=== PATIENT | male | born 1935 | race Caucasian/White ===

== ENCOUNTER 2017-04-21 16:42 | Inpatient (IN) | payer OTHER ==
--- NOTE | 2017-04-21 17:43 | ED Physician Chart ---
ED Chief Complaint/HPI - Patient Information Date Seen:: 04/21/17 Time Seen:: 17:00 Chief Complaint:: elevated white blood cell count History of Present Illness:: Patient sent here for WBC count of 70,000. Allergies:: Allergies Allergy/AdvReac Type Severity Reaction Status Date / Time Penicillins [PCN] AdvReac Verified 04/21/17 17:09 Vitals:: Vital Signs - 8 hr 04/21/17 17:10 Temp 98.4 F HR 70 RR 16 BP 131/71 O2 Sat % 98 Historian:: Patient, EMS Review:: Nurse's Note Reviewed ED Review of Systems - Review of Systems General/Constitutional: No fever Skin: No skin lesions Head: No headache Eyes: No loss of vision ENT: No earache Neck: Swelling Cardio Vascular: No chest pain Pulmonary: No SOB GI: No nausea, No vomiting G/U: No dysuria Musculoskeletal: No bone or joint pain Endocrine: No polyuria Psychiatric: Other (dementia) Hematopoietic: No bruising Allergic/Immuno: No urticaria Neurological: No syncope, No focal symptoms ED Past Medical History - Past Medical History Past Medical History: HTN, Dyslipidemia, Dementia, Other (hyperlipidemia; angina ; cardiac arrhythmia; acute lymphoblastic leukemia; arthritis) Family History: None Social History: Non Smoker, No Alcohol, Care Facility Surgical History: other (hip replacement) Psychiatricy History: Dementia Family Medical History - Family Member Mother Hx Family Cancer: No Hx Family Stroke: No Hx Family Seizures: No Hx Family Dementia: No Hx Family AIDS: No Hx Family COPD: No Hx Family Psychiatric Problems: No ED Physical Exam - Physical Examination General/Constitutional: Alert Other Gen/Cons comments:: States the year is 2017 Head: Atraumatic Eyes: Lids, conjuctiva normal Skin: Nl inspection ENMT: External ears, nose nl Neck: No nuchal rigidity Respiratory: Nl effort/Exclusion, Clear to Auscultation Cardio Vascular: RRR GI: No tenderness/rebounding/guarding, No organomegaly : No CVA tenderness Extremities: No tenderness or effusion, Normal digits & nails Other Extremities comments:: Left pretibial area 2 out of 4 pitting edema, right 3.5/4 Neuro/Psych: No focal deficits Misc: No paraspinal tenderness ED Assessment - Assessment General Assessment: This patient probably has leukemia. I talked to Dr. Walter Peck and patient to be admitted. ED Septic Shock - . Is Septic Shock (SBP<90, OR Lactate>4 mmol\L) present?: No - <6hrs of presentation: Vital Signs: Vital Signs - 8 hr 04/21/17 17:10 Temp 98.4 F HR 70 RR 16 BP 131/71 O2 Sat % 98 ED Discharge Plan - Patient Disposition Admit/Discharge/Transfer: Acute Care w/in this hosp
[2017-04-21 22:13] LABS: URINE MICROSCOPIC INDICATED? YES; URINE SOURCE RANDOM
[2017-04-21 22:20] LABS: URINE BILIRUBIN NEGATIVE (NEGATIVE); URINE BLOOD SMALL (NEGATIVE); URINE GLUCOSE (UA) NEGATIVE (NEGATIVE); URINE KETONE NEGATIVE (NEGATIVE); URINE LEUKOCYTE ESTERASE SMALL (NEGATIVE); URINE NITRATE POSITIVE (NEGATIVE); URINE PROTEIN NEGATIVE (NEGATIVE); URINE UROBILINOGEN 0.2 E.U./dL (0.2 - 1.0)
[2017-04-21 22:24] LABS: HEMATOCRIT 36.1 % (41.0-60); MEAN CELL VOLUME 88.6 fl (80-99); MEAN CORPUSCULAR HEMOGLOBIN 29.4 pg (27.0-31.0); MEAN CORPUSCULAR HGB CONC 33.2 pg (28.0-36.0); MEAN PLATELET VOLUME 9.4 fl; PLATELET COUNT 269 Th/cmm (150-400); RED BLOOD COUNT 4.08 Mil/cmm (3.80-5.80); RED CELL DISTRIBUTION WIDTH 13.5 % (11.5-20.0)
[2017-04-21 22:28] LABS: ALB/GLOB RATIO 0.9 (1.0-1.8); ALBUMIN 2.9 gm/dL (4.2-5.5); ALKALINE PHOSPHATASE 47 U/L (34-104); ANION GAP 8.3 (7.0-16.0); BILIRUBIN,TOTAL 0.4 mg/dL (0.3-1.0); BUN - UREA NITROGEN 16 mg/dL (7-25); CALCIUM SERUM 8.2 mg/dL (8.6-10.3); CARBON DIOXIDE 26.9 mEq/L (21.0-31.0); CHLORIDE 103 mEq/L (98-107); CREATININE - SERUM 0.8 mg/dL (0.7-1.3); GLUCOSE 112 mg/dL (70-105); POTASSIUM SERUM 4.2 mEq/L (3.5-5.1); SGOT 21 U/L (13-39); SGPT/ALT 22 U/L (7-52); SODIUM SERUM 134 mEq/L (136-145); TOTAL PROTEIN,SERUM 6.3 gm/dL (6.0-8.3)
[2017-04-21 22:34] LABS: URINE CLARITY HAZY (CLEAR); URINE COLOR YELLOW
[2017-04-21 22:36] LABS: URINE BACTERIA MODERATE /hpf (NONE SEEN); URINE EPITHELIAL CELLS FEW /lpf (FEW)
[2017-04-21 22:39] LABS: WHITE BLOOD COUNT 75.4 Th/cmm (4.8-10.8)
[2017-04-21] MEDS ORDERED: Ciprofloxacin 400mg Premix PB 400 MG/200 ML BAG IV ONE ×2 (22:48→22:53)
[2017-04-22 00:27] LABS: BAND NEUTROPHILE 1 % (0-10); NEUTROPHILS 17 % (40-80); TOTAL CELLS COUNTED 100
[2017-04-22 00:28] LABS: BASOPHIL 1 % (0-3); EOSINOPHIL 2 % (0-5); MONOCYTE 3 % (2-10); PLATELET ESTIMATE ADEQUATE (NORMAL)
[2017-04-22 00:29] LABS: LYMPHOCYTE 78 % (20-50)
[2017-04-22] MEDS ORDERED: D5-0.9%NS 1,000 ML IV SCH (06:49)
[2017-04-23 10:36] LABS: BASOPHILE ABSOLUTE 0.4 Th/cumm (0-0.2); EOSINOPHILE ABSOLUTE 0.6 Th/cmm (0.1-0.4); HEMOGLOBIN 12.6 gm/dL (12-16); NEUTROPHILE ABSOLUTE 4.6 Th/cmm (1.8-8.0)
[2017-04-23 10:39] LABS: % LYMPHOCYTES 86.3 % (20.0-50.0); % MONOCYTES 5.2 % (2.0-10.0); HEMATOCRIT 39.1 % (41.0-60); LYMPHOCYTE ABSOLUTE 56.7 Th/cmm (1.5-3.0); MEAN CELL VOLUME 88.1 fl (80-99); MEAN CORPUSCULAR HEMOGLOBIN 28.3 pg (27.0-31.0); MEAN CORPUSCULAR HGB CONC 32.2 pg (28.0-36.0); MEAN PLATELET VOLUME 8.4 fl; MONOCYTE ABSOLUTE 3.4 Th/cmm (0.3-1.0); PLATELET COUNT 265 Th/cmm (150-400); RED BLOOD COUNT 4.43 Mil/cmm (3.80-5.80); RED CELL DISTRIBUTION WIDTH 13.8 % (11.5-20.0)
[2017-04-23 10:47] LABS: WHITE BLOOD COUNT 65.7 Th/cmm (4.8-10.8)
--- NOTE | 2017-04-23 10:56 | History and Physical ---
History of Present Illness - HPI Chief Complaint: Elevated WBCs HPI: 82 year old male who was transferred to [facility] for elevated WBC's at the nursing and was brought here for further evaluation and treatment. While in the ER patient, intial labwork revealed Na 134+ K 4.2 Bun/cr 16/0.8 glu 112 WBC's 75.4K H/H 12/36 plat 269K UA + nitraite, small leuko bacteria moderate WBC's 6-10 cells PMH includes UTI, dementia, muscle weakness, neuropathy, OA, hyperlipidemia, h/ o leukemia Vital Signs: Last Vital Signs Temp 97.4 F 04/23/17 05:00 Pulse 68 04/23/17 05:00 Resp 18 04/23/17 05:00 BP 136/64 04/23/17 05:00 Pulse Ox 96 04/23/17 05:00 Past Medical History Cardiovascular: Report: HTN, Hyperlipidemia Pulmonary: Report: No Pertinent Hx [employer]: Report: Dementia GI: Report: No Pertinent Hx Psych: Report: Other (Dementia) Musculoskeletal: Report: Osteoarthritis Rheumatologic: Report: No pertinent Hx Infectious Disease: Report: No Pertinent Hx Renal/: Report: No Pertinent Hx Endocrine: Report: No Pertinent Hx Dermatology: Report: No Pertinent Hx Other History: CLL - Past Surgical History Past Surgical History: No pertinent Hx Family Medical History - Family Member Mother History Unknown: Yes Hx Family Cancer: No Hx Family Stroke: No Hx Family Seizures: No Hx Family Dementia: No Hx Family AIDS: No Hx Family COPD: No Hx Family Psychiatric Problems: No Social History Smoke: No Alcohol: None Drugs: None Lives: Skilled Nursing - Medications Home Medications: Home Medication Medication Instructions Recorded Type Acetaminophen [Tylenol] 650 mg PO Q4HR PRN 04/21/17 History Carvedilol [Coreg] 3.125 mg PO BID 04/21/17 History Gabapentin [Neurontin*] 300 mg PO BID 04/21/17 History Lactulose 30 ml PO DAILY 04/21/17 History - Allergies Allergies/Adverse Reactions: Allergies Allergy/AdvReac Type Severity Reaction Status Date / Time Penicillins [PCN] AdvReac Verified 04/21/17 17:09 Review of Systems - Review of Systems Constitutional: Report: No Significant Eyes: Report: No Significant ENT: Report: No Significant Respiratory: Report: No Significant Cardiovascular: Report: No Significant Gastrointestinal: Report: No Significant Genitourinary: Report: No Significant Musculoskeletal: Report: No Significant Skin: Report: No Significant Neurological: Report: No Significant Physical Exam - Physical Exam HEENT: Report: Ears Nose Throat within normal limits, Pharnyx within normal limits Neck: Report: Within normal limits, Thyromegaly Cardiovascular Systems: Report: +s1/s2 noted, Regular, Rate and Rhythm Respiratory: Report: Breath Sounds are within normal limits Back: Report: Inspection of back is within normal limits. Extremities: Report: Non-tender to palpation. Skin: Report: Color of skin is within normal limits, Warm Neuro/Psych: Report: Mood affect is within normal limits, A+Ox3 - Lab Results All Lab Results last 24 hours: Laboratory Results - last 24 hr 04/21/17 04/23/17 21:38 10:25 WBC 65.7 H* RBC 4.43 Hgb 12.6 Hct 39.1 L MCV 88.1 MCH 28.3 MCHC Differential 32.2 RDW 13.8 Plt Count 265 MPV 8.4 Lymphocytes % 86.3 H Monocytes % 5.2 Smear Path Review YES Microbiology 04/21/17 23:05 - Preliminary Blood NO GROWTH AFTER 24 HOURS - Assessment Assessment: Leukocytosis hypocalcemia UTI HTN dyslipidemia Dementia - Plan Plan: Will order CT chest/abd/pelvis repeat CBC,CMP Consult ID Consult Hem/Onc continue home meds start patient on IV Levofloxacin
[2017-04-23 10:58] LABS: ANION GAP 6.5 (7.0-16.0); BUN - UREA NITROGEN 13 mg/dL (7-25); CALCIUM SERUM 8.3 mg/dL (8.6-10.3); CARBON DIOXIDE 30.4 mEq/L (21.0-31.0); CHLORIDE 103 mEq/L (98-107); GLUCOSE 200 mg/dL (70-105); POTASSIUM SERUM 3.9 mEq/L (3.5-5.1); SODIUM SERUM 136 mEq/L (136-145)
[2017-04-23] MEDS: Levofloxacin 500mg/100mL 500 MG/100 ML BAG IV SCH (12:51)
--- NOTE | 2017-04-23 13:27 | Diagnostic Imaging Report ---
CT Chest without IV contrast HISTORY: Leukemia COMPARISON: CT abdomen and pelvis the same day. Technique: Axial images were obtained from the base of the neck to the upper abdomen without IV contrast. Reconstructions were made. Total DLP 471, CTD I 11 Findings: Evaluation of mediastinum is limited due to lack of IV contrast. Few nonenlarged mediastinal lymph nodes are noted. Mild to moderate atherosclerotic vascular disease is noted. No pericardial effusion. Heart size is normal. Evaluation of pulmonary parenchyma demonstrates patchy infiltrates involving the inferior aspect of the right upper lobe and additional right lower lobe infiltrates. Few left basal infiltrates are also seen with minimal consolidative changes. Advanced degenerative changes of the spine are noted. Borderline prominent bilateral axillary lymph nodes are noted. IMPRESSION: Multifocal right lung infiltrates primarily involving the inferior aspect of the right upper lobe and right additional right lower lobe infiltrates. Additional few left basal infiltrates are also noted. Findings favor infectious process/pneumonia, however, given clinical history follow-up is recommended to ensure resolution and exclude neoplastic process Few nonenlarged mediastinal lymph nodes nonspecific. Borderline prominent bilateral axillary lymph nodes. Mild to moderate atherosclerotic vascular disease.
--- NOTE | 2017-04-23 13:34 | Diagnostic Imaging Report ---
CT abdomen and pelvis without intravenous contrast Indication: Leukemia Comparison: Chest CT performed the same day, Technique: Axial images were obtained from the lung bases to the bilateral proximal femurs without IV contrast. Coronal reconstructions were made. total DLP: 979, CTDI16.1 FINDINGS: Please refer to CT chest performed the same day for further details of the lung bases. There is elevation of the right hemidiaphragm. Evaluation of the solid organs is limited due to lack of IV contrast. Calcifications are seen along the gallbladder wall with gallstones also noted. No evidence of focal splenic lesions. Pancreatic gland atrophy is noted. No focal adrenal lesions. There is a 7 cm right inferior pole renal cyst and a 4 mm right upper pole renal cysts. No hydronephrosis. 3 mm nonobstructive right renal stone is noted. Mild nonspecific bilateral perinephric inflammatory changes are noted. A left hip arthroplasty with streak artifact limiting assessment of the pelvis. Bilateral small fat-containing hernias are noted. Distal fecal impaction is noted. Moderate stool is seen throughout the colon with a. Distended stomach is noted. There is minimal haziness of the mesenteric fat planes. 4 mm calcified right mesenteric lymph node are noted. No evidence of mesenteric lymphadenopathy. Borderline prominent retroperitoneal lymph nodes are noted. An infrarenal IVC filter is noted. Diffuse atherosclerotic vascular disease is noted. No evidence of free abdominal fluid or free abdominal air. There is mild generalized prominence the urinary bladder wall. Advanced degenerative changes of the spine are noted. Degenerative changes right hip joint also noted. IMPRESSION: Limited exam due to lack of IV contrast and streak artifact from patient's left hip arthroplasty. Diverticulosis without evidence of diverticulitis. Distal fecal impaction is also noted. Distended stomach. No evidence of small bowel obstruction. Gallstones and mild calcification of the gallbladder wall. Early porcelain gallbladder formation cannot be completely excluded. Mild nonspecific inflammatory changes of the mesentery. Borderline prominent multiple retroperitoneal lymph nodes are, nonspecific, however, given clinical history follow-up is suggested. 3 mm nonobstructing right renal stone. Right renal cysts. Mild prominence of the urinary bladder wall. Underlying inflammatory process cannot be excluded. Atherosclerotic vascular disease. IVC filter.
--- NOTE | 2017-04-23 15:03 | Consultation ---
Consult Note - Consult Note Service Date: 04/23/17 Referring Physician: Walter Peck Consult Note: PHYSICIAN Consultation Note: Date of Admission: 04/21/17 Purpose of Consultation: Chief Complaint: Patient SINCERE MURO was admitted to location Medical[facility]Surgical Unit I with LEUKOCYTOSIS,URINARY TRACT INFECTION,LEUKEMIA. History of Present Illness: 82 year old malw qith history of CLL, HTN, Dementia, angina brought from nursing facility for WBC count of 70,000. He was found to have UTI and levaquin was started. ID consult was called for increased WBC Count. Past Medical History: HTN, Dyslipidemia, Dementia, hyperlipidemia; angina; cardiac arrhythmia; Chronic lymphoblastic leukemia; arthritis. Allergies Allergy/AdvReac Type Severity Reaction Status Date / Time Penicillins [PCN] AdvReac Verified 04/21/17 17:09 Vital Signs Temp 97.0 F 04/23/17 12:00 Pulse 78 04/23/17 12:51 Resp 20 04/23/17 12:00 BP 129/61 04/23/17 12:51 Pulse Ox 96 04/23/17 12:00 Intake & Output 04/22/17 04/23/17 04/23/17 18:59 06:59 18:59 Weight (lbs) 110.677 kg 106.231 kg Other: # Voids 1 # Bowel Movements 0 Laboratory Results - last 24 hr 04/23/17 04/23/17 10:25 10:25 WBC 65.7 H* RBC 4.43 Hgb 12.6 Hct 39.1 L MCV 88.1 MCH 28.3 MCHC Differential 32.2 RDW 13.8 Plt Count 265 MPV 8.4 Lymphocytes % 86.3 H Monocytes % 5.2 Sodium 136 Potassium 3.9 Chloride 103 Carbon Dioxide 30.4 Anion Gap 6.5 L BUN 13 Creatinine 1.0 Est GFR ( Amer) TNP Est GFR (Non-Af Amer) TNP BUN/Creatinine Ratio 13.0 Glucose 200 H Calcium 8.3 L Home Medication Medication Instructions Recorded Type Acetaminophen [Tylenol] 650 mg PO Q4HR PRN 04/21/17 History Carvedilol [Coreg] 3.125 mg PO BID 04/21/17 History Gabapentin [Neurontin*] 300 mg PO BID 04/21/17 History Lactulose 30 ml PO DAILY 04/21/17 History Current Medications Generic Name Dose Route Start Last Admin Trade Name Freq PRN Reason Stop Dose Admin Acetaminophen 650 mg 04/23/17 10:14 Tylenol PO 06/22/17 10:13 Q4HR PRN Pain (Mild) Carvedilol 3.125 mg 04/23/17 10:45 04/23/17 12:51 Coreg PO 06/22/17 10:44 3.125 mg BID [facility]ERMIT Administration Gabapentin 300 mg 04/23/17 10:45 04/23/17 12:51 Neurontin PO 06/22/17 10:44 300 mg BID [facility]MIT Administration Dextrose/Sodium Chloride 1,000 mls @ 50 mls/hr 04/22/17 06:49 04/22/17 15:49 D5-0.9%Ns IV 06/21/17 06:48 50 mls/hr .Q20H KERMIT Administration Levofloxacin 500 mg in 100 mls @ 100 mls/hr 04/23/17 11:00 04/23/17 12:51 Levaquin Pb IV 06/22/17 10:59 100 mls/hr Q24HR KERMIT Administration Lactulose 20 gm 04/24/17 09:00 Cephulac PO 06/23/17 08:59 DAILY [facility] Lorazepam 1 mg 04/22/17 20:44 04/22/17 22:23 Ativan PO 06/21/17 20:43 1 mg Q6HR PRN Administration agitation and restlessness Protocol Risperidone 0.25 mg 04/23/17 17:00 Risperdal PO 06/22/17 16:59 BID [facility]ERMIT Protocol Review of Systems: A 12 point ROS was reviewed with the pertinent positive and negatives noted in the HPI. Social History Smoking Status Smoker, status unknown Drug Use No Alcohol Use No Family Medical History Family Medical History Start: 04/22/17 13: 54 Freq: ONCE Status: Active Document 04/22/17 14:30 DOROZCO (Rec: 04/22/17 14:30 DOROZCO [id number]) Family Medical History Mother History Unknown Yes Physical Exam: General: WN WD not in any acute distress. HEENT: Head normocephalic atraumatic moist pink tongue. Neck: supple, no JVD. Cardio: S1, S2 regular. Respiratory: vesicular breath sound. Abdominal: Soft NT ND BS present. Genital/Urinary: Extremities: NCCE. Neurological: AAOx3. Assessment: 1. UTI. 2. 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 3. CLL. 4. HTN. 5. Dyslipidemia. 6. Dementia. 7. Hyperlipidemia. 8. Angina. 9. Cardiac arrhythmia. Plan: Continue levaquin. Thank you Dr Peck for involving me in taking care of this patient. Signed, Cas Frias M.D. [id number]
--- NOTE | 2017-04-23 15:49 | Consultation ---
DATE OF CONSULTATION: 04/23/2017 HEMATOLOGY ONCOLOGY CONSULTATION REFERRING PHYSICIAN: Stepan Peck M.D. REASON FOR CONSULTATION: Leukocytosis. HISTORY OF PRESENT ILLNESS: The patient is in an 82-year-old male who was admitted because of markedly elevated white count more than 70,000 and change in mental status. The patient has baseline dementia history. His repeat white count remained elevated with mostly lymphocytes. Therefore, I was asked to evaluate. No reported history of bleeding. PAST MEDICAL HISTORY: Dyslipidemia, coronary artery disease, cardiac arrhythmia, arthritis, hypertension. SOCIAL HISTORY: Nonsmoker and nondrinker. PST SURGICAL HISTORY: Bilateral knee replacement. PHYSICAL EXAMINATION: GENERAL: The patient is awake. VITAL SIGNS: Afebrile, blood pressure 130/70, temp 98.4. NECK: No peripheral lymphadenopathy. CHEST: Clear. ABDOMEN: Soft. No organomegaly. EXTREMITIES: Hyperpigmentation on both ankles. NERVOUS SYSTEM: Moves 4 extremities. No focal deficits. LABORATORY DATA: White count 65.7, lymphocytes 86%, neutrophils 17%, hemoglobin 12.6, platelets 265. Creatinine 1. Liver functions normal. Urinalysis positive nitrite and elevated white count. ASSESSMENT: Leukocytosis with predominant lymphocytosis most likely chronic lymphocytic leukemia. We will obtain flow cytometry and uric acid and LDH. The patient will need FISH panel for CLL prognostic panel and also I need a bone marrow biopsy as an outpatient. His current hemoglobin and platelet count are stable and there is no need for intervention at this time. If the FISH prognostic panel indicates high risk or the CBC becomes unstable, then intervention with treatment will be required. Thank you, Dr. Peck, for the opportunity to participate in the care of this interesting case with you. JOB# [id number]
[2017-04-23 18:02] LABS: URIC ACID 4.9 mg/dL (4.4-7.6)
[2017-04-23] MEDS: Sodium Chloride 0.9% 1,000 ML IV SCH (18:16)
--- NOTE | 2017-04-23 23:06 | Consultation ---
DATE OF CONSULTATION: 04/23/2017 IDENTIFYING INFORMATION: The patient is an 82-year-old male. REASON FOR CONSULTATION: I was asked to see this patient who had been admitted to the services of Dr. Peck; however, he was aggressive, but then he was admitted to the medical floor because of leukocytosis. The patient was a poor historian. He was irritable and paranoid. He was hard to redirect, easily agitated, unable to participate in a meaningful conversation. The patient reported he had many children, but he has not seen them in years. He was rambling, unable to tell me his age, where he is, why he is here, believes he is in a nursing facility. He seems to be demented and confused. PAST PSYCHIATRIC HISTORY: Unable to tell me if he has any prior psychiatric treatment. When I asked about that, he said he knows what the psychiatrists do but would not tell me if he was seen by a psychiatrist. Denies prior suicide attempt; however, he is not a good historian. The patient is on Neurontin 300 mg twice a day and levofloxacin 500 mg once a day. He is on Ativan as needed. FAMILY AND SOCIAL HISTORY: The patient was unable to tell me what he did for living, ____ school affairs and substance abuse, or any family history: He lives in a nursing facility. MENTAL STATUS EXAMINATION: The patient is appropriately dressed, not well groomed. He was irritable, paranoid, uncooperative with formal mental status exam, so I was unable to test his memory, it was obvious he could not tell me his age, where he is, why he is here. His long and short term memory is poor part of it because of his resistance to questioning with his paranoia and psychosis. His insight and judgment is impaired. IMPRESSION: AXIS I: Psychosis, NOS, also rule out delirium secondary to his medical condition. PLAN: I would recommend to add a small dose of Risperdal and the patient may need to go to [facility] when medically cleared and if he starts acting out then he may need 1:1. Thank you very much for allowing me to participate in the care of this most interesting gentleman. JOB# [id number]
[2017-04-24 06:38] LABS: BASOPHILE ABSOLUTE 0.1 Th/cumm (0-0.2); EOSINOPHILE ABSOLUTE 0.8 Th/cmm (0.1-0.4); HEMATOCRIT 36.8 % (41.0-60); LYMPHOCYTE ABSOLUTE 58.2 Th/cmm (1.5-3.0); MEAN CELL VOLUME 87.9 fl (80-99); MEAN CORPUSCULAR HEMOGLOBIN 28.7 pg (27.0-31.0); MEAN CORPUSCULAR HGB CONC 32.6 pg (28.0-36.0); MEAN PLATELET VOLUME 9.3 fl; MONOCYTE ABSOLUTE 3.5 Th/cmm (0.3-1.0); NEUTROPHILE ABSOLUTE 6.3 Th/cmm (1.8-8.0); PLATELET COUNT 255 Th/cmm (150-400); RED BLOOD COUNT 4.19 Mil/cmm (3.80-5.80)
[2017-04-24 07:02] LABS: WHITE BLOOD COUNT 68.9 Th/cmm (4.8-10.8)
[2017-04-24 07:05] LABS: ANION GAP 8.5 (7.0-16.0); BUN - UREA NITROGEN 16 mg/dL (7-25); CALCIUM SERUM 8.3 mg/dL (8.6-10.3); CARBON DIOXIDE 29.8 mEq/L (21.0-31.0); CHLORIDE 105 mEq/L (98-107); POTASSIUM SERUM 4.3 mEq/L (3.5-5.1); SODIUM SERUM 139 mEq/L (136-145)
[2017-04-24 07:10] LABS: GLUCOSE 98 mg/dL (70-105)
--- NOTE | 2017-04-24 07:38 | General Progress Note ---
Subjective - Review of Systems Service Date: 04/24/17 Subjective: Patient was seen and examined. no acute distress. awake, alert, afebrile. Objective - Results Result Diagrams: 04/24/17 05:35 04/24/17 05:35 Recent Labs: Laboratory Last Values WBC 68.9 Th/cmm (4.8-10.8) H* 04/24/17 05:35 RBC 4.19 Mil/cmm (3.80-5.80) 04/24/17 05:35 Hgb 12.0 gm/dL (12-16) 04/24/17 05:35 Hct 36.8 % (41.0-60) L 04/24/17 05:35 MCV 87.9 fl (80-99) 04/24/17 05:35 MCH 28.7 pg (27.0-31.0) 04/24/17 05:35 MCHC Differential 32.6 pg (28.0-36.0) 04/24/17 05:35 RDW 14.0 % (11.5-20.0) 04/24/17 05:35 Plt Count 255 Th/cmm (150-400) 04/24/17 05:35 MPV 9.3 fl 04/24/17 05:35 Band Neutrophils % 1 % (0-10) 04/21/17 21:38 Lymphocytes % 86.3 % (20.0-50.0) H 04/23/17 10:25 Monocytes % 5.2 % (2.0-10.0) 04/23/17 10:25 Neutrophils (Manual) 17 % (40-80) L 04/21/17 21:38 Lymphocytes 78 % (20-50) H 04/21/17 21:38 Monocytes 3 % (2-10) 04/21/17 21:38 Eosinophils 2 % (0-5) 04/21/17 21:38 Basophils 1 % (0-3) 04/21/17 21:38 Platelet Estimate ADEQUATE (NORMAL) 04/21/17 21:38 Smear Path Review YES 04/21/17 21:38 Sodium 139 mEq/L (136-145) 04/24/17 05:35 Potassium 4.3 mEq/L (3.5-5.1) 04/24/17 05:35 Chloride 105 mEq/L (98-107) 04/24/17 05:35 Carbon Dioxide 29.8 mEq/L (21.0-31.0) 04/24/17 05:35 Anion Gap 8.5 (7.0-16.0) 04/24/17 05:35 BUN 16 mg/dL (7-25) 04/24/17 05:35 Creatinine 1.0 mg/dL (0.7-1.3) 04/24/17 05:35 Est GFR ( Amer) TNP 04/24/17 05:35 Est GFR (Non-Af Amer) TNP 04/24/17 05:35 BUN/Creatinine Ratio 16.0 04/24/17 05:35 Glucose 98 mg/dL (70-105) D 04/24/17 05:35 Whole Bld Lactic Acid 0.83 mmol/L (0.60-1.99) 04/21/17 21:38 Uric Acid 4.9 mg/dL (4.4-7.6) 04/23/17 15:06 Calcium 8.3 mg/dL (8.6-10.3) L 04/24/17 05:35 Total Bilirubin 0.4 mg/dL (0.3-1.0) 04/21/17 21:38 AST 21 U/L (13-39) 04/21/17 21:38 ALT 22 U/L (7-52) 04/21/17 21:38 Alkaline Phosphatase 47 U/L (34-104) 04/21/17 21:38 Lactate Dehydrogenase 152 U/L (140-271) 04/23/17 15:06 Total Protein 6.3 gm/dL (6.0-8.3) 04/21/17 21:38 Albumin 2.9 gm/dL (4.2-5.5) L 04/21/17 21:38 Globulin 3.4 gm/dL 04/21/17 21:38 Albumin/Globulin Ratio 0.9 (1.0-1.8) L 04/21/17 21:38 TSH 2.75 uIU/ml (0.34-5.60) 04/21/17 19:00 Urine Source RANDOM 04/21/17 22:07 Urine Color YELLOW 04/21/17 22:07 Urine Clarity HAZY (CLEAR) 04/21/17 22:07 Urine pH 6.0 (4.6 - 8.0) 04/21/17 22:07 Ur Specific Ione 1.015 (1.005-1.030) 04/21/17 22:07 Urine Protein NEGATIVE mg/dL (NEGATIVE) 04/21/17 22:07 Urine Glucose (UA) NEGATIVE mg/dL (NEGATIVE) 04/21/17 22:07 Urine Ketones NEGATIVE mg/dL (NEGATIVE) 04/21/17 22:07 Urine Blood SMALL (NEGATIVE) H 04/21/17 22:07 Urine Nitrate POSITIVE (NEGATIVE) H 04/21/17 22:07 Urine Bilirubin NEGATIVE (NEGATIVE) 04/21/17 22:07 Urine Urobilinogen 0.2 E.U./dL (0.2 - 1.0) 04/21/17 22:07 Ur Leukocyte Esterase SMALL (NEGATIVE) H 04/21/17 22:07 Urine RBC 2-5 /hpf (0-5) H 04/21/17 22:07 Urine WBC 6-10 /hpf (0-5) H 04/21/17 22:07 Ur Epithelial Cells FEW /lpf (FEW) 04/21/17 22:07 Urine Bacteria MODERATE /hpf (NONE SEEN) H 04/21/17 22:07 - Physical Exam Vitals and I&O: Vital Signs Temp 98.0 F 04/24/17 04:00 Pulse 84 04/24/17 04:00 Resp 19 04/24/17 04:00 BP 116/59 04/24/17 04:00 Pulse Ox 94 04/24/17 04:00 Intake & Output 04/23/17 04/24/17 04/24/17 18:59 06:59 18:59 Intake Total 600 1840 Balance 600 1840 Weight (lbs) 106.141 kg 104.326 kg Intake: Intake, IV Amount 1690 D5-0.9%Ns 1,000 ml @ 50 1000 mls/hr IV .Q20H [facility] Rx#: [id number] Levofloxacin 500mg/100mL 100 500 mg In 100 ml @ 100 mls/hr IV Q24HR KERMIT Rx#: [id number] Sodium Chloride 0.9% 1, 590 000 ml @ 50 mls/hr IV . Q20H KERMIT Rx#:[id number] Oral 600 150 Other: # Voids 2 2 # Bowel Movements 1 0 Active Medications: Current Medications Acetaminophen (Tylenol) 650 mg PO Q4HR PRN PRN Reason: Pain (Mild) Stop: 06/22/17 10:13 Carvedilol (Coreg) 3.125 mg PO BID [facility] Stop: 06/22/17 10:44 Last Admin: 04/23/17 18:16 Dose: 3.125 mg Gabapentin (Neurontin) 300 mg PO BID [facility] Stop: 06/22/17 10:44 Last Admin: 04/23/17 18:17 Dose: 300 mg Levofloxacin (Levaquin Pb) 500 mg in 100 mls @ 100 mls/hr IV Q24HR [facility] Stop: 06/22/17 10:59 Last Infusion: 04/23/17 19:41 Dose: Infused Sodium Chloride (Nacl 0.9%) 1,000 mls @ 50 mls/hr IV .Q20H [facility] Stop: 06/22/17 16:44 Last Infusion: 04/24/17 06:04 Dose: 50 mls/hr Lactulose (Cephulac) 20 gm PO DAILY [facility] Stop: 06/23/17 08:59 Lorazepam (Ativan) 1 mg PO Q6HR PRN; Protocol PRN Reason: agitation and restlessness Stop: 06/21/17 20:43 Last Admin: 04/22/17 22:23 Dose: 1 mg Risperidone (Risperdal) 0.25 mg PO BID [facility]ERMIT PRN Reason: Protocol Stop: 06/22/17 16:59 General: Alert HEENT: Atraumatic, PERRLA Neck: Supple Cardiovascular: Regular rate, Normal S1, Normal S2 Lungs: Clear to auscultation Abdomen: Bowel sounds, Soft Extremities: no Clubbing, no Cyanosis, no Edema Assessment/Plan - Assessment Assessment: Leukocytosis h/o CLL hypocalcemia UTI HTN dyslipidemia Dementia - Plan Plan: Will order CT chest/abd/pelvis repeat CBC,CMP Consult ID Consult Hem/Onc continue home meds continue IV Levofloxacin
[2017-04-24 08:41] LABS: EOSINOPHIL 2 % (0-5); LYMPHOCYTE 82 % (20-50); MONOCYTE 1 % (2-10); NEUTROPHILS 15 % (40-80); PLATELET ESTIMATE ADEQUATE (NORMAL); TOTAL CELLS COUNTED 100
[2017-04-24] MEDS: Lactulose 10 Gm/15 mL 30mL UDC PO SCH (10:07)
[2017-04-24] MEDS: Levofloxacin 500mg/100mL 500 MG/100 ML BAG IV SCH (11:26)
--- NOTE | 2017-04-24 13:19 | General Progress Note ---
Subjective - Review of Systems Service Date: 04/24/17 Objective - Results Result Diagrams: 04/24/17 05:35 04/24/17 05:35 Recent Labs: Laboratory Last Values WBC 68.9 Th/cmm (4.8-10.8) H* 04/24/17 05:35 RBC 4.19 Mil/cmm (3.80-5.80) 04/24/17 05:35 Hgb 12.0 gm/dL (12-16) 04/24/17 05:35 Hct 36.8 % (41.0-60) L 04/24/17 05:35 MCV 87.9 fl (80-99) 04/24/17 05:35 MCH 28.7 pg (27.0-31.0) 04/24/17 05:35 MCHC Differential 32.6 pg (28.0-36.0) 04/24/17 05:35 RDW 14.0 % (11.5-20.0) 04/24/17 05:35 Plt Count 255 Th/cmm (150-400) 04/24/17 05:35 MPV 9.3 fl 04/24/17 05:35 Band Neutrophils % 1 % (0-10) 04/21/17 21:38 Lymphocytes % 86.3 % (20.0-50.0) H 04/23/17 10:25 Monocytes % 5.2 % (2.0-10.0) 04/23/17 10:25 Neutrophils (Manual) 15 % (40-80) L 04/24/17 05:35 Lymphocytes 82 % (20-50) H 04/24/17 05:35 Monocytes 1 % (2-10) L 04/24/17 05:35 Eosinophils 2 % (0-5) 04/24/17 05:35 Basophils 1 % (0-3) 04/21/17 21:38 Platelet Estimate ADEQUATE (NORMAL) 04/24/17 05:35 Smear Path Review YES 04/21/17 21:38 Sodium 139 mEq/L (136-145) 04/24/17 05:35 Potassium 4.3 mEq/L (3.5-5.1) 04/24/17 05:35 Chloride 105 mEq/L (98-107) 04/24/17 05:35 Carbon Dioxide 29.8 mEq/L (21.0-31.0) 04/24/17 05:35 Anion Gap 8.5 (7.0-16.0) 04/24/17 05:35 BUN 16 mg/dL (7-25) 04/24/17 05:35 Creatinine 1.0 mg/dL (0.7-1.3) 04/24/17 05:35 Est GFR ( Amer) TNP 04/24/17 05:35 Est GFR (Non-Af Amer) TNP 04/24/17 05:35 BUN/Creatinine Ratio 16.0 04/24/17 05:35 Glucose 98 mg/dL (70-105) D 04/24/17 05:35 Whole Bld Lactic Acid 0.83 mmol/L (0.60-1.99) 04/21/17 21:38 Uric Acid 4.9 mg/dL (4.4-7.6) 04/23/17 15:06 Calcium 8.3 mg/dL (8.6-10.3) L 04/24/17 05:35 Total Bilirubin 0.4 mg/dL (0.3-1.0) 04/21/17 21:38 AST 21 U/L (13-39) 04/21/17 21:38 ALT 22 U/L (7-52) 04/21/17 21:38 Alkaline Phosphatase 47 U/L (34-104) 04/21/17 21:38 Lactate Dehydrogenase 152 U/L (140-271) 04/23/17 15:06 Total Protein 6.3 gm/dL (6.0-8.3) 04/21/17 21:38 Albumin 2.9 gm/dL (4.2-5.5) L 04/21/17 21:38 Globulin 3.4 gm/dL 04/21/17 21:38 Albumin/Globulin Ratio 0.9 (1.0-1.8) L 04/21/17 21:38 TSH 2.75 uIU/ml (0.34-5.60) 04/21/17 19:00 Urine Source RANDOM 04/21/17 22:07 Urine Color YELLOW 04/21/17 22:07 Urine Clarity HAZY (CLEAR) 04/21/17 22:07 Urine pH 6.0 (4.6 - 8.0) 04/21/17 22:07 Ur Specific [place] 1.015 (1.005-1.030) 04/21/17 22:07 Urine Protein NEGATIVE mg/dL (NEGATIVE) 04/21/17 22:07 Urine Glucose (UA) NEGATIVE mg/dL (NEGATIVE) 04/21/17 22:07 Urine Ketones NEGATIVE mg/dL (NEGATIVE) 04/21/17 22:07 Urine Blood SMALL (NEGATIVE) H 04/21/17 22:07 Urine Nitrate POSITIVE (NEGATIVE) H 04/21/17 22:07 Urine Bilirubin NEGATIVE (NEGATIVE) 04/21/17 22:07 Urine Urobilinogen 0.2 E.U./dL (0.2 - 1.0) 04/21/17 22:07 Ur Leukocyte Esterase SMALL (NEGATIVE) H 04/21/17 22:07 Urine RBC 2-5 /hpf (0-5) H 04/21/17 22:07 Urine WBC 6-10 /hpf (0-5) H 04/21/17 22:07 Ur Epithelial Cells FEW /lpf (FEW) 04/21/17 22:07 Urine Bacteria MODERATE /hpf (NONE SEEN) H 04/21/17 22:07 - Physical Exam Vitals and I&O: Vital Signs Temp 98.0 F 04/24/17 04:00 Pulse 71 04/24/17 10:07 Resp 19 04/24/17 04:00 BP 120/64 04/24/17 10:07 Pulse Ox 94 04/24/17 04:00 Intake & Output 04/23/17 04/24/17 04/24/17 18:59 06:59 18:59 Intake Total 600 1840 Balance 600 1840 Weight (lbs) 106.141 kg 104.326 kg Intake: Intake, IV Amount 1690 D5-0.9%Ns 1,000 ml @ 50 1000 mls/hr IV .Q20H [facility] Rx#: [id number] Levofloxacin 500mg/100mL 100 500 mg In 100 ml @ 100 mls/hr IV Q24HR [facility] Rx#: [id number] Sodium Chloride 0.9% 1, 590 000 ml @ 50 mls/hr IV . Q20H [facility] Rx#:[id number] Oral 600 150 Other: # Voids 2 2 # Bowel Movements 1 0 Active Medications: Current Medications Acetaminophen (Tylenol) 650 mg PO Q4HR PRN PRN Reason: Pain (Mild) Stop: 06/22/17 10:13 Carvedilol (Coreg) 3.125 mg PO BID [facility] Stop: 06/22/17 10:44 Last Admin: 04/24/17 10:07 Dose: 3.125 mg Gabapentin (Neurontin) 300 mg PO BID [facility] Stop: 06/22/17 10:44 Last Admin: 04/24/17 10:07 Dose: 300 mg Levofloxacin (Levaquin Pb) 500 mg in 100 mls @ 100 mls/hr IV Q24HR [facility] Stop: 06/22/17 10:59 Last Admin: 04/24/17 11:26 Dose: 100 mls/hr Sodium Chloride (Nacl 0.9%) 1,000 mls @ 50 mls/hr IV .Q20H [facility] Stop: 06/22/17 16:44 Last Infusion: 04/24/17 06:04 Dose: 50 mls/hr Lactulose (Cephulac) 20 gm PO DAILY [facility] Stop: 06/23/17 08:59 Last Admin: 04/24/17 10:07 Dose: 20 gm Lorazepam (Ativan) 1 mg PO Q6HR PRN; Protocol PRN Reason: agitation and restlessness Stop: 06/21/17 20:43 Last Admin: 04/22/17 22:23 Dose: 1 mg Risperidone (Risperdal) 0.25 mg PO BID [facility] PRN Reason: Protocol Stop: 06/22/17 16:59 General: Alert HEENT: Atraumatic, PERRLA Neck: Supple Cardiovascular: Regular rate, Normal S1, Normal S2 Lungs: Clear to auscultation Abdomen: Bowel sounds, Soft Extremities: no Clubbing, no Cyanosis, no Edema Assessment/Plan - Assessment Assessment: * Leukocytosis /Lymphocytosis likely CLL * Dementia Follow result of flowcytometry will need bone marrow biopsy as outpatient for FISH Panel uric acid and LDH are normal
[2017-04-24 14:30] LABS: A1C % 7.1 % (4.0-6.0)
[2017-04-24] MEDS: Sodium Chloride 0.9% 1,000 ML IV SCH ×2 (17:01→21:12)
--- NOTE | 2017-04-24 17:53 | Infectious Disease Prog Note ---
Infectious Disease Subjective - Review of Systems Service Date: 04/24/17 Events since last encounter: There is no new event, no fever. Subjective: Comfortable, no shortness of breath. Infectious Disease Objective - Results Result Diagrams: 04/26/17 05:20 04/26/17 05:20 Recent Labs: Laboratory Last Values WBC 68.9 Th/cmm (4.8-10.8) H* 04/24/17 05:35 RBC 4.19 Mil/cmm (3.80-5.80) 04/24/17 05:35 Hgb 12.0 gm/dL (12-16) 04/24/17 05:35 Hct 36.8 % (41.0-60) L 04/24/17 05:35 MCV 87.9 fl (80-99) 04/24/17 05:35 MCH 28.7 pg (27.0-31.0) 04/24/17 05:35 MCHC Differential 32.6 pg (28.0-36.0) 04/24/17 05:35 RDW 14.0 % (11.5-20.0) 04/24/17 05:35 Plt Count 255 Th/cmm (150-400) 04/24/17 05:35 MPV 9.3 fl 04/24/17 05:35 Band Neutrophils % 1 % (0-10) 04/21/17 21:38 Lymphocytes % 86.3 % (20.0-50.0) H 04/23/17 10:25 Monocytes % 5.2 % (2.0-10.0) 04/23/17 10:25 Neutrophils (Manual) 15 % (40-80) L 04/24/17 05:35 Lymphocytes 82 % (20-50) H 04/24/17 05:35 Monocytes 1 % (2-10) L 04/24/17 05:35 Eosinophils 2 % (0-5) 04/24/17 05:35 Basophils 1 % (0-3) 04/21/17 21:38 Platelet Estimate ADEQUATE (NORMAL) 04/24/17 05:35 Smear Path Review YES 04/21/17 21:38 Sodium 139 mEq/L (136-145) 04/24/17 05:35 Potassium 4.3 mEq/L (3.5-5.1) 04/24/17 05:35 Chloride 105 mEq/L (98-107) 04/24/17 05:35 Carbon Dioxide 29.8 mEq/L (21.0-31.0) 04/24/17 05:35 Anion Gap 8.5 (7.0-16.0) 04/24/17 05:35 BUN 16 mg/dL (7-25) 04/24/17 05:35 Creatinine 1.0 mg/dL (0.7-1.3) 04/24/17 05:35 Est GFR ( Amer) TNP 04/24/17 05:35 Est GFR (Non-Af Amer) TNP 04/24/17 05:35 BUN/Creatinine Ratio 16.0 04/24/17 05:35 Glucose 98 mg/dL (70-105) D 04/24/17 05:35 Hemoglobin A1c % 7.1 % (4.0-6.0) H 04/23/17 10:25 Whole Bld Lactic Acid 0.83 mmol/L (0.60-1.99) 04/21/17 21:38 Uric Acid 4.9 mg/dL (4.4-7.6) 04/23/17 15:06 Calcium 8.3 mg/dL (8.6-10.3) L 04/24/17 05:35 Total Bilirubin 0.4 mg/dL (0.3-1.0) 04/21/17 21:38 AST 21 U/L (13-39) 04/21/17 21:38 ALT 22 U/L (7-52) 04/21/17 21:38 Alkaline Phosphatase 47 U/L (34-104) 04/21/17 21:38 Lactate Dehydrogenase 152 U/L (140-271) 04/23/17 15:06 Total Protein 6.3 gm/dL (6.0-8.3) 04/21/17 21:38 Albumin 2.9 gm/dL (4.2-5.5) L 04/21/17 21:38 Globulin 3.4 gm/dL 04/21/17 21:38 Albumin/Globulin Ratio 0.9 (1.0-1.8) L 04/21/17 21:38 TSH 2.75 uIU/ml (0.34-5.60) 04/21/17 19:00 Urine Source RANDOM 04/21/17 22:07 Urine Color YELLOW 04/21/17 22:07 Urine Clarity HAZY (CLEAR) 04/21/17 22:07 Urine pH 6.0 (4.6 - 8.0) 04/21/17 22:07 Ur Specific [place] 1.015 (1.005-1.030) 04/21/17 22:07 Urine Protein NEGATIVE mg/dL (NEGATIVE) 04/21/17 22:07 Urine Glucose (UA) NEGATIVE mg/dL (NEGATIVE) 04/21/17 22:07 Urine Ketones NEGATIVE mg/dL (NEGATIVE) 04/21/17 22:07 Urine Blood SMALL (NEGATIVE) H 04/21/17 22:07 Urine Nitrate POSITIVE (NEGATIVE) H 04/21/17 22:07 Urine Bilirubin NEGATIVE (NEGATIVE) 04/21/17 22:07 Urine Urobilinogen 0.2 E.U./dL (0.2 - 1.0) 04/21/17 22:07 Ur Leukocyte Esterase SMALL (NEGATIVE) H 04/21/17 22:07 Urine RBC 2-5 /hpf (0-5) H 04/21/17 22:07 Urine WBC 6-10 /hpf (0-5) H 04/21/17 22:07 Ur Epithelial Cells FEW /lpf (FEW) 04/21/17 22:07 Urine Bacteria MODERATE /hpf (NONE SEEN) H 04/21/17 22:07 - Physical Exam Vitals and I&O: Vital Signs Temp 98 F 04/24/17 16:00 Pulse 75 04/24/17 17:00 Resp 18 04/24/17 16:00 BP 105/56 04/24/17 17:00 Pulse Ox 94 04/24/17 16:00 Intake & Output 04/23/17 04/24/17 04/24/17 18:59 06:59 18:59 Intake Total 600 1840 510 Balance 600 1840 510 Weight (lbs) 106.141 kg 104.326 kg Intake: Intake, IV Amount 1690 510 D5-0.9%Ns 1,000 ml @ 50 1000 mls/hr IV .Q20H [facility] Rx#: [id number] Levofloxacin 500mg/100mL 100 100 500 mg In 100 ml @ 100 mls/hr IV Q24HR [facility] Rx#: [id number] Sodium Chloride 0.9% 1, 590 410 000 ml @ 50 mls/hr IV . Q20H [facility] Rx#:[id number] Oral 600 150 Other: # Voids 2 2 # Bowel Movements 1 0 Active Medications: Current Medications Acetaminophen (Tylenol) 650 mg PO Q4HR PRN PRN Reason: Pain (Mild) Stop: 06/22/17 10:13 Carvedilol (Coreg) 3.125 mg PO BID [facility] Stop: 06/22/17 10:44 Last Admin: 04/24/17 17:00 Dose: 3.125 mg Gabapentin (Neurontin) 300 mg PO BID [facility] Stop: 06/22/17 10:44 Last Admin: 04/24/17 17:00 Dose: 300 mg Levofloxacin (Levaquin Pb) 500 mg in 100 mls @ 100 mls/hr IV Q24HR [facility] Stop: 06/22/17 10:59 Last Infusion: 04/24/17 17:25 Dose: Infused Sodium Chloride (Nacl 0.9%) 1,000 mls @ 50 mls/hr IV .Q20H [facility] Stop: 06/22/17 16:44 Last Admin: 04/24/17 17:01 Dose: 50 mls/hr Lactulose (Cephulac) 20 gm PO DAILY [facility] Stop: 06/23/17 08:59 Last Admin: 04/24/17 10:07 Dose: 20 gm Lorazepam (Ativan) 1 mg PO Q6HR PRN; Protocol PRN Reason: agitation and restlessness Stop: 06/21/17 20:43 Last Admin: 04/22/17 22:23 Dose: 1 mg Risperidone (Risperdal) 0.25 mg PO BID [facility] PRN Reason: Protocol Stop: 06/22/17 16:59 General: no acute distress, well developed, well nourished HEENT: atraumatic, normocephalic, PERRLA, EOMI, moist mucous membrane Neck: supple, no thyromegaly Cardiovascular: S1S2, regular Lungs: clear to auscultation bilaterally, clear to percussion Abdomen: soft, no tender, no distended Extremities: no cyanosis, no clubbing, no edema Neurological: awake, alert, oriented Infectious Disease Assmt/Plan - Assessment Assessment: Impression: 1. Leukocytosis, likely 2/2 CLL. 2. UTI. - Plan Plan: Continue the same meds.
[2017-04-24] MEDS: Budesonide 0.5 Mg/2 mL Ud HHN SCH (20:09)
[2017-04-24] MEDS: Albuterol/Ipratropium Neb 3 ML AERS HHN SCH ×2 (20:09→23:23)
[2017-04-25] MEDS: Albuterol/Ipratropium Neb 3 ML AERS HHN SCH ×8 (02:25→23:09)
--- NOTE | 2017-04-25 03:53 | Consultation ---
DATE OF CONSULTATION: 04/24/2017 PULMONARY CONSULTATION REASON FOR CONSULTATION: Shortness of breath, pneumonia, possibly bronchitis. HISTORY OF PRESENT ILLNESS: This is an 82-year-old gentleman, patient of Dr. Peck, lives in a convalescent home. The patient was brought up here because of increasing shortness of breath, etc. The patient basically was found to have fever because of persistent elevated white count associated with shortness of breath. Unfortunately, the patient is a very poor historian and has periods of confabulation. Exact detailed history from the patient is not available at this particular time. PAST MEDICAL HISTORY: He has a history of hypertension, questionable diabetes mellitus, etc. SOCIAL HISTORY: The patient lives in a convalescent home for a long time. Denies of any smoking. Denies of any other related issue except for possibly CLL. PHYSICAL EXAMINATION: GENERAL: This is an elderly looking gentlemen, very pleasant, awake, alert, oriented, not in any acute distress. VITAL SIGNS: The patient's recorded vital signs, temperature is 98, blood pressure 105/56, saturation 94 on 1 liter per minute. NECK: Veins not visualized. CHEST: Chest shows some occasional rhonchi with diminished air entry. HEART: Regular. ABDOMEN: Soft, nontender. EXTREMITIES: Show some chronic changes bilaterally. LABORATORY DATA: The patient's CT of the chest shows multifocal lung infiltrates, primarily involving inferior to the right upper lobe, right lower lobe as well as from the left basal area as well. The patient's other laboratory studies: Electrolytes are okay with BUN of 56, etc. ASSESSMENT: 1. The patient has possibly pneumonia, question aspiration. 2. 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 3. Suspect obstructive sleep apnea syndrome. PLANS AND SUGGESTIONS: We will give current antibiotic per ID, aggressive inhalation treatment. We will repeat and follow up chest x-ray, blood gases, etc. and go from there. JOB# [id number]
--- NOTE | 2017-04-25 06:26 | General Progress Note ---
Subjective - Review of Systems Service Date: 04/25/17 Subjective: Patient was seen and examined. no acute distress. awake, alert, afebrile but confused Objective - Results Result Diagrams: 04/24/17 05:35 04/24/17 05:35 Recent Labs: Laboratory Last Values WBC 68.9 Th/cmm (4.8-10.8) H* 04/24/17 05:35 RBC 4.19 Mil/cmm (3.80-5.80) 04/24/17 05:35 Hgb 12.0 gm/dL (12-16) 04/24/17 05:35 Hct 36.8 % (41.0-60) L 04/24/17 05:35 MCV 87.9 fl (80-99) 04/24/17 05:35 MCH 28.7 pg (27.0-31.0) 04/24/17 05:35 MCHC Differential 32.6 pg (28.0-36.0) 04/24/17 05:35 RDW 14.0 % (11.5-20.0) 04/24/17 05:35 Plt Count 255 Th/cmm (150-400) 04/24/17 05:35 MPV 9.3 fl 04/24/17 05:35 Band Neutrophils % 1 % (0-10) 04/21/17 21:38 Lymphocytes % 86.3 % (20.0-50.0) H 04/23/17 10:25 Monocytes % 5.2 % (2.0-10.0) 04/23/17 10:25 Neutrophils (Manual) 15 % (40-80) L 04/24/17 05:35 Lymphocytes 82 % (20-50) H 04/24/17 05:35 Monocytes 1 % (2-10) L 04/24/17 05:35 Eosinophils 2 % (0-5) 04/24/17 05:35 Basophils 1 % (0-3) 04/21/17 21:38 Platelet Estimate ADEQUATE (NORMAL) 04/24/17 05:35 Smear Path Review YES 04/21/17 21:38 Sodium 139 mEq/L (136-145) 04/24/17 05:35 Potassium 4.3 mEq/L (3.5-5.1) 04/24/17 05:35 Chloride 105 mEq/L (98-107) 04/24/17 05:35 Carbon Dioxide 29.8 mEq/L (21.0-31.0) 04/24/17 05:35 Anion Gap 8.5 (7.0-16.0) 04/24/17 05:35 BUN 16 mg/dL (7-25) 04/24/17 05:35 Creatinine 1.0 mg/dL (0.7-1.3) 04/24/17 05:35 Est GFR ( Amer) TNP 04/24/17 05:35 Est GFR (Non-Af Amer) TNP 04/24/17 05:35 BUN/Creatinine Ratio 16.0 04/24/17 05:35 Glucose 98 mg/dL (70-105) D 04/24/17 05:35 Hemoglobin A1c % 7.1 % (4.0-6.0) H 04/23/17 10:25 Whole Bld Lactic Acid 0.83 mmol/L (0.60-1.99) 04/21/17 21:38 Uric Acid 4.9 mg/dL (4.4-7.6) 04/23/17 15:06 Calcium 8.3 mg/dL (8.6-10.3) L 04/24/17 05:35 Total Bilirubin 0.4 mg/dL (0.3-1.0) 04/21/17 21:38 AST 21 U/L (13-39) 04/21/17 21:38 ALT 22 U/L (7-52) 04/21/17 21:38 Alkaline Phosphatase 47 U/L (34-104) 04/21/17 21:38 Lactate Dehydrogenase 152 U/L (140-271) 04/23/17 15:06 Total Protein 6.3 gm/dL (6.0-8.3) 04/21/17 21:38 Albumin 2.9 gm/dL (4.2-5.5) L 04/21/17 21:38 Globulin 3.4 gm/dL 04/21/17 21:38 Albumin/Globulin Ratio 0.9 (1.0-1.8) L 04/21/17 21:38 TSH 2.75 uIU/ml (0.34-5.60) 04/21/17 19:00 Urine Source RANDOM 04/21/17 22:07 Urine Color YELLOW 04/21/17 22:07 Urine Clarity HAZY (CLEAR) 04/21/17 22:07 Urine pH 6.0 (4.6 - 8.0) 04/21/17 22:07 Ur Specific [place] 1.015 (1.005-1.030) 04/21/17 22:07 Urine Protein NEGATIVE mg/dL (NEGATIVE) 04/21/17 22:07 Urine Glucose (UA) NEGATIVE mg/dL (NEGATIVE) 04/21/17 22:07 Urine Ketones NEGATIVE mg/dL (NEGATIVE) 04/21/17 22:07 Urine Blood SMALL (NEGATIVE) H 04/21/17 22:07 Urine Nitrate POSITIVE (NEGATIVE) H 04/21/17 22:07 Urine Bilirubin NEGATIVE (NEGATIVE) 04/21/17 22:07 Urine Urobilinogen 0.2 E.U./dL (0.2 - 1.0) 04/21/17 22:07 Ur Leukocyte Esterase SMALL (NEGATIVE) H 04/21/17 22:07 Urine RBC 2-5 /hpf (0-5) H 04/21/17 22:07 Urine WBC 6-10 /hpf (0-5) H 04/21/17 22:07 Ur Epithelial Cells FEW /lpf (FEW) 04/21/17 22:07 Urine Bacteria MODERATE /hpf (NONE SEEN) H 04/21/17 22:07 - Physical Exam Vitals and I&O: Vital Signs Temp 97.5 F 04/25/17 00:00 Pulse 85 04/25/17 02:28 Resp 18 04/25/17 02:28 BP 134/85 04/25/17 00:00 Pulse Ox 94 04/25/17 02:28 Intake & Output 04/24/17 04/24/17 04/25/17 06:59 18:59 06:59 Intake Total 1840 510 809.167 Balance 1840 510 809.167 Weight (lbs) 104.326 kg 104.326 kg Intake: Intake, IV Amount 1690 510 209.167 D5-0.9%Ns 1,000 ml @ 50 1000 mls/hr IV .Q20H [facility] Rx#: [id number] Levofloxacin 500mg/100mL 100 100 500 mg In 100 ml @ 100 mls/hr IV Q24HR [facility] Rx#: [id number] Sodium Chloride 0.9% 1, 590 410 209.167 000 ml @ 50 mls/hr IV . Q20H [facility] Rx#:[id number] Oral 150 600 Other: # Voids 2 3 # Bowel Movements 0 Active Medications: Current Medications Acetaminophen (Tylenol) 650 mg PO Q4HR PRN PRN Reason: Pain (Mild) Stop: 06/22/17 10:13 Albuterol/Ipratropium (Duoneb Neb) 3 ml HHN Q4HRT [facility] Stop: 06/23/17 18:59 Last Admin: 04/24/17 23:23 Dose: 3 ml Budesonide (Pulmicort) 0.5 mg HHN BIDRT [facility] Stop: 06/23/17 18:59 Last Admin: 04/24/17 20:09 Dose: 0.5 mg Carvedilol (Coreg) 3.125 mg PO BID [facility] Stop: 06/22/17 10:44 Last Admin: 04/24/17 17:00 Dose: 3.125 mg Gabapentin (Neurontin) 300 mg PO BID [facility] Stop: 06/22/17 10:44 Last Admin: 04/24/17 17:00 Dose: 300 mg Levofloxacin (Levaquin Pb) 500 mg in 100 mls @ 100 mls/hr IV Q24HR [facility] Stop: 06/22/17 10:59 Last Infusion: 04/24/17 17:25 Dose: Infused Sodium Chloride (Nacl 0.9%) 1,000 mls @ 50 mls/hr IV .Q20H [facility] Stop: 06/22/17 16:44 Last Admin: 04/24/17 21:12 Dose: 50 mls/hr Lactulose (Cephulac) 20 gm PO DAILY [facility] Stop: 06/23/17 08:59 Last Admin: 04/24/17 10:07 Dose: 20 gm Lorazepam (Ativan) 1 mg PO Q6HR PRN; Protocol PRN Reason: agitation and restlessness Stop: 06/21/17 20:43 Last Admin: 04/22/17 22:23 Dose: 1 mg Risperidone (Risperdal) 0.25 mg PO BID [facility] PRN Reason: Protocol Stop: 06/22/17 16:59 General: Alert HEENT: Atraumatic, PERRLA Neck: Supple Cardiovascular: Regular rate, Normal S1, Normal S2 Lungs: Clear to auscultation Abdomen: Bowel sounds, Soft Extremities: no Clubbing, no Cyanosis, no Edema Assessment/Plan - Assessment Assessment: Leukocytosis most likely d/t Chronic Lymphocytic Leukemia hypocalcemia 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
[2017-04-25 06:59] LABS: BASOPHILE ABSOLUTE 0.1 Th/cumm (0-0.2); EOSINOPHILE ABSOLUTE 0.7 Th/cmm (0.1-0.4); HEMATOCRIT 38.3 % (41.0-60); HEMOGLOBIN 12.4 gm/dL (12-16); LYMPHOCYTE ABSOLUTE 58.3 Th/cmm (1.5-3.0); MEAN CELL VOLUME 87.9 fl (80-99); MEAN CORPUSCULAR HEMOGLOBIN 28.4 pg (27.0-31.0); MEAN CORPUSCULAR HGB CONC 32.3 pg (28.0-36.0); MEAN PLATELET VOLUME 8.6 fl; MONOCYTE ABSOLUTE 4.9 Th/cmm (0.3-1.0); NEUTROPHILE ABSOLUTE 6.2 Th/cmm (1.8-8.0); PLATELET COUNT 260 Th/cmm (150-400); RED BLOOD COUNT 4.36 Mil/cmm (3.80-5.80); RED CELL DISTRIBUTION WIDTH 14.2 % (11.5-20.0)
[2017-04-25 07:17] LABS: WHITE BLOOD COUNT 70.2 Th/cmm (4.8-10.8)
[2017-04-25 07:20] LABS: ALB/GLOB RATIO 0.9 (1.0-1.8); ALBUMIN 2.9 gm/dL (4.2-5.5); ALKALINE PHOSPHATASE 55 U/L (34-104); ANION GAP 8.4 (7.0-16.0); BILIRUBIN,DIRECT 0.11 mg/dL (0.0-0.2); BILIRUBIN,TOTAL 0.4 mg/dL (0.3-1.0); BUN - UREA NITROGEN 16 mg/dL (7-25); CALCIUM SERUM 8.4 mg/dL (8.6-10.3); CARBON DIOXIDE 29.7 mEq/L (21.0-31.0); CHLORIDE 104 mEq/L (98-107); GLUCOSE 100 mg/dL (70-105); POTASSIUM SERUM 4.1 mEq/L (3.5-5.1); SGOT 20 U/L (13-39); SGPT/ALT 20 U/L (7-52); SODIUM SERUM 138 mEq/L (136-145); TOTAL PROTEIN,SERUM 6.1 gm/dL (6.0-8.3)
[2017-04-25 07:22] LABS: ALLEN TEST PASS; pH 7.44 (7.35-7.45)
[2017-04-25] MEDS: Budesonide 0.5 Mg/2 mL Ud HHN SCH ×3 (07:52→19:01)
[2017-04-25 08:20] LABS: EOSINOPHIL 2 % (0-5); LYMPHOCYTE 84 % (20-50); MONOCYTE 3 % (2-10); NEUTROPHILS 11 % (40-80); TOTAL CELLS COUNTED 100
[2017-04-25 08:21] LABS: ATYPICAL LYMPH 3 %; PLATELET ESTIMATE ADEQUATE (NORMAL)
--- NOTE | 2017-04-25 09:50 | Diagnostic Imaging Report ---
CHEST X-RAY: AP view INDICATION: Pneumonia COMPARISON: None FINDINGS: Chronic lung changes are seen with slight increased right midlung interstitial lung markings. No focal consolidation or effusions. Heart size is normal. Degenerative changes of the spine and shoulders are noted. IMPRESSION: Chronic lung changes with slight increased right midlung interstitial lung markings, likely also chronic. No focal consolidations identified.
[2017-04-25] MEDS: Lactulose 10 Gm/15 mL 30mL UDC PO SCH (10:30)
[2017-04-25] MEDS: Levofloxacin 500mg/100mL 500 MG/100 ML BAG IV SCH (11:11)
[2017-04-25] MEDS: Sodium Chloride 0.9% 1,000 ML IV SCH (17:14)
--- NOTE | 2017-04-25 23:53 | Progress Notes ---
DATE: 04/25/2017 PULMONARY PROGRESS NOTE PROBLEM LIST: 1. Abnormal chest x-ray and CAT scan. 2. Chronic lymphocytic leukemia. 3. Possibly psychological issues, etc. SYMPTOMS: Nil. The patient is still be getting forgetful, disoriented, not in acute distress, etc. PHYSICAL EXAMINATION: VITAL SIGNS: T-max 97.9 and blood pressure 103/63. NECK: Veins not visualized. CHEST: Shows diminished air entry with occasional rhonchi. HEART: Regular. ABDOMEN: Soft, nontender. LABORATORY DATA: The patient's white count is ____, not too much significant change in the trend, lymphocytes 84%. ABG shows pO2 of 68. Electrolytes are okay. The patient's chest x-ray done this morning shows chronic lung changes, right lung interstitial markings, but otherwise unremarkable. ASSESSMENT: The patient is clinically stable, a lot of problems ____ probably is chronic. The patient is relatively asymptomatic. Elevated white count, probably secondary to chronic lymphocytic leukemia. PLANS AND SUGGESTIONS: We will go ahead and continue current supportive care, empiric antibiotic, and watch for a few days and go from there. JOB# [id number]
[2017-04-26] MEDS ORDERED: Albuterol/Ipratropium Neb 3 ML AERS HHN ONE ×2 (02:44→07:04)
[2017-04-26 06:20] LABS: EOSINOPHILE ABSOLUTE 0.7 Th/cmm (0.1-0.4); HEMATOCRIT 36.1 % (41.0-60); HEMOGLOBIN 11.8 gm/dL (12-16); LYMPHOCYTE ABSOLUTE 56.7 Th/cmm (1.5-3.0); MEAN CELL VOLUME 88.5 fl (80-99); MEAN CORPUSCULAR HEMOGLOBIN 28.8 pg (27.0-31.0); MEAN CORPUSCULAR HGB CONC 32.6 pg (28.0-36.0); MEAN PLATELET VOLUME 9.3 fl; MONOCYTE ABSOLUTE 2.5 Th/cmm (0.3-1.0); NEUTROPHILE ABSOLUTE 6.9 Th/cmm (1.8-8.0); PLATELET COUNT 246 Th/cmm (150-400); RED BLOOD COUNT 4.08 Mil/cmm (3.80-5.80); RED CELL DISTRIBUTION WIDTH 13.8 % (11.5-20.0)
[2017-04-26 06:32] LABS: WHITE BLOOD COUNT 66.8 Th/cmm (4.8-10.8)
[2017-04-26 06:37] LABS: ALB/GLOB RATIO 0.8 (1.0-1.8); ALBUMIN 2.8 gm/dL (4.2-5.5); ALKALINE PHOSPHATASE 52 U/L (34-104); ANION GAP 7.2 (7.0-16.0); BILIRUBIN,TOTAL 0.3 mg/dL (0.3-1.0); BUN - UREA NITROGEN 15 mg/dL (7-25); CALCIUM SERUM 8.2 mg/dL (8.6-10.3); CARBON DIOXIDE 28.8 mEq/L (21.0-31.0); CHLORIDE 106 mEq/L (98-107); CREATININE - SERUM 0.9 mg/dL (0.7-1.3); GLUCOSE 107 mg/dL (70-105); SGOT 18 U/L (13-39); SGPT/ALT 19 U/L (7-52); SODIUM SERUM 138 mEq/L (136-145); TOTAL PROTEIN,SERUM 6.2 gm/dL (6.0-8.3)
[2017-04-26] MEDS ORDERED: Budesonide 0.5 Mg/2 mL Ud HHN ONE (07:04)
[2017-04-26] MEDS: Budesonide 0.5 Mg/2 mL Ud HHN SCH ×2 (07:49→20:36)
[2017-04-26] MEDS: Albuterol/Ipratropium Neb 3 ML AERS HHN SCH ×4 (07:50→20:36)
--- NOTE | 2017-04-26 08:07 | General Progress Note ---
Subjective - Review of Systems Service Date: 04/26/17 Subjective: Patient was seen and examined. no acute distress. awake, alert, afebrile but confused. Objective - Results Result Diagrams: 04/26/17 05:20 04/26/17 05:20 Recent Labs: Laboratory Last Values WBC 66.8 Th/cmm (4.8-10.8) H* 04/26/17 05:20 RBC 4.08 Mil/cmm (3.80-5.80) 04/26/17 05:20 Hgb 11.8 gm/dL (12-16) L 04/26/17 05:20 Hct 36.1 % (41.0-60) L 04/26/17 05:20 MCV 88.5 fl (80-99) 04/26/17 05:20 MCH 28.8 pg (27.0-31.0) 04/26/17 05:20 MCHC Differential 32.6 pg (28.0-36.0) 04/26/17 05:20 RDW 13.8 % (11.5-20.0) 04/26/17 05:20 Plt Count 246 Th/cmm (150-400) 04/26/17 05:20 MPV 9.3 fl 04/26/17 05:20 Band Neutrophils % 1 % (0-10) 04/21/17 21:38 Lymphocytes % 86.3 % (20.0-50.0) H 04/23/17 10:25 Monocytes % 5.2 % (2.0-10.0) 04/23/17 10:25 Neutrophils (Manual) 11 % (40-80) L 04/25/17 06:15 Lymphocytes 84 % (20-50) H 04/25/17 06:15 Monocytes 3 % (2-10) 04/25/17 06:15 Eosinophils 2 % (0-5) 04/25/17 06:15 Basophils 1 % (0-3) 04/21/17 21:38 Atypical Lymphocytes 3 % 04/25/17 06:15 Platelet Estimate ADEQUATE (NORMAL) 04/25/17 06:15 Smear Path Review YES 04/21/17 21:38 Specimen Source Arterial 04/25/17 07:15 Sample Site Right Radial 04/25/17 07:15 pH 7.44 (7.35-7.45) 04/25/17 07:15 pCO2 43.0 mmHg (35.0-45.0) 04/25/17 07:15 pO2 68.0 mmHg (80.0-100.0) L 04/25/17 07:15 HCO3 28.4 mEq/L (20.0-26.0) H 04/25/17 07:15 Base Excess 4.5 mEq/L (-3.0-3.0) H 04/25/17 07:15 O2 Saturation 94.0 % (92.0-100.0) 04/25/17 07:15 Juma Test PASS 04/25/17 07:15 Inspired O2 21 04/25/17 07:15 Critical Value PW 04/25/17 07:15 Sodium 138 mEq/L (136-145) 04/26/17 05:20 Potassium 4.0 mEq/L (3.5-5.1) 04/26/17 05:20 Chloride 106 mEq/L (98-107) 04/26/17 05:20 Carbon Dioxide 28.8 mEq/L (21.0-31.0) 04/26/17 05:20 Anion Gap 7.2 (7.0-16.0) 04/26/17 05:20 BUN 15 mg/dL (7-25) 04/26/17 05:20 Creatinine 0.9 mg/dL (0.7-1.3) 04/26/17 05:20 Est GFR ( Amer) TNP 04/26/17 05:20 Est GFR (Non-Af Amer) TNP 04/26/17 05:20 BUN/Creatinine Ratio 16.7 04/26/17 05:20 Glucose 107 mg/dL (70-105) H 04/26/17 05:20 Hemoglobin A1c % 7.1 % (4.0-6.0) H 04/23/17 10:25 Whole Bld Lactic Acid 0.83 mmol/L (0.60-1.99) 04/21/17 21:38 Uric Acid 4.9 mg/dL (4.4-7.6) 04/23/17 15:06 Calcium 8.2 mg/dL (8.6-10.3) L 04/26/17 05:20 Total Bilirubin 0.3 mg/dL (0.3-1.0) 04/26/17 05:20 Direct Bilirubin 0.11 mg/dL (0.0-0.2) 04/25/17 06:15 AST 18 U/L (13-39) 04/26/17 05:20 ALT 19 U/L (7-52) 04/26/17 05:20 Alkaline Phosphatase 52 U/L (34-104) 04/26/17 05:20 Lactate Dehydrogenase 152 U/L (140-271) 04/23/17 15:06 Total Protein 6.2 gm/dL (6.0-8.3) 04/26/17 05:20 Albumin 2.8 gm/dL (4.2-5.5) L 04/26/17 05:20 Globulin 3.4 gm/dL 04/26/17 05:20 Albumin/Globulin Ratio 0.8 (1.0-1.8) L 04/26/17 05:20 TSH 3.06 uIU/ml (0.34-5.60) 04/25/17 06:15 Urine Source RANDOM 04/21/17 22:07 Urine Color YELLOW 04/21/17 22:07 Urine Clarity HAZY (CLEAR) 04/21/17 22:07 Urine pH 6.0 (4.6 - 8.0) 04/21/17 22:07 Ur Specific [place] 1.015 (1.005-1.030) 04/21/17 22:07 Urine Protein NEGATIVE mg/dL (NEGATIVE) 04/21/17 22:07 Urine Glucose (UA) NEGATIVE mg/dL (NEGATIVE) 04/21/17 22:07 Urine Ketones NEGATIVE mg/dL (NEGATIVE) 04/21/17 22:07 Urine Blood SMALL (NEGATIVE) H 04/21/17 22:07 Urine Nitrate POSITIVE (NEGATIVE) H 04/21/17 22:07 Urine Bilirubin NEGATIVE (NEGATIVE) 04/21/17 22:07 Urine Urobilinogen 0.2 E.U./dL (0.2 - 1.0) 04/21/17 22:07 Ur Leukocyte Esterase SMALL (NEGATIVE) H 04/21/17 22:07 Urine RBC 2-5 /hpf (0-5) H 04/21/17 22:07 Urine WBC 6-10 /hpf (0-5) H 04/21/17 22:07 Ur Epithelial Cells FEW /lpf (FEW) 04/21/17 22:07 Urine Bacteria MODERATE /hpf (NONE SEEN) H 04/21/17 22:07 - Physical Exam Vitals and I&O: Vital Signs Temp 98.2 F 04/25/17 20:00 Pulse 95 04/26/17 03:24 Resp 20 04/26/17 03:24 BP 109/67 04/25/17 20:00 Pulse Ox 96 04/26/17 03:24 Intake & Output 04/25/17 04/26/17 04/26/17 18:59 06:59 18:59 Intake Total 1000 Balance 1000 Intake: Intake, IV Amount 1000 Sodium Chloride 0.9% 1, 1000 000 ml @ 50 mls/hr IV . Q20H [facility] Rx#:[id number] Active Medications: Current Medications Acetaminophen (Tylenol) 650 mg PO Q4HR PRN PRN Reason: Pain (Mild) Stop: 06/22/17 10:13 Albuterol/Ipratropium (Duoneb Neb) 3 ml HHN Q4HRT [facility] Stop: 06/23/17 18:59 Last Admin: 04/26/17 07:50 Dose: 3 ml Budesonide (Pulmicort) 0.5 mg HHN BIDRT [facility] Stop: 06/23/17 18:59 Last Admin: 04/26/17 07:49 Dose: 0.5 mg Carvedilol (Coreg) 3.125 mg PO BID [facility] Stop: 06/22/17 10:44 Last Admin: 04/25/17 17:09 Dose: Not Given Gabapentin (Neurontin) 300 mg PO BID [facility] Stop: 06/22/17 10:44 Last Admin: 04/25/17 17:28 Dose: 300 mg Levofloxacin (Levaquin Pb) 500 mg in 100 mls @ 100 mls/hr IV Q24HR [facility] Stop: 06/22/17 10:59 Last Admin: 04/25/17 11:11 Dose: 100 mls/hr Sodium Chloride (Nacl 0.9%) 1,000 mls @ 50 mls/hr IV .Q20H [facility] Stop: 06/22/17 16:44 Last Admin: 04/25/17 17:14 Dose: 50 mls/hr Lactulose (Cephulac) 20 gm PO DAILY [facility] Stop: 06/23/17 08:59 Last Admin: 04/25/17 10:30 Dose: 20 gm Lorazepam (Ativan) 1 mg PO Q6HR PRN; Protocol PRN Reason: agitation and restlessness Stop: 06/21/17 20:43 Last Admin: 04/25/17 17:48 Dose: 1 mg Risperidone (Risperdal) 0.25 mg PO BID [facility] PRN Reason: Protocol Stop: 06/22/17 16:59 General: Alert HEENT: Atraumatic, PERRLA Neck: Supple Cardiovascular: Regular rate, Normal S1, Normal S2 Lungs: Clear to auscultation Abdomen: Bowel sounds, Soft Extremities: no Clubbing, no Cyanosis, no Edema Assessment/Plan - Assessment Assessment: Leukocytosis most likely d/t Chronic Lymphocytic Leukemia hypocalcemia UTI +Morganella organism on Levofloxacin IV HTN stable dyslipidemia stable Dementia right middle interstitial infiltrate. --- on levofloxacin IV, breathing treatments consider discharge back to SNF. - Plan Plan: continue current treatment.
[2017-04-26] MEDS: Lactulose 10 Gm/15 mL 30mL UDC PO SCH (08:43)
--- NOTE | 2017-04-26 10:02 | General Progress Note ---
Subjective - Review of Systems Service Date: 04/26/17 Objective - Results Result Diagrams: 04/26/17 05:20 04/26/17 05:20 Recent Labs: Laboratory Last Values WBC 66.8 Th/cmm (4.8-10.8) H* 04/26/17 05:20 RBC 4.08 Mil/cmm (3.80-5.80) 04/26/17 05:20 Hgb 11.8 gm/dL (12-16) L 04/26/17 05:20 Hct 36.1 % (41.0-60) L 04/26/17 05:20 MCV 88.5 fl (80-99) 04/26/17 05:20 MCH 28.8 pg (27.0-31.0) 04/26/17 05:20 MCHC Differential 32.6 pg (28.0-36.0) 04/26/17 05:20 RDW 13.8 % (11.5-20.0) 04/26/17 05:20 Plt Count 246 Th/cmm (150-400) 04/26/17 05:20 MPV 9.3 fl 04/26/17 05:20 Band Neutrophils % 1 % (0-10) 04/21/17 21:38 Lymphocytes % 86.3 % (20.0-50.0) H 04/23/17 10:25 Monocytes % 5.2 % (2.0-10.0) 04/23/17 10:25 Neutrophils (Manual) 11 % (40-80) L 04/25/17 06:15 Lymphocytes 84 % (20-50) H 04/25/17 06:15 Monocytes 3 % (2-10) 04/25/17 06:15 Eosinophils 2 % (0-5) 04/25/17 06:15 Basophils 1 % (0-3) 04/21/17 21:38 Atypical Lymphocytes 3 % 04/25/17 06:15 Platelet Estimate ADEQUATE (NORMAL) 04/25/17 06:15 Smear Path Review YES 04/21/17 21:38 Specimen Source Arterial 04/25/17 07:15 Sample Site Right Radial 04/25/17 07:15 pH 7.44 (7.35-7.45) 04/25/17 07:15 pCO2 43.0 mmHg (35.0-45.0) 04/25/17 07:15 pO2 68.0 mmHg (80.0-100.0) L 04/25/17 07:15 HCO3 28.4 mEq/L (20.0-26.0) H 04/25/17 07:15 Base Excess 4.5 mEq/L (-3.0-3.0) H 04/25/17 07:15 O2 Saturation 94.0 % (92.0-100.0) 04/25/17 07:15 Juma Test PASS 04/25/17 07:15 Inspired O2 21 04/25/17 07:15 Critical Value PW 04/25/17 07:15 Sodium 138 mEq/L (136-145) 04/26/17 05:20 Potassium 4.0 mEq/L (3.5-5.1) 04/26/17 05:20 Chloride 106 mEq/L (98-107) 04/26/17 05:20 Carbon Dioxide 28.8 mEq/L (21.0-31.0) 04/26/17 05:20 Anion Gap 7.2 (7.0-16.0) 04/26/17 05:20 BUN 15 mg/dL (7-25) 04/26/17 05:20 Creatinine 0.9 mg/dL (0.7-1.3) 04/26/17 05:20 Est GFR ( Amer) TNP 04/26/17 05:20 Est GFR (Non-Af Amer) TNP 04/26/17 05:20 BUN/Creatinine Ratio 16.7 04/26/17 05:20 Glucose 107 mg/dL (70-105) H 04/26/17 05:20 Hemoglobin A1c % 7.1 % (4.0-6.0) H 04/23/17 10:25 Whole Bld Lactic Acid 0.83 mmol/L (0.60-1.99) 04/21/17 21:38 Uric Acid 4.9 mg/dL (4.4-7.6) 04/23/17 15:06 Calcium 8.2 mg/dL (8.6-10.3) L 04/26/17 05:20 Total Bilirubin 0.3 mg/dL (0.3-1.0) 04/26/17 05:20 Direct Bilirubin 0.11 mg/dL (0.0-0.2) 04/25/17 06:15 AST 18 U/L (13-39) 04/26/17 05:20 ALT 19 U/L (7-52) 04/26/17 05:20 Alkaline Phosphatase 52 U/L (34-104) 04/26/17 05:20 Lactate Dehydrogenase 152 U/L (140-271) 04/23/17 15:06 Total Protein 6.2 gm/dL (6.0-8.3) 04/26/17 05:20 Albumin 2.8 gm/dL (4.2-5.5) L 04/26/17 05:20 Globulin 3.4 gm/dL 04/26/17 05:20 Albumin/Globulin Ratio 0.8 (1.0-1.8) L 04/26/17 05:20 TSH 3.06 uIU/ml (0.34-5.60) 04/25/17 06:15 Urine Source RANDOM 04/21/17 22:07 Urine Color YELLOW 04/21/17 22:07 Urine Clarity HAZY (CLEAR) 04/21/17 22:07 Urine pH 6.0 (4.6 - 8.0) 04/21/17 22:07 Ur Specific [place] 1.015 (1.005-1.030) 04/21/17 22:07 Urine Protein NEGATIVE mg/dL (NEGATIVE) 04/21/17 22:07 Urine Glucose (UA) NEGATIVE mg/dL (NEGATIVE) 04/21/17 22:07 Urine Ketones NEGATIVE mg/dL (NEGATIVE) 04/21/17 22:07 Urine Blood SMALL (NEGATIVE) H 04/21/17 22:07 Urine Nitrate POSITIVE (NEGATIVE) H 04/21/17 22:07 Urine Bilirubin NEGATIVE (NEGATIVE) 04/21/17 22:07 Urine Urobilinogen 0.2 E.U./dL (0.2 - 1.0) 04/21/17 22:07 Ur Leukocyte Esterase SMALL (NEGATIVE) H 04/21/17 22:07 Urine RBC 2-5 /hpf (0-5) H 04/21/17 22:07 Urine WBC 6-10 /hpf (0-5) H 04/21/17 22:07 Ur Epithelial Cells FEW /lpf (FEW) 04/21/17 22:07 Urine Bacteria MODERATE /hpf (NONE SEEN) H 04/21/17 22:07 - Physical Exam Vitals and I&O: Vital Signs Temp 98.4 F 04/26/17 04:00 Pulse 70 04/26/17 08:43 Resp 19 04/26/17 04:00 BP 124/69 04/26/17 08:43 Pulse Ox 96 04/26/17 03:24 Intake & Output 04/25/17 04/26/17 04/26/17 18:59 06:59 18:59 Intake Total 1000 100 Balance 1000 100 Weight (lbs) 105.687 kg Intake: Intake, IV Amount 1000 Sodium Chloride 0.9% 1, 1000 000 ml @ 50 mls/hr IV . Q20H [facility] Rx#:[id number] Oral 100 Other: # Voids 3 Active Medications: Current Medications Acetaminophen (Tylenol) 650 mg PO Q4HR PRN PRN Reason: Pain (Mild) Stop: 06/22/17 10:13 Albuterol/Ipratropium (Duoneb Neb) 3 ml HHN Q4HRT [facility] Stop: 06/23/17 18:59 Last Admin: 04/26/17 07:50 Dose: 3 ml Budesonide (Pulmicort) 0.5 mg HHN BIDRT [facility] Stop: 06/23/17 18:59 Last Admin: 04/26/17 07:49 Dose: 0.5 mg Carvedilol (Coreg) 3.125 mg PO BID [facility] Stop: 06/22/17 10:44 Last Admin: 04/26/17 08:43 Dose: 3.125 mg Gabapentin (Neurontin) 300 mg PO BID [facility] Stop: 06/22/17 10:44 Last Admin: 04/26/17 08:43 Dose: 300 mg Levofloxacin (Levaquin Pb) 500 mg in 100 mls @ 100 mls/hr IV Q24HR [facility] Stop: 06/22/17 10:59 Last Admin: 04/25/17 11:11 Dose: 100 mls/hr Sodium Chloride (Nacl 0.9%) 1,000 mls @ 50 mls/hr IV .Q20H [facility] Stop: 06/22/17 16:44 Last Admin: 04/25/17 17:14 Dose: 50 mls/hr Lactulose (Cephulac) 20 gm PO DAILY [facility] Stop: 06/23/17 08:59 Last Admin: 04/26/17 08:43 Dose: 20 gm Lorazepam (Ativan) 1 mg PO Q6HR PRN; Protocol PRN Reason: agitation and restlessness Stop: 06/21/17 20:43 Last Admin: 04/25/17 17:48 Dose: 1 mg Risperidone (Risperdal) 0.25 mg PO BID [facility] PRN Reason: Protocol Stop: 06/22/17 16:59 General: Alert HEENT: Atraumatic, PERRLA Neck: Supple Cardiovascular: Regular rate, Normal S1, Normal S2 Lungs: Clear to auscultation Abdomen: Bowel sounds, Soft Extremities: no Clubbing, no Cyanosis, no Edema Assessment/Plan - Assessment Assessment: * Leukocytosis /Lymphocytosis likely CLL * Dementia Follow result of flowcytometry will need bone marrow biopsy as outpatient for FISH Panel uric acid and LDH are normal
[2017-04-26] MEDS: Levofloxacin 500mg/100mL 500 MG/100 ML BAG IV SCH (11:30)
--- NOTE | 2017-04-26 11:38 | Infectious Disease Prog Note ---
Infectious Disease Subjective - Review of Systems Service Date: 04/26/17 Subjective: Comfortable, no shortness of breath. Infectious Disease Objective - Results Result Diagrams: 04/26/17 05:20 04/26/17 05:20 Recent Labs: Laboratory Last Values WBC 66.8 Th/cmm (4.8-10.8) H* 04/26/17 05:20 RBC 4.08 Mil/cmm (3.80-5.80) 04/26/17 05:20 Hgb 11.8 gm/dL (12-16) L 04/26/17 05:20 Hct 36.1 % (41.0-60) L 04/26/17 05:20 MCV 88.5 fl (80-99) 04/26/17 05:20 MCH 28.8 pg (27.0-31.0) 04/26/17 05:20 MCHC Differential 32.6 pg (28.0-36.0) 04/26/17 05:20 RDW 13.8 % (11.5-20.0) 04/26/17 05:20 Plt Count 246 Th/cmm (150-400) 04/26/17 05:20 MPV 9.3 fl 04/26/17 05:20 Band Neutrophils % 1 % (0-10) 04/21/17 21:38 Lymphocytes % 86.3 % (20.0-50.0) H 04/23/17 10:25 Monocytes % 5.2 % (2.0-10.0) 04/23/17 10:25 Neutrophils (Manual) 11 % (40-80) L 04/25/17 06:15 Lymphocytes 84 % (20-50) H 04/25/17 06:15 Monocytes 3 % (2-10) 04/25/17 06:15 Eosinophils 2 % (0-5) 04/25/17 06:15 Basophils 1 % (0-3) 04/21/17 21:38 Atypical Lymphocytes 3 % 04/25/17 06:15 Platelet Estimate ADEQUATE (NORMAL) 04/25/17 06:15 Smear Path Review YES 04/21/17 21:38 Specimen Source Arterial 04/25/17 07:15 Sample Site Right Radial 04/25/17 07:15 pH 7.44 (7.35-7.45) 04/25/17 07:15 pCO2 43.0 mmHg (35.0-45.0) 04/25/17 07:15 pO2 68.0 mmHg (80.0-100.0) L 04/25/17 07:15 HCO3 28.4 mEq/L (20.0-26.0) H 04/25/17 07:15 Base Excess 4.5 mEq/L (-3.0-3.0) H 04/25/17 07:15 O2 Saturation 94.0 % (92.0-100.0) 04/25/17 07:15 Juma Test PASS 04/25/17 07:15 Inspired O2 21 04/25/17 07:15 Critical Value PW 04/25/17 07:15 Sodium 138 mEq/L (136-145) 04/26/17 05:20 Potassium 4.0 mEq/L (3.5-5.1) 04/26/17 05:20 Chloride 106 mEq/L (98-107) 04/26/17 05:20 Carbon Dioxide 28.8 mEq/L (21.0-31.0) 04/26/17 05:20 Anion Gap 7.2 (7.0-16.0) 04/26/17 05:20 BUN 15 mg/dL (7-25) 04/26/17 05:20 Creatinine 0.9 mg/dL (0.7-1.3) 04/26/17 05:20 Est GFR ( Amer) [place] 04/26/17 05:20 Est GFR (Non-Af Amer) [facility] 04/26/17 05:20 BUN/Creatinine Ratio 16.7 04/26/17 05:20 Glucose 107 mg/dL (70-105) H 04/26/17 05:20 Hemoglobin A1c % 7.1 % (4.0-6.0) H 04/23/17 10:25 Whole Bld Lactic Acid 0.83 mmol/L (0.60-1.99) 04/21/17 21:38 Uric Acid 4.9 mg/dL (4.4-7.6) 04/23/17 15:06 Calcium 8.2 mg/dL (8.6-10.3) L 04/26/17 05:20 Total Bilirubin 0.3 mg/dL (0.3-1.0) 04/26/17 05:20 Direct Bilirubin 0.11 mg/dL (0.0-0.2) 04/25/17 06:15 AST 18 U/L (13-39) 04/26/17 05:20 ALT 19 U/L (7-52) 04/26/17 05:20 Alkaline Phosphatase 52 U/L (34-104) 04/26/17 05:20 Lactate Dehydrogenase 152 U/L (140-271) 04/23/17 15:06 Total Protein 6.2 gm/dL (6.0-8.3) 04/26/17 05:20 Albumin 2.8 gm/dL (4.2-5.5) L 04/26/17 05:20 Globulin 3.4 gm/dL 04/26/17 05:20 Albumin/Globulin Ratio 0.8 (1.0-1.8) L 04/26/17 05:20 TSH 3.06 uIU/ml (0.34-5.60) 04/25/17 06:15 Urine Source RANDOM 04/21/17 22:07 Urine Color YELLOW 04/21/17 22:07 Urine Clarity HAZY (CLEAR) 04/21/17 22:07 Urine pH 6.0 (4.6 - 8.0) 04/21/17 22:07 Ur Specific [place] 1.015 (1.005-1.030) 04/21/17 22:07 Urine Protein NEGATIVE mg/dL (NEGATIVE) 04/21/17 22:07 Urine Glucose (UA) NEGATIVE mg/dL (NEGATIVE) 04/21/17 22:07 Urine Ketones NEGATIVE mg/dL (NEGATIVE) 04/21/17 22:07 Urine Blood SMALL (NEGATIVE) H 04/21/17 22:07 Urine Nitrate POSITIVE (NEGATIVE) H 04/21/17 22:07 Urine Bilirubin NEGATIVE (NEGATIVE) 04/21/17 22:07 Urine Urobilinogen 0.2 E.U./dL (0.2 - 1.0) 04/21/17 22:07 Ur Leukocyte Esterase SMALL (NEGATIVE) H 04/21/17 22:07 Urine RBC 2-5 /hpf (0-5) H 04/21/17 22:07 Urine WBC 6-10 /hpf (0-5) H 04/21/17 22:07 Ur Epithelial Cells FEW /lpf (FEW) 04/21/17 22:07 Urine Bacteria MODERATE /hpf (NONE SEEN) H 04/21/17 22:07 - Physical Exam Vitals and I&O: Vital Signs Temp 98.4 F 04/26/17 04:00 Pulse 70 04/26/17 08:43 Resp 19 04/26/17 04:00 BP 124/69 04/26/17 08:43 Pulse Ox 96 04/26/17 03:24 Intake & Output 04/25/17 04/26/17 04/26/17 18:59 06:59 18:59 Intake Total 1100 100 Balance 1100 100 Weight (lbs) 105.687 kg Intake: Intake, IV Amount 1100 Levofloxacin 500mg/100mL 100 500 mg In 100 ml @ 100 mls/hr IV Q24HR [facility] Rx#: [id number] Sodium Chloride 0.9% 1, 1000 000 ml @ 50 mls/hr IV . Q20H [facility] Rx#:[id number] Oral 100 Other: # Voids 3 Active Medications: Current Medications Acetaminophen (Tylenol) 650 mg PO Q4HR PRN PRN Reason: Pain (Mild) Stop: 06/22/17 10:13 Albuterol/Ipratropium (Duoneb Neb) 3 ml HHN Q4HRT [facility] Stop: 06/23/17 18:59 Last Admin: 04/26/17 07:50 Dose: 3 ml Budesonide (Pulmicort) 0.5 mg HHN BIDRT [facility] Stop: 06/23/17 18:59 Last Admin: 04/26/17 07:49 Dose: 0.5 mg Carvedilol (Coreg) 3.125 mg PO BID [facility] Stop: 06/22/17 10:44 Last Admin: 04/26/17 08:43 Dose: 3.125 mg Gabapentin (Neurontin) 300 mg PO BID [facility] Stop: 06/22/17 10:44 Last Admin: 04/26/17 08:43 Dose: 300 mg Levofloxacin (Levaquin Pb) 500 mg in 100 mls @ 100 mls/hr IV Q24HR [facility] Stop: 06/22/17 10:59 Last Admin: 04/26/17 11:30 Dose: 100 mls/hr Sodium Chloride (Nacl 0.9%) 1,000 mls @ 50 mls/hr IV .Q20H [facility] Stop: 06/22/17 16:44 Last Admin: 04/25/17 17:14 Dose: 50 mls/hr Lactulose (Cephulac) 20 gm PO DAILY [facility] Stop: 06/23/17 08:59 Last Admin: 04/26/17 08:43 Dose: 20 gm Lorazepam (Ativan) 1 mg PO Q6HR PRN; Protocol PRN Reason: agitation and restlessness Stop: 06/21/17 20:43 Last Admin: 04/25/17 17:48 Dose: 1 mg Risperidone (Risperdal) 0.25 mg PO BID [facility] PRN Reason: Protocol Stop: 06/22/17 16:59 General: no acute distress, well developed, well nourished HEENT: atraumatic, normocephalic, PERRLA, EOMI, moist mucous membrane Neck: supple, no thyromegaly, no lymphadenopathy, no rigid, no lines Cardiovascular: S1S2, regular Lungs: clear to auscultation bilaterally, clear to percussion Abdomen: soft, no tender, no distended Extremities: no cyanosis, no clubbing, no edema Neurological: awake, alert, oriented Skin: intact, rash, subcutaneous nodules Infectious Disease Assmt/Plan - Assessment Assessment: Impression: 1. Leukocytosis, likely 2/2 CLL. 2. UTI. 3. Morganella marganii infection. - Plan Plan: Continue the same meds. May change levaquin to po for total 7 days of therapy.
--- NOTE | 2017-04-26 19:40 | Progress Notes ---
DATE: 04/26/2017 Case was discussed with staff of the patient, reviewed treatment plans and goals. The patient continues to be demented, confused, continues to be unable to make safe plan for self-care, unable to recognize me. Continues to have episodes of agitation and irritability. He so far continues to be not medically cleared, while has episodes of agitation and disability. I am unable to give much information. I did initiate him on Risperdal 0.25 mg twice a day with no side effects and I would recommend if the patient continues to be agitated to be transferred to [facility]. Thank you very much for allowing me to participate in the care of this most interesting gentleman. JOB# [id number]
--- NOTE | 2017-04-26 22:06 | Progress Notes ---
DATE: 04/26/2017 PROBLEM LIST: 1. Suspect bilateral pneumonia versus pulmonary scarring. 2. Chronic lymphocytic leukemia. 3. Altered state of significant intellectual disability. SYMPTOMS: Nil, feeling okay. No specific new symptoms. PHYSICAL EXAMINATION: VITAL SIGNS: Temperature is 98.6, blood pressure 128/80, saturation 94%. NECK: Veins not visualized. CHEST: Shows diminished air entry. No other adventitious breath sound. HEART: Regular. EXTREMITIES: Shows no peripheral edema. ASSESSMENT: The patient is clinically stable, improving. PLANS AND SUGGESTIONS: We will continue current treatment. Repeat chest x-ray tomorrow and follow up another CBC, etc., tomorrow and go from there. JOB# [id number]
[2017-04-26] MEDS: Sodium Chloride 0.9% 1,000 ML IV SCH (22:31)
[2017-04-27] MEDS: Albuterol/Ipratropium Neb 3 ML AERS HHN SCH ×4 (00:07→11:16)
[2017-04-27] MEDS: Budesonide 0.5 Mg/2 mL Ud HHN SCH (07:31)
--- NOTE | 2017-04-27 08:09 | General Progress Note ---
Subjective - Review of Systems Service Date: 04/27/17 Subjective: Patient was seen and examined. no acute distress. awake, alert, afebrile but confused. no new changes. medically stable. can go to [facility] if okay with consultants. Objective - Results Result Diagrams: 04/26/17 05:20 04/26/17 05:20 Recent Labs: Laboratory Last Values WBC 66.8 Th/cmm (4.8-10.8) H* 04/26/17 05:20 RBC 4.08 Mil/cmm (3.80-5.80) 04/26/17 05:20 Hgb 11.8 gm/dL (12-16) L 04/26/17 05:20 Hct 36.1 % (41.0-60) L 04/26/17 05:20 MCV 88.5 fl (80-99) 04/26/17 05:20 MCH 28.8 pg (27.0-31.0) 04/26/17 05:20 MCHC Differential 32.6 pg (28.0-36.0) 04/26/17 05:20 RDW 13.8 % (11.5-20.0) 04/26/17 05:20 Plt Count 246 Th/cmm (150-400) 04/26/17 05:20 MPV 9.3 fl 04/26/17 05:20 Band Neutrophils % 1 % (0-10) 04/21/17 21:38 Lymphocytes % 86.3 % (20.0-50.0) H 04/23/17 10:25 Monocytes % 5.2 % (2.0-10.0) 04/23/17 10:25 Neutrophils (Manual) 11 % (40-80) L 04/25/17 06:15 Lymphocytes 84 % (20-50) H 04/25/17 06:15 Monocytes 3 % (2-10) 04/25/17 06:15 Eosinophils 2 % (0-5) 04/25/17 06:15 Basophils 1 % (0-3) 04/21/17 21:38 Atypical Lymphocytes 3 % 04/25/17 06:15 Platelet Estimate ADEQUATE (NORMAL) 04/25/17 06:15 Smear Path Review YES 04/21/17 21:38 Specimen Source Arterial 04/25/17 07:15 Sample Site Right Radial 04/25/17 07:15 pH 7.44 (7.35-7.45) 04/25/17 07:15 pCO2 43.0 mmHg (35.0-45.0) 04/25/17 07:15 pO2 68.0 mmHg (80.0-100.0) L 04/25/17 07:15 HCO3 28.4 mEq/L (20.0-26.0) H 04/25/17 07:15 Base Excess 4.5 mEq/L (-3.0-3.0) H 04/25/17 07:15 O2 Saturation 94.0 % (92.0-100.0) 04/25/17 07:15 Juma Test PASS 04/25/17 07:15 Inspired O2 21 04/25/17 07:15 Critical Value PW 04/25/17 07:15 Sodium 138 mEq/L (136-145) 04/26/17 05:20 Potassium 4.0 mEq/L (3.5-5.1) 04/26/17 05:20 Chloride 106 mEq/L (98-107) 04/26/17 05:20 Carbon Dioxide 28.8 mEq/L (21.0-31.0) 04/26/17 05:20 Anion Gap 7.2 (7.0-16.0) 04/26/17 05:20 BUN 15 mg/dL (7-25) 04/26/17 05:20 Creatinine 0.9 mg/dL (0.7-1.3) 04/26/17 05:20 Est GFR ( Amer) TNP 04/26/17 05:20 Est GFR (Non-Af Amer) TNP 04/26/17 05:20 BUN/Creatinine Ratio 16.7 04/26/17 05:20 Glucose 107 mg/dL (70-105) H 04/26/17 05:20 Hemoglobin A1c % 7.1 % (4.0-6.0) H 04/23/17 10:25 Whole Bld Lactic Acid 0.83 mmol/L (0.60-1.99) 04/21/17 21:38 Uric Acid 4.9 mg/dL (4.4-7.6) 04/23/17 15:06 Calcium 8.2 mg/dL (8.6-10.3) L 04/26/17 05:20 Total Bilirubin 0.3 mg/dL (0.3-1.0) 04/26/17 05:20 Direct Bilirubin 0.11 mg/dL (0.0-0.2) 04/25/17 06:15 AST 18 U/L (13-39) 04/26/17 05:20 ALT 19 U/L (7-52) 04/26/17 05:20 Alkaline Phosphatase 52 U/L (34-104) 04/26/17 05:20 Lactate Dehydrogenase 152 U/L (140-271) 04/23/17 15:06 Total Protein 6.2 gm/dL (6.0-8.3) 04/26/17 05:20 Albumin 2.8 gm/dL (4.2-5.5) L 04/26/17 05:20 Globulin 3.4 gm/dL 04/26/17 05:20 Albumin/Globulin Ratio 0.8 (1.0-1.8) L 04/26/17 05:20 TSH 3.06 uIU/ml (0.34-5.60) 04/25/17 06:15 Urine Source RANDOM 04/21/17 22:07 Urine Color YELLOW 04/21/17 22:07 Urine Clarity HAZY (CLEAR) 04/21/17 22:07 Urine pH 6.0 (4.6 - 8.0) 04/21/17 22:07 Ur Specific [place] 1.015 (1.005-1.030) 04/21/17 22:07 Urine Protein NEGATIVE mg/dL (NEGATIVE) 04/21/17 22:07 Urine Glucose (UA) NEGATIVE mg/dL (NEGATIVE) 04/21/17 22:07 Urine Ketones NEGATIVE mg/dL (NEGATIVE) 04/21/17 22:07 Urine Blood SMALL (NEGATIVE) H 04/21/17 22:07 Urine Nitrate POSITIVE (NEGATIVE) H 04/21/17 22:07 Urine Bilirubin NEGATIVE (NEGATIVE) 04/21/17 22:07 Urine Urobilinogen 0.2 E.U./dL (0.2 - 1.0) 04/21/17 22:07 Ur Leukocyte Esterase SMALL (NEGATIVE) H 04/21/17 22:07 Urine RBC 2-5 /hpf (0-5) H 04/21/17 22:07 Urine WBC 6-10 /hpf (0-5) H 04/21/17 22:07 Ur Epithelial Cells FEW /lpf (FEW) 04/21/17 22:07 Urine Bacteria MODERATE /hpf (NONE SEEN) H 04/21/17 22:07 - Physical Exam Vitals and I&O: Vital Signs Temp 98.7 F 04/27/17 06:00 Pulse 83 04/27/17 07:31 Resp 18 04/27/17 07:31 BP 110/70 04/27/17 06:00 Pulse Ox 94 04/27/17 07:31 Intake & Output 04/26/17 04/27/17 04/27/17 18:59 06:59 18:59 Intake Total 1200 100 Balance 1200 100 Weight (lbs) 105.687 kg 105.687 kg Intake: Intake, IV Amount 1100 Levofloxacin 500mg/100mL 100 500 mg In 100 ml @ 100 mls/hr IV Q24HR [facility] Rx#: [id number] Sodium Chloride 0.9% 1, 1000 000 ml @ 50 mls/hr IV . Q20H [facility] Rx#:[id number] Oral 100 100 Other: # Voids 3 3 # Bowel Movements 0 Active Medications: Current Medications Acetaminophen (Tylenol) 650 mg PO Q4HR PRN PRN Reason: Pain (Mild) Stop: 06/22/17 10:13 Albuterol/Ipratropium (Duoneb Neb) 3 ml HHN Q4HRT [facility] Stop: 06/23/17 18:59 Last Admin: 04/27/17 07:22 Dose: 3 ml Budesonide (Pulmicort) 0.5 mg HHN BIDRT [facility] Stop: 06/23/17 18:59 Last Admin: 04/27/17 07:31 Dose: 0.5 mg Carvedilol (Coreg) 3.125 mg PO BID [facility] Stop: 06/22/17 10:44 Last Admin: 04/26/17 16:19 Dose: 3.125 mg Gabapentin (Neurontin) 300 mg PO BID [facility] Stop: 06/22/17 10:44 Last Admin: 04/26/17 16:19 Dose: 300 mg Levofloxacin (Levaquin Pb) 500 mg in 100 mls @ 100 mls/hr IV Q24HR [facility] Stop: 06/22/17 10:59 Last Infusion: 04/26/17 18:36 Dose: Infused Sodium Chloride (Nacl 0.9%) 1,000 mls @ 50 mls/hr IV .Q20H [facility] Stop: 06/22/17 16:44 Last Admin: 04/26/17 22:31 Dose: 50 mls/hr Lactulose (Cephulac) 20 gm PO DAILY [facility] Stop: 06/23/17 08:59 Last Admin: 04/26/17 08:43 Dose: 20 gm Lorazepam (Ativan) 1 mg PO Q6HR PRN; Protocol PRN Reason: agitation and restlessness Stop: 06/21/17 20:43 Last Admin: 04/27/17 01:13 Dose: 1 mg Risperidone (Risperdal) 0.25 mg PO BID [facility] PRN Reason: Protocol Stop: 06/22/17 16:59 General: Alert HEENT: Atraumatic, PERRLA Neck: Supple Cardiovascular: Regular rate, Normal S1, Normal S2 Lungs: Clear to auscultation Abdomen: Bowel sounds, Soft Extremities: no Clubbing, no Cyanosis, no Edema Assessment/Plan - Assessment Assessment: Leukocytosis most likely d/t Chronic Lymphocytic Leukemia hypocalcemia UTI +Morganella organism on Levofloxacin IV HTN stable dyslipidemia stable Dementia PNA. --- on levofloxacin IV, breathing treatments medically stable. consider transfer to [facility] if okay with consultants. - Plan Plan: continue current treatment.
[2017-04-27] MEDS: Lactulose 10 Gm/15 mL 30mL UDC PO SCH (08:40)
[2017-04-27 10:24] LABS: HEMATOCRIT 38.8 % (41.0-60)
[2017-04-27 10:34] LABS: % EOSINOPHILS 0.7 % (0.0-5.0); % LYMPHOCYTES 84.4 % (20.0-50.0); % MONOCYTES 5.5 % (2.0-10.0); % NEUTROPHILS 9.4 % (40.0-80.0); EOSINOPHILE ABSOLUTE 0.4 Th/cmm (0.1-0.4); HEMOGLOBIN 12.4 gm/dL (12-16); LYMPHOCYTE ABSOLUTE 53.6 Th/cmm (1.5-3.0); MEAN CELL VOLUME 88.5 fl (80-99); MEAN CORPUSCULAR HEMOGLOBIN 28.3 pg (27.0-31.0); MEAN PLATELET VOLUME 8.6 fl; MONOCYTE ABSOLUTE 3.5 Th/cmm (0.3-1.0); PLATELET COUNT 252 Th/cmm (150-400); RED BLOOD COUNT 4.39 Mil/cmm (3.80-5.80); RED CELL DISTRIBUTION WIDTH 14.1 % (11.5-20.0)
[2017-04-27 10:37] LABS: WHITE BLOOD COUNT 63.5 Th/cmm (4.8-10.8)
--- NOTE | 2017-04-29 17:06 | Discharge Summary ---
DATE OF DISCHARGE: 04/27/2017 ATTENDING PHYSICIAN: Walter Peck DO PRELIMINARY DIAGNOSES: 1. Leukocytosis. 2. History of chronic lymphocytic leukemia. 3. Hypocalcemia. 4. Urinary tract infection. 5. Hypertension. 6. Dyslipidemia. 7. Dementia. DISCHARGE DIAGNOSES: 1. Leukocytosis, most likely due to chronic lymphocytic leukemia. 2. Hypocalcemia, now resolved. 3. Urinary tract infection, positive for morganella organism. 4. Hypertension. 5. Dyslipidemia. 6. Dementia. BRIEF HISTORY OF PRESENT ILLNESS: This is an 82-year-old male who was transferred to [facility] ER for elevated white count noted at the skilled nursing, who was brought here for further evaluation and treatment. While in the ER, the patient's initial lab work revealed sodium of 134, potassium 4.2, BUN of 16, creatinine 0.8, glucose 112. White count was noted at 75,000, hemoglobin 12, hematocrit 36, platelets 269. UA was positive for nitrites, small leukocyte esterase, bacteria was moderate, WBC 6-10 per cells. PAST MEDICAL HISTORY: Includes history of chronic lymphocytic leukemia, hyperlipidemia, osteoarthritis, UTI, dementia, muscle weakness and neuropathy. The patient was subsequently admitted for further evaluation and treatment. HOSPITAL COURSE: The patient improved during his hospital stay, underwent CT of the chest, abdomen and pelvis, see dictated report. The patient was also seen by religious educator by Dr. Lacy. Please see dictated report as well as ID, Dr. Cas Frias. Please see dictated report and Psychiatry, see dictated report. The patient also was seen by Pulmonary due to the multi focal right lung infiltrate noted on the CT. Please see dictated report by Dr. Gab Frias. The patient was subsequently discharged in stable condition, was [facility]. JOB# [id number]
[2017-04-29] MEDS ORDERED: Albuterol/Ipratropium Neb 3 ML AERS HHN ONE ×2 (18:39→22:56)
[2017-04-29] MEDS ORDERED: Budesonide 0.5 Mg/2 mL Ud HHN ONE (18:40)
[2017-04-30] MEDS ORDERED: Albuterol/Ipratropium Neb 3 ML AERS HHN ONE (02:39)
[2017-05-02] MEDS ORDERED: Albuterol/Ipratropium Neb 3 ML AERS HHN ONE ×2 (10:47→14:12)
[2017-05-03] MEDS ORDERED: Albuterol/Ipratropium Neb 3 ML AERS HHN ONE (10:40)
== END 2017-04-27 14:36 | DRG 840 ==
LOC: ER 16:42 → MSI 19:00
PROVIDERS: ADMIT Family Medicine; ATTEND Family Medicine
DX: C91.10 Chronic lymphocytic leukemia of B-cell type not having achieved remission (principal); J18.9 Pneumonia, unspecified organism; G62.9 Polyneuropathy, unspecified; E83.51 Hypocalcemia; F03.90 Unspecified dementia, unspecified severity, without behavioral disturbance, psychotic disturbance, mood disturbance, and anxiety; N39.0 Urinary tract infection, site not specified; B96.89 Other specified bacterial agents as the cause of diseases classified elsewhere; I10 Essential (primary) hypertension; E78.5 Hyperlipidemia, unspecified; I25.119 Atherosclerotic heart disease of native coronary artery with unspecified angina pectoris; F29 Unspecified psychosis not due to a substance or known physiological condition; I49.9 Cardiac arrhythmia, unspecified; M19.90 Unspecified osteoarthritis, unspecified site; Z79.899 Other long term (current) drug therapy; Z88.0 Allergy status to penicillin
CPT/HCPCS: 36415-UA; 36600-90; 71045-TC; 71250-TC; 80048-TC; 80053-TC; 81001-TC; 82248-TC; 82803-TC; 83036-90; 83605; 83615-TC; 84443-TC; 84550-TC; 85007-TC; 85025-TC; 85027-TC; 87086-90; 88189-90; 93005; 94760; J0744; J1956; J7030; J7042; Z7610

== ENCOUNTER 2017-04-27 14:41 | Inpatient (IN) | payer OTHER, MEDICAID ==
[2017-04-27 18:39] VITALS: BP 126/62
[2017-04-27] MEDS ORDERED: Maalox 30 mL Cup PO PRN (18:41)
[2017-04-27] MEDS ORDERED: Magnesium Hydroxide (MOM) 30 mL UDC PO PRN (18:41)
[2017-04-27] MEDS: Albuterol/Ipratropium Neb 3 ML AERS HHN SCH ×2 (20:57→23:36)
[2017-04-27] MEDS: Budesonide 0.5 Mg/2 mL Ud HHN SCH (20:57)
--- NOTE | 2017-04-27 21:08 | Progress Notes ---
DATE: Case was discussed with staff of the patient, reviewed records. The patient continues to be confused, demented, unable to participate in a meaningful conversation or make safe plan for self-care. Continues to be unpredictable, impulsive, needing redirection. He has ups and downs, according to the staff, he tolerated the Risperdal with no side effects, no sedation or nausea. No extrapyramidal symptoms. This patient can go to [facility] if medically cleared. Thank you very much for allowing me to participate in the care of this most interesting patient. JOB# [id number]
[2017-04-28] MEDS: Albuterol/Ipratropium Neb 3 ML AERS HHN SCH ×7 (03:28→23:48)
--- NOTE | 2017-04-28 08:48 | History and Physical ---
History of Present Illness - HPI Chief Complaint: Psychosis HPI: 82 year old male who was transferred to [facility] for further evaluation and treatment. Patient was noted at the SNF to have a increased confusion and change in his behavior. Patient has a previous history of dementia, Chronic Lymphocytic leukemia. HTN, Hyperlipidemia, Osteoarthritis. 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: Dementia GI: Report: No Pertinent Hx Psych: Report: Psychosis Musculoskeletal: Report: No Pertinent Hx Rheumatologic: Report: No pertinent Hx Infectious Disease: Report: Other (UTI + morganella organism) Renal/: Report: No Pertinent Hx Endocrine: Report: Diabetes - Past Surgical History Past Surgical History: No pertinent Hx Family Medical History - Family Member Mother History Unknown: Yes Hx Family Cancer: No Hx Family Stroke: No Hx Family Seizures: No Hx Family Dementia: No Hx Family AIDS: No Hx Family COPD: No Hx Family Psychiatric Problems: No Social History Smoke: No Alcohol: None Drugs: None Lives: Jail - Medications Home Medications: Home Medication Medication Instructions Recorded Type Acetaminophen [Tylenol] 650 mg PO Q4HR PRN 04/21/17 History Carvedilol [Coreg] 3.125 mg PO BID 04/21/17 History Gabapentin [Neurontin*] 300 mg PO BID 04/21/17 History Lactulose 30 ml PO DAILY 04/21/17 History Albuterol/Ipratropium Neb [Duoneb 3 ml HHN Q4HRT [facility] 04/27/17 Rx Neb] Budesonide [Pulmicort] 0.5 mg HHN BIDRT [facility] 04/27/17 Rx Levofloxacin [Levaquin] 500 mg PO DAILY tab 04/27/17 Rx Lorazepam [Ativan] 1 mg PO Q6HR PRN tab 04/27/17 Rx risperiDONE [RisperDAL] 0.25 mg PO BID tab 04/27/17 Rx - Allergies Allergies/Adverse Reactions: Allergies Allergy/AdvReac Type Severity Reaction Status Date / Time Penicillins [PCN] AdvReac Verified 04/21/17 17:09 Review of Systems - Review of Systems Constitutional: Report: No Significant Eyes: Report: No Significant ENT: Report: No Significant Respiratory: Report: No Significant Cardiovascular: Report: No Significant Gastrointestinal: Report: No Significant Genitourinary: Report: No Significant Musculoskeletal: Report: No Significant Skin: Report: No Significant Neurological: Report: No Significant Physical Exam - Physical Exam HEENT: Report: Ears Nose Throat within normal limits, Pharnyx within normal limits Neck: Report: Within normal limits Cardiovascular Systems: Report: +s1/s2 noted, Regular, Rate and Rhythm Respiratory: Report: Breath Sounds are within normal limits, Clear to Auscultation of lung mckeon Back: Report: Inspection of back is within normal limits. Extremities: Report: Non-tender to palpation. Skin: Report: Color of skin is within normal limits Neuro/Psych: Report: Other (Awake,alert but confused) - Assessment Assessment: Psychosis UTI +morganella HTN DM Hyperlipidemia Dementia OA - Plan Plan: see orders
[2017-04-28] MEDS: Lactulose 10 Gm/15 mL 30mL UDC PO SCH (09:10)
[2017-04-28] MEDS: Multivitamin Tab PO SCH (09:10)
--- NOTE | 2017-04-28 09:55 | Psychosocial Evaluation ---
DATE OF SERVICE: 04/28/2017 IDENTIFYING INFORMATION: The patient is an 82-year-old male. CHIEF COMPLAINT: No particular answer. HISTORY OF PRESENT ILLNESS: The patient was transferred from the medical floor. I was asked to assist because of acting out behavior, unpredictable, impulsive, labile, unable to participate in a meaningful conversation, or make safe plan for self-care, though he knows he has children, unable to tell me how many he has or how old they are. He is able to tell me he is 82 years of age and he is able to tell me his date of , but he is unable to tell me the date, labile. He was unable to answer questions regarding who is the President. He is demented, confused. I did initiate him on Risperdal a few days ago when he was on the medical floor; however, he is still labile, so had to be transferred here. PAST PSYCHIATRIC HISTORY: No information. The patient is a poor historian. Unable to tell me if he was using alcohol or drugs. ALLERGIES: THE PATIENT IS ALLERGIC TO PENICILLIN. MEDICATIONS: The patient had asthma and he is on Pulmicort 0.5 mg twice a day. He is having hypertension, he is on Coreg 3.125 mg twice a day and lactulose 30 mg daily. He is on Levaquin 500 mg daily for UTI infection. He is on Ativan 0.5 mg every 4 hours as needed and multivitamin 1 tablet daily and Ambien 5 mg at bedtime. FAMILY AND SOCIAL HISTORY: The patient is unable to give me much reasonable information. Unable to tell me how many children ____ so he started naming them, but he was unable to come up with a date. He was today unable to tell me what he did for living. Otherwise, refer to my previous evaluation of the patient. MENTAL STATUS EXAMINATION: The patient is appropriately dressed. He was dressed in hospital gowns. He looked somewhat disheveled. He was unable to tell me the date. He is not sure of the President of [facility]. He has been labile, irritable, acting aggressive at times, unpredictable, impulsive. His long-term memory is good for his age, date of . Recent memory is poor, not sure why he is here and where he is. When asked about suicide, homicide, he was unable to answer that question. His insight and judgment is impaired. IMPRESSION: AXIS I: Psychosis, not otherwise specified. MEDICAL DIAGNOSES: Hypertension, asthma, and urinary tract infection. ASSETS: He is accepting treatment. Negative poor coping skills. INITIAL TREATMENT PLAN: The patient will be put on Risperdal, adjust medication as needed. We will do group therapy, milieu therapy, individual therapy. ESTIMATED LENGTH OF STAY: Five to seven days. DISCHARGE CRITERIA: Decreased agitation, no longer aggressive. After discharge, outpatient treatment. I would like to add, the patient is unable to answer questions regarding who is his conservator if any or tell me he is not smoker while he is here. ____ he smokes or not. He is over 82 and he is not conserved, but he was unable to tell me if he has assigned anyone to take care of his medical issues and finance. JOB# [id number]
[2017-04-28] MEDS: Budesonide 0.5 Mg/2 mL Ud HHN SCH (20:32)
[2017-04-29] MEDS: Albuterol/Ipratropium Neb 3 ML AERS HHN SCH ×6 (04:06→23:50)
[2017-04-29] MEDS: Budesonide 0.5 Mg/2 mL Ud HHN SCH ×2 (07:24→19:11)
[2017-04-29] MEDS: Lactulose 10 Gm/15 mL 30mL UDC PO SCH (08:25)
[2017-04-29] MEDS: Multivitamin Tab PO SCH (08:25)
--- NOTE | 2017-04-29 08:28 | General Progress Note ---
Subjective - Review of Systems Service Date: 04/29/17 Subjective: Awake,Alert,but confused Objective - Physical Exam Vitals and I&O: Vital Signs Temp 98.6 F 04/28/17 07:00 Pulse 81 04/29/17 07:41 Resp 18 04/29/17 07:41 BP 118/72 04/28/17 16:48 Pulse Ox 97 04/29/17 07:41 Intake & Output 04/28/17 04/29/17 04/29/17 18:59 06:59 18:59 Intake Total 120 Balance 120 Intake: Oral 120 Other: # Voids 3 Active Medications: Current Medications Acetaminophen (Tylenol) 650 mg PO Q4HR PRN PRN Reason: Mild Pain / Temp above 100 Stop: 06/26/17 18:40 Al Hydrox/Mg Hydrox/Simethicone (Maalox) 30 ml PO Q4HR PRN PRN Reason: GI DISTRESS Stop: 06/26/17 18:40 Albuterol/Ipratropium (Duoneb Neb) 3 ml HHN Q4HRT [facility] Stop: 06/26/17 18:59 Last Admin: 04/29/17 07:24 Dose: 3 ml Budesonide (Pulmicort) 0.5 mg HHN BIDRT [facility] Stop: 06/26/17 18:59 Last Admin: 04/29/17 07:24 Dose: 0.5 mg Carvedilol (Coreg) 3.125 mg PO BID [facility] Stop: 06/27/17 08:59 Last Admin: 04/28/17 16:48 Dose: 3.125 mg Lactulose (Cephulac) 30 gm PO DAILY [facility] Stop: 06/27/17 08:59 Last Admin: 04/28/17 09:10 Dose: 30 gm Levofloxacin (Levaquin) 500 mg PO DAILY [facility] Stop: 06/27/17 08:59 Last Admin: 04/28/17 09:08 Dose: 500 mg Lorazepam (Ativan) 0.5 mg PO Q4HR PRN; Protocol PRN Reason: Agitation Stop: 05/27/17 18:40 Magnesium Hydroxide (Milk Of Magnesia) 30 ml PO HS PRN PRN Reason: Constipation Multivitamins/Vitamin C (Theragran) 1 tab PO DAILY [facility] Stop: 06/27/17 08:59 Last Admin: 04/28/17 09:10 Dose: 1 tab Risperidone (Risperdal) 0.25 mg PO BID [facility] PRN Reason: Protocol Stop: 06/27/17 08:59 Last Admin: 04/28/17 16:48 Dose: 0.25 mg Zolpidem Tartrate (Ambien) 5 mg PO HS PRN PRN Reason: Insomnia Stop: 06/26/17 18:40 Last Admin: 04/27/17 20:28 Dose: 5 mg General: Alert, No acute distress, Other (afebrile) HEENT: Atraumatic, PERRLA Neck: Supple, no JVD, no Thyromegaly Cardiovascular: Regular rate, Normal S1, Normal S2 Lungs: Clear to auscultation Abdomen: Bowel sounds, Soft Extremities: no Clubbing, no Cyanosis, no Edema Neurological: Normal gait, Normal speech Assessment/Plan - Assessment Assessment: Psychosis UTI +morganella HTN DM Hyperlipidemia Dementia OA - Plan Plan: continue current treatment.
--- NOTE | 2017-04-29 14:03 | Progress Notes ---
DATE: 04/29/2017 Case was discussed with staff of the patient, reviewed records. The patient continues to be unpredictable and impulsive, continues to be labile, continues to have poor insight. Unable to make safe plan for self-care. He is compliant with medication with no side effects. I will be increasing Risperdal dose to 0.5 mg twice a day and so far no side effects, no sedation, no nausea, no extrapyramidal symptoms. We will continue the patient in group therapy and milieu therapy, adjust medication as needed. JOB# [id number]
[2017-04-30] MEDS: Albuterol/Ipratropium Neb 3 ML AERS HHN SCH ×4 (02:59→16:13)
--- NOTE | 2017-04-30 08:24 | General Progress Note ---
Subjective - Review of Systems Service Date: 04/30/17 Subjective: Awake,Alert,but confused VS T 98.1 P83 BP 117/69 R20 Objective - Physical Exam Vitals and I&O: Vital Signs Temp 98.1 F 04/30/17 06:50 Pulse 83 04/30/17 06:50 Resp 20 04/30/17 06:50 BP 117/69 04/30/17 06:50 Pulse Ox 97 04/30/17 06:50 Intake & Output 04/29/17 04/30/17 04/30/17 18:59 06:59 18:59 Intake Total 900 Balance 900 Intake: Oral 900 Other: # Voids 2 Active Medications: Current Medications Acetaminophen (Tylenol) 650 mg PO Q4HR PRN PRN Reason: Mild Pain / Temp above 100 Stop: 06/26/17 18:40 Al Hydrox/Mg Hydrox/Simethicone (Maalox) 30 ml PO Q4HR PRN PRN Reason: GI DISTRESS Stop: 06/26/17 18:40 Albuterol/Ipratropium (Duoneb Neb) 3 ml HHN Q4HRT [facility] Stop: 06/26/17 18:59 Last Admin: 04/30/17 02:59 Dose: 3 ml Budesonide (Pulmicort) 0.5 mg HHN BIDRT [facility] Stop: 06/26/17 18:59 Last Admin: 04/29/17 19:11 Dose: 0.5 mg Carvedilol (Coreg) 3.125 mg PO BID [facility] Stop: 06/27/17 08:59 Last Admin: 04/29/17 16:17 Dose: 3.125 mg Lactulose (Cephulac) 30 gm PO DAILY [facility] Stop: 06/27/17 08:59 Last Admin: 04/29/17 08:25 Dose: 30 gm Levofloxacin (Levaquin) 500 mg PO DAILY [facility] Stop: 06/27/17 08:59 Last Admin: 04/29/17 08:25 Dose: 500 mg Lorazepam (Ativan) 0.5 mg PO Q4HR PRN; Protocol PRN Reason: Agitation Stop: 05/27/17 18:40 Magnesium Hydroxide (Milk Of Magnesia) 30 ml PO HS PRN PRN Reason: Constipation Multivitamins/Vitamin C (Theragran) 1 tab PO DAILY [facility] Stop: 06/27/17 08:59 Last Admin: 04/29/17 08:25 Dose: 1 tab Risperidone (Risperdal) 0.5 mg PO BID [facility] PRN Reason: Protocol Stop: 06/28/17 12:17 Last Admin: 04/29/17 16:17 Dose: Not Given Zolpidem Tartrate (Ambien) 5 mg PO HS PRN PRN Reason: Insomnia Stop: 06/26/17 18:40 Last Admin: 04/29/17 21:11 Dose: 5 mg General: Alert, No acute distress, Other (afebrile) HEENT: Atraumatic, PERRLA Neck: Supple, no JVD, no Thyromegaly Cardiovascular: Regular rate, Normal S1, Normal S2 Lungs: Clear to auscultation Abdomen: Bowel sounds, Soft Extremities: no Clubbing, no Cyanosis, no Edema Neurological: Normal gait, Normal speech Assessment/Plan - Assessment Assessment: Psychosis UTI +morganella HTN DM Hyperlipidemia Dementia OA - Plan Plan: continue current treatment.
[2017-04-30] MEDS: Budesonide 0.5 Mg/2 mL Ud HHN SCH (08:30)
[2017-04-30] MEDS: Lactulose 10 Gm/15 mL 30mL UDC PO SCH (09:13)
[2017-04-30] MEDS: Multivitamin Tab PO SCH (09:14)
--- NOTE | 2017-04-30 20:08 | Progress Notes ---
DATE: 04/30/2017 SUBJECTIVE: Case was discussed with staff of the patient, reviewed records. The patient continues to be unpredictable, impulsive, and labile. Continues to have poor insight and seems to be unable to make safe plan for self-care. I did increase his Risperdal dose yesterday. No side effects, no sedation, no nausea, no extrapyramidal symptoms. PLAN OF CARE: We will continue to work with the patient in group therapy, milieu therapy, and adjust medications as needed. JOB# [id number]
[2017-05-01] MEDS: Multivitamin Tab PO SCH (08:58)
[2017-05-01] MEDS: Lactulose 10 Gm/15 mL 30mL UDC PO SCH (08:59)
--- NOTE | 2017-05-01 19:28 | General Progress Note ---
Subjective - Review of Systems Service Date: 05/01/17 Subjective: Awake,Alert,but confused VS T 97.6 P87 BP 123/62 R19 Objective - Physical Exam Vitals and I&O: Vital Signs Temp 97.6 F 05/01/17 14:54 Pulse 87 05/01/17 14:54 Resp 19 05/01/17 14:54 BP 123/62 05/01/17 14:54 Pulse Ox 96 05/01/17 14:54 Intake & Output 05/01/17 05/01/17 05/02/17 06:59 18:59 06:59 Intake Total 600 Balance 600 Intake: Oral 600 Other: # Voids 2 Active Medications: Current Medications Acetaminophen (Tylenol) 650 mg PO Q4HR PRN PRN Reason: Mild Pain / Temp above 100 Stop: 06/26/17 18:40 Al Hydrox/Mg Hydrox/Simethicone (Maalox) 30 ml PO Q4HR PRN PRN Reason: GI DISTRESS Stop: 06/26/17 18:40 Albuterol/Ipratropium (Duoneb Neb) 3 ml HHN Q4HRT [facility] Stop: 06/26/17 18:59 Last Admin: 04/30/17 16:13 Dose: 3 ml Budesonide (Pulmicort) 0.5 mg HHN BIDRT [facility] Stop: 06/26/17 18:59 Last Admin: 04/30/17 08:30 Dose: 0.5 mg Carvedilol (Coreg) 3.125 mg PO BID [facility] Stop: 06/27/17 08:59 Last Admin: 05/01/17 08:58 Dose: 3.125 mg Lactulose (Cephulac) 30 gm PO DAILY [facility] Stop: 06/27/17 08:59 Last Admin: 05/01/17 08:59 Dose: 30 gm Levofloxacin (Levaquin) 500 mg PO DAILY [facility] Stop: 06/27/17 08:59 Last Admin: 05/01/17 08:58 Dose: 500 mg Lorazepam (Ativan) 0.5 mg PO Q4HR PRN; Protocol PRN Reason: Agitation Stop: 05/27/17 18:40 Magnesium Hydroxide (Milk Of Magnesia) 30 ml PO HS PRN PRN Reason: Constipation Multivitamins/Vitamin C (Theragran) 1 tab PO DAILY [facility] Stop: 06/27/17 08:59 Last Admin: 05/01/17 08:58 Dose: 1 tab Risperidone (Risperdal) 0.5 mg PO BID [facility] PRN Reason: Protocol Stop: 06/28/17 12:17 Last Admin: 05/01/17 18:11 Dose: 0.5 mg Zolpidem Tartrate (Ambien) 5 mg PO HS PRN PRN Reason: Insomnia Stop: 06/26/17 18:40 Last Admin: 04/29/17 21:11 Dose: 5 mg General: Alert, No acute distress, Other (afebrile) HEENT: Atraumatic, PERRLA Neck: Supple, no JVD, no Thyromegaly Cardiovascular: Regular rate, Normal S1, Normal S2 Lungs: Clear to auscultation Abdomen: Bowel sounds, Soft Extremities: no Clubbing, no Cyanosis, no Edema Neurological: Normal gait, Normal speech Assessment/Plan - Assessment Assessment: Psychosis UTI +morganella HTN DM Hyperlipidemia Dementia OA - Plan Plan: continue current treatment. Nutritional Asmnt/Malnutr-PDOC - Dietary Evaluation Malnutrition Findings (Please click <Entered> for more info): Nutritional Asmnt/Malnutrition Start: 05/01/17 11: 13 Text: Status: Complete Freq: Document 05/01/17 11:37 MMULN (Rec: 05/01/17 11:46 MMULHERN FLAKO FN) Nutritional Asmnt/Malnutrition Patient General Information Nutritional Screening Moderate Risk Diagnosis Psychosis Pertinent Medical Hx/Surgical Hx Dementia, chronic lymphocytic leukemic, HTN, hyperlipidemia, osteoarthritis. Subjective Information Patient was admitted to [facility] from Med surg unit due to 5150 . Current Diet Order/ Nutrition Support Regular Patient / S.O Can Pertinent Medications maalox, lactulose, MOM, Theragran Pertinent Labs Labs from med surg unit 04/26/17 . Albumin 2.8, HGA1C 7.1, Calcium 8.2 Nutritional Hx/Data Height 1.88 m Height (Calculated Centimeters) 188.0 Current Weight (lbs) 105.687 kg Weight (Calculated Kilograms) 105.7 Weight (Calculated Grams) 357613.0 [place] Body Weight 190 % [place] Body Weight 122 Body Mass Index (BMI) 29.9 Recent Weight Change No Weight Status Overweight GI Symptoms GI Symptoms None Last BM None noted since admission to [facility] Difficult in: None Food Allergies No Cultural/Ethnic/Latter Day Belief None indicated Usual diet at home Regular Skin Integrity/Comment: John 15, "area of concern". Per wound care notes, full thickness skin tear on right lateral forearm. Current %PO Good (75-100%) Estimated Nutritional Goals BEE in Kcals: Adj wt of IBW Calories/Kcals/Kg 25-30 kcal/kg (86.3kg IBW) Kcals Calculated ~4503-0544 kcal/day Protein: Adj wt of IBW Protein g/k gm/kg Protein Calculated ~85 gm/day Fluid: ml ~3804-3198 ml/day (1 ml/kcal) Nutritional Problem 1. Problem Problem Altered nutrition related lab values related to Etiology hx of diabetes as evidenced by Signs/Symptoms: HGA1C 7.1 (04/23/17). Intervention/Recommendation Comments Continue regular diet at this time. Monitor blood glucose levels due to HGA1C 7.1 on 04/23. If having hyperglycemia, modify to 75 gm CCHO diet. Expected Outcomes/Goals Expected Outcomes/Goals Oral intake to meet >75% of nutrient needs, weight stable or trends toward ideal body weight, nutrition related labs normalize.
[2017-05-02] MEDS: Albuterol/Ipratropium Neb 3 ML AERS HHN SCH ×4 (02:26→22:47)
[2017-05-02] MEDS: Lactulose 10 Gm/15 mL 30mL UDC PO SCH (08:53)
[2017-05-02] MEDS: Multivitamin Tab PO SCH (08:53)
[2017-05-02] MEDS ORDERED: Probiotic Screen MC PRN (12:45)
--- NOTE | 2017-05-02 19:06 | Progress Notes ---
DATE: 05/01/2017 SUBJECTIVE: The patient was seen, chart reviewed, and discussed with staff. The patient continues to be very unpredictable, impulsive, labile. He had been compliant with his medications, denying any undue side effects despite recent increase. PLAN: The patient continues to be very unpredictable, so that he will require inpatient care center treatment. We will monitor the patient on a daily basis for his response and titrate medications as needed. [facility]# [id number]
[2017-05-02] MEDS: Budesonide 0.5 Mg/2 mL Ud HHN SCH (20:04)
--- NOTE | 2017-05-02 22:45 | General Progress Note ---
Subjective - Review of Systems Service Date: 05/02/17 Subjective: Awake,Alert,but confused VS T 98.6 P86 BP 102/69 R18 Objective - Physical Exam Vitals and I&O: Vital Signs Temp 98.6 F 05/02/17 20:22 Pulse 86 05/02/17 20:22 Resp 18 05/02/17 20:22 BP 102/69 05/02/17 20:22 Pulse Ox 100 05/02/17 20:22 Intake & Output 05/02/17 05/02/17 05/03/17 06:59 18:59 06:59 Intake Total 1000 120 Balance 1000 120 Intake: Oral 1000 120 Other: # Voids 2 # Bowel Movements 0 Active Medications: Current Medications Acetaminophen (Tylenol) 650 mg PO Q4HR PRN PRN Reason: Mild Pain / Temp above 100 Stop: 06/26/17 18:40 Al Hydrox/Mg Hydrox/Simethicone (Maalox) 30 ml PO Q4HR PRN PRN Reason: GI DISTRESS Stop: 06/26/17 18:40 Albuterol/Ipratropium (Duoneb Neb) 3 ml HHN Q4HRT [facility] Stop: 07/01/17 10:59 Last Admin: 05/02/17 20:04 Dose: 3 ml Budesonide (Pulmicort) 0.5 mg HHN BIDRT [facility] Stop: 07/01/17 18:59 Last Admin: 05/02/17 20:04 Dose: 0.5 mg Carvedilol (Coreg) 3.125 mg PO BID [facility] Stop: 06/27/17 08:59 Last Admin: 05/02/17 16:25 Dose: 3.125 mg Lactobacillus Rhamnosus (Culturelle 15b) 1 each PO DAILY [facility] Stop: 07/02/17 08:59 Lactulose (Cephulac) 30 gm PO DAILY [facility] Stop: 06/27/17 08:59 Last Admin: 05/02/17 08:53 Dose: 30 gm Levofloxacin (Levaquin) 500 mg PO DAILY [facility] Stop: 06/27/17 08:59 Last Admin: 05/02/17 08:53 Dose: 500 mg Lorazepam (Ativan) 0.5 mg PO Q4HR PRN; Protocol PRN Reason: Agitation Stop: 05/27/17 18:40 Magnesium Hydroxide (Milk Of Magnesia) 30 ml PO HS PRN PRN Reason: Constipation Miscellaneous (Probiotic Screen) 1 ea [facility] PRN PRN PRN Reason: PROTOCOL Stop: 07/01/17 12:44 Multivitamins/Vitamin C (Theragran) 1 tab PO DAILY [facility] Stop: 06/27/17 08:59 Last Admin: 05/02/17 08:53 Dose: 1 tab Risperidone (Risperdal) 0.5 mg PO BID [facility] PRN Reason: Protocol Stop: 06/28/17 12:17 Last Admin: 05/02/17 16:25 Dose: 0.5 mg Zolpidem Tartrate (Ambien) 5 mg PO HS PRN PRN Reason: Insomnia Stop: 06/26/17 18:40 Last Admin: 05/02/17 20:40 Dose: 5 mg General: Alert, No acute distress, Other (afebrile) HEENT: Atraumatic, PERRLA Neck: Supple, no JVD, no Thyromegaly Cardiovascular: Regular rate, Normal S1, Normal S2 Lungs: Clear to auscultation Abdomen: Bowel sounds, Soft Extremities: no Clubbing, no Cyanosis, no Edema Neurological: Normal gait, Normal speech Assessment/Plan - Assessment Assessment: Psychosis UTI +morganella HTN DM Hyperlipidemia Dementia OA - Plan Plan: continue current treatment. Nutritional Asmnt/Malnutr-PDOC - Dietary Evaluation Malnutrition Findings (Please click <Entered> for more info): Nutritional Asmnt/Malnutrition Start: 05/01/17 11: 13 Text: Status: Complete Freq: Document 05/01/17 11:37 MMULHERN (Rec: 05/01/17 11:46 [facility] Nutritional Asmnt/Malnutrition Patient General Information Nutritional Screening Moderate Risk Diagnosis Psychosis Pertinent Medical Hx/Surgical Hx Dementia, chronic lymphocytic leukemic, HTN, hyperlipidemia, osteoarthritis. Subjective Information Patient was admitted to [facility] from Med surg unit due to 5150 . Current Diet Order/ Nutrition Support Regular Patient / S.O Can Pertinent Medications maalox, lactulose, MOM, Theragran Pertinent Labs Labs from med surg unit 04/26/17 . Albumin 2.8, HGA1C 7.1, Calcium 8.2 Nutritional Hx/Data Height 1.88 m Height (Calculated Centimeters) 188.0 Current Weight (lbs) 105.687 kg Weight (Calculated Kilograms) 105.7 Weight (Calculated Grams) 573926.0 [place] Body Weight 190 % [place] Body Weight 122 Body Mass Index (BMI) 29.9 Recent Weight Change No Weight Status Overweight GI Symptoms GI Symptoms None Last BM None noted since admission to [facility] Difficult in: None Food Allergies No Cultural/Ethnic/Yazdanism Belief None indicated Usual diet at home Regular Skin Integrity/Comment: John 15, "area of concern". Per wound care notes, full thickness skin tear on right lateral forearm. Current %PO Good (75-100%) Estimated Nutritional Goals BEE in Kcals: Adj wt of IBW Calories/Kcals/Kg 25-30 kcal/kg (86.3kg IBW) Kcals Calculated ~3039-7985 kcal/day Protein: Adj wt of IBW Protein g/k gm/kg Protein Calculated ~85 gm/day Fluid: ml ~0377-7024 ml/day (1 ml/kcal) Nutritional Problem 1. Problem Problem Altered nutrition related lab values related to Etiology hx of diabetes as evidenced by Signs/Symptoms: HGA1C 7.1 (04/23/17). Intervention/Recommendation Comments Continue regular diet at this time. Monitor blood glucose levels due to HGA1C 7.1 on 04/23. If having hyperglycemia, modify to 75 gm CCHO diet. Expected Outcomes/Goals Expected Outcomes/Goals Oral intake to meet >75% of nutrient needs, weight stable or trends toward ideal body weight, nutrition related labs normalize.
--- NOTE | 2017-05-03 01:29 | Progress Notes ---
DATE: 05/02/2017 SUBJECTIVE: The patient was seen, chart reviewed, and discussed with staff. The patient continues to be extremely impulsive, unpredictable, labile. Continues to have a very poor insight regarding discharge and treatment. He has been compliant with his medications, denying any side effects. PLAN: The patient continues to be unpredictable, impulsive, so that he will require inpatient care center treatment. We will monitor patient on a daily basis for his response to treatment and titrate meds as needed. [facility]# [id number]
[2017-05-03] MEDS: Albuterol/Ipratropium Neb 3 ML AERS HHN SCH ×5 (03:50→20:27)
[2017-05-03] MEDS: Budesonide 0.5 Mg/2 mL Ud HHN SCH ×2 (06:31→20:27)
--- NOTE | 2017-05-03 09:06 | General Progress Note ---
Subjective - Review of Systems Service Date: 05/03/17 Subjective: Awake,Alert,but confused VS T 98.1 P78 BP 122/67 R12 Objective - Physical Exam Vitals and I&O: Vital Signs Temp 98.1 F 05/03/17 05:36 Pulse 78 05/03/17 06:34 Resp 12 05/03/17 06:34 BP 122/67 05/03/17 05:36 Pulse Ox 96 05/03/17 06:34 Intake & Output 05/02/17 05/03/17 05/03/17 18:59 06:59 18:59 Intake Total 1000 180 Balance 1000 180 Intake: Oral 1000 180 Other: # Voids 1 # Bowel Movements 1 Active Medications: Current Medications Acetaminophen (Tylenol) 650 mg PO Q4HR PRN PRN Reason: Mild Pain / Temp above 100 Stop: 06/26/17 18:40 Al Hydrox/Mg Hydrox/Simethicone (Maalox) 30 ml PO Q4HR PRN PRN Reason: GI DISTRESS Stop: 06/26/17 18:40 Albuterol/Ipratropium (Duoneb Neb) 3 ml HHN Q4HRT [facility] Stop: 07/01/17 10:59 Last Admin: 05/03/17 06:31 Dose: 3 ml Budesonide (Pulmicort) 0.5 mg HHN BIDRT [facility] Stop: 07/01/17 18:59 Last Admin: 05/03/17 06:31 Dose: 0.5 mg Carvedilol (Coreg) 3.125 mg PO BID [facility] Stop: 06/27/17 08:59 Last Admin: 05/02/17 16:25 Dose: 3.125 mg Lactobacillus Rhamnosus (Culturelle 15b) 1 each PO DAILY [facility] Stop: 07/02/17 08:59 Lactulose (Cephulac) 30 gm PO DAILY [facility] Stop: 06/27/17 08:59 Last Admin: 05/02/17 08:53 Dose: 30 gm Levofloxacin (Levaquin) 500 mg PO DAILY [facility] Stop: 06/27/17 08:59 Last Admin: 05/02/17 08:53 Dose: 500 mg Lorazepam (Ativan) 0.5 mg PO Q4HR PRN; Protocol PRN Reason: Agitation Stop: 05/27/17 18:40 Magnesium Hydroxide (Milk Of Magnesia) 30 ml PO HS PRN PRN Reason: Constipation Miscellaneous (Probiotic Screen) 1 ea [facility] PRN PRN PRN Reason: PROTOCOL Stop: 07/01/17 12:44 Multivitamins/Vitamin C (Theragran) 1 tab PO DAILY [facility] Stop: 06/27/17 08:59 Last Admin: 05/02/17 08:53 Dose: 1 tab Risperidone (Risperdal) 0.5 mg PO BID [facility] PRN Reason: Protocol Stop: 06/28/17 12:17 Last Admin: 05/02/17 16:25 Dose: 0.5 mg Zolpidem Tartrate (Ambien) 5 mg PO HS PRN PRN Reason: Insomnia Stop: 06/26/17 18:40 Last Admin: 05/02/17 20:40 Dose: 5 mg General: Alert, No acute distress, Other (afebrile) HEENT: Atraumatic, PERRLA Neck: Supple, no JVD, no Thyromegaly Cardiovascular: Regular rate, Normal S1, Normal S2 Lungs: Clear to auscultation Abdomen: Bowel sounds, Soft Extremities: no Clubbing, no Cyanosis, no Edema Neurological: Normal gait, Normal speech Assessment/Plan - Assessment Assessment: Psychosis UTI +morganella HTN DM Hyperlipidemia Dementia OA - Plan Plan: continue current treatment. Nutritional Asmnt/Malnutr-PDOC - Dietary Evaluation Malnutrition Findings (Please click <Entered> for more info): Nutritional Asmnt/Malnutrition Start: 05/01/17 11: 13 Text: Status: Complete Freq: Document 05/01/17 11:37 MMULHERN (Rec: 05/01/17 11:46 [facility] Nutritional Asmnt/Malnutrition Patient General Information Nutritional Screening Moderate Risk Diagnosis Psychosis Pertinent Medical Hx/Surgical Hx Dementia, chronic lymphocytic leukemic, HTN, hyperlipidemia, osteoarthritis. Subjective Information Patient was admitted to [facility] from Med surg unit due to 5150 . Current Diet Order/ Nutrition Support Regular Patient / S.O Can Pertinent Medications maalox, lactulose, MOM, Theragran Pertinent Labs Labs from med surg unit 04/26/17 . Albumin 2.8, HGA1C 7.1, Calcium 8.2 Nutritional Hx/Data Height 1.88 m Height (Calculated Centimeters) 188.0 Current Weight (lbs) 105.687 kg Weight (Calculated Kilograms) 105.7 Weight (Calculated Grams) 043982.0 [place] Body Weight 190 % [place] Body Weight 122 Body Mass Index (BMI) 29.9 Recent Weight Change No Weight Status Overweight GI Symptoms GI Symptoms None Last BM None noted since admission to [facility] Difficult in: None Food Allergies No Cultural/Ethnic/Moravian Belief None indicated Usual diet at home Regular Skin Integrity/Comment: John 15, "area of concern". Per wound care notes, full thickness skin tear on right lateral forearm. Current %PO Good (75-100%) Estimated Nutritional Goals BEE in Kcals: Adj wt of IBW Calories/Kcals/Kg 25-30 kcal/kg (86.3kg IBW) Kcals Calculated ~3789-0448 kcal/day Protein: Adj wt of IBW Protein g/k gm/kg Protein Calculated ~85 gm/day Fluid: ml ~9304-1341 ml/day (1 ml/kcal) Nutritional Problem 1. Problem Problem Altered nutrition related lab values related to Etiology hx of diabetes as evidenced by Signs/Symptoms: HGA1C 7.1 (04/23/17). Intervention/Recommendation Comments Continue regular diet at this time. Monitor blood glucose levels due to HGA1C 7.1 on 04/23. If having hyperglycemia, modify to 75 gm CCHO diet. Expected Outcomes/Goals Expected Outcomes/Goals Oral intake to meet >75% of nutrient needs, weight stable or trends toward ideal body weight, nutrition related labs normalize.
[2017-05-03] MEDS: Lactulose 10 Gm/15 mL 30mL UDC PO SCH (09:24)
[2017-05-03] MEDS: Multivitamin Tab PO SCH (09:25)
[2017-05-03] MEDS: Lactobacillus Rhamnosus GG 15 Billion CFU CAP.SPRINK PO SCH (09:25)
--- NOTE | 2017-05-03 20:07 | Progress Notes ---
DATE: 05/03/2017 Case was discussed with staff of the patient, reviewed records. The patient has been throwing things at people. He continues to need redirection. He continues to have poor insight. He continues to be unpredictable and impulsive. No side effects to the medication, no sedation, no nausea, no extrapyramidal symptoms. I will be increasing his Zyprexa to 0.5 mg 3 times a day and so far no side effects, no sedation, no nausea, no extrapyramidal symptoms. We will continue to work with the patient in group therapy, milieu therapy, adjust the medication as needed. JOB# [id number]
--- NOTE | 2017-05-04 06:16 | General Progress Note ---
Subjective - Review of Systems Service Date: 05/04/17 Subjective: Awake,Alert,but confused VS T 98.9 P90 BP 121/72 R16 Objective - Physical Exam Vitals and I&O: Vital Signs Temp 98.9 F 05/04/17 05:24 Pulse 90 05/04/17 05:24 Resp 18 05/04/17 05:24 BP 121/72 05/04/17 05:24 Pulse Ox 97 05/04/17 05:24 Intake & Output 05/03/17 05/03/17 05/04/17 06:59 18:59 06:59 Intake Total 180 900 120 Balance 180 900 120 Intake: Oral 180 900 120 Other: # Voids 1 2 3 # Bowel Movements 1 0 Active Medications: Current Medications Acetaminophen (Tylenol) 650 mg PO Q4HR PRN PRN Reason: Mild Pain / Temp above 100 Stop: 06/26/17 18:40 Al Hydrox/Mg Hydrox/Simethicone (Maalox) 30 ml PO Q4HR PRN PRN Reason: GI DISTRESS Stop: 06/26/17 18:40 Albuterol/Ipratropium (Duoneb Neb) 3 ml [id number] Stop: 07/02/17 10:59 Last Admin: 05/03/17 20:27 Dose: 3 ml Budesonide (Pulmicort) 0.5 mg HHN BIDRT [facility] Stop: 07/01/17 18:59 Last Admin: 05/03/17 20:27 Dose: 0.5 mg Carvedilol (Coreg) 3.125 mg PO BID [facility] Stop: 06/27/17 08:59 Last Admin: 05/03/17 16:25 Dose: 3.125 mg Lactobacillus Rhamnosus (Culturelle 15b) 1 each PO DAILY [facility] Stop: 07/02/17 08:59 Last Admin: 05/03/17 09:25 Dose: 1 each Lactulose (Cephulac) 30 gm PO DAILY [facility] Stop: 06/27/17 08:59 Last Admin: 05/03/17 09:24 Dose: 30 gm Levofloxacin (Levaquin) 500 mg PO DAILY [facility] Stop: 06/27/17 08:59 Last Admin: 05/03/17 09:30 Dose: 500 mg Lorazepam (Ativan) 0.5 mg PO Q4HR PRN; Protocol PRN Reason: Agitation Stop: 05/27/17 18:40 Magnesium Hydroxide (Milk Of Magnesia) 30 ml PO HS PRN PRN Reason: Constipation Miscellaneous (Probiotic Screen) 1 ea [facility] PRN PRN PRN Reason: PROTOCOL Stop: 07/01/17 12:44 Multivitamins/Vitamin C (Theragran) 1 tab PO DAILY [facility] Stop: 06/27/17 08:59 Last Admin: 05/03/17 09:25 Dose: 1 tab Risperidone (Risperdal) 0.5 mg PO TID [facility] PRN Reason: Protocol Stop: 07/02/17 13:59 Last Admin: 05/03/17 20:37 Dose: 0.5 mg Zolpidem Tartrate (Ambien) 5 mg PO HS PRN PRN Reason: Insomnia Stop: 06/26/17 18:40 Last Admin: 05/03/17 20:37 Dose: 5 mg General: Alert, No acute distress, Other (afebrile) HEENT: Atraumatic, PERRLA Neck: Supple, no JVD, no Thyromegaly Cardiovascular: Regular rate, Normal S1, Normal S2 Lungs: Clear to auscultation Abdomen: Bowel sounds, Soft Extremities: no Clubbing, no Cyanosis, no Edema Neurological: Normal gait, Normal speech Assessment/Plan - Assessment Assessment: Psychosis UTI +morganella HTN DM Hyperlipidemia Dementia OA - Plan Plan: continue current treatment. Nutritional Asmnt/Malnutr-PDOC - Dietary Evaluation Malnutrition Findings (Please click <Entered> for more info): Nutritional Asmnt/Malnutrition Start: 05/01/17 11: 13 Text: Status: Complete Freq: Document 05/01/17 11:37 MMULHERN (Rec: 05/01/17 11:46 [facility] Nutritional Asmnt/Malnutrition Patient General Information Nutritional Screening Moderate Risk Diagnosis Psychosis Pertinent Medical Hx/Surgical Hx Dementia, chronic lymphocytic leukemic, HTN, hyperlipidemia, osteoarthritis. Subjective Information Patient was admitted to [facility] from Med surg unit due to 5150 . Current Diet Order/ Nutrition Support Regular Patient / S.O Can Pertinent Medications maalox, lactulose, MOM, Theragran Pertinent Labs Labs from med surg unit 04/26/17 . Albumin 2.8, HGA1C 7.1, Calcium 8.2 Nutritional Hx/Data Height 1.88 m Height (Calculated Centimeters) 188.0 Current Weight (lbs) 105.687 kg Weight (Calculated Kilograms) 105.7 Weight (Calculated Grams) 605805.0 [place] Body Weight 190 % [place] Body Weight 122 Body Mass Index (BMI) 29.9 Recent Weight Change No Weight Status Overweight GI Symptoms GI Symptoms None Last BM None noted since admission to [facility] Difficult in: None Food Allergies No Cultural/Ethnic/Orthodoxy Belief None indicated Usual diet at home Regular Skin Integrity/Comment: John Alvarado, "area of concern". Per wound care notes, full thickness skin tear on right lateral forearm. Current %PO Good (75-100%) Estimated Nutritional Goals BEE in Kcals: Adj wt of IBW Calories/Kcals/Kg 25-30 kcal/kg (86.3kg IBW) Kcals Calculated ~6313-4139 kcal/day Protein: Adj wt of IBW Protein g/k gm/kg Protein Calculated ~85 gm/day Fluid: ml ~2708-8219 ml/day (1 ml/kcal) Nutritional Problem 1. Problem Problem Altered nutrition related lab values related to Etiology hx of diabetes as evidenced by Signs/Symptoms: HGA1C 7.1 (04/23/17). Intervention/Recommendation Comments Continue regular diet at this time. Monitor blood glucose levels due to HGA1C 7.1 on 04/23. If having hyperglycemia, modify to 75 gm CCHO diet. Expected Outcomes/Goals Expected Outcomes/Goals Oral intake to meet >75% of nutrient needs, weight stable or trends toward ideal body weight, nutrition related labs normalize.
[2017-05-04] MEDS: Budesonide 0.5 Mg/2 mL Ud HHN SCH ×2 (08:15→20:37)
[2017-05-04] MEDS: Albuterol/Ipratropium Neb 3 ML AERS HHN SCH ×4 (08:15→19:35)
[2017-05-04] MEDS: Lactulose 10 Gm/15 mL 30mL UDC PO SCH (10:00)
[2017-05-04] MEDS: Lactobacillus Rhamnosus GG 15 Billion CFU CAP.SPRINK PO SCH (10:00)
[2017-05-04] MEDS: Multivitamin Tab PO SCH (10:00)
--- NOTE | 2017-05-04 22:31 | Progress Notes ---
DATE: 05/04/2017 SUBJECTIVE: Case was discussed with staff of the patient, reviewed records. The patient continues to be confused, unpredictable, impulsive, needing redirection. He was unable to recognize me today. He continues to be unable to make safe plan for self-care. I did increase his Risperdal dose yesterday and also I will be adding Aricept to his medication because of his forgetfulness, dementing process, discussed side effects. PLAN: We will continue to work with the patient in group therapy, milieu therapy, and adjust medication as needed. JOB# [id number]
[2017-05-05] MEDS: Albuterol/Ipratropium Neb 3 ML AERS HHN SCH ×4 (07:28→20:14)
[2017-05-05] MEDS: Budesonide 0.5 Mg/2 mL Ud HHN SCH ×2 (07:28→20:24)
--- NOTE | 2017-05-05 08:46 | General Progress Note ---
Subjective - Review of Systems Service Date: 05/05/17 Subjective: Awake,Alert,but confused VS T 98.4 P77 BP 114/67 R18 Objective - Physical Exam Vitals and I&O: Vital Signs Temp 98.4 F 05/05/17 06:58 Pulse 77 05/05/17 07:31 Resp 18 05/05/17 07:31 BP 114/67 05/05/17 06:58 Pulse Ox 95 05/05/17 07:31 Intake & Output 05/04/17 05/05/17 05/05/17 18:59 06:59 18:59 Intake Total 410 Balance 410 Intake: Oral 410 Other: # Voids 2 # Bowel Movements 0 Active Medications: Current Medications Acetaminophen (Tylenol) 650 mg PO Q4HR PRN PRN Reason: Mild Pain / Temp above 100 Stop: 06/26/17 18:40 Al Hydrox/Mg Hydrox/Simethicone (Maalox) 30 ml PO Q4HR PRN PRN Reason: GI DISTRESS Stop: 06/26/17 18:40 Albuterol/Ipratropium (Duoneb Neb) 3 ml HHN [id number] [facility] Stop: 07/02/17 10:59 Last Admin: 05/05/17 07:28 Dose: 3 ml Budesonide (Pulmicort) 0.5 mg HHN BIDRT [facility] Stop: 07/01/17 18:59 Last Admin: 05/05/17 07:28 Dose: 0.5 mg Carvedilol (Coreg) 3.125 mg PO BID [facility] Stop: 06/27/17 08:59 Last Admin: 05/04/17 17:03 Dose: Not Given Donepezil HCl (Aricept) 5 mg PO HS [facility] Stop: 07/03/17 20:59 Last Admin: 05/04/17 20:42 Dose: 5 mg Lactobacillus Rhamnosus (Culturelle 15b) 1 each PO DAILY [facility] Stop: 07/02/17 08:59 Last Admin: 05/04/17 10:00 Dose: 1 each Lactulose (Cephulac) 30 gm PO DAILY [facility] Stop: 06/27/17 08:59 Last Admin: 05/04/17 10:00 Dose: 30 gm Magnesium Hydroxide (Milk Of Magnesia) 30 ml PO HS PRN PRN Reason: Constipation Miscellaneous (Probiotic Screen) 1 ea [facility] PRN PRN PRN Reason: PROTOCOL Stop: 07/01/17 12:44 Multivitamins/Vitamin C (Theragran) 1 tab PO DAILY [facility] Stop: 06/27/17 08:59 Last Admin: 05/04/17 10:00 Dose: 1 tab Risperidone (Risperdal) 0.5 mg PO TID [facility] PRN Reason: Protocol Stop: 07/02/17 13:59 Last Admin: 05/04/17 20:42 Dose: 0.5 mg General: Alert, No acute distress, Other (afebrile) HEENT: Atraumatic, PERRLA Neck: Supple, no JVD, no Thyromegaly Cardiovascular: Regular rate, Normal S1, Normal S2 Lungs: Clear to auscultation Abdomen: Bowel sounds, Soft Extremities: no Clubbing, no Cyanosis, no Edema Neurological: Normal gait, Normal speech Assessment/Plan - Assessment Assessment: Psychosis UTI +morganella HTN DM Hyperlipidemia Dementia OA - Plan Plan: continue current treatment. Nutritional Asmnt/Malnutr-PDOC - Dietary Evaluation Malnutrition Findings (Please click <Entered> for more info): Nutritional Asmnt/Malnutrition Start: 05/01/17 11: 13 Text: Status: Complete Freq: Document 05/01/17 11:37 MMULN (Rec: 05/01/17 11:46 MMULHERN FLAKO FN) Nutritional Asmnt/Malnutrition Patient General Information Nutritional Screening Moderate Risk Diagnosis Psychosis Pertinent Medical Hx/Surgical Hx Dementia, chronic lymphocytic leukemic, HTN, hyperlipidemia, osteoarthritis. Subjective Information Patient was admitted to [facility] from Med surg unit due to 5150 . Current Diet Order/ Nutrition Support Regular Patient / S.O Can Pertinent Medications maalox, lactulose, MOM, Theragran Pertinent Labs Labs from med surg unit 04/26/17 . Albumin 2.8, HGA1C 7.1, Calcium 8.2 Nutritional Hx/Data Height 1.88 m Height (Calculated Centimeters) 188.0 Current Weight (lbs) 105.687 kg Weight (Calculated Kilograms) 105.7 Weight (Calculated Grams) 522383.0 [place] Body Weight 190 % [place] Body Weight 122 Body Mass Index (BMI) 29.9 Recent Weight Change No Weight Status Overweight GI Symptoms GI Symptoms None Last BM None noted since admission to [facility] Difficult in: None Food Allergies No Cultural/Ethnic/Worship Belief None indicated Usual diet at home Regular Skin Integrity/Comment: John 15, "area of concern". Per wound care notes, full thickness skin tear on right lateral forearm. Current %PO Good (75-100%) Estimated Nutritional Goals BEE in Kcals: Adj wt of IBW Calories/Kcals/Kg 25-30 kcal/kg (86.3kg IBW) Kcals Calculated ~7479-2091 kcal/day Protein: Adj wt of IBW Protein g/k gm/kg Protein Calculated ~85 gm/day Fluid: ml ~5483-7896 ml/day (1 ml/kcal) Nutritional Problem 1. Problem Problem Altered nutrition related lab values related to Etiology hx of diabetes as evidenced by Signs/Symptoms: HGA1C 7.1 (04/23/17). Intervention/Recommendation Comments Continue regular diet at this time. Monitor blood glucose levels due to HGA1C 7.1 on 04/23. If having hyperglycemia, modify to 75 gm CCHO diet. Expected Outcomes/Goals Expected Outcomes/Goals Oral intake to meet >75% of nutrient needs, weight stable or trends toward ideal body weight, nutrition related labs normalize.
[2017-05-05] MEDS: Lactulose 10 Gm/15 mL 30mL UDC PO SCH (10:04)
[2017-05-05] MEDS: Lactobacillus Rhamnosus GG 15 Billion CFU CAP.SPRINK PO SCH (10:05)
[2017-05-05] MEDS: Multivitamin Tab PO SCH (10:05)
--- NOTE | 2017-05-05 11:37 | Progress Notes ---
DATE: 05/05/2017 SUBJECTIVE: Case was discussed with staff of the patient. The patient continues to be confused. He is demented, unable to make safe plan for self-care, continues to have poor insight. Continues to be easily agitated. I did increase Risperdal 0.5 mg 3 times a day and so far no side effects, no sedation, no nausea, no extrapyramidal symptoms. I also initiated Aricept on the patient 5 mg at bedtime to help with dementing process. PLAN: I will continue to work with patient in group therapy, milieu therapy, and adjust medications as needed. JOB# [id number]
[2017-05-06] MEDS: Albuterol/Ipratropium Neb 3 ML AERS HHN SCH ×4 (07:14→19:27)
[2017-05-06] MEDS: Budesonide 0.5 Mg/2 mL Ud HHN SCH ×2 (07:14→19:27)
--- NOTE | 2017-05-06 08:17 | General Progress Note ---
Subjective - Review of Systems Service Date: 05/06/17 Subjective: Awake,Alert,but confused VS P86 R18 Objective - Physical Exam Vitals and I&O: Vital Signs Temp 98.7 F 05/05/17 20:00 Pulse 86 05/06/17 07:17 Resp 18 18 07:17 BP 102/69 05/05/17 20:00 Pulse Ox 97 05/06/17 07:17 Intake & Output 05/05/17 05/06/17 05/06/17 18:59 06:59 18:59 Intake Total 250 Balance 250 Intake: Oral 250 Other: # Voids 2 # Bowel Movements 0 Active Medications: Current Medications Acetaminophen (Tylenol) 650 mg PO Q4HR PRN PRN Reason: Mild Pain / Temp above 100 Stop: 06/26/17 18:40 Al Hydrox/Mg Hydrox/Simethicone (Maalox) 30 ml PO Q4HR PRN PRN Reason: GI DISTRESS Stop: 06/26/17 18:40 Albuterol/Ipratropium (Duoneb Neb) 3 ml HHN [id number] [facility] Stop: 07/02/17 10:59 Last Admin: 05/06/17 07:14 Dose: 3 ml Budesonide (Pulmicort) 0.5 mg HHN BIDRT [facility] Stop: 07/01/17 18:59 Last Admin: 05/06/17 07:14 Dose: 0.5 mg Carvedilol (Coreg) 3.125 mg PO BID [facility] Stop: 06/27/17 08:59 Last Admin: 05/05/17 17:01 Dose: 3.125 mg Donepezil HCl (Aricept) 5 mg PO HS [facility] Stop: 07/03/17 20:59 Last Admin: 05/05/17 20:42 Dose: 5 mg Lactobacillus Rhamnosus (Culturelle 15b) 1 each PO DAILY [facility] Stop: 07/02/17 08:59 Last Admin: 05/05/17 10:05 Dose: 1 each Lactulose (Cephulac) 30 gm PO DAILY [facility] Stop: 06/27/17 08:59 Last Admin: 05/05/17 10:04 Dose: 30 gm Lorazepam (Ativan) 0.5 mg PO Q6HR PRN; Protocol PRN Reason: Agitation Stop: 03/18/18 16:05 Magnesium Hydroxide (Milk Of Magnesia) 30 ml PO HS PRN PRN Reason: Constipation Miscellaneous (Probiotic Screen) 1 ea [facility] PRN PRN PRN Reason: PROTOCOL Stop: 07/01/17 12:44 Multivitamins/Vitamin C (Theragran) 1 tab PO DAILY [facility] Stop: 06/27/17 08:59 Last Admin: 05/05/17 10:05 Dose: 1 tab Risperidone (Risperdal) 0.5 mg PO TID [facility] PRN Reason: Protocol Stop: 07/02/17 13:59 Last Admin: 05/05/17 20:42 Dose: 0.5 mg Zolpidem Tartrate (Ambien) 5 mg PO HS PRN PRN Reason: Insomnia Stop: 07/04/17 16:07 General: Alert, No acute distress, Other (afebrile) HEENT: Atraumatic, PERRLA Neck: Supple, no JVD, no Thyromegaly Cardiovascular: Regular rate, Normal S1, Normal S2 Lungs: Clear to auscultation Abdomen: Bowel sounds, Soft Extremities: no Clubbing, no Cyanosis, no Edema Neurological: Normal gait, Normal speech Assessment/Plan - Assessment Assessment: Psychosis UTI +morganella HTN DM Hyperlipidemia Dementia OA - Plan Plan: continue current treatment. Nutritional Asmnt/Malnutr-PDOC - Dietary Evaluation Malnutrition Findings (Please click <Entered> for more info): Nutritional Asmnt/Malnutrition Start: 05/01/17 11: 13 Text: Status: Complete Freq: Document 05/01/17 11:37 MMULHERN (Rec: 05/01/17 11:46 MMULHERN FLAKO FN) Nutritional Asmnt/Malnutrition Patient General Information Nutritional Screening Moderate Risk Diagnosis Psychosis Pertinent Medical Hx/Surgical Hx Dementia, chronic lymphocytic leukemic, HTN, hyperlipidemia, osteoarthritis. Subjective Information Patient was admitted to [facility] from Med surg unit due to 5150 . Current Diet Order/ Nutrition Support Regular Patient / S.O Can Pertinent Medications maalox, lactulose, MOM, Theragran Pertinent Labs Labs from med surg unit 04/26/17 . Albumin 2.8, HGA1C 7.1, Calcium 8.2 Nutritional Hx/Data Height 1.88 m Height (Calculated Centimeters) 188.0 Current Weight (lbs) 105.687 kg Weight (Calculated Kilograms) 105.7 Weight (Calculated Grams) 726764.0 [place] Body Weight 190 % [place] Body Weight 122 Body Mass Index (BMI) 29.9 Recent Weight Change No Weight Status Overweight GI Symptoms GI Symptoms None Last BM None noted since admission to [facility] Difficult in: None Food Allergies No Cultural/Ethnic/Scientology Belief None indicated Usual diet at home Regular Skin Integrity/Comment: John 15, "area of concern". Per wound care notes, full thickness skin tear on right lateral forearm. Current %PO Good (75-100%) Estimated Nutritional Goals BEE in Kcals: Adj wt of IBW Calories/Kcals/Kg 25-30 kcal/kg (86.3kg IBW) Kcals Calculated ~8902-8771 kcal/day Protein: Adj wt of IBW Protein g/k gm/kg Protein Calculated ~85 gm/day Fluid: ml ~8509-8647 ml/day (1 ml/kcal) Nutritional Problem 1. Problem Problem Altered nutrition related lab values related to Etiology hx of diabetes as evidenced by Signs/Symptoms: HGA1C 7.1 (04/23/17). Intervention/Recommendation Comments Continue regular diet at this time. Monitor blood glucose levels due to HGA1C 7.1 on 04/23. If having hyperglycemia, modify to 75 gm CCHO diet. Expected Outcomes/Goals Expected Outcomes/Goals Oral intake to meet >75% of nutrient needs, weight stable or trends toward ideal body weight, nutrition related labs normalize.
[2017-05-06] MEDS: Lactulose 10 Gm/15 mL 30mL UDC PO SCH (09:26)
[2017-05-06] MEDS: Lactobacillus Rhamnosus GG 15 Billion CFU CAP.SPRINK PO SCH (09:26)
[2017-05-06] MEDS: Multivitamin Tab PO SCH (09:26)
--- NOTE | 2017-05-06 21:33 | Progress Notes ---
DATE: 05/06/2017 Case is discussed with staff of the patient, reviewed records. The patient continues to be confused, continues to not make sense. I asked if he has any family here and he said he has a daughter who lives in [place] and has not seen her in years. Continues to be unable to make safe plan for self-care. Continues to have poor insight. Continues to have further irritability, agitation. His Seroquel dose was increased to 300 mg with no side effects, no sedation, no nausea, no extrapyramidal symptoms. He is on ____, that I have increased 2 days ago 2.5 mg 3 times a day. We will continue to work with the patient in group therapy, milieu therapy, adjust medication as needed. JOB# [id number]
[2017-05-07] MEDS: Albuterol/Ipratropium Neb 3 ML AERS HHN SCH ×5 (07:39→19:33)
[2017-05-07] MEDS: Multivitamin Tab PO SCH (09:45)
[2017-05-07] MEDS: Lactulose 10 Gm/15 mL 30mL UDC PO SCH (10:03)
[2017-05-07] MEDS: Lactobacillus Rhamnosus GG 15 Billion CFU CAP.SPRINK PO SCH (10:04)
--- NOTE | 2017-05-07 12:28 | General Progress Note ---
Subjective - Review of Systems Service Date: 05/07/17 Subjective: Awake,Alert,but confused VS T98.2 P78 R18 BP 137/91 Objective - Results Recent Labs: Laboratory Last Values POC Glucose 173 MG/DL (70 - 105) H 05/07/17 11:31 - Physical Exam Vitals and I&O: Vital Signs Temp 98.2 F 05/06/17 20:00 Pulse 78 05/07/17 09:45 Resp 18 05/07/17 07:39 BP 137/91 05/07/17 09:45 Pulse Ox 94 05/07/17 07:39 Intake & Output 05/06/17 05/07/17 05/07/17 18:59 06:59 18:59 Intake Total 240 Balance 240 Intake: Oral 240 Other: # Voids 2 Active Medications: Current Medications Acetaminophen (Tylenol) 650 mg PO Q4HR PRN PRN Reason: Mild Pain / Temp above 100 Stop: 06/26/17 18:40 Al Hydrox/Mg Hydrox/Simethicone (Maalox) 30 ml PO Q4HR PRN PRN Reason: GI DISTRESS Stop: 06/26/17 18:40 Albuterol/Ipratropium (Duoneb Neb) 3 ml HHN [id number] [facility] Stop: 07/02/17 10:59 Last Admin: 05/07/17 11:24 Dose: Not Given Budesonide (Pulmicort) 0.5 mg HHN BIDRT [facility] Stop: 07/01/17 18:59 Last Admin: 05/06/17 19:27 Dose: 0.5 mg Carvedilol (Coreg) 3.125 mg PO BID [facility] Stop: 06/27/17 08:59 Last Admin: 05/07/17 09:45 Dose: 3.125 mg Donepezil HCl (Aricept) 5 mg PO HS [facility] Stop: 07/03/17 20:59 Last Admin: 05/06/17 20:47 Dose: 5 mg Donepezil HCl (Aricept) 5 mg PO HS [facility] Stop: 07/05/17 20:59 Last Admin: 05/06/17 20:48 Dose: Not Given Lactobacillus Rhamnosus (Culturelle 15b) 1 each PO DAILY [facility] Stop: 07/02/17 08:59 Last Admin: 05/07/17 10:04 Dose: 1 each Lactulose (Cephulac) 30 gm PO DAILY [facility] Stop: 06/27/17 08:59 Last Admin: 05/07/17 10:03 Dose: 30 gm Lorazepam (Ativan) 0.5 mg PO Q6HR PRN; Protocol PRN Reason: Agitation Stop: 07/04/17 16:05 Magnesium Hydroxide (Milk Of Magnesia) 30 ml PO HS PRN PRN Reason: Constipation Miscellaneous (Probiotic Screen) 1 ea [facility] PRN PRN PRN Reason: PROTOCOL Stop: 07/01/17 12:44 Multivitamins/Vitamin C (Theragran) 1 tab PO DAILY [facility] Stop: 06/27/17 08:59 Last Admin: 05/07/17 09:45 Dose: 1 tab Risperidone (Risperdal) 0.5 mg PO TID [facility] PRN Reason: Protocol Stop: 07/02/17 13:59 Last Admin: 05/07/17 09:45 Dose: 0.5 mg Zolpidem Tartrate (Ambien) 5 mg PO HS PRN PRN Reason: Insomnia Stop: 07/04/17 16:07 General: Alert, No acute distress, Other (afebrile) HEENT: Atraumatic, PERRLA Neck: Supple, no JVD, no Thyromegaly Cardiovascular: Regular rate, Normal S1, Normal S2 Lungs: Clear to auscultation Abdomen: Bowel sounds, Soft Extremities: no Clubbing, no Cyanosis, no Edema Neurological: Normal gait, Normal speech Assessment/Plan - Assessment Assessment: Psychosis UTI +morganella HTN DM Hyperlipidemia Dementia OA - Plan Plan: continue current treatment. Nutritional Asmnt/Malnutr-PDOC - Dietary Evaluation Malnutrition Findings (Please click <Entered> for more info): Nutritional Asmnt/Malnutrition Start: 05/01/17 11: 13 Text: Status: Complete Freq: Document 05/01/17 11:37 MMULBRENDA (Rec: 05/01/17 11:46 MMULBRENDA [facility]) Nutritional Asmnt/Malnutrition Patient General Information Nutritional Screening Moderate Risk Diagnosis Psychosis Pertinent Medical Hx/Surgical Hx Dementia, chronic lymphocytic leukemic, HTN, hyperlipidemia, osteoarthritis. Subjective Information Patient was admitted to [facility] from Med surg unit due to 5150 . Current Diet Order/ Nutrition Support Regular Patient / S.O Can Pertinent Medications maalox, lactulose, MOM, Theragran Pertinent Labs Labs from med surg unit 04/26/17 . Albumin 2.8, HGA1C 7.1, Calcium 8.2 Nutritional Hx/Data Height 1.88 m Height (Calculated Centimeters) 188.0 Current Weight (lbs) 105.687 kg Weight (Calculated Kilograms) 105.7 Weight (Calculated Grams) 570961.0 [place] Body Weight 190 % [place] Body Weight 122 Body Mass Index (BMI) 29.9 Recent Weight Change No Weight Status Overweight GI Symptoms GI Symptoms None Last BM None noted since admission to [facility] Difficult in: None Food Allergies No Cultural/Ethnic/[employer] Belief None indicated Usual diet at home Regular Skin Integrity/Comment: John 15, "area of concern". Per wound care notes, full thickness skin tear on right lateral forearm. Current %PO Good (75-100%) Estimated Nutritional Goals BEE in Kcals: Adj wt of IBW Calories/Kcals/Kg 25-30 kcal/kg (86.3kg IBW) Kcals Calculated ~2911-5071 kcal/day Protein: Adj wt of IBW Protein g/k gm/kg Protein Calculated ~85 gm/day Fluid: ml ~7852-2412 ml/day (1 ml/kcal) Nutritional Problem 1. Problem Problem Altered nutrition related lab values related to Etiology hx of diabetes as evidenced by Signs/Symptoms: HGA1C 7.1 (04/23/17). Intervention/Recommendation Comments Continue regular diet at this time. Monitor blood glucose levels due to HGA1C 7.1 on 04/23. If having hyperglycemia, modify to 75 gm CCHO diet. Expected Outcomes/Goals Expected Outcomes/Goals Oral intake to meet >75% of nutrient needs, weight stable or trends toward ideal body weight, nutrition related labs normalize.
[2017-05-07 13:21] LABS: ANION GAP 6.8 (7.0-16.0); BUN - UREA NITROGEN 18 mg/dL (7-25); CALCIUM SERUM 8.5 mg/dL (8.6-10.3); CARBON DIOXIDE 28.1 mEq/L (21.0-31.0); CHLORIDE 102 mEq/L (98-107); GLUCOSE 114 mg/dL (70-105); POTASSIUM SERUM 3.9 mEq/L (3.5-5.1); SODIUM SERUM 133 mEq/L (136-145)
[2017-05-07] MEDS: Budesonide 0.5 Mg/2 mL Ud HHN SCH (19:36)
--- NOTE | 2017-05-08 00:02 | Progress Notes ---
DATE: 05/07/2017 Case was discussed with staff of the patient, reviewed records. The patient tolerated the Aricept I have started him on. The patient continues to be delusional, confused, unable to make safe plan for self-care or participate in a meaningful conversation. So far, he can tell he has no family involved, though he did tell me that he has a daughter that lives in [place]. He is compliant with the medication, no side effects, no sedation, no nausea, no extrapyramidal symptoms. I will be adding Namenda to his medication and discussed side effects and we will continue to work with the patient in group therapy, milieu therapy, and adjust medications as needed. [facility]# [id number]
--- NOTE | 2017-05-08 06:07 | General Progress Note ---
Subjective - Review of Systems Service Date: 05/08/17 Subjective: Awake,Alert,but confused VS R20 BP 117/75 Objective - Results Result Diagrams: 05/07/17 12:40 Recent Labs: Laboratory Last Values Sodium 133 mEq/L (136-145) L 05/07/17 12:40 Potassium 3.9 mEq/L (3.5-5.1) 05/07/17 12:40 Chloride 102 mEq/L (98-107) 05/07/17 12:40 Carbon Dioxide 28.1 mEq/L (21.0-31.0) 05/07/17 12:40 Anion Gap 6.8 (7.0-16.0) L 05/07/17 12:40 BUN 18 mg/dL (7-25) 05/07/17 12:40 Creatinine 1.0 mg/dL (0.7-1.3) 05/07/17 12:40 Est GFR ( Amer) TNP 05/07/17 12:40 Est GFR (Non-Af Amer) TNP 05/07/17 12:40 BUN/Creatinine Ratio 18.0 05/07/17 12:40 Glucose 114 mg/dL (70-105) H 05/07/17 12:40 POC Glucose 173 MG/DL (70 - 105) H 05/07/17 11:31 Calcium 8.5 mg/dL (8.6-10.3) L 05/07/17 12:40 - Physical Exam Vitals and I&O: Vital Signs Temp 98.2 F 05/06/17 20:00 Pulse 90 05/07/17 19:50 Resp 20 05/07/17 19:50 BP 117/75 05/07/17 17:55 Pulse Ox 95 05/07/17 19:50 Intake & Output 05/07/17 05/07/17 05/08/17 06:59 18:59 06:59 Intake Total 240 Balance 240 Intake: Oral 240 Other: # Voids 2 Stool Characteristics Soft Active Medications: Current Medications Acetaminophen (Tylenol) 650 mg PO Q4HR PRN PRN Reason: Mild Pain / Temp above 100 Stop: 06/26/17 18:40 Al Hydrox/Mg Hydrox/Simethicone (Maalox) 30 ml PO Q4HR PRN PRN Reason: GI DISTRESS Stop: 06/26/17 18:40 Albuterol/Ipratropium (Duoneb Neb) 3 ml HHN [id number] [facility] Stop: 07/06/17 16:29 Last Admin: 05/07/17 19:33 Dose: 3 ml Budesonide (Pulmicort) 0.5 mg HHN BIDRT [facility] Stop: 07/06/17 16:29 Last Admin: 05/07/17 19:36 Dose: 0.5 mg Carvedilol (Coreg) 3.125 mg PO BID [facility] Stop: 06/27/17 08:59 Last Admin: 05/07/17 17:55 Dose: 3.125 mg Donepezil HCl (Aricept) 5 mg PO HS [facility] Stop: 07/03/17 20:59 Last Admin: 05/07/17 20:52 Dose: 5 mg Lactobacillus Rhamnosus (Culturelle 15b) 1 each PO DAILY [facility] Stop: 07/02/17 08:59 Last Admin: 05/07/17 10:04 Dose: 1 each Lactulose (Cephulac) 30 gm PO DAILY [facility] Stop: 06/27/17 08:59 Last Admin: 05/07/17 10:03 Dose: 30 gm Lorazepam (Ativan) 0.5 mg PO Q6HR PRN; Protocol PRN Reason: Agitation Stop: 07/04/17 16:05 Magnesium Hydroxide (Milk Of Magnesia) 30 ml PO HS PRN PRN Reason: Constipation Memantine (Namenda) 5 mg PO DAILY [facility] Stop: 07/07/17 08:59 Miscellaneous (Probiotic Screen) 1 ea PRN PRN PRN Reason: PROTOCOL Stop: 07/01/17 12:44 Multivitamins/Vitamin C (Theragran) 1 tab PO DAILY [facility] Stop: 06/27/17 08:59 Last Admin: 05/07/17 09:45 Dose: 1 tab Risperidone (Risperdal) 0.5 mg PO TID [facility] PRN Reason: Protocol Stop: 07/02/17 13:59 Last Admin: 05/07/17 20:52 Dose: 0.5 mg Zolpidem Tartrate (Ambien) 5 mg PO HS PRN PRN Reason: Insomnia Stop: 07/04/17 16:07 General: Alert, No acute distress, Other (afebrile) HEENT: Atraumatic, PERRLA Neck: Supple, no JVD, no Thyromegaly Cardiovascular: Regular rate, Normal S1, Normal S2 Lungs: Clear to auscultation Abdomen: Bowel sounds, Soft Extremities: no Clubbing, no Cyanosis, no Edema Neurological: Normal gait, Normal speech Assessment/Plan - Assessment Assessment: Psychosis UTI +morganella HTN DM Hyperlipidemia Dementia OA - Plan Plan: continue current treatment. Nutritional Asmnt/Malnutr-PDOC - Dietary Evaluation Malnutrition Findings (Please click <Entered> for more info): Nutritional Asmnt/Malnutrition Start: 05/01/17 11: 13 Text: Status: Complete Freq: Document 05/01/17 11:37 MMULHERN (Rec: 05/01/17 11:46 MMULHERN FLAKO- FN) Nutritional Asmnt/Malnutrition Patient General Information Nutritional Screening Moderate Risk Diagnosis Psychosis Pertinent Medical Hx/Surgical Hx Dementia, chronic lymphocytic leukemic, HTN, hyperlipidemia, osteoarthritis. Subjective Information Patient was admitted to [facility] from Med surg unit due to 5150 . Current Diet Order/ Nutrition Support Regular Patient / S.O Can Pertinent Medications maalox, lactulose, MOM, Theragran Pertinent Labs Labs from med surg unit 04/26/17 . Albumin 2.8, HGA1C 7.1, Calcium 8.2 Nutritional Hx/Data Height 1.88 m Height (Calculated Centimeters) 188.0 Current Weight (lbs) 105.687 kg Weight (Calculated Kilograms) 105.7 Weight (Calculated Grams) 734142.0 [place] Body Weight 190 % [place] Body Weight 122 Body Mass Index (BMI) 29.9 Recent Weight Change No Weight Status Overweight GI Symptoms GI Symptoms None Last BM None noted since admission to [facility] Difficult in: None Food Allergies No Cultural/Ethnic/Church Belief None indicated Usual diet at home Regular Skin Integrity/Comment: John [place]var[place], "area of concern". Per wound care notes, full thickness skin tear on right lateral forearm. Current %PO Good (75-100%) Estimated Nutritional Goals BEE in Kcals: Adj wt of IBW Calories/Kcals/Kg 25-30 kcal/kg (86.3kg IBW) Kcals Calculated ~1252-6184 kcal/day Protein: Adj wt of IBW Protein g/k gm/kg Protein Calculated ~85 gm/day Fluid: ml ~8742-0815 ml/day (1 ml/kcal) Nutritional Problem 1. Problem Problem Altered nutrition related lab values related to Etiology hx of diabetes as evidenced by Signs/Symptoms: HGA1C 7.1 (04/23/17). Intervention/Recommendation Comments Continue regular diet at this time. Monitor blood glucose levels due to HGA1C 7.1 on 04/23. If having hyperglycemia, modify to 75 gm CCHO diet. Expected Outcomes/Goals Expected Outcomes/Goals Oral intake to meet >75% of nutrient needs, weight stable or trends toward ideal body weight, nutrition related labs normalize.
[2017-05-08] MEDS ORDERED: Budesonide 0.5 Mg/2 mL Ud HHN ONE (07:12)
[2017-05-08] MEDS ORDERED: Albuterol/Ipratropium Neb 3 ML AERS HHN ONE ×2 (07:12→10:35)
[2017-05-08] MEDS: Albuterol/Ipratropium Neb 3 ML AERS HHN SCH ×4 (07:47→19:26)
[2017-05-08] MEDS: Budesonide 0.5 Mg/2 mL Ud HHN SCH ×2 (07:49→19:26)
[2017-05-08] MEDS: Lactulose 10 Gm/15 mL 30mL UDC PO SCH (09:01)
[2017-05-08] MEDS: Lactobacillus Rhamnosus GG 15 Billion CFU CAP.SPRINK PO SCH (09:03)
[2017-05-08] MEDS: Multivitamin Tab PO SCH (09:03)
--- NOTE | 2017-05-08 20:07 | Progress Notes ---
DATE: 05/08/2017 Case was discussed with staff of the patient, reviewed records. The patient continues to be confused, unpredictable, impulsive, needing redirection. Continues to have poor insight, labile, continues to have episodes agitation and irritability. I initiated Namenda on him yesterday with no side effects and he is on Risperdal 0.25 mg twice a day and no sedation, no nausea, no extrapyramidal symptoms. He is sleeping better, eating better and his lab work showed high white cell count and low hematocrit, high neutrophils for which I will be consulting with the medical doctor about that it is too high, I will talk to Dr. Peck. His chemistry panel shows high blood sugar, low sodium, low albumin. He has a previous white cell count on 04/21/2017, that was 75.4 [address] was signed by Dr[address] Peck. I have asked the staff; however, to call and make sure he is aware of this and dealing with it and we will continue to work with the patient in group therapy, milieu therapy, and adjust medication as needed. JOB# [id number]
--- NOTE | 2017-05-09 05:55 | General Progress Note ---
Subjective - Review of Systems Service Date: 05/09/17 Subjective: Awake,Alert,but confused VS T99.3 P92 R20 BP 94/69 PHM -- Chronic Lymphocytic Leukemia .... was seen and evaluated by Dr. Lacy ( Hem/Onc) who recommends outpatient bone marrow biopsy. Patient was also seen by Dr. Romina Frias (ID). Blood cultures x 2 were negative and elevated WBC was attributed to CLL. Please see dictated reports for above consults prior to transfer to [facility]. Objective - Results Result Diagrams: 05/07/17 12:40 Recent Labs: Laboratory Last Values Sodium 133 mEq/L (136-145) L 05/07/17 12:40 Potassium 3.9 mEq/L (3.5-5.1) 05/07/17 12:40 Chloride 102 mEq/L (98-107) 05/07/17 12:40 Carbon Dioxide 28.1 mEq/L (21.0-31.0) 05/07/17 12:40 Anion Gap 6.8 (7.0-16.0) L 05/07/17 12:40 BUN 18 mg/dL (7-25) 05/07/17 12:40 Creatinine 1.0 mg/dL (0.7-1.3) 05/07/17 12:40 Est GFR ( Amer) TNP 05/07/17 12:40 Est GFR (Non-Af Amer) [place] 05/07/17 12:40 BUN/Creatinine Ratio 18.0 05/07/17 12:40 Glucose 114 mg/dL (70-105) H 05/07/17 12:40 POC Glucose 123 MG/DL (70 - 105) H 05/08/17 11:38 Calcium 8.5 mg/dL (8.6-10.3) L 05/07/17 12:40 - Physical Exam Vitals and I&O: Vital Signs Temp 99.3 F 05/08/17 15:56 Pulse 92 05/08/17 19:37 Resp 16 05/08/17 19:37 BP 135/76 05/08/17 17:12 Pulse Ox 100 05/08/17 19:37 Intake & Output 05/08/17 05/08/17 05/09/17 06:59 18:59 06:59 Intake Total 1200 Balance 1200 Intake: Oral 1200 Other: # Voids 3 # Bowel Movements 2 Stool Characteristics Soft Active Medications: Current Medications Acetaminophen (Tylenol) 650 mg PO Q4HR PRN PRN Reason: Mild Pain / Temp above 100 Stop: 06/26/17 18:40 Al Hydrox/Mg Hydrox/Simethicone (Maalox) 30 ml PO Q4HR PRN PRN Reason: GI DISTRESS Stop: 06/26/17 18:40 Albuterol/Ipratropium (Duoneb Neb) 3 ml HHN [id number] [facility] Stop: 07/07/17 10:59 Last Admin: 05/08/17 19:26 Dose: 3 ml Budesonide (Pulmicort) 0.5 mg HHN BIDRT [facility] Stop: 07/07/17 18:59 Last Admin: 05/08/17 19:26 Dose: 0.5 mg Carvedilol (Coreg) 3.125 mg PO BID [facility] Stop: 06/27/17 08:59 Last Admin: 05/08/17 17:12 Dose: 3.125 mg Donepezil HCl (Aricept) 5 mg PO HS [facility] Stop: 07/03/17 20:59 Last Admin: 05/08/17 21:28 Dose: 5 mg Lactobacillus Rhamnosus (Culturelle 15b) 1 each PO DAILY [facility] Stop: 07/02/17 08:59 Last Admin: 05/08/17 09:03 Dose: 1 each Lactulose (Cephulac) 30 gm PO DAILY [facility] Stop: 06/27/17 08:59 Last Admin: 05/08/17 09:01 Dose: 30 gm Lorazepam (Ativan) 0.5 mg PO Q6HR PRN; Protocol PRN Reason: Agitation Stop: 07/04/17 16:05 Magnesium Hydroxide (Milk Of Magnesia) 30 ml PO HS PRN PRN Reason: Constipation Memantine (Namenda) 5 mg PO DAILY [facility] Stop: 07/07/17 08:59 Last Admin: 05/08/17 09:03 Dose: 5 mg Miscellaneous (Probiotic Screen) 1 ea MC PRN PRN PRN Reason: PROTOCOL Stop: 07/01/17 12:44 Multivitamins/Vitamin C (Theragran) 1 tab PO DAILY [facility] Stop: 06/27/17 08:59 Last Admin: 05/08/17 09:03 Dose: 1 tab Risperidone (Risperdal) 0.5 mg PO TID [facility] PRN Reason: Protocol Stop: 07/02/17 13:59 Last Admin: 05/08/17 21:28 Dose: 0.5 mg Zolpidem Tartrate (Ambien) 5 mg PO HS PRN PRN Reason: Insomnia Stop: 07/04/17 16:07 General: Alert, No acute distress, Other (afebrile) HEENT: Atraumatic, PERRLA Neck: Supple, no JVD, no Thyromegaly Cardiovascular: Regular rate, Normal S1, Normal S2 Lungs: Clear to auscultation Abdomen: Bowel sounds, Soft Extremities: no Clubbing, no Cyanosis, no Edema Neurological: Normal gait, Normal speech Assessment/Plan - Assessment Assessment: Psychosis UTI +morganella HTN DM Hyperlipidemia Dementia OA Chronic Lymphocytic Leukemia - Plan Plan: continue current treatment per psychiatry CLL ... for outpatient bone marrow biopsy. Nutritional Asmnt/Malnutr-PDOC - Dietary Evaluation Malnutrition Findings (Please click <Entered> for more info): Nutritional Asmnt/Malnutrition Start: 05/01/17 11: 13 Text: Status: Complete Freq: Document 05/01/17 11:37 MMULHERN (Rec: 05/01/17 11:46 MMULHERN FLAKO FNS1) Nutritional Asmnt/Malnutrition Patient General Information Nutritional Screening Moderate Risk Diagnosis Psychosis Pertinent Medical Hx/Surgical Hx Dementia, chronic lymphocytic leukemic, HTN, hyperlipidemia, osteoarthritis. Subjective Information Patient was admitted to [facility] from Med surg unit due to 5150 . Current Diet Order/ Nutrition Support Regular Patient / S.O Can Pertinent Medications maalox, lactulose, MOM, Theragran Pertinent Labs Labs from med surg unit 04/26/17 . Albumin 2.8, HGA1C 7.1, Calcium 8.2 Nutritional Hx/Data Height 1.88 m Height (Calculated Centimeters) 188.0 Current Weight (lbs) 105.687 kg Weight (Calculated Kilograms) 105.7 Weight (Calculated Grams) 940048.0 [place] Body Weight 190 % [place] Body Weight 122 Body Mass Index (BMI) 29.9 Recent Weight Change No Weight Status Overweight GI Symptoms GI Symptoms None Last BM None noted since admission to [facility] Difficult in: None Food Allergies No Cultural/Ethnic/Alevism Belief None indicated Usual diet at home Regular Skin Integrity/Comment: John 15, "area of concern". Per wound care notes, full thickness skin tear on right lateral forearm. Current %PO Good (75-100%) Estimated Nutritional Goals BEE in Kcals: Adj wt of IBW Calories/Kcals/Kg 25-30 kcal/kg (86.3kg IBW) Kcals Calculated ~7273-8720 kcal/day Protein: Adj wt of IBW Protein g/k gm/kg Protein Calculated ~85 gm/day Fluid: ml ~5826-9323 ml/day (1 ml/kcal) Nutritional Problem 1. Problem Problem Altered nutrition related lab values related to Etiology hx of diabetes as evidenced by Signs/Symptoms: HGA1C 7.1 (04/23/17). Intervention/Recommendation Comments Continue regular diet at this time. Monitor blood glucose levels due to HGA1C 7.1 on 04/23. If having hyperglycemia, modify to 75 gm CCHO diet. Expected Outcomes/Goals Expected Outcomes/Goals Oral intake to meet >75% of nutrient needs, weight stable or trends toward ideal body weight, nutrition related labs normalize.
[2017-05-09] MEDS: Budesonide 0.5 Mg/2 mL Ud HHN SCH ×2 (06:35→18:52)
[2017-05-09] MEDS: Albuterol/Ipratropium Neb 3 ML AERS HHN SCH ×4 (06:35→18:52)
[2017-05-09] MEDS: Multivitamin Tab PO SCH (09:00)
[2017-05-09] MEDS: Lactobacillus Rhamnosus GG 15 Billion CFU CAP.SPRINK PO SCH (09:00)
[2017-05-09] MEDS: Lactulose 10 Gm/15 mL 30mL UDC PO SCH (09:01)
--- NOTE | 2017-05-09 18:27 | Progress Notes ---
DATE: 05/09/2017 Case was discussed with staff of the patient, reviewed records. The patient continues to be confused, continues to have poor insight. Continues to need redirection. He is sleeping better, eating better. He has congestion in both of his legs and it is discolored and the medical doctor is taking care of it. He is ALLERGIC TO PENICILLIN. No side effects with the medication, no sedation, no nausea, no extrapyramidal symptoms, and I did initiate Namenda on him yesterday and we will continue to work with the patient in group therapy, milieu therapy, and adjust the medications as needed. JOB# [id number]
[2017-05-10] MEDS: Albuterol/Ipratropium Neb 3 ML AERS HHN SCH ×4 (06:27→19:34)
[2017-05-10] MEDS: Budesonide 0.5 Mg/2 mL Ud HHN SCH ×2 (06:27→19:44)
--- NOTE | 2017-05-10 08:12 | General Progress Note ---
Subjective - Review of Systems Service Date: 05/10/17 Subjective: Awake,Alert,but confused VS P87 R20 BP 119/69 PHM -- Chronic Lymphocytic Leukemia .... was seen and evaluated by Dr. Lacy ( Hem/Onc) who recommends outpatient bone marrow biopsy. Patient was also seen by Dr. Romina Frias (ID). Blood cultures x 2 were negative and elevated WBC was attributed to CLL. Please see dictated reports for above consults prior to transfer to [facility]. Objective - Results Result Diagrams: 05/07/17 12:40 Recent Labs: Laboratory Last Values Sodium 133 mEq/L (136-145) L 05/07/17 12:40 Potassium 3.9 mEq/L (3.5-5.1) 05/07/17 12:40 Chloride 102 mEq/L (98-107) 05/07/17 12:40 Carbon Dioxide 28.1 mEq/L (21.0-31.0) 05/07/17 12:40 Anion Gap 6.8 (7.0-16.0) L 05/07/17 12:40 BUN 18 mg/dL (7-25) 05/07/17 12:40 Creatinine 1.0 mg/dL (0.7-1.3) 05/07/17 12:40 Est GFR ( Amer) TNP 05/07/17 12:40 Est GFR (Non-Af Amer) [facility] 05/07/17 12:40 BUN/Creatinine Ratio 18.0 05/07/17 12:40 Glucose 114 mg/dL (70-105) H 05/07/17 12:40 POC Glucose 123 MG/DL (70 - 105) H 05/08/17 11:38 Calcium 8.5 mg/dL (8.6-10.3) L 05/07/17 12:40 - Physical Exam Vitals and I&O: Vital Signs Temp 98.2 F 05/09/17 14:01 Pulse 86 05/09/17 20:48 Resp 20 05/09/17 20:48 BP 119/69 05/09/17 17:23 Pulse Ox 92 05/09/17 20:48 Intake & Output 05/09/17 05/10/17 05/10/17 18:59 06:59 18:59 Intake Total 1200 Balance 1200 Intake: Oral 1200 Other: # Voids 3 # Bowel Movements 1 Stool Characteristics Soft Active Medications: Current Medications Acetaminophen (Tylenol) 650 mg PO Q4HR PRN PRN Reason: Mild Pain / Temp above 100 Stop: 06/26/17 18:40 Al Hydrox/Mg Hydrox/Simethicone (Maalox) 30 ml PO Q4HR PRN PRN Reason: GI DISTRESS Stop: 06/26/17 18:40 Albuterol/Ipratropium (Duoneb Neb) 3 ml HHN [id number] [facility] Stop: 07/07/17 10:59 Last Admin: 05/10/17 06:27 Dose: 3 ml Budesonide (Pulmicort) 0.5 mg HHN BIDRT [facility] Stop: 07/07/17 18:59 Last Admin: 05/10/17 06:27 Dose: 0.5 mg Carvedilol (Coreg) 3.125 mg PO BID [facility] Stop: 06/27/17 08:59 Last Admin: 05/09/17 17:23 Dose: 3.125 mg Donepezil HCl (Aricept) 5 mg PO HS [facility] Stop: 07/03/17 20:59 Last Admin: 05/09/17 21:15 Dose: 5 mg Lactobacillus Rhamnosus (Culturelle 15b) 1 each PO DAILY [facility] Stop: 07/02/17 08:59 Last Admin: 05/09/17 09:00 Dose: 1 each Lactulose (Cephulac) 30 gm PO DAILY [facility] Stop: 06/27/17 08:59 Last Admin: 05/09/17 09:01 Dose: 30 gm Lorazepam (Ativan) 0.5 mg PO Q6HR PRN; Protocol PRN Reason: Agitation Stop: 07/04/17 16:05 Magnesium Hydroxide (Milk Of Magnesia) 30 ml PO HS PRN PRN Reason: Constipation Memantine (Namenda) 5 mg PO DAILY [facility] Stop: 07/07/17 08:59 Last Admin: 05/09/17 09:00 Dose: 5 mg Miscellaneous (Probiotic Screen) 1 ea MC PRN PRN PRN Reason: PROTOCOL Stop: 07/01/17 12:44 Multivitamins/Vitamin C (Theragran) 1 tab PO DAILY [facility] Stop: 06/27/17 08:59 Last Admin: 05/09/17 09:00 Dose: 1 tab Risperidone (Risperdal) 0.5 mg PO TID [facility] PRN Reason: Protocol Stop: 07/02/17 13:59 Last Admin: 05/09/17 21:15 Dose: 0.5 mg Zolpidem Tartrate (Ambien) 5 mg PO HS PRN PRN Reason: Insomnia Stop: 07/04/17 16:07 General: Alert, No acute distress, Other (afebrile) HEENT: Atraumatic, PERRLA Neck: Supple, no JVD, no Thyromegaly Cardiovascular: Regular rate, Normal S1, Normal S2 Lungs: Clear to auscultation Abdomen: Bowel sounds, Soft Extremities: no Clubbing, no Cyanosis, no Edema Neurological: Normal gait, Normal speech Assessment/Plan - Assessment Assessment: Psychosis UTI +morganella HTN DM Hyperlipidemia Dementia OA Chronic Lymphocytic Leukemia - Plan Plan: continue current treatment per psychiatry CLL ... for outpatient bone marrow biopsy. Nutritional Asmnt/Malnutr-PDOC - Dietary Evaluation Malnutrition Findings (Please click <Entered> for more info): Nutritional Asmnt/Malnutrition Start: 05/01/17 11: 13 Text: Status: Complete Freq: Document 05/01/17 11:37 MMULHERN (Rec: 05/01/17 11:46 [facility] Nutritional Asmnt/Malnutrition Patient General Information Nutritional Screening Moderate Risk Diagnosis Psychosis Pertinent Medical Hx/Surgical Hx Dementia, chronic lymphocytic leukemic, HTN, hyperlipidemia, osteoarthritis. Subjective Information Patient was admitted to [facility] from Med surg unit due to 5150 . Current Diet Order/ Nutrition Support Regular Patient / S.O Can Pertinent Medications maalox, lactulose, MOM, Theragran Pertinent Labs Labs from med surg unit 04/26/17 . Albumin 2.8, HGA1C 7.1, Calcium 8.2 Nutritional Hx/Data Height 1.88 m Height (Calculated Centimeters) 188.0 Current Weight (lbs) 105.687 kg Weight (Calculated Kilograms) 105.7 Weight (Calculated Grams) 274632.0 [place] Body Weight 190 % [place] Body Weight 122 Body Mass Index (BMI) 29.9 Recent Weight Change No Weight Status Overweight GI Symptoms GI Symptoms None Last BM None noted since admission to [facility] Difficult in: None Food Allergies No Cultural/Ethnic/Zoroastrianism Belief None indicated Usual diet at home Regular Skin Integrity/Comment: John Alvarado, "area of concern". Per wound care notes, full thickness skin tear on right lateral forearm. Current %PO Good (75-100%) Estimated Nutritional Goals BEE in Kcals: Adj wt of IBW Calories/Kcals/Kg 25-30 kcal/kg (86.3kg IBW) Kcals Calculated ~9966-0079 kcal/day Protein: Adj wt of IBW Protein g/k gm/kg Protein Calculated ~85 gm/day Fluid: ml ~6162-8530 ml/day (1 ml/kcal) Nutritional Problem 1. Problem Problem Altered nutrition related lab values related to Etiology hx of diabetes as evidenced by Signs/Symptoms: HGA1C 7.1 (04/23/17). Intervention/Recommendation Comments Continue regular diet at this time. Monitor blood glucose levels due to HGA1C 7.1 on 04/23. If having hyperglycemia, modify to 75 gm CCHO diet. Expected Outcomes/Goals Expected Outcomes/Goals Oral intake to meet >75% of nutrient needs, weight stable or trends toward ideal body weight, nutrition related labs normalize.
[2017-05-10] MEDS: Lactobacillus Rhamnosus GG 15 Billion CFU CAP.SPRINK PO SCH (10:14)
[2017-05-10] MEDS: Lactulose 10 Gm/15 mL 30mL UDC PO SCH (10:15)
[2017-05-10] MEDS: Multivitamin Tab PO SCH (10:15)
--- NOTE | 2017-05-10 12:44 | Discharge Summary ---
DATE OF DISCHARGE: 05/10/2017 IDENTIFYING INFORMATION: The patient is an 82-year-old male. CHIEF COMPLAINT: No answer. HISTORY OF PRESENT ILLNESS: The patient was transferred from medical floor. The patient was acting out unpredictable, impulsive, labile and unable to participate in meaningful conversation or make safe plan for self-care. He knows he has children, but unable to tell me how many he has and how they are. He was 82 years of age and he is able to tell me his date of , but unable to tell me the date, labile, unable to answer questions regarding who the president, was demented, confused, was initiated on Risperdal. He is a poor historian, unable to tell us about prior history. COURSE IN THE HOSPITAL: The patient was continued with the Risperdal and the dose was increased over the course of his stay to 0.5 mg 3 times a day. He was continued with I initiated Namenda on him 5 mg daily as well as Aricept 5 mg at bedtime. He was continued on multivitamins. He was also on Ambien as needed. He needed wound care. He was on Coreg, Pulmicort, lactulose and Ativan as needed. Dr. Peck was taking care of his wounds and his medical condition. The patient progressively got better, so as he improved, he was sleeping well, eating well. We felt patient could be discharged to a lesser level of care. The patient will be going to a nursing facility, so they can continue his care for his medical condition. FINAL DIAGNOSIS: AXIS I: Psychosis, not otherwise specified. MEDICAL DIAGNOSES: 1. Hypertension. 2. Asthma. The patient will follow up with the psychiatrist and primary care physician. He will be going to SNF facility. EXPECTED OUTCOME: Stable if the patient complies with the above. Apparently, the patient was not discharged because of placement issues. Today, he continues to be confused and demented, but no acting out behavior. No suicidal ideation, no homicidal ideation, no paranoia, and no side effects. Working on discharge plan. He is leaving today to [facility] care. No side effects from the medications, no sedation, no nausea, and no extrapyramidal symptoms. The patient will be discharged. Discharge diagnoses and plan as before. JOB# [id number]
[2017-05-11] MEDS: Budesonide 0.5 Mg/2 mL Ud HHN SCH (07:11)
[2017-05-11] MEDS: Albuterol/Ipratropium Neb 3 ML AERS HHN SCH ×3 (07:11→15:32)
[2017-05-11] MEDS: Lactobacillus Rhamnosus GG 15 Billion CFU CAP.SPRINK PO SCH (08:37)
[2017-05-11] MEDS: Lactulose 10 Gm/15 mL 30mL UDC PO SCH (08:37)
[2017-05-11] MEDS: Multivitamin Tab PO SCH (08:38)
--- NOTE | 2017-05-11 13:38 | Discharge Summary ---
DATE OF DISCHARGE: 05/11/2017 ADDENDUM Discharge addendum to the discharge summary done yesterday. Apparently, the patient was not discharged because of placement issues. Today, he continues to be confused and demented, but no acting out behavior. No suicidal ideation, no homicidal ideation, no paranoia, and no side effects. Working on discharge plan. He is leaving today to [facility]. No side effects from the medications, no sedation, no nausea, and no extrapyramidal symptoms. The patient will be discharged. Discharge diagnoses and plan as before. JOB# [id number]
== END 2017-05-11 17:00 | DRG 885 ==
LOC: GERO 14:41 → UNDOADMIN 14:41 → UNDODISIN 05-11 17:00
PROVIDERS: ADMIT Psychiatry & Neurology Psychiatry; ATTEND Psychiatry & Neurology Psychiatry
DX: F29 Unspecified psychosis not due to a substance or known physiological condition (principal); C91.10 Chronic lymphocytic leukemia of B-cell type not having achieved remission; F03.91 Unspecified dementia, unspecified severity, with behavioral disturbance; N39.0 Urinary tract infection, site not specified; E11.9 Type 2 diabetes mellitus without complications; B96.89 Other specified bacterial agents as the cause of diseases classified elsewhere; I10 Essential (primary) hypertension; J45.909 Unspecified asthma, uncomplicated; E78.5 Hyperlipidemia, unspecified; M19.90 Unspecified osteoarthritis, unspecified site; Z79.899 Other long term (current) drug therapy; Z88.0 Allergy status to penicillin
CPT/HCPCS: 36415-UA; 80048-TC; 82948-90; 94640; 94664; 94760; J7030; Z7610

== ENCOUNTER 2017-06-08 18:00 | Inpatient (IN) | payer OTHER, MEDICAID, MEDICARE ==
--- NOTE | 2017-06-08 18:17 | ED Physician Chart ---
ED Chief Complaint/HPI - Patient Information Date Seen:: 06/08/17 Time Seen:: 18:00 Chief Complaint:: Agitation History of Present Illness:: onset x 2 dayd of agitation and aggressive behavior; no report of SIs, trauma, H /As, neck pain, C/P, SOB, Abd; pain, A/N/V/D/C, fever, chills, or urinary s/s Allergies:: Allergies Allergy/AdvReac Type Severity Reaction Status Date / Time Penicillins [PCN] AdvReac Verified 04/21/17 17:09 Historian:: Patient, EMS Review:: Nurse's Note Reviewed, EMS run form Reviewed ED Review of Systems - Review of Systems General/Constitutional: No fever, No chills, No weight loss, No weakness, No diaphoresis, No edema, No loss of appetite Skin: No skin lesions, No rash, No bruising Head: No headache, No light-headedness Eyes: No loss of vision, No pain, No diplopia ENT: No earache, No nasal drainage, No sore throat, No tinnitus Neck: No neck pain, No swelling, No thyromegaly, No stiffness, No mass noted Cardio Vascular: No chest pain, No palpitations, No PND, No orthopnea, No edema Pulmonary: No SOB, No cough, No sputum, No wheezing GI: No nausea, No vomiting, No diarrhea, No pain, No melena, No hematochezia, No constipation, No hematemesis G/U: No dysuria, No frequency, No hematuria, No nacturia Musculoskeletal: No bone or joint pain, No back pain, No muscle pain Endocrine: No polyuria, No polydipsia Psychiatric: Prior psych history, Depression, Anxiety, No suicidal ideation, No homicidal ideation, No auditory hallucination, No visual hallucination Hematopoietic: No bruising, No lymphadenopathy Allergic/Immuno: No urticaria, No angioedema Neurological: No syncope, No focal symptoms, No weakness, No paresthesia, No headache, No seizure, No dizziness, No confusion, No vertigo ED Past Medical History - Past Medical History Obtainable: Yes Past Medical History: HTN Family History: HTN Social History: Non Smoker, No Alcohol, No Drug Use, Single, Care Facility Surgical History: None Psychiatricy History: Depression, Bipolar Medication: Reviewed Family Medical History - Family Member Mother History Unknown: Yes Hx Family Cancer: No Hx Family Stroke: No Hx Family Seizures: No Hx Family Dementia: No Hx Family AIDS: No Hx Family COPD: No Hx Family Psychiatric Problems: No ED Physical Exam - Physical Examination General/Constitutional: Awake, Well-developed, well-nourished, Alert, No distress, GCS 15, Non-toxic appearing, Ambulatory Head: Atraumatic Eyes: Lids, conjuctiva normal, PERRL, EOMI Skin: Nl inspection, No rash, No skin lesions, No ecchymosis, Well hydrated, No lymphadenopathy ENMT: External ears, nose nl, TM canals nl, Nasal exam nl, Lips, teeth, gums nl , Oropharynx nl, Tonsils nl Neck: Nontender, Full ROM w/o pain, No JVD, No nuchal rigidity, No bruit, No mass, No stridor Respiratory: Nl effort/Exclusion, Clear to Auscultation, No Wheeze/Rhonchi/Rales Cardio Vascular: RRR, No murmur, gallop, rubs, NL S1 S2, Carotid/Femoral/Distal pulses equal bilaterally GI: No tenderness/rebounding/guarding, No organomegaly, No hernia, Normal BS's, Nondistended, No mass/bruits, No McBurney tenderness : No CVA tenderness Extremities: No tenderness or effusion, Full ROM, normal strength in all extremities, No edema, Normal digits & nails Neuro/Psych: Alert/oriented, DTR's symmetric, Normal sensory exam, Normal motor strength, Judgement/insight normal, Mood normal, Normal gait, No focal deficits Misc: Normal back, No paraspinal tenderness ED Septic Shock - . Is Septic Shock (SBP<90, OR Lactate>4 mmol\L) present?: No
[2017-06-08 18:40] LABS: HEMOGLOBIN 13.5 gm/dL (12-16); MEAN CELL VOLUME 89.6 fl (80-99); MEAN CORPUSCULAR HEMOGLOBIN 28.7 pg (27.0-31.0); MEAN PLATELET VOLUME 8.6 fl; PLATELET COUNT 278 Th/cmm (150-400); RED BLOOD COUNT 4.69 Mil/cmm (3.80-5.80); RED CELL DISTRIBUTION WIDTH 15.3 % (11.5-20.0)
[2017-06-08 18:56] LABS: ACETAMINOPHEN < 10.0 ug/mL (10.0-30.0); ALB/GLOB RATIO 0.9 (1.0-1.8); ALBUMIN 3.2 gm/dL (4.2-5.5); ALKALINE PHOSPHATASE 78 U/L (34-104); ANION GAP 11.3 (7.0-16.0); BILIRUBIN,TOTAL 0.4 mg/dL (0.3-1.0); BUN - UREA NITROGEN 13 mg/dL (7-25); CALCIUM SERUM 9.1 mg/dL (8.6-10.3); CARBON DIOXIDE 29.1 mEq/L (21.0-31.0); CHLORIDE 101 mEq/L (98-107); CHOLESTEROL 155 mg/dL (<200); CREATININE - SERUM 0.9 mg/dL (0.7-1.3); GLUCOSE 100 mg/dL (70-105); HDL -HIGH DENSITY LIPOPROTEIN 34 mg/dL (23-92); POTASSIUM SERUM 4.4 mEq/L (3.5-5.1); SGOT 17 U/L (13-39); SGPT/ALT 16 U/L (7-52); SODIUM SERUM 137 mEq/L (136-145); TOTAL PROTEIN,SERUM 6.8 gm/dL (6.0-8.3); TRIGLYCERIDES 57 mg/dL (<150)
[2017-06-08 19:01] LABS: SALICYLATES (ASPIRIN) < 25.0 mg/L (30.0-100.0)
[2017-06-08 19:11] LABS: TOTAL CELLS COUNTED 100
[2017-06-08 19:12] LABS: BAND NEUTROPHILE 0 % (0-10); BASOPHIL 0 % (0-3); EOSINOPHIL 3 % (0-5); LYMPHOCYTE 84 % (20-50); MONOCYTE 3 % (2-10); NEUTROPHILS 10 % (40-80); PLATELET ESTIMATE ADEQUATE (NORMAL); PLATELET MORPHOLOGY NORMAL (NORMAL); SMUDGE CELLS 3+
[2017-06-08] MEDS ORDERED: Haloperidol Lactate 5 mg/mL 1mL Vial IM PRN (21:13)
[2017-06-08] MEDS ORDERED: Haloperidol Lactate 5 mg/mL 1mL Vial ONE (21:14)
[2017-06-08] MEDS ORDERED: Haloperidol Lactate 5 mg/mL 1mL Vial IM ONE (21:30)
[2017-06-08 21:36] LABS: URINE MICROSCOPIC INDICATED? YES; URINE SOURCE CLEAN C
[2017-06-08 21:38] LABS: URINE BILIRUBIN NEGATIVE (NEGATIVE); URINE BLOOD NEGATIVE (NEGATIVE); URINE GLUCOSE (UA) NEGATIVE (NEGATIVE); URINE KETONE NEGATIVE (NEGATIVE); URINE LEUKOCYTE ESTERASE NEGATIVE (NEGATIVE); URINE NITRATE NEGATIVE (NEGATIVE); URINE PH 5.5 (4.6 - 8.0); URINE PROTEIN NEGATIVE (NEGATIVE); URINE UROBILINOGEN 0.2 E.U./dL (0.2 - 1.0)
[2017-06-08 21:40] LABS: URINE BACTERIA NONE SEEN /hpf (NONE SEEN); URINE CLARITY CLEAR (CLEAR); URINE COLOR YELLOW; URINE EPITHELIAL CELLS NONE SEEN /lpf (FEW); URINE RBC NONE SEEN /hpf (0-5); URINE WBC NONE SEEN /hpf (0-5)
[2017-06-08 21:51] LABS: AMPHETAMINE URINE NEGATIVE (NEGATIVE); BARBITURATES URINE NEGATIVE (NEGATIVE); BENZODIAZEPINES QUAL URINE NEGATIVE (NEGATIVE); CANNABINOID THC NEGATIVE (NEGATIVE); COCAINE METABOLITE QUAL URINE NEGATIVE (NEGATIVE); METHADONE URINE NEGATIVE (NEGATIVE); METHAMPHETAMINES QUAL URINE NEGATIVE (NEGATIVE); OPIATES (MORPHINE) QUAL. URINE NEGATIVE (NEGATIVE); PHENCYCLIDINE (PCP) URINE NEGATIVE (NEGATIVE); TRICYCLICS (TCA) QUAL. URINE NEGATIVE (NEGATIVE)
[2017-06-08] MEDS ORDERED: Levofloxacin 500mg/100mL 500 MG/100 ML BAG IV ONE (23:05)
[2017-06-09 00:11] VITALS: BP 116/73
[2017-06-09 05:55] LABS: ALB/GLOB RATIO 0.9 (1.0-1.8); ALBUMIN 2.9 gm/dL (4.2-5.5); ALKALINE PHOSPHATASE 69 U/L (34-104); BILIRUBIN,TOTAL 0.5 mg/dL (0.3-1.0); BUN - UREA NITROGEN 13 mg/dL (7-25); CALCIUM SERUM 8.8 mg/dL (8.6-10.3); CARBON DIOXIDE 28.8 mEq/L (21.0-31.0); CREATININE - SERUM 0.8 mg/dL (0.7-1.3); GLUCOSE 102 mg/dL (70-105); POTASSIUM SERUM 3.8 mEq/L (3.5-5.1); SGOT 16 U/L (13-39); SGPT/ALT 14 U/L (7-52); SODIUM SERUM 138 mEq/L (136-145)
[2017-06-09 06:03] LABS: EOSINOPHILE ABSOLUTE 0.6 Th/cmm (0.1-0.4); HEMATOCRIT 38.5 % (41.0-60); HEMOGLOBIN 12.6 gm/dL (12-16); LYMPHOCYTE ABSOLUTE 60.1 Th/cmm (1.5-3.0); MEAN CORPUSCULAR HEMOGLOBIN 29.2 pg (27.0-31.0); MEAN CORPUSCULAR HGB CONC 32.8 pg (28.0-36.0); MEAN PLATELET VOLUME 9.7 fl; NEUTROPHILE ABSOLUTE 6.5 Th/cmm (1.8-8.0); PLATELET COUNT 239 Th/cmm (150-400); RED BLOOD COUNT 4.32 Mil/cmm (3.80-5.80); RED CELL DISTRIBUTION WIDTH 15.3 % (11.5-20.0)
[2017-06-09 06:08] LABS: WHITE BLOOD COUNT 70.2 Th/cmm (4.8-10.8)
[2017-06-09] MEDS ORDERED: Albuterol/Ipratropium Neb 3 ML AERS HHN PRN (06:46)
[2017-06-09] MEDS ORDERED: Magnesium Hydroxide (MOM) 30 mL UDC PO PRN (06:46)
[2017-06-09 06:54] LABS: EOSINOPHIL 1 % (0-5); LYMPHOCYTE 87 % (20-50); MONOCYTE 3 % (2-10); NEUTROPHILS 9 % (40-80); TOTAL CELLS COUNTED 100
[2017-06-09] MEDS: Budesonide 0.5 Mg/2 mL Ud HHN SCH ×2 (07:28→19:31)
--- NOTE | 2017-06-09 08:20 | History and Physical ---
History of Present Illness - HPI Chief Complaint: agitation HPI: 82 y/o male who presents to [facility] with increased agitation and aggressive behavior noted at the SNF. Patient reports no trauma, FRY's, neck pain, chest pain, SOB, Abd pain, A/N/V/D/C, fever, chills or urinary symptoms. Patient was noted to have increased swelling and edema to the lower extremities. Patient was subsequently admitted for cellulitis to the lower extremities. PMH includes HTN Vital Signs: Last Vital Signs Temp 97.8 F 06/09/17 04:00 Pulse 71 06/09/17 07:28 Resp 18 06/09/17 07:28 BP 109/70 06/09/17 04:00 Pulse Ox 97 06/09/17 07:28 Past Medical History Cardiovascular: Report: HTN, Hyperlipidemia Pulmonary: Report: No Pertinent Hx [employer]: Report: Dementia GI: Report: No Pertinent Hx Psych: Report: Other (dementia) Musculoskeletal: Report: Other (osteoarthritis) Rheumatologic: Report: No pertinent Hx Infectious Disease: Report: No Pertinent Hx Renal/: Report: No Pertinent Hx Endocrine: Report: No Pertinent Hx Dermatology: Report: No Pertinent Hx Other History: CLL - Past Surgical History Past Surgical History: No pertinent Hx Family Medical History - Family Member Mother History Unknown: Yes Hx Family Cancer: No Hx Family Stroke: No Hx Family Seizures: No Hx Family Dementia: No Hx Family AIDS: No Hx Family COPD: No Hx Family Psychiatric Problems: No Social History Smoke: No Alcohol: None Drugs: None Lives: Alone - Medications Home Medications: Home Medication Medication Instructions Recorded Type Budesonide [Pulmicort] 0.5 mg HHN BIDRT ud 05/10/17 Rx Carvedilol [Coreg] 3.125 mg PO BID tab 05/10/17 Rx Donepezil Hcl [Aricept] 5 mg PO HS tab 05/10/17 Rx Memantine [Namenda] 5 mg PO DAILY tab 05/10/17 Rx Multivitamin [Theragran] 1 tab PO DAILY tab 05/10/17 Rx Acetaminophen [Tylenol] 650 mg PO Q4HR PRN 06/08/17 History Albuterol/Ipratropium Neb [Duoneb 3 ml HHN Q2H PRN 06/08/17 History Neb] Bisacodyl [Dulcolax 10 Mg Supp] 10 mg RC DAILY PRN 06/08/17 History Dextran 70/Hypromellose 1 each OP DAILY 06/08/17 History [Artificial Tears] Gabapentin 300 mg PO BID 06/08/17 History Lactulose [Cephulac] 30 ml PO DAILY 06/08/17 History Magnesium Hydroxide [Milk of 30 ml PO HS PRN 06/08/17 History Magnesia] Melatonin 5 mg PO QPM 06/08/17 History - Allergies Allergies/Adverse Reactions: Allergies Allergy/AdvReac Type Severity Reaction Status Date / Time Penicillins [PCN] AdvReac Verified 04/21/17 17:09 Review of Systems - Review of Systems Constitutional: Report: No Significant Eyes: Report: No Significant ENT: Report: No Significant Respiratory: Report: No Significant Cardiovascular: Report: No Significant Gastrointestinal: Report: No Significant Genitourinary: Report: No Significant Musculoskeletal: Report: No Significant Skin: Report: Other (cellulitis) Neurological: Report: No Significant Physical Exam - Physical Exam HEENT: Report: Ears Nose Throat within normal limits, Pharnyx within normal limits Neck: Report: Within normal limits. Denies: Thyromegaly Cardiovascular Systems: Report: +s1/s2 noted, Regular, Rate and Rhythm Respiratory: Report: Breath Sounds are within normal limits, Clear to Auscultation of lung mckeon Abdomen: Report: Non-tender to palpation Back: Report: Inspection of back is within normal limits. Extremities: Report: Non-tender to palpation. Skin: Report: Color of skin is within normal limits Neuro/Psych: Report: Mood affect is within normal limits, A+Ox3 - Lab Results All Lab Results last 24 hours: Laboratory Results - last 24 hr 06/08/17 06/08/17 06/08/17 20:10 20:10 23:47 WBC RBC Hgb Hct MCV MCH MCHC Differential RDW Plt Count MPV Neutrophils (Manual) Lymphocytes Monocytes Eosinophils Sodium Potassium Carbon Dioxide Anion Gap BUN Creatinine Est GFR ( Amer) Est GFR (Non-Af Amer) BUN/Creatinine Ratio Glucose POC Glucose 100 Calcium Total Bilirubin AST ALT Alkaline Phosphatase Total Protein Albumin Globulin Albumin/Globulin Ratio Urine Source CLEAN C Urine Color YELLOW Urine Clarity CLEAR Urine pH 5.5 Ur Specific [place] >= 1.030 Urine Protein NEGATIVE Urine Glucose (UA) NEGATIVE Urine Ketones NEGATIVE Urine Blood NEGATIVE Urine Nitrate NEGATIVE Urine Bilirubin NEGATIVE Urine Urobilinogen 0.2 Ur Leukocyte Esterase NEGATIVE Urine RBC NONE SEEN Urine WBC NONE SEEN Ur Epithelial Cells NONE SEEN Urine Bacteria NONE SEEN Urine Opiates Screen NEGATIVE Urine Methadone Screen NEGATIVE Ur Barbiturates Screen NEGATIVE Ur Tricyclics Screen NEGATIVE Ur Phencyclidine Scrn NEGATIVE Amphetamines Screen NEGATIVE U Methamphetamines Scrn NEGATIVE U Benzodiazepines Scrn NEGATIVE U Cocaine Metab Screen NEGATIVE U Cannabinoids Screen NEGATIVE 06/09/17 06/09/17 04:40 04:40 WBC 70.2 H* RBC 4.32 Hgb 12.6 Hct 38.5 L MCV 89.0 MCH 29.2 MCHC Differential 32.8 RDW 15.3 Plt Count 239 MPV 9.7 Neutrophils (Manual) 9 L Lymphocytes 87 H Monocytes 3 Eosinophils 1 Sodium 138 Potassium 3.8 Carbon Dioxide 28.8 Anion Gap 0.0 L BUN 13 Creatinine 0.8 Est GFR ( Amer) TNP Est GFR (Non-Af Amer) TNP BUN/Creatinine Ratio 16.3 Glucose 102 POC Glucose Calcium 8.8 Total Bilirubin 0.5 AST 16 ALT 14 Alkaline Phosphatase 69 Total Protein 6.0 Albumin 2.9 L Globulin 3.1 Albumin/Globulin Ratio 0.9 L Urine Source Urine Color Urine Clarity Urine pH Ur Specific [place] Urine Protein Urine Glucose (UA) Urine Ketones Urine Blood Urine Nitrate Urine Bilirubin Urine Urobilinogen Ur Leukocyte Esterase Urine RBC Urine WBC Ur Epithelial Cells Urine Bacteria Urine Opiates Screen Urine Methadone Screen Ur Barbiturates Screen Ur Tricyclics Screen Ur Phencyclidine Scrn Amphetamines Screen U Methamphetamines Scrn U Benzodiazepines Scrn U Cocaine Metab Screen U Cannabinoids Screen - Assessment Assessment: Current Active Problems Problem Status Onset INCREASED AGITATION AND AGGRESSION Acute cellulitis leukocytosis h/o CLL HTN Dyslipidemia Dementia - Plan Plan: will order doppler US to Lower extremities repeat CBC,CMP Will continue Levofloxacin 500mg IV daily ID consult Hem/onc consult psyche consult continue home meds
[2017-06-09] MEDS: Polyvinyl Alcohol Ophth Soln 15 mL Bottle EACH EYE SCH (08:50)
[2017-06-09 08:52] LABS: CHLORIDE 103 mEq/L (98-107)
[2017-06-09] MEDS: Lactulose 10 Gm/15 mL 30mL UDC PO SCH (08:52)
[2017-06-09] MEDS: Multivitamin Tab PO SCH (08:52)
[2017-06-09] MEDS ORDERED: Enoxaparin 40 mg/0.4 mL 0.4mL Syr SUBQ SCH (09:45)
--- NOTE | 2017-06-09 10:15 | Consultation ---
DATE OF CONSULTATION: 06/08/2017 HEMATOLOGY/ONCOLOGY CONSULTATION REFERRING PHYSICIAN: Walter Peck D.O. REASON FOR CONSULTATION: High WBC. HISTORY OF PRESENT ILLNESS: The patient is an 82-year-old male admitted because of swelling and redness of both lower extremities, started on IV antibiotics for cellulitis. He was also having agitation and aggressive behavior being seen by the psychiatrist. He was found to have persistent elevation of the WBC count with predominance of lymphocytes. Therefore, I was asked to evaluate. PAST MEDICAL HISTORY: Dyslipidemia, hypertension, dementia, osteoarthritis. PAST SURGICAL HISTORY: Bilateral knee surgery and hip replacement surgery. MEDICATIONS: Reviewed. Namenda, Aricept, Coreg, Tylenol, Dulcolax. PHYSICAL EXAMINATION: GENERAL: The patient is awake, not in distress. VITAL SIGNS: Stable. HEENT: Atraumatic. No peripheral lymphadenopathy. CHEST: Clear. ABDOMEN: Soft. No organomegaly. EXTREMITIES: Edema of both lower extremities, more on the right than left with erythema and hyperpigmentation below the bilateral knee scars from previous surgery. LABORATORY DATA: White count 70.2, lymphocytes 87%. White count 12.6, platelets 239. Liver functions normal. Renal function normal. ASSESSMENT: 1. 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 I will obtain flow cytometry and immunoglobulin levels. 2. Leg cellulitis and edema. Venous duplex was ordered and currently on IV antibiotics. I will start Lovenox prophylactic dose. No intervention is required for this high white count until definitive diagnosis is confirmed. Thank you, Dr. Peck for the opportunity to participate in the care of this interesting case for you. JOB# [id number]
--- NOTE | 2017-06-09 10:48 | ER Physician Documentation ---
DATE OF SERVICE: HISTORY OF PRESENT ILLNESS: Admitting the patient that was left over by Dr. Barfield. I spoke to Dr. Peck and advised that the patient to be admitted. The patient was given 600 mg p.o., clindamycin. In the past, the patient was diagnosed to have chronic lymphocytic leukemia. The patient's white count was 82,000, now also. The patient's diagnosis that he carries with him includes that the patient has hypertension. The patient has maybe inferior wall ID or it is a nondiagnostic inferior wall Q-waves, diagnosis of peripheral vascular disease, and cellulitis in both lower extremities, right more than the left. He has psychosis. He has a previous history of UTI with Morganella infection, perhaps a urine examination was sent and will see the results. Anyway, the patient has hypertension, so 2 gram sodium, low cholesterol, low saturated fat. Diabetes mellitus, A1c level will be ordered; hyperlipidemia; dementia; and osteoarthritis. The patient is feeling cold. I did speak to Dr. Peck and the lab workup showed the lactic acid is 0.54. No evidence of any sepsis seen. TSH is 4.34. Salicylate level, Tylenol level, all within normal limits. The patient's electrolytes showed sodium 137, potassium 4.4, chloride 101, CO2 29.1, glucose of 100, BUN 13, creatinine of 0.9, calcium is 9.1, total protein 6.8, and albumin is 3.2. He has mild hypoproteinemia. He might need a slightly higher protein level in the body by giving 60-80 grams of protein a day that would help him out. Albumin globulin ratio 0.9. LFTs found to be within normal limits. Total cholesterol is 155, triglycerides 57, HDL is 34, and LDL is 122. I believe the patient might be better off getting some statin, but we will leave it all for Dr. Peck to decide and I believe you might be knowing him more than me. His white count is 82,000 done today with 10% neutrophils, and 84% lymphocytes consistent with [id number] lymphocytic leukemia. 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 Generalized low voltage in the EKG seen and the patient's lab workup etc. are all within normal limits. The patient had a left hip replacement done in the past. The patient has osteoarthritis. He is feeling cold and Dr. Peck has already ordered Levaquin for him and any other thing that is needed will be ordered by him. JOB# [id number]
--- NOTE | 2017-06-09 13:11 | Diagnostic Imaging Report ---
Bilateral lower extremity DVT study HISTORY: Pain COMPARISON: None Technique: Longitudinal and transverse sonographic images of the bilateral lower extremity veins were obtained with doppler analysis. FINDINGS: Exam of the right side demonstrates diffuse thrombus formation extending from the right common femoral to the right popliteal vein. Exam of the left side demonstrates thrombus within a left common femoral and left proximal superficial femoral vein. Bilateral extremity subcutaneous edema is noted. IMPRESSION: Bilateral lower extremity deep venous thrombosis. On the right, DVT is seen extending from the right common femoral to the right popliteal vein. On the left, DVT seen in the left common femoral and left proximal superficial femoral vein. Note that the DVTs throughout the bilateral lower extremities are probably partial DVTs. Results relayed to the referring team following the exam.
[2017-06-09 14:56] LABS: INR 1.12 (0.5-1.4); PROTHROMBIN TIME (TEST) 11.7 SECONDS (9.5-11.5)
[2017-06-09] MEDS: Heparin 25,000 Units In D5W 25,000 UNITS/250 ML BAG IV PRN (16:04)
[2017-06-09] MEDS ORDERED: Non-Formulary Item 1 EA (Melatonin [Melatonin] 5 MG) PO SCH (17:00)
[2017-06-09 17:06] LABS: A1C % 6.1 % (4.0-6.0)
[2017-06-09] MEDS: Levofloxacin 500mg/100mL Premix Bag IV SCH (21:12)
[2017-06-10] MEDS: Heparin 25,000 Units In D5W 25,000 UNITS/250 ML BAG IV PRN (00:20)
--- NOTE | 2017-06-10 06:35 | History & Physical ---
ADMIT DATE: 06/10/2017 AGE: 82. SEX: Male. PHYSICIAN: Dr. Peck. HEALTHCARE PROF: Dr. Gonzalez. TYPE OF THE REPORT: Psychiatric consult. REASON FOR THE CONSULT: Depression and evaluating memory. HISTORY OF PRESENT ILLNESS: The patient is an 82-year-old male who was transferred from a nursing facility because of increased agitation. The patient has been anxious and is aggressive lately in the shelter. Also, has been unable to follow directions. The patient also was admitted because of cellulitis to the lower extremities. PAST PSYCHIATRIC HISTORY: The patient has a history of agitation. Otherwise, no major psychiatric problems except mild dementia. The patient was on Aricept 5 mg everyday. PAST MEDICAL HISTORY: The patient is admitted because of cellulitis. SOCIAL HISTORY: The patient said that he is a and his passed. He has 2 daughters. He currently lives in a nursing facility. Denies alcohol or street drug use. ALLERGIES: No known allergies. MENTAL STATUS EXAM: The patient appears his stated age. Anxious. Cooperative. Currently, not as agitated. The patient denies any auditory or visual hallucinations or delusions. The patient denies any thoughts of suicide or homicide. The patient is alert and oriented to time, place, person, and situation. Intact recent and remote memories, but impaired immediate memory. Fair insight, but poor judgment. ASSESSMENT: PRIMARY DIAGNOSIS: Depressive mood disorder, with psychotic features. TREATMENT PLAN: We will continue monitoring his condition and his behavior closely. Also, we will start the patient on Lexapro and we will monitor the dose. Also, we will consider the use of antipsychotic medications. Thanks to Dr. Peck and will follow up with you. [facility]# [id number]
[2017-06-10] MEDS: Budesonide 0.5 Mg/2 mL Ud HHN SCH ×2 (06:53→19:01)
--- NOTE | 2017-06-10 08:20 | General Progress Note ---
Subjective - Review of Systems Service Date: 06/10/17 Subjective: Patient was seen and examined this AM. Awake, Alert, but confused. No acute distress. Patient has some swelling to the lower extremities. Venous Doppler US shows bilateral DVTs. Patient to be started on Xarelto 10mg once daily. Objective - Results Result Diagrams: 06/09/17 04:40 06/09/17 04:40 Recent Labs: Laboratory Last Values WBC 70.2 Th/cmm (4.8-10.8) H* 06/09/17 04:40 RBC 4.32 Mil/cmm (3.80-5.80) 06/09/17 04:40 Hgb 12.6 gm/dL (12-16) 06/09/17 04:40 Hct 38.5 % (41.0-60) L 06/09/17 04:40 MCV 89.0 fl (80-99) 06/09/17 04:40 MCH 29.2 pg (27.0-31.0) 06/09/17 04:40 MCHC Differential 32.8 pg (28.0-36.0) 06/09/17 04:40 RDW 15.3 % (11.5-20.0) 06/09/17 04:40 Plt Count 239 Th/cmm (150-400) 06/09/17 04:40 MPV 9.7 fl 06/09/17 04:40 Band Neutrophils % 0 % (0-10) 06/08/17 18:33 Neutrophils (Manual) 9 % (40-80) L 06/09/17 04:40 Lymphocytes 87 % (20-50) H 06/09/17 04:40 Monocytes 3 % (2-10) 06/09/17 04:40 Eosinophils 1 % (0-5) 06/09/17 04:40 Basophils 0 % (0-3) 06/08/17 18:33 Smudge Cells 3+ 06/08/17 18:33 Platelet Estimate ADEQUATE (NORMAL) 06/08/17 18:33 Platelet Morphology NORMAL (NORMAL) 06/08/17 18:33 RBC Morph Micro Appear NORMAL (NORMAL) 06/08/17 18:33 PT 11.7 SECONDS (9.5-11.5) H 06/09/17 14:34 INR 1.12 (0.5-1.4) 06/09/17 14:34 PTT (Actin FS) 92.2 SECONDS (26.0-38.0) H* 06/10/17 06:20 Sodium 138 mEq/L (136-145) 06/09/17 04:40 Potassium 3.8 mEq/L (3.5-5.1) 06/09/17 04:40 Chloride 103 mEq/L (98-107) 06/09/17 04:40 Carbon Dioxide 28.8 mEq/L (21.0-31.0) 06/09/17 04:40 Anion Gap 10.0 (7.0-16.0) 06/09/17 04:40 BUN 13 mg/dL (7-25) 06/09/17 04:40 Creatinine 0.8 mg/dL (0.7-1.3) 06/09/17 04:40 Est GFR ( Amer) TNP 06/09/17 04:40 Est GFR (Non-Af Amer) TNP 06/09/17 04:40 BUN/Creatinine Ratio 16.3 06/09/17 04:40 Glucose 102 mg/dL (70-105) 06/09/17 04:40 POC Glucose 100 MG/DL (70 - 105) 06/08/17 23:47 Hemoglobin A1c % 6.1 % (4.0-6.0) H 06/08/17 18:33 Whole Bld Lactic Acid 0.54 mmol/L (0.60-1.99) L 06/08/17 18:33 Calcium 8.8 mg/dL (8.6-10.3) 06/09/17 04:40 Total Bilirubin 0.5 mg/dL (0.3-1.0) 06/09/17 04:40 AST 16 U/L (13-39) 06/09/17 04:40 ALT 14 U/L (7-52) 06/09/17 04:40 Alkaline Phosphatase 69 U/L (34-104) 06/09/17 04:40 Total Protein 6.0 gm/dL (6.0-8.3) 06/09/17 04:40 Albumin 2.9 gm/dL (4.2-5.5) L 06/09/17 04:40 Globulin 3.1 gm/dL 06/09/17 04:40 Albumin/Globulin Ratio 0.9 (1.0-1.8) L 06/09/17 04:40 Triglycerides 57 mg/dL (<150) 06/08/17 18:33 Cholesterol 155 mg/dL (<200) 06/08/17 18:33 LDL Cholesterol Direct 122 mg/dL (75-193) 06/08/17 18:33 HDL Cholesterol 34 mg/dL (23-92) 06/08/17 18: TSH 4.34 uIU/ml (0.34-5.60) 06/08/17 18:33 Urine Source CLEAN C 06/08/17 20:10 Urine Color YELLOW 06/08/17 20:10 Urine Clarity CLEAR (CLEAR) 06/08/17 20:10 Urine pH 5.5 (4.6 - 8.0) 06/08/17 20:10 Ur Specific [place] >= 1.030 (1.005-1.030) 06/08/17 20:10 Urine Protein NEGATIVE mg/dL (NEGATIVE) 06/08/17 20:10 Urine Glucose (UA) NEGATIVE mg/dL (NEGATIVE) 06/08/17 20:10 Urine Ketones NEGATIVE mg/dL (NEGATIVE) 06/08/17 20:10 Urine Blood NEGATIVE (NEGATIVE) 06/08/17 20:10 Urine Nitrate NEGATIVE (NEGATIVE) 06/08/17 20:10 Urine Bilirubin NEGATIVE (NEGATIVE) 06/08/17 20:10 Urine Urobilinogen 0.2 E.U./dL (0.2 - 1.0) 06/08/17 20:10 Ur Leukocyte Esterase NEGATIVE (NEGATIVE) 06/08/17 20:10 Urine RBC NONE SEEN /hpf (0-5) 06/08/17 20:10 Urine WBC NONE SEEN /hpf (0-5) 06/08/17 20:10 Ur Epithelial Cells NONE SEEN /lpf (FEW) 06/08/17 20:10 Urine Bacteria NONE SEEN /hpf (NONE SEEN) 06/08/17 20:10 Salicylates < 25.0 mg/L (30.0-100.0) L 06/08/17 18:33 Urine Opiates Screen NEGATIVE (NEGATIVE) 06/08/17 20:10 Urine Methadone Screen NEGATIVE (NEGATIVE) 06/08/17 20: Acetaminophen < 10.0 ug/mL (10.0-30.0) L 06/08/17 18:33 Ur Barbiturates Screen NEGATIVE (NEGATIVE) 06/08/17 20:10 Ur Tricyclics Screen NEGATIVE (NEGATIVE) 06/08/17 20:10 Ur Phencyclidine Scrn NEGATIVE (NEGATIVE) 06/08/17 20:10 Amphetamines Screen NEGATIVE (NEGATIVE) 06/08/17 20:10 U Methamphetamines Scrn NEGATIVE (NEGATIVE) 06/08/17 20:10 U Benzodiazepines Scrn NEGATIVE (NEGATIVE) 06/08/17 20:10 U Cocaine Metab Screen NEGATIVE (NEGATIVE) 06/08/17 20:10 U Cannabinoids Screen NEGATIVE (NEGATIVE) 06/08/17 20:10 Ethyl Alcohol < 10 mg/dL (0-10) 06/08/17 18:33 Serum Immunofixation 1095 mg/dL (700-1600) 06/09/17 10:02 RPR NONREACTIVE (NONREACTIVE) 06/08/17 18:33 - Physical Exam Vitals and I&O: Vital Signs Temp 96.1 F 06/10/17 06:24 Pulse 74 06/10/17 06:53 Resp 20 06/10/17 06:53 BP 109/58 06/10/17 06:24 Pulse Ox 95 06/10/17 06:53 Intake & Output 06/09/17 06/10/17 06/10/17 18:59 06:59 18:59 Intake Total 500 201.733 93 Balance 500 201.733 93 Weight (lbs) 103.238 kg Intake: Intake, IV Amount 201.733 93 Heparin 25,000 Units In 101.733 93 D5W 25,000 units In 250 ml @ 1,400 UNITS/HR 14 mls/hr IV TITR PRN Rx#: [id number] Levofloxacin 500mg/100mL 100 500 mg In 100 ml @ 100 mls/hr IV Q24HR [place] Rx#: [id number] Oral 500 Other: # Voids 3 # Bowel Movements 1 Stool Characteristics Soft Formed Active Medications: Current Medications Acetaminophen (Tylenol) 650 mg PO Q4HR PRN PRN Reason: MILD PAIN Stop: 08/08/17 06:45 Albuterol/Ipratropium (Duoneb Neb) 3 ml HHN Q2HRT PRN PRN Reason: SOB/WHEEZING Stop: 08/08/17 06:45 Artificial Tears (Artificial Tears Ophth Soln) 1 drop EACH EYE DAILY [place] Stop: 08/08/17 08:59 Last Admin: 06/09/17 08:50 Dose: 1 drop Bisacodyl (Dulcolax 10 Mg Supp) 10 mg RC DAILY PRN PRN Reason: IF MOM INEFFECTIVE Stop: 08/08/17 06:45 Budesonide (Pulmicort) 0.5 mg HHN BIDRT [place] Stop: 08/08/17 06:59 Last Admin: 06/10/17 06:53 Dose: Not Given Carvedilol (Coreg) 3.125 mg PO BID [facility] Stop: 08/08/17 08:59 Last Admin: 06/09/17 17:04 Dose: 3.125 mg Donepezil HCl (Aricept) 5 mg PO HS [facility] Stop: 08/08/17 20:59 Last Admin: 06/09/17 20:41 Dose: 5 mg Escitalopram Oxalate (Lexapro) 5 mg PO DAILY [place] PRN Reason: Protocol Stop: 08/09/17 08:59 Gabapentin (Neurontin) 300 mg PO BID [facility] Stop: 08/08/17 08:59 Last Admin: 06/09/17 17:04 Dose: 300 mg Levofloxacin (Levaquin Pb) 500 mg in 100 mls @ 100 mls/hr IV Q24HR [place] Stop: 08/08/17 20:59 Last Infusion: 06/09/17 22:12 Dose: Infused Lactulose (Cephulac) 20 gm PO DAILY [place] Stop: 08/08/17 08:59 Last Admin: 06/09/17 08:52 Dose: 20 gm Magnesium Hydroxide (Milk Of Magnesia) 30 ml PO HS PRN PRN Reason: IF NO BM IN 3 DAYS Stop: 08/08/17 06:45 Memantine (Namenda) 5 mg PO DAILY [place] Stop: 08/08/17 08:59 Last Admin: 06/09/17 08:52 Dose: 5 mg Multivitamins/Vitamin C (Theragran) 1 tab PO DAILY [facility] Stop: 08/08/17 08:59 Last Admin: 06/09/17 08:52 Dose: 1 tab General: Alert, No acute distress, Other (confused) HEENT: Atraumatic Neck: Supple, JVD Cardiovascular: Regular rate, Normal S1, Normal S2 Lungs: Clear to auscultation Abdomen: Bowel sounds, Soft, no Distended Extremities: no Clubbing, no Cyanosis, no Edema Neurological: Normal gait, Normal speech Skin: Other (presence of cellulitis to the lower extremities. ) Assessment/Plan - Problem List Patient Problems: All Active Problems INCREASED AGITATION AND AGGRESSION (Acute) - Assessment Assessment: Current Active Problems Problem Status Onset INCREASED AGITATION AND AGGRESSION Acute cellulitis leukocytosis h/o CLL HTN Dyslipidemia Dementia bilateral DVTs - Plan Plan: will order doppler US to Lower extremities repeat CBC,CMP Will continue Levofloxacin 500mg IV daily ID consult Hem/onc consult psyche consult continue home meds patient started on Xarelto DC Heparin drip per pharmacy. Nutritional Asmnt/Malnutr-PDOC - Dietary Evaluation Malnutrition Findings (Please click <Entered> for more info): Nutritional Asmnt/Malnutrition Start: 06/09/17 09: 39 Text: Status: Complete Freq: Document 06/09/17 09:39 [email or web address] (Rec: 06/09/17 09:57 [email or web address] [id number]) Nutritional Asmnt/Malnutrition Patient General Information Nutritional Screening Consult Diagnosis bilateral lower leg cellulitis Pertinent Medical Hx/Surgical Hx HTN, HLD, dementia Subjective Information Consult for wound and DM. Patient has no hx of DM and blood sugars are WNL. Pt is somewhat forgetful and keeps repeating the same things, but able to get some history. Pt states he ate about 75% of his breakfast. From nursing facility where his appetite changes based on what food is served. Is worried about drinking too much water and having to urinate too much. Is very fixated on right lower leg swelling. Current Diet Order/ Nutrition Support 2 gm na Patient / S.O Not Indicated Pertinent Medications dulcolax, lactulose, MOM, MVI Pertinent Labs (06/09) WNL Nutritional Hx/Data Height 1.88 m Height (Calculated Centimeters) 188.0 Current Weight (lbs) 106.594 kg Weight (Calculated Kilograms) 106.6 Weight (Calculated Grams) 097273.2 Herrick Body Weight 190 lbs % Herrick Body Weight 124 Body Mass Index (BMI) 30.2 Weight Status Obese GI Symptoms GI Symptoms None Last BM 06/08 Difficult in: None Usual diet at home pt can't recall Skin Integrity/Comment: no edema noted, cellulitis to bilateral legs, excoriation to right buttocks Current %PO Good (75-100%) Estimated Nutritional Goals BEE in Kcals: Adj wt of IBW Calories/Kcals/Kg 25-30 Kcals Calculated [id number] kcals Protein: Adj wt of IBW Protein g/k-1.2 Protein Calculated 91-109 g Fluid: ml 9746-1713 mL (1 mL/kcal) Nutritional Problem 1. Problem Problem obesity Etiology lifestyle Signs/Symptoms: BMI: 30.2 Malnutrition Alert Is there a minimum of two criteria No selected? Query Text:Check all the applicable criteria. A minimum of two criteria are recommended for diagnosis of either severe or non-severe malnutrition. Malnutrition Related to Morbid Obesity Malnutrition related to morbid obesity No Intervention/Recommendation Comments 1. Continue 2 gm Na diet. If PO intake <50%, recommend add supplement Expected Outcomes/Goals Expected Outcomes/Goals PO intake >50%, no wt gain monitor wt, labs, skin, PO intake
[2017-06-10] MEDS: Polyvinyl Alcohol Ophth Soln 15 mL Bottle EACH EYE SCH (09:04)
[2017-06-10] MEDS: Lactulose 10 Gm/15 mL 30mL UDC PO SCH (09:05)
[2017-06-10] MEDS: Multivitamin Tab PO SCH (09:06)
[2017-06-10] MEDS: Escitalopram Oxalate 5 mg Tab PO SCH (09:06)
--- NOTE | 2017-06-10 10:37 | General Progress Note ---
Subjective - Review of Systems Service Date: 06/10/17 Objective - Results Result Diagrams: 06/09/17 04:40 06/09/17 04:40 Recent Labs: Laboratory Last Values WBC 70.2 Th/cmm (4.8-10.8) H* 06/09/17 04:40 RBC 4.32 Mil/cmm (3.80-5.80) 06/09/17 04:40 Hgb 12.6 gm/dL (12-16) 06/09/17 04:40 Hct 38.5 % (41.0-60) L 06/09/17 04:40 MCV 89.0 fl (80-99) 06/09/17 04:40 MCH 29.2 pg (27.0-31.0) 06/09/17 04:40 MCHC Differential 32.8 pg (28.0-36.0) 06/09/17 04:40 RDW 15.3 % (11.5-20.0) 06/09/17 04:40 Plt Count 239 Th/cmm (150-400) 06/09/17 04:40 MPV 9.7 fl 06/09/17 04:40 Band Neutrophils % 0 % (0-10) 06/08/17 18:33 Neutrophils (Manual) 9 % (40-80) L 06/09/17 04:40 Lymphocytes 87 % (20-50) H 06/09/17 04:40 Monocytes 3 % (2-10) 06/09/17 04:40 Eosinophils 1 % (0-5) 06/09/17 04:40 Basophils 0 % (0-3) 06/08/17 18:33 Smudge Cells 3+ 06/08/17 18:33 Platelet Estimate ADEQUATE (NORMAL) 06/08/17 18:33 Platelet Morphology NORMAL (NORMAL) 06/08/17 18:33 RBC Morph Micro Appear NORMAL (NORMAL) 06/08/17 18:33 PT 11.7 SECONDS (9.5-11.5) H 06/09/17 14:34 INR 1.12 (0.5-1.4) 06/09/17 14:34 PTT (Actin FS) 92.2 SECONDS (26.0-38.0) H* 06/10/17 06:20 Sodium 138 mEq/L (136-145) 06/09/17 04:40 Potassium 3.8 mEq/L (3.5-5.1) 06/09/17 04:40 Chloride 103 mEq/L (98-107) 06/09/17 04:40 Carbon Dioxide 28.8 mEq/L (21.0-31.0) 06/09/17 04:40 Anion Gap 10.0 (7.0-16.0) 06/09/17 04:40 BUN 13 mg/dL (7-25) 06/09/17 04:40 Creatinine 0.8 mg/dL (0.7-1.3) 06/09/17 04:40 Est GFR ( Amer) TNP 06/09/17 04:40 Est GFR (Non-Af Amer) TNP 06/09/17 04:40 BUN/Creatinine Ratio 16.3 06/09/17 04:40 Glucose 102 mg/dL (70-105) 06/09/17 04:40 POC Glucose 100 MG/DL (70 - 105) 06/08/17 23:47 Hemoglobin A1c % 6.1 % (4.0-6.0) H 06/08/17 18:33 Whole Bld Lactic Acid 0.54 mmol/L (0.60-1.99) L 06/08/17 18:33 Calcium 8.8 mg/dL (8.6-10.3) 06/09/17 04:40 Total Bilirubin 0.5 mg/dL (0.3-1.0) 06/09/17 04:40 AST 16 U/L (13-39) 06/09/17 04:40 ALT 14 U/L (7-52) 06/09/17 04:40 Alkaline Phosphatase 69 U/L (34-104) 06/09/17 04:40 Total Protein 6.0 gm/dL (6.0-8.3) 06/09/17 04:40 Albumin 2.9 gm/dL (4.2-5.5) L 06/09/17 04:40 Globulin 3.1 gm/dL 06/09/17 04:40 Albumin/Globulin Ratio 0.9 (1.0-1.8) L 06/09/17 04:40 Triglycerides 57 mg/dL (<150) 06/08/17 18:33 Cholesterol 155 mg/dL (<200) 06/08/17 18:33 LDL Cholesterol Direct 122 mg/dL (75-193) 06/08/17 18:33 HDL Cholesterol 34 mg/dL (23-92) 06/08/17 18:33 TSH 4.34 uIU/ml (0.34-5.60) 06/08/17 18:33 Urine Source CLEAN C 06/08/17 20:10 Urine Color YELLOW 06/08/17 20:10 Urine Clarity CLEAR (CLEAR) 06/08/17 20: Urine pH 5.5 (4.6 - 8.0) 06/08/17 20:10 Ur Specific [place] >= 1.030 (1.005-1.030) 06/08/17 20:10 Urine Protein NEGATIVE mg/dL (NEGATIVE) 06/08/17 20:10 Urine Glucose (UA) NEGATIVE mg/dL (NEGATIVE) 06/08/17 20: Urine Ketones NEGATIVE mg/dL (NEGATIVE) 06/08/17 20:10 Urine Blood NEGATIVE (NEGATIVE) 06/08/17 20:10 Urine Nitrate NEGATIVE (NEGATIVE) 06/08/17 20:10 Urine Bilirubin NEGATIVE (NEGATIVE) 06/08/17 20:10 Urine Urobilinogen 0.2 E.U./dL (0.2 - 1.0) 06/08/17 20:10 Ur Leukocyte Esterase NEGATIVE (NEGATIVE) 06/08/17 20:10 Urine RBC NONE SEEN /hpf (0-5) 06/08/17 20:10 Urine WBC NONE SEEN /hpf (0-5) 06/08/17 20:10 Ur Epithelial Cells NONE SEEN /lpf (FEW) 06/08/17 20:10 Urine Bacteria NONE SEEN /hpf (NONE SEEN) 06/08/17 20:10 Salicylates < 25.0 mg/L (30.0-100.0) L 06/08/17 18:33 Urine Opiates Screen NEGATIVE (NEGATIVE) 06/08/17 20:10 Urine Methadone Screen NEGATIVE (NEGATIVE) 06/08/17: Acetaminophen < 10.0 ug/mL (10.0-30.0) L 06/08/17 18:33 Ur Barbiturates Screen NEGATIVE (NEGATIVE) 06/08/17 20:10 Ur Tricyclics Screen NEGATIVE (NEGATIVE) 06/08/17 20: Ur Phencyclidine Scrn NEGATIVE (NEGATIVE) 06/08/17 20:10 Amphetamines Screen NEGATIVE (NEGATIVE) 06/08/17 20:10 U Methamphetamines Scrn NEGATIVE (NEGATIVE) 06/08/17 20:10 U Benzodiazepines Scrn NEGATIVE (NEGATIVE) 06/08/17 20:10 U Cocaine Metab Screen NEGATIVE (NEGATIVE) 06/08/17 20:10 U Cannabinoids Screen NEGATIVE (NEGATIVE) 06/08/17 20:10 Ethyl Alcohol < 10 mg/dL (0-10) 06/08/17 18:33 Serum Immunofixation 1095 mg/dL (700-1600) 06/09/17 10:02 RPR NONREACTIVE (NONREACTIVE) 06/08/17 18:33 - Physical Exam Vitals and I&O: Vital Signs Temp 96.1 F 06/10/17 06:24 Pulse 60 06/10/17 09:06 Resp 18 06/10/17 08:00 BP 112/72 06/10/17 09:06 Pulse Ox 95 06/10/17 06:53 Intake & Output 06/09/17 06/10/17 06/10/17 18:59 06:59 18:59 Intake Total 500 201.733 93 Balance 500 201.733 93 Weight (lbs) 103.238 kg Intake: Intake, IV Amount 201.733 93 Heparin 25,000 Units In 101.733 93 D5W 25,000 units In 250 ml @ 1,400 UNITS/HR 14 mls/hr IV TITR PRN Rx#: [id number] Levofloxacin 500mg/100mL 100 500 mg In 100 ml @ 100 mls/hr IV Q24HR [facility] Rx#: [id number] Oral 500 Other: # Voids 3 # Bowel Movements 1 Stool Characteristics Soft Formed Active Medications: Current Medications Acetaminophen (Tylenol) 650 mg PO Q4HR PRN PRN Reason: MILD PAIN Stop: 08/08/17 06:45 Albuterol/Ipratropium (Duoneb Neb) 3 ml HHN Q2HRT PRN PRN Reason: SOB/WHEEZING Stop: 08/08/17 06:45 Artificial Tears (Artificial Tears Ophth Soln) 1 drop EACH EYE DAILY [facility] Stop: 08/08/17 08:59 Last Admin: 06/10/17 09:04 Dose: 1 drop Bisacodyl (Dulcolax 10 Mg Supp) 10 mg RC DAILY PRN PRN Reason: IF MOM INEFFECTIVE Stop: 08/08/17 06:45 Budesonide (Pulmicort) 0.5 mg HHN BIDRT [facility] Stop: 08/08/17 06:59 Last Admin: 06/10/17 06:53 Dose: Not Given Carvedilol (Coreg) 3.125 mg PO BID [facility] Stop: 08/08/17 08:59 Last Admin: 06/10/17 09:06 Dose: 3.125 mg Donepezil HCl (Aricept) 5 mg PO HS [facility] Stop: 08/08/17 20:59 Last Admin: 06/09/17 20:41 Dose: 5 mg Escitalopram Oxalate (Lexapro) 5 mg PO DAILY [facility] PRN Reason: Protocol Stop: 08/09/17 08:59 Last Admin: 06/10/17 09:06 Dose: 5 mg Gabapentin (Neurontin) 300 mg PO BID [facility] Stop: 08/08/17 08:59 Last Admin: 06/10/17 09:06 Dose: 300 mg Levofloxacin (Levaquin Pb) 500 mg in 100 mls @ 100 mls/hr IV Q24HR [facility] Stop: 08/08/17 20:59 Last Infusion: 06/09/17 22:12 Dose: Infused Lactulose (Cephulac) 20 gm PO DAILY [facility] Stop: 08/08/17 08:59 Last Admin: 06/10/17 09:05 Dose: 20 gm Magnesium Hydroxide (Milk Of Magnesia) 30 ml PO HS PRN PRN Reason: IF NO BM IN 3 DAYS Stop: 08/08/17 06:45 Memantine (Namenda) 5 mg PO DAILY [facility] Stop: 08/08/17 08:59 Last Admin: 06/10/17 09:06 Dose: 5 mg Multivitamins/Vitamin C (Theragran) 1 tab PO DAILY [facility] Stop: 08/08/17 08:59 Last Admin: 06/10/17 09:06 Dose: 1 tab Rivaroxaban (Xarelto) 10 mg PO DAILY [facility] Stop: 08/09/17 08:59 Last Admin: 06/10/17 09:06 Dose: 10 mg General: Alert, No acute distress, Other (confused) HEENT: Atraumatic Neck: Supple, JVD Cardiovascular: Regular rate, Normal S1, Normal S2 Lungs: Clear to auscultation Abdomen: Bowel sounds, Soft, no Distended Extremities: no Clubbing, no Cyanosis, no Edema Neurological: Normal gait, Normal speech Skin: Other (presence of cellulitis to the lower extremities. ) Assessment/Plan - Problem List Patient Problems: All Active Problems INCREASED AGITATION AND AGGRESSION (Acute) - Assessment Assessment: * Leukocytosis likely CLL; awaiting the flowcytometry report * Bilateral lower extremities DVT * leg cellulitis Change Rivaroxaban to 15 mg bid x 21 days Nutritional Asmnt/Malnutr-PDOC - Dietary Evaluation Malnutrition Findings (Please click <Entered> for more info): Nutritional Asmnt/Malnutrition Start: 06/09/17 09: 39 Text: Status: Complete Freq: Document 06/09/17 09:39 [email or web address] (Rec: 06/09/17 09:57 [email or web address]) Nutritional Asmnt/Malnutrition Patient General Information Nutritional Screening Consult Diagnosis bilateral lower leg cellulitis Pertinent Medical Hx/Surgical Hx HTN, HLD, dementia Subjective Information Consult for wound and DM. Patient has no hx of DM and blood sugars are WNL. Pt is somewhat forgetful and keeps repeating the same things, but able to get some history. Pt states he ate about 75% of his breakfast. From nursing facility where his appetite changes based on what food is served. Is worried about drinking too much water and having to urinate too much. Is very fixated on right lower leg swelling. Current Diet Order/ Nutrition Support 2 gm na Patient / S.O Not Indicated Pertinent Medications dulcolax, lactulose, MOM, MVI Pertinent Labs (06/09) WNL Nutritional Hx/Data Height 1.88 m Height (Calculated Centimeters) 188.0 Current Weight (lbs) 106.594 kg Weight (Calculated Kilograms) 106.6 Weight (Calculated Grams) 920079.2 [place] Body Weight 190 lbs % [place] Body Weight 124 Body Mass Index (BMI) 30.2 Weight Status Obese GI Symptoms GI Symptoms None Last BM 06/08 Difficult in: None Usual diet at home pt can't recall Skin Integrity/Comment: no edema noted, cellulitis to bilateral legs, excoriation to right buttocks Current %PO Good (75-100%) Estimated Nutritional Goals BEE in Kcals: Adj wt of IBW Calories/Kcals/Kg 25-30 Kcals Calculated 6186-9397 kcals Protein: Adj wt of IBW Protein g/k-1.2 Protein Calculated 91-109 g Fluid: ml 9032-0676 mL (1 mL/kcal) Nutritional Problem 1. Problem Problem obesity Etiology lifestyle Signs/Symptoms: BMI: 30.2 Malnutrition Alert Is there a minimum of two criteria No selected? Query Text:Check all the applicable criteria. A minimum of two criteria are recommended for diagnosis of either severe or non-severe malnutrition. Malnutrition Related to Morbid Obesity Malnutrition related to morbid obesity No Intervention/Recommendation Comments 1. Continue 2 gm Na diet. If PO intake <50%, recommend add supplement Expected Outcomes/Goals Expected Outcomes/Goals PO intake >50%, no wt gain monitor wt, labs, skin, PO intake
--- NOTE | 2017-06-10 18:57 | Consultation ---
DATE OF CONSULTATION: 06/09/2017 REFERRING PHYSICIAN: Dr. Peck. REASON FOR CONSULTATION: Cellulitis on both legs. HISTORY OF PRESENT ILLNESS: The patient is an 82-year-old male with the past medical history of dementia, CLL, hypertension, brought in from nursing facility for agitation and aggressive behavior. On initial evaluation, the patient was afebrile and WBC count was 80,000. The patient was also found to have swelling on both lower extremities with redness of left lower extremity. Ultrasound of both lower extremities performed and it showed DVT. Antibiotic chambers, the patient was started on Levaquin and ID consult was called for further antibiotic management. PAST MEDICAL HISTORY: CLL, hypertension, dementia, hyperlipidemia. PAST SURGICAL HISTORY: None. ALLERGIES: PENICILLIN. MEDICATIONS: As per medication reconciliation sheet. Antibiotic chambers, the patient is receiving Levaquin. PAST MEDICAL HISTORY: Includes hypertension, dyslipidemia, dementia, CLL, hyperlipidemia, angina, cardiac arrhythmias and arthritis. ALLERGIES: ALLERGIC TO PENICILLIN. MEDICATIONS: As per medication reconciliation sheet. Antibiotic chambers, the patient is receiving Levaquin. REVIEW OF SYSTEMS: GENERAL: The patient has no fever, no chills. HEENT: No diplopia, no photophobia. No sore throat. RESPIRATORY: No cough, no short of breath. CARDIOVASCULAR: No chest pain or palpitation. GASTROINTESTINAL: No nausea, no vomiting, no diarrhea, no constipation. GENITOURINARY: No dysuria. NEUROLOGIC: No headache, no dizziness, no focal weakness. SKIN: The patient has redness of the left lower extremity as well as discoloration of the left lower extremity. CENTRAL NERVOUS SYSTEM: No headache, no dizziness, no focal weakness. SOCIAL HISTORY: The patient lives at a nursing facility. History of smoking. No history of alcohol or drug use. FAMILY HISTORY: Noncontributory. PHYSICAL EXAMINATION: VITAL SIGNS: Current vital signs shows temperature is 97.6, pulse 52, respiration is 18, blood pressure 105/63. GENERAL: Comfortable, well-nourished, well-developed, not in acute distress. HEENT: Head is normocephalic, atraumatic. Oral cavity moist, pink tongue. Eyes: No pallor, no icterus. PERRLA, EOMI. NECK: Supple. No JVD, no carotid bruit. Trachea in midline. CHEST: Bilateral breath sounds. No crackles or wheezing. HEART: S1, S2 within normal limits. Regular rhythm. No murmur, no gallop. ABDOMEN: Soft, nontender, nondistended. Bowel sounds present. EXTREMITIES: No cyanosis, no clubbing, no edema. The patient has discoloration and redness of the right lower extremity and left lower extremity. NEUROLOGIC: Alert, awake and oriented x 3. LABORATORY DATA: Current lab shows WBC count is 70,200, hemoglobin 12.6, hematocrit 38.5, platelets are 239,000, neutrophils 9%, lymphocyte 87%. Sodium 138, potassium 3.8, chloride 103, bicarbonate is 28.8, BUN is 13, creatinine 0.8, glucose is 102. Urinalysis shows negative nitrite and negative leukoesterase. Urine for drug screen is negative. RPR nonreactive. Ultrasound of both lower extremities showed DVT. IMPRESSION: 1. Cellulitis of both lower extremities. 2. Deep venous thrombosis of both lower extremities. 3. Chronic lymphocytic leukemia. 4. Hypertension. 5. Hyperlipidemia. 6. Coronary artery disease. 7. Cardiac arrhythmia. 8. Leukocytosis with lymphocyte predominant CLL. RECOMMENDATIONS AND PLAN: Continue Levaquin at this time and anticoagulation is started already. Thank you, Dr. Peck, for involving me in taking care of this patient. JOB# [id number]
[2017-06-10] MEDS: Levofloxacin 500mg/100mL Premix Bag IV SCH (20:31)
[2017-06-11 07:01] LABS: BASOPHILE ABSOLUTE 0.3 Th/cumm (0-0.2); EOSINOPHILE ABSOLUTE 0.8 Th/cmm (0.1-0.4); HEMATOCRIT 41.1 % (41.0-60); HEMOGLOBIN 13.2 gm/dL (12-16); LYMPHOCYTE ABSOLUTE 61.2 Th/cmm (1.5-3.0); MEAN CELL VOLUME 89.2 fl (80-99); MEAN CORPUSCULAR HEMOGLOBIN 28.7 pg (27.0-31.0); MEAN CORPUSCULAR HGB CONC 32.2 pg (28.0-36.0); MONOCYTE ABSOLUTE 5.4 Th/cmm (0.3-1.0); NEUTROPHILE ABSOLUTE 5.3 Th/cmm (1.8-8.0); PLATELET COUNT 262 Th/cmm (150-400); RED BLOOD COUNT 4.61 Mil/cmm (3.80-5.80); RED CELL DISTRIBUTION WIDTH 14.8 % (11.5-20.0)
[2017-06-11 07:16] LABS: ALB/GLOB RATIO 1.1 (1.0-1.8); ALBUMIN 3.4 gm/dL (4.2-5.5); ALKALINE PHOSPHATASE 70 U/L (34-104); ANION GAP 6.1 (7.0-16.0); BILIRUBIN,TOTAL 0.4 mg/dL (0.3-1.0); BUN - UREA NITROGEN 13 mg/dL (7-25); CALCIUM SERUM 8.9 mg/dL (8.6-10.3); CARBON DIOXIDE 27.9 mEq/L (21.0-31.0); CHLORIDE 106 mEq/L (98-107); CREATININE - SERUM 0.9 mg/dL (0.7-1.3); GLUCOSE 101 mg/dL (70-105); SGOT 14 U/L (13-39); SGPT/ALT 13 U/L (7-52); SODIUM SERUM 136 mEq/L (136-145); TOTAL PROTEIN,SERUM 6.4 gm/dL (6.0-8.3)
[2017-06-11] MEDS: Budesonide 0.5 Mg/2 mL Ud HHN SCH ×2 (07:23→18:59)
[2017-06-11 07:40] LABS: LYMPHOCYTE 85 % (20-50); NEUTROPHILS 11 % (40-80); TOTAL CELLS COUNTED 100
[2017-06-11 07:41] LABS: EOSINOPHIL 1 % (0-5); MONOCYTE 3 % (2-10)
--- NOTE | 2017-06-11 08:27 | General Progress Note ---
Subjective - Review of Systems Service Date: 06/11/17 Subjective: Patient was seen and examined this AM. Awake, Alert, but confused. No acute distress. Patient has some swelling to the lower extremities. Venous Doppler US shows bilateral DVTs. Patient to be started on Xarelto 15mg twice daily x 21 days, then 20mg once daily. Objective - Results Result Diagrams: 06/11/17 06:13 06/11/17 06:13 Recent Labs: Laboratory Last Values WBC 73.0 Th/cmm (4.8-10.8) H* 06/11/17 06:13 RBC 4.61 Mil/cmm (3.80-5.80) 06/11/17 06:13 Hgb 13.2 gm/dL (12-16) 06/11/17 06:13 Hct 41.1 % (41.0-60) 06/11/17 06:13 MCV 89.2 fl (80-99) 06/11/17 06:13 MCH 28.7 pg (27.0-31.0) 06/11/17 06:13 MCHC Differential 32.2 pg (28.0-36.0) 06/11/17 06:13 RDW 14.8 % (11.5-20.0) 06/11/17 06:13 Plt Count 262 Th/cmm (150-400) 06/11/17 06:13 MPV 9.0 fl 06/11/17 06:13 Band Neutrophils % 0 % (0-10) 06/08/17 18:33 Neutrophils (Manual) 11 % (40-80) L 06/11/17 06:13 Lymphocytes 85 % (20-50) H 06/11/17 06:13 Monocytes 3 % (2-10) 06/11/17 06:13 Eosinophils 1 % (0-5) 06/11/17 06:13 Basophils 0 % (0-3) 06/08/17 18:33 Smudge Cells 3+ 06/08/17 18:33 Platelet Estimate ADEQUATE (NORMAL) 06/08/17 18:33 Platelet Morphology NORMAL (NORMAL) 06/08/17 18:33 RBC Morph Micro Appear NORMAL (NORMAL) 06/08/17 18:33 PT 11.7 SECONDS (9.5-11.5) H 06/09/17 14:34 INR 1.12 (0.5-1.4) 06/09/17 14:34 PTT (Actin FS) 92.2 SECONDS (26.0-38.0) H* 06/10/17 06:20 Sodium 136 mEq/L (136-145) 06/11/17 06:13 Potassium 4.0 mEq/L (3.5-5.1) 06/11/17 06:13 Chloride 106 mEq/L (98-107) 06/11/17 06:13 Carbon Dioxide 27.9 mEq/L (21.0-31.0) 06/11/17 06:13 Anion Gap 6.1 (7.0-16.0) L 06/11/17 06:13 BUN 13 mg/dL (7-25) 06/11/17 06:13 Creatinine 0.9 mg/dL (0.7-1.3) 06/11/17 06:13 Est GFR ( Amer) TNP 06/11/17 06:13 Est GFR (Non-Af Amer) TNP 06/11/17 06:13 BUN/Creatinine Ratio 14.4 06/11/17 06:13 Glucose 101 mg/dL (70-105) 06/11/17 06:13 POC Glucose 100 MG/DL (70 - 105) 06/08/17 23:47 Hemoglobin A1c % 6.1 % (4.0-6.0) H 06/08/17 18:33 Whole Bld Lactic Acid 0.54 mmol/L (0.60-1.99) L 06/08/17 18:33 Calcium 8.9 mg/dL (8.6-10.3) 06/11/17 06:13 Total Bilirubin 0.4 mg/dL (0.3-1.0) 06/11/17 06:13 AST 14 U/L (13-39) 06/11/17 06:13 ALT 13 U/L (7-52) 06/11/17 06:13 Alkaline Phosphatase 70 U/L (34-104) 06/11/17 06:13 Total Protein 6.4 gm/dL (6.0-8.3) 06/11/17 06:13 Albumin 3.4 gm/dL (4.2-5.5) L 06/11/17 06:13 Globulin 3.0 gm/dL 06/11/17 06:13 Albumin/Globulin Ratio 1.1 (1.0-1.8) 06/11/17 06:13 Triglycerides 57 mg/dL (<150) 06/08/17 18: Cholesterol 155 mg/dL (<200) 06/08/17 18:33 LDL Cholesterol Direct 122 mg/dL (75-193) 06/08/17 18:33 HDL Cholesterol 34 mg/dL (23-92) 06/08/17 18: TSH 4.34 uIU/ml (0.34-5.60) 06/08/17 18:33 Urine Source CLEAN C 06/08/17 20:10 Urine Color YELLOW 06/08/17 20: Urine Clarity CLEAR (CLEAR) 06/08/17 20: Urine pH 5.5 (4.6 - 8.0) 06/08/17 20:10 Ur Specific [place] >= 1.030 (1.005-1.030) 06/08/17 20:10 Urine Protein NEGATIVE mg/dL (NEGATIVE) 06/08/17 20:10 Urine Glucose (UA) NEGATIVE mg/dL (NEGATIVE) 06/08/17 20:10 Urine Ketones NEGATIVE mg/dL (NEGATIVE) 06/08/17 20:10 Urine Blood NEGATIVE (NEGATIVE) 06/08/17 20:10 Urine Nitrate NEGATIVE (NEGATIVE) 06/08/17 20:10 Urine Bilirubin NEGATIVE (NEGATIVE) 06/08/17 20:10 Urine Urobilinogen 0.2 E.U./dL (0.2 - 1.0) 06/08/17 20:10 Ur Leukocyte Esterase NEGATIVE (NEGATIVE) 06/08/17 20:10 Urine RBC NONE SEEN /hpf (0-5) 06/08/17 20:10 Urine WBC NONE SEEN /hpf (0-5) 06/08/17 20:10 Ur Epithelial Cells NONE SEEN /lpf (FEW) 06/08/17 20:10 Urine Bacteria NONE SEEN /hpf (NONE SEEN) 06/08/17 20:10 Salicylates < 25.0 mg/L (30.0-100.0) L 06/08/17 18:33 Urine Opiates Screen NEGATIVE (NEGATIVE) 06/08/17 20:10 Urine Methadone Screen NEGATIVE (NEGATIVE) 06/08/17 20:10 Acetaminophen < 10.0 ug/mL (10.0-30.0) L 06/08/17 18:33 Ur Barbiturates Screen NEGATIVE (NEGATIVE) 06/08/17 20:10 Ur Tricyclics Screen NEGATIVE (NEGATIVE) 06/08/17 20:10 Ur Phencyclidine Scrn NEGATIVE (NEGATIVE) 06/08/17 20:10 Amphetamines Screen NEGATIVE (NEGATIVE) 06/08/17 20:10 U Methamphetamines Scrn NEGATIVE (NEGATIVE) 06/08/17 20:10 U Benzodiazepines Scrn NEGATIVE (NEGATIVE) 06/08/17 20:10 U Cocaine Metab Screen NEGATIVE (NEGATIVE) 06/08/17 20:10 U Cannabinoids Screen NEGATIVE (NEGATIVE) 06/08/17 20:10 Ethyl Alcohol < 10 mg/dL (0-10) 06/08/17 18:33 Serum Immunofixation 1095 mg/dL (700-1600) 06/09/17 10:02 RPR NONREACTIVE (NONREACTIVE) 06/08/17 18:33 - Physical Exam Vitals and I&O: Vital Signs Temp 97 F 06/11/17 06:46 Pulse 56 06/11/17 07:23 Resp 18 06/11/17 07:23 BP 125/59 06/11/17 06:46 Pulse Ox 95 06/11/17 07:23 Intake & Output 06/10/17 06/11/17 06/11/17 18:59 06:59 18:59 Intake Total 93 150 Balance 93 150 Weight (lbs) 102.965 kg Intake: Intake, IV Amount 93 100 Heparin 25,000 Units In 93 D5W 25,000 units In 250 ml @ 1,400 UNITS/HR 14 mls/hr IV TITR PRN Rx#: [id number] Levofloxacin 500mg/100mL 100 500 mg In 100 ml @ 100 mls/hr IV Q24HR [facility] Rx#: [id number] Oral 50 Other: # Voids 1 # Bowel Movements 0 Active Medications: Current Medications Acetaminophen (Tylenol) 650 mg PO Q4HR PRN PRN Reason: MILD PAIN Stop: 08/08/17 06:45 Albuterol/Ipratropium (Duoneb Neb) 3 ml HHN Q2HRT PRN PRN Reason: SOB/WHEEZING Stop: 08/08/17 06:45 Artificial Tears (Artificial Tears Ophth Soln) 1 drop EACH EYE DAILY [facility] Stop: 08/08/17 08:59 Last Admin: 06/10/17 09:04 Dose: 1 drop Bisacodyl (Dulcolax 10 Mg Supp) 10 mg RC DAILY PRN PRN Reason: IF MOM INEFFECTIVE Stop: 08/08/17 06:45 Budesonide (Pulmicort) 0.5 mg HHN BIDRT [facility] Stop: 08/08/17 06:59 Last Admin: 06/11/17 07:23 Dose: 0.5 mg Carvedilol (Coreg) 3.125 mg PO BID [facility] Stop: 08/08/17 08:59 Last Admin: 06/10/17 17:29 Dose: 3.125 mg Donepezil HCl (Aricept) 5 mg PO HS [facility] Stop: 08/08/17 20:59 Last Admin: 06/10/17 20:32 Dose: 5 mg Escitalopram Oxalate (Lexapro) 5 mg PO DAILY [facility] PRN Reason: Protocol Stop: 08/09/17 08:59 Last Admin: 06/10/17 09:06 Dose: 5 mg Gabapentin (Neurontin) 300 mg PO BID [facility] Stop: 08/08/17 08:59 Last Admin: 06/10/17 17:29 Dose: 300 mg Levofloxacin (Levaquin Pb) 500 mg in 100 mls @ 100 mls/hr IV Q24HR [facility] Stop: 08/08/17 20:59 Last Infusion: 06/10/17 21:31 Dose: Infused Lactulose (Cephulac) 20 gm PO DAILY [facility] Stop: 08/08/17 08:59 Last Admin: 06/10/17 09:05 Dose: 20 gm Magnesium Hydroxide (Milk Of Magnesia) 30 ml PO HS PRN PRN Reason: IF NO BM IN 3 DAYS Stop: 08/08/17 06:45 Memantine (Namenda) 5 mg PO DAILY [facility] Stop: 08/08/17 08:59 Last Admin: 06/10/17 09:06 Dose: 5 mg Multivitamins/Vitamin C (Theragran) 1 tab PO DAILY [facility] Stop: 08/08/17 08:59 Last Admin: 06/10/17 09:06 Dose: 1 tab Rivaroxaban (Xarelto) 15 mg PO BID [facility] Stop: 08/09/17 16:59 Last Admin: 06/10/17 17:29 Dose: 15 mg General: Alert, No acute distress, Other (confused) HEENT: Atraumatic Neck: Supple, JVD Cardiovascular: Regular rate, Normal S1, Normal S2 Lungs: Clear to auscultation Abdomen: Bowel sounds, Soft, no Distended Extremities: no Clubbing, no Cyanosis, no Edema Neurological: Normal gait, Normal speech Skin: Other (presence of cellulitis to the lower extremities. ) Assessment/Plan - Problem List Patient Problems: All Active Problems INCREASED AGITATION AND AGGRESSION (Acute) - Assessment Assessment: Current Active Problems Problem Status Onset INCREASED AGITATION AND AGGRESSION Acute cellulitis leukocytosis h/o CLL HTN Dyslipidemia Dementia bilateral DVTs - Plan Plan: will order doppler US to Lower extremities repeat CBC,CMP Will continue Levofloxacin 500mg IV daily ID consult Hem/onc consult psyche consult continue home meds patient started on Xarelto DC Heparin drip per pharmacy. Nutritional Asmnt/Malnutr-PDOC - Dietary Evaluation Malnutrition Findings (Please click <Entered> for more info): Nutritional Asmnt/Malnutrition Start: 06/09/17 09: 39 Text: Status: Complete Freq: Document 06/09/17 09:39 [email or web address] (Rec: 06/09/17 09:57 [email or web address]) Nutritional Asmnt/Malnutrition Patient General Information Nutritional Screening Consult Diagnosis bilateral lower leg cellulitis Pertinent Medical Hx/Surgical Hx HTN, HLD, dementia Subjective Information Consult for wound and DM. Patient has no hx of DM and blood sugars are WNL. Pt is somewhat forgetful and keeps repeating the same things, but able to get some history. Pt states he ate about 75% of his breakfast. From nursing facility where his appetite changes based on what food is served. Is worried about drinking too much water and having to urinate too much. Is very fixated on right lower leg swelling. Current Diet Order/ Nutrition Support 2 gm na Patient / S.O Not Indicated Pertinent Medications dulcolax, lactulose, MOM, MVI Pertinent Labs (06/09) WNL Nutritional Hx/Data Height 1.88 m Height (Calculated Centimeters) 188.0 Current Weight (lbs) 106.594 kg Weight (Calculated Kilograms) 106.6 Weight (Calculated Grams) 465072.2 [place] Body Weight 190 lbs % [place] Body Weight 124 Body Mass Index (BMI) 30.2 Weight Status Obese GI Symptoms GI Symptoms None Last BM 06/08 Difficult in: None Usual diet at home pt can't recall Skin Integrity/Comment: no edema noted, cellulitis to bilateral legs, excoriation to right buttocks Current %PO Good (75-100%) Estimated Nutritional Goals BEE in Kcals: Adj wt of IBW Calories/Kcals/Kg 25-30 Kcals Calculated 0610-7468 kcals Protein: Adj wt of IBW Protein g/k-1.2 Protein Calculated 91-109 g Fluid: ml 7204-7730 mL (1 mL/kcal) Nutritional Problem 1. Problem Problem obesity Etiology lifestyle Signs/Symptoms: BMI: 30.2 Malnutrition Alert Is there a minimum of two criteria No selected? Query Text:Check all the applicable criteria. A minimum of two criteria are recommended for diagnosis of either severe or non-severe malnutrition. Malnutrition Related to Morbid Obesity Malnutrition related to morbid obesity No Intervention/Recommendation Comments 1. Continue 2 gm Na diet. If PO intake <50%, recommend add supplement Expected Outcomes/Goals Expected Outcomes/Goals PO intake >50%, no wt gain monitor wt, labs, skin, PO intake
--- NOTE | 2017-06-11 09:09 | Infectious Disease Prog Note ---
Infectious Disease Subjective - Review of Systems Service Date: 06/11/17 Subjective: There is no new change, no fever. Infectious Disease Objective - Results Result Diagrams: 06/11/17 06:13 06/11/17 06:13 Recent Labs: Laboratory Last Values WBC 73.0 Th/cmm (4.8-10.8) H* 06/11/17 06:13 RBC 4.61 Mil/cmm (3.80-5.80) 06/11/17 06:13 Hgb 13.2 gm/dL (12-16) 06/11/17 06:13 Hct 41.1 % (41.0-60) 06/11/17 06:13 MCV 89.2 fl (80-99) 06/11/17 06:13 MCH 28.7 pg (27.0-31.0) 06/11/17 06:13 MCHC Differential 32.2 pg (28.0-36.0) 06/11/17 06:13 RDW 14.8 % (11.5-20.0) 06/11/17 06:13 Plt Count 262 Th/cmm (150-400) 06/11/17 06:13 MPV 9.0 fl 06/11/17 06:13 Band Neutrophils % 0 % (0-10) 06/08/17 18:33 Neutrophils (Manual) 11 % (40-80) L 06/11/17 06:13 Lymphocytes 85 % (20-50) H 06/11/17 06:13 Monocytes 3 % (2-10) 06/11/17 06:13 Eosinophils 1 % (0-5) 06/11/17 06:13 Basophils 0 % (0-3) 06/08/17 18:33 Smudge Cells 3+ 06/08/17 18:33 Platelet Estimate ADEQUATE (NORMAL) 06/08/17 18:33 Platelet Morphology NORMAL (NORMAL) 06/08/17 18:33 RBC Morph Micro Appear NORMAL (NORMAL) 06/08/17 18:33 PT 11.7 SECONDS (9.5-11.5) H 06/09/17 14:34 INR 1.12 (0.5-1.4) 06/09/17 14:34 PTT (Actin FS) 92.2 SECONDS (26.0-38.0) H* 06/10/17 06:20 Sodium 136 mEq/L (136-145) 06/11/17 06:13 Potassium 4.0 mEq/L (3.5-5.1) 06/11/17 06:13 Chloride 106 mEq/L (98-107) 06/11/17 06:13 Carbon Dioxide 27.9 mEq/L (21.0-31.0) 06/11/17 06:13 Anion Gap 6.1 (7.0-16.0) L 06/11/17 06:13 BUN 13 mg/dL (7-25) 06/11/17 06:13 Creatinine 0.9 mg/dL (0.7-1.3) 06/11/17 06:13 Est GFR ( Amer) TNP 06/11/17 06:13 Est GFR (Non-Af Amer) TNP 06/11/17 06:13 BUN/Creatinine Ratio 14.4 06/11/17 06:13 Glucose 101 mg/dL (70-105) 06/11/17 06:13 POC Glucose 100 MG/DL (70 - 105) 06/08/17 23:47 Hemoglobin A1c % 6.1 % (4.0-6.0) H 06/08/17 18:33 Whole Bld Lactic Acid 0.54 mmol/L (0.60-1.99) L 06/08/17 18:33 Calcium 8.9 mg/dL (8.6-10.3) 06/11/17 06:13 Total Bilirubin 0.4 mg/dL (0.3-1.0) 06/11/17 06:13 AST 14 U/L (13-39) 06/11/17 06:13 ALT 13 U/L (7-52) 06/11/17 06:13 Alkaline Phosphatase 70 U/L (34-104) 06/11/17 06:13 Total Protein 6.4 gm/dL (6.0-8.3) 06/11/17 06:13 Albumin 3.4 gm/dL (4.2-5.5) L 06/11/17 06:13 Globulin 3.0 gm/dL 06/11/17 06:13 Albumin/Globulin Ratio 1.1 (1.0-1.8) 06/11/17 06:13 Triglycerides 57 mg/dL (<150) 06/08/17 18:33 Cholesterol 155 mg/dL (<200) 06/08/17 18:33 LDL Cholesterol Direct 122 mg/dL (75-193) 06/08/17 18:33 HDL Cholesterol 34 mg/dL (23-92) 06/08/17 18:33 TSH 4.34 uIU/ml (0.34-5.60) 06/08/17 18:33 Urine Source CLEAN C 06/08/17 20:10 Urine Color YELLOW 06/08/17 20:10 Urine Clarity CLEAR (CLEAR) 06/08/17 20:10 Urine pH 5.5 (4.6 - 8.0) 06/08/17 20:10 Ur Specific [place] >= 1.030 (1.005-1.030) 06/08/17 20:10 Urine Protein NEGATIVE mg/dL (NEGATIVE) 06/08/17 20:10 Urine Glucose (UA) NEGATIVE mg/dL (NEGATIVE) 06/08/17 20:10 Urine Ketones NEGATIVE mg/dL (NEGATIVE) 06/08/17 20:10 Urine Blood NEGATIVE (NEGATIVE) 06/08/17 20:10 Urine Nitrate NEGATIVE (NEGATIVE) 06/08/17 20:10 Urine Bilirubin NEGATIVE (NEGATIVE) 06/08/17 20:10 Urine Urobilinogen 0.2 E.U./dL (0.2 - 1.0) 06/08/17 20:10 Ur Leukocyte Esterase NEGATIVE (NEGATIVE) 06/08/17 20:10 Urine RBC NONE SEEN /hpf (0-5) 06/08/17 20:10 Urine WBC NONE SEEN /hpf (0-5) 06/08/17 20:10 Ur Epithelial Cells NONE SEEN /lpf (FEW) 06/08/17 20:10 Urine Bacteria NONE SEEN /hpf (NONE SEEN) 06/08/17 20:10 Salicylates < 25.0 mg/L (30.0-100.0) L 06/08/17 18:33 Urine Opiates Screen NEGATIVE (NEGATIVE) 06/08/17 20:10 Urine Methadone Screen NEGATIVE (NEGATIVE) 06/08/17 20:10 Acetaminophen < 10.0 ug/mL (10.0-30.0) L 06/08/17 18:33 Ur Barbiturates Screen NEGATIVE (NEGATIVE) 06/08/17 20:10 Ur Tricyclics Screen NEGATIVE (NEGATIVE) 06/08/17 20:10 Ur Phencyclidine Scrn NEGATIVE (NEGATIVE) 06/08/17 20:10 Amphetamines Screen NEGATIVE (NEGATIVE) 06/08/17 20:10 U Methamphetamines Scrn NEGATIVE (NEGATIVE) 06/08/17 20:10 U Benzodiazepines Scrn NEGATIVE (NEGATIVE) 06/08/17 20:10 U Cocaine Metab Screen NEGATIVE (NEGATIVE) 06/08/17 20:10 U Cannabinoids Screen NEGATIVE (NEGATIVE) 06/08/17 20:10 Ethyl Alcohol < 10 mg/dL (0-10) 06/08/17 18:33 Serum Immunofixation 1095 mg/dL (700-1600) 06/09/17 10:02 RPR NONREACTIVE (NONREACTIVE) 06/08/17 18:33 - Physical Exam Vitals and I&O: Vital Signs Temp 97 F 06/11/17 06:46 Pulse 56 06/11/17 07:23 Resp 18 06/11/17 07:23 BP 125/59 06/11/17 06:46 Pulse Ox 95 06/11/17 07:23 Intake & Output 06/10/17 06/11/17 06/11/17 18:59 06:59 18:59 Intake Total 93 150 Balance 93 150 Weight (lbs) 102.965 kg Intake: Intake, IV Amount 93 100 Heparin 25,000 Units In 93 D5W 25,000 units In 250 ml @ 1,400 UNITS/HR 14 mls/hr IV TITR PRN Rx#: [id number] Levofloxacin 500mg/100mL 100 500 mg In 100 ml @ 100 mls/hr IV Q24HR [facility] Rx#: [id number] Oral 50 Other: # Voids 1 # Bowel Movements 0 Active Medications: Current Medications Acetaminophen (Tylenol) 650 mg PO Q4HR PRN PRN Reason: MILD PAIN Stop: 08/08/17 06:45 Albuterol/Ipratropium (Duoneb Neb) 3 ml HHN Q2HRT PRN PRN Reason: SOB/WHEEZING Stop: 08/08/17 06:45 Artificial Tears (Artificial Tears Ophth Soln) 1 drop EACH EYE DAILY [facility] Stop: 08/08/17 08:59 Last Admin: 06/10/17 09:04 Dose: 1 drop Bisacodyl (Dulcolax 10 Mg Supp) 10 mg RC DAILY PRN PRN Reason: IF MOM INEFFECTIVE Stop: 08/08/17 06:45 Budesonide (Pulmicort) 0.5 mg HHN BIDRT [facility] Stop: 08/08/17 06:59 Last Admin: 06/11/17 07:23 Dose: 0.5 mg Carvedilol (Coreg) 3.125 mg PO BID [facility] Stop: 08/08/17 08:59 Last Admin: 06/10/17 17:29 Dose: 3.125 mg Donepezil HCl (Aricept) 5 mg PO HS [facility] Stop: 08/08/17 20:59 Last Admin: 06/10/17 20:32 Dose: 5 mg Escitalopram Oxalate (Lexapro) 5 mg PO DAILY [facility] PRN Reason: Protocol Stop: 08/09/17 08:59 Last Admin: 06/10/17 09:06 Dose: 5 mg Gabapentin (Neurontin) 300 mg PO BID [facility] Stop: 08/08/17 08:59 Last Admin: 06/10/17 17:29 Dose: 300 mg Levofloxacin (Levaquin Pb) 500 mg in 100 mls @ 100 mls/hr IV Q24HR [facility] Stop: 08/08/17 20:59 Last Infusion: 06/10/17 21:31 Dose: Infused Lactulose (Cephulac) 20 gm PO DAILY [facility] Stop: 08/08/17 08:59 Last Admin: 06/10/17 09:05 Dose: 20 gm Magnesium Hydroxide (Milk Of Magnesia) 30 ml PO HS PRN PRN Reason: IF NO BM IN 3 DAYS Stop: 08/08/17 06:45 Memantine (Namenda) 5 mg PO DAILY [facility] Stop: 08/08/17 08:59 Last Admin: 06/10/17 09:06 Dose: 5 mg Multivitamins/Vitamin C (Theragran) 1 tab PO DAILY [facility] Stop: 08/08/17 08:59 Last Admin: 06/10/17 09:06 Dose: 1 tab Rivaroxaban (Xarelto) 15 mg PO BID [facility] Stop: 08/09/17 16:59 Last Admin: 06/10/17 17:29 Dose: 15 mg General: no acute distress, well developed, well nourished HEENT: atraumatic, normocephalic, PERRLA Neck: supple, no thyromegaly, no lymphadenopathy Cardiovascular: S1S2, regular Lungs: clear to auscultation bilaterally, clear to percussion Abdomen: soft, no tender, no distended, no mass Extremities: other (rednessand swelling.), no cyanosis, no clubbing Infectious Disease Assmt/Plan - Problem List Patient Problems: All Active Problems INCREASED AGITATION AND AGGRESSION (Acute) - Assessment Assessment: Impressions: 1. bilateral leg cellulitis. 2. 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 3. CLL. - Plan Plan: Continue levaquin. Nutritional Asmnt/Malnutr-PDOC - Dietary Evaluation Malnutrition Findings (Please click <Entered> for more info): Nutritional Asmnt/Malnutrition Start: 06/09/17 09: 39 Text: Status: Complete Freq: Document 06/09/17 09:39 [email or web address] (Rec: 06/09/17 09:57 [email or web address]) Nutritional Asmnt/Malnutrition Patient General Information Nutritional Screening Consult Diagnosis bilateral lower leg cellulitis Pertinent Medical Hx/Surgical Hx HTN, HLD, dementia Subjective Information Consult for wound and DM. Patient has no hx of DM and blood sugars are WNL. Pt is somewhat forgetful and keeps repeating the same things, but able to get some history. Pt states he ate about 75% of his breakfast. From nursing facility where his appetite changes based on what food is served. Is worried about drinking too much water and having to urinate too much. Is very fixated on right lower leg swelling. Current Diet Order/ Nutrition Support 2 gm na Patient / S.O Not Indicated Pertinent Medications dulcolax, lactulose, MOM, MVI Pertinent Labs (06/09) WNL Nutritional Hx/Data Height 1.88 m Height (Calculated Centimeters) 188.0 Current Weight (lbs) 106.594 kg Weight (Calculated Kilograms) 106.6 Weight (Calculated Grams) 004548.2 [place] Body Weight 190 lbs % [place] Body Weight 124 Body Mass Index (BMI) 30.2 Weight Status Obese GI Symptoms GI Symptoms None Last BM 06/08 Difficult in: None Usual diet at home pt can't recall Skin Integrity/Comment: no edema noted, cellulitis to bilateral legs, excoriation to right buttocks Current %PO Good (75-100%) Estimated Nutritional Goals BEE in Kcals: Adj wt of IBW Calories/Kcals/Kg 25-30 Kcals Calculated 0010-5790 kcals Protein: Adj wt of IBW Protein g/k-1.2 Protein Calculated 91-109 g Fluid: ml 2295-7856 mL (1 mL/kcal) Nutritional Problem 1. Problem Problem obesity Etiology lifestyle Signs/Symptoms: BMI: 30.2 Malnutrition Alert Is there a minimum of two criteria No selected? Query Text:Check all the applicable criteria. A minimum of two criteria are recommended for diagnosis of either severe or non-severe malnutrition. Malnutrition Related to Morbid Obesity Malnutrition related to morbid obesity No Intervention/Recommendation Comments 1. Continue 2 gm Na diet. If PO intake <50%, recommend add supplement Expected Outcomes/Goals Expected Outcomes/Goals PO intake >50%, no wt gain monitor wt, labs, skin, PO intake
[2017-06-11] MEDS: Escitalopram Oxalate 5 mg Tab PO SCH (09:34)
[2017-06-11] MEDS: Multivitamin Tab PO SCH (09:36)
[2017-06-11] MEDS: Lactulose 10 Gm/15 mL 30mL UDC PO SCH (09:36)
[2017-06-11] MEDS: Polyvinyl Alcohol Ophth Soln 15 mL Bottle EACH EYE SCH (09:36)
--- NOTE | 2017-06-11 15:59 | General Progress Note ---
Subjective - Review of Systems Service Date: 06/11/17 Objective - Results Result Diagrams: 06/11/17 06:13 06/11/17 06:13 Recent Labs: Laboratory Last Values WBC 73.0 Th/cmm (4.8-10.8) H* 06/11/17 06:13 RBC 4.61 Mil/cmm (3.80-5.80) 06/11/17 06:13 Hgb 13.2 gm/dL (12-16) 06/11/17 06:13 Hct 41.1 % (41.0-60) 06/11/17 06:13 MCV 89.2 fl (80-99) 06/11/17 06:13 MCH 28.7 pg (27.0-31.0) 06/11/17 06:13 MCHC Differential 32.2 pg (28.0-36.0) 06/11/17 06:13 RDW 14.8 % (11.5-20.0) 06/11/17 06:13 Plt Count 262 Th/cmm (150-400) 06/11/17 06:13 MPV 9.0 fl 06/11/17 06:13 Band Neutrophils % 0 % (0-10) 06/08/17 18:33 Neutrophils (Manual) 11 % (40-80) L 06/11/17 06:13 Lymphocytes 85 % (20-50) H 06/11/17 06:13 Monocytes 3 % (2-10) 06/11/17 06:13 Eosinophils 1 % (0-5) 06/11/17 06:13 Basophils 0 % (0-3) 06/08/17 18:33 Smudge Cells 3+ 06/08/17 18:33 Platelet Estimate ADEQUATE (NORMAL) 06/08/17 18:33 Platelet Morphology NORMAL (NORMAL) 06/08/17 18:33 RBC Morph Micro Appear NORMAL (NORMAL) 06/08/17 18:33 PT 11.7 SECONDS (9.5-11.5) H 06/09/17 14:34 INR 1.12 (0.5-1.4) 06/09/17 14:34 PTT (Actin FS) 92.2 SECONDS (26.0-38.0) H* 06/10/17 06:20 Sodium 136 mEq/L (136-145) 06/11/17 06:13 Potassium 4.0 mEq/L (3.5-5.1) 06/11/17 06:13 Chloride 106 mEq/L (98-107) 06/11/17 06:13 Carbon Dioxide 27.9 mEq/L (21.0-31.0) 06/11/17 06:13 Anion Gap 6.1 (7.0-16.0) L 06/11/17 06:13 BUN 13 mg/dL (7-25) 06/11/17 06:13 Creatinine 0.9 mg/dL (0.7-1.3) 06/11/17 06:13 Est GFR ( Amer) TNP 06/11/17 06:13 Est GFR (Non-Af Amer) TNP 06/11/17 06:13 BUN/Creatinine Ratio 14.4 06/11/17 06:13 Glucose 101 mg/dL (70-105) 06/11/17 06:13 POC Glucose 100 MG/DL (70 - 105) 06/08/17 23:47 Hemoglobin A1c % 6.1 % (4.0-6.0) H 06/08/17 18:33 Whole Bld Lactic Acid 0.54 mmol/L (0.60-1.99) L 06/08/17 18:33 Calcium 8.9 mg/dL (8.6-10.3) 06/11/17 06:13 Total Bilirubin 0.4 mg/dL (0.3-1.0) 06/11/17 06:13 AST 14 U/L (13-39) 06/11/17 06:13 ALT 13 U/L (7-52) 06/11/17 06:13 Alkaline Phosphatase 70 U/L (34-104) 06/11/17 06:13 Total Protein 6.4 gm/dL (6.0-8.3) 06/11/17 06:13 Albumin 3.4 gm/dL (4.2-5.5) L 06/11/17 06:13 Globulin 3.0 gm/dL 06/11/17 06:13 Albumin/Globulin Ratio 1.1 (1.0-1.8) 06/11/17 06:13 Triglycerides 57 mg/dL (<150) 06/08/17 18:33 Cholesterol 155 mg/dL (<200) 06/08/17 18:33 LDL Cholesterol Direct 122 mg/dL (75-193) 06/08/17 18:33 HDL Cholesterol 34 mg/dL (23-92) 06/08/17 18:33 TSH 4.34 uIU/ml (0.34-5.60) 06/08/17 18:33 Urine Source CLEAN C 06/08/17 20:10 Urine Color YELLOW 06/08/17 20:10 Urine Clarity CLEAR (CLEAR) 06/08/17: Urine pH 5.5 (4.6 - 8.0) 06/08/17 20:10 Ur Specific [place] >= 1.030 (1.005-1.030) 06/08/17 20:10 Urine Protein NEGATIVE mg/dL (NEGATIVE) 06/08/17 20:10 Urine Glucose (UA) NEGATIVE mg/dL (NEGATIVE) 06/08/17 20: Urine Ketones NEGATIVE mg/dL (NEGATIVE) 06/08/17 20:10 Urine Blood NEGATIVE (NEGATIVE) 06/08/17 20:10 Urine Nitrate NEGATIVE (NEGATIVE) 06/08/17:10 Urine Bilirubin NEGATIVE (NEGATIVE) 06/08/17 20: Urine Urobilinogen 0.2 E.U./dL (0.2 - 1.0) 06/08/17 20:10 Ur Leukocyte Esterase NEGATIVE (NEGATIVE) 06/08/17 20:10 Urine RBC NONE SEEN /hpf (0-5) 06/08/17 20:10 Urine WBC NONE SEEN /hpf (0-5) 06/08/17 20:10 Ur Epithelial Cells NONE SEEN /lpf (FEW) 06/08/17 20:10 Urine Bacteria NONE SEEN /hpf (NONE SEEN) 06/08/17 20:10 Salicylates < 25.0 mg/L (30.0-100.0) L 06/08/17 18:33 Urine Opiates Screen NEGATIVE (NEGATIVE) 06/08/17 20:10 Urine Methadone Screen NEGATIVE (NEGATIVE) 06/08/17: Acetaminophen < 10.0 ug/mL (10.0-30.0) L 06/08/17 18:33 Ur Barbiturates Screen NEGATIVE (NEGATIVE) 06/08/17 20:10 Ur Tricyclics Screen NEGATIVE (NEGATIVE) 06/08/17: Ur Phencyclidine Scrn NEGATIVE (NEGATIVE) 06/08/17 20:10 Amphetamines Screen NEGATIVE (NEGATIVE) 06/08/17 20:10 U Methamphetamines Scrn NEGATIVE (NEGATIVE) 06/08/17 20:10 U Benzodiazepines Scrn NEGATIVE (NEGATIVE) 06/08/17 20:10 U Cocaine Metab Screen NEGATIVE (NEGATIVE) 06/08/17 20:10 U Cannabinoids Screen NEGATIVE (NEGATIVE) 06/08/17 20:10 Ethyl Alcohol < 10 mg/dL (0-10) 06/08/17 18:33 Serum Immunofixation 1095 mg/dL (700-1600) 06/09/17 10:02 RPR NONREACTIVE (NONREACTIVE) 06/08/17 18:33 - Physical Exam Vitals and I&O: Vital Signs Temp 97.3 F 06/11/17 15:26 Pulse 59 06/11/17 15:26 Resp 18 06/11/17 15:26 BP 115/66 06/11/17 15:26 Pulse Ox 96 06/11/17 15:26 Intake & Output 06/10/17 06/11/17 06/11/17 18:59 06:59 18:59 Intake Total 93 150 Balance 93 150 Weight (lbs) 102.965 kg Intake: Intake, IV Amount 93 100 Heparin 25,000 Units In 93 D5W 25,000 units In 250 ml @ 1,400 UNITS/HR 14 mls/hr IV TITR PRN Rx#: [id number] Levofloxacin 500mg/100mL 100 500 mg In 100 ml @ 100 mls/hr IV Q24HR [facility] Rx#: [id number] Oral 50 Other: # Voids 1 # Bowel Movements 0 Stool Characteristics Soft Brown Active Medications: Current Medications Acetaminophen (Tylenol) 650 mg PO Q4HR PRN PRN Reason: MILD PAIN Stop: 08/08/17 06:45 Albuterol/Ipratropium (Duoneb Neb) 3 ml HHN Q2HRT PRN PRN Reason: SOB/WHEEZING Stop: 08/08/17 06:45 Artificial Tears (Artificial Tears Ophth Soln) 1 drop EACH EYE DAILY [facility] Stop: 08/08/17 08:59 Last Admin: 06/11/17 09:36 Dose: 1 drop Bisacodyl (Dulcolax 10 Mg Supp) 10 mg RC DAILY PRN PRN Reason: IF MOM INEFFECTIVE Stop: 08/08/17 06:45 Budesonide (Pulmicort) 0.5 mg HHN BIDRT [facility] Stop: 08/08/17 06:59 Last Admin: 06/11/17 07:23 Dose: 0.5 mg Carvedilol (Coreg) 3.125 mg PO BID [facility] Stop: 08/08/17 08:59 Last Admin: 06/11/17 09:46 Dose: 3.125 mg Donepezil HCl (Aricept) 5 mg PO HS [facility] Stop: 08/08/17 20:59 Last Admin: 06/10/17 20:32 Dose: 5 mg Escitalopram Oxalate (Lexapro) 5 mg PO DAILY [facility] PRN Reason: Protocol Stop: 08/09/17 08:59 Last Admin: 06/11/17 09:34 Dose: 5 mg Gabapentin (Neurontin) 300 mg PO BID [facility] Stop: 08/08/17 08:59 Last Admin: 06/11/17 09:34 Dose: 300 mg Levofloxacin (Levaquin Pb) 500 mg in 100 mls @ 100 mls/hr IV Q24HR [facility] Stop: 08/08/17 20:59 Last Infusion: 06/10/17 21:31 Dose: Infused Lactulose (Cephulac) 20 gm PO DAILY [facility] Stop: 08/08/17 08:59 Last Admin: 06/11/17 09:36 Dose: 20 gm Magnesium Hydroxide (Milk Of Magnesia) 30 ml PO HS PRN PRN Reason: IF NO BM IN 3 DAYS Stop: 08/08/17 06:45 Memantine (Namenda) 5 mg PO DAILY [facility] Stop: 08/08/17 08:59 Last Admin: 06/11/17 09:36 Dose: 5 mg Multivitamins/Vitamin C (Theragran) 1 tab PO DAILY [facility] Stop: 08/08/17 08:59 Last Admin: 06/11/17 09:36 Dose: 1 tab Rivaroxaban (Xarelto) 15 mg PO BID [facility] Stop: 08/09/17 16:59 Last Admin: 06/11/17 09:37 Dose: 15 mg General: Alert, No acute distress, Other (confused) HEENT: Atraumatic Neck: Supple, JVD Cardiovascular: Regular rate, Normal S1, Normal S2 Lungs: Clear to auscultation Abdomen: Bowel sounds, Soft, no Distended Extremities: no Clubbing, no Cyanosis, no Edema Neurological: Normal gait, Normal speech Skin: Other (presence of cellulitis to the lower extremities. ) Assessment/Plan - Problem List Patient Problems: All Active Problems INCREASED AGITATION AND AGGRESSION (Acute) - Assessment Assessment: * Leukocytosis likely CLL; awaiting the flowcytometry report * Bilateral lower extremities DVT * leg cellulitis Change Rivaroxaban to 15 mg bid x 21 days Continue current treatment Nutritional Asmnt/Malnutr-PDOC - Dietary Evaluation Malnutrition Findings (Please click <Entered> for more info): Nutritional Asmnt/Malnutrition Start: 06/09/17 09: 39 Text: Status: Complete Freq: Document 06/09/17 09:39 [email or web address] (Rec: 06/09/17 09:57 [email or web address]) Nutritional Asmnt/Malnutrition Patient General Information Nutritional Screening Consult Diagnosis bilateral lower leg cellulitis Pertinent Medical Hx/Surgical Hx HTN, HLD, dementia Subjective Information Consult for wound and DM. Patient has no hx of DM and blood sugars are WNL. Pt is somewhat forgetful and keeps repeating the same things, but able to get some history. Pt states he ate about 75% of his breakfast. From nursing facility where his appetite changes based on what food is served. Is worried about drinking too much water and having to urinate too much. Is very fixated on right lower leg swelling. Current Diet Order/ Nutrition Support 2 gm na Patient / S.O Not Indicated Pertinent Medications dulcolax, lactulose, MOM, MVI Pertinent Labs (06/09) WNL Nutritional Hx/Data Height 1.88 m Height (Calculated Centimeters) 188.0 Current Weight (lbs) 106.594 kg Weight (Calculated Kilograms) 106.6 Weight (Calculated Grams) 686125.2 [place] Body Weight 190 lbs % [place] Body Weight 124 Body Mass Index (BMI) 30.2 Weight Status Obese GI Symptoms GI Symptoms None Last BM 06/08 Difficult in: None Usual diet at home pt can't recall Skin Integrity/Comment: no edema noted, cellulitis to bilateral legs, excoriation to right buttocks Current %PO Good (75-100%) Estimated Nutritional Goals BEE in Kcals: Adj wt of IBW Calories/Kcals/Kg 25-30 Kcals Calculated 0551-2661 kcals Protein: Adj wt of IBW Protein g/k-1.2 Protein Calculated 91-109 g Fluid: ml 9429-9902 mL (1 mL/kcal) Nutritional Problem 1. Problem Problem obesity Etiology lifestyle Signs/Symptoms: BMI: 30.2 Malnutrition Alert Is there a minimum of two criteria No selected? Query Text:Check all the applicable criteria. A minimum of two criteria are recommended for diagnosis of either severe or non-severe malnutrition. Malnutrition Related to Morbid Obesity Malnutrition related to morbid obesity No Intervention/Recommendation Comments 1. Continue 2 gm Na diet. If PO intake <50%, recommend add supplement Expected Outcomes/Goals Expected Outcomes/Goals PO intake >50%, no wt gain monitor wt, labs, skin, PO intake
--- NOTE | 2017-06-12 10:23 | Discharge Summary ---
DATE OF DISCHARGE: 06/11/2017 PRELIMINARY DIAGNOSES: 1. Cellulitis to the lower extremities. 2. Leukocytosis. 3. History of chronic lymphocytic leukemia. 4. Hypertension. 5. Dyslipidemia. 6. Dementia. DISCHARGE DIAGNOSES: 1. Bilateral lower extremity cellulitis. 2. Bilateral deep vein thrombosis. 3. History of chronic lymphocytic leukemia. 4. Leukocytosis secondary to #3. 5. Hypertension. 6. Dyslipidemia. 7. Dementia. BRIEF HISTORY OF PRESENT ILLNESS: This is an 82-year-old male who presents [facility] ER with increased agitation and an aggressive behavior noted at the correction facility. The patient was found to have swelling to his lower legs, increased redness and erythema, was subsequently seen in the ER and found to have cellulitis, was started on IV antibiotics and subsequently transferred to med/surg for further evaluation and treatment. HOSPITAL COURSE: The patient underwent a bilateral lower extremity Doppler ultrasound, which confirmed the presence of deep vein thrombosis to both legs. The patient was then started on Xarelto 15 mg twice daily to be continued for the next 3 weeks and then transition to 20 mg once daily indefinitely until clot is confirmed to have gone away. The patient was to have an ultrasound of the lower extremity in 3-6 months to follow up on the clot formation. The patient was initially started on Levaquin IV 500 mg daily, which was then switched to p.o. 500 mg Levaquin. The patient was subsequently discharged in stable condition and to have continued care at the correction facility. [facility]# [id number]
== END 2017-06-11 20:05 | disposition home or self-care (01) | DRG 300 ==
LOC: ER 18:00 → MSI 20:08
PROVIDERS: ADMIT Family Medicine; ATTEND Family Medicine
DX: I82.413 Acute embolism and thrombosis of femoral vein, bilateral (principal); C91.10 Chronic lymphocytic leukemia of B-cell type not having achieved remission; I82.431 Acute embolism and thrombosis of right popliteal vein; L03.115 Cellulitis of right lower limb; E77.8 Other disorders of glycoprotein metabolism; F03.91 Unspecified dementia, unspecified severity, with behavioral disturbance; L03.116 Cellulitis of left lower limb; F31.5 Bipolar disorder, current episode depressed, severe, with psychotic features; E78.5 Hyperlipidemia, unspecified; I10 Essential (primary) hypertension; M19.90 Unspecified osteoarthritis, unspecified site; I73.9 Peripheral vascular disease, unspecified; F29 Unspecified psychosis not due to a substance or known physiological condition; Z88.0 Allergy status to penicillin; Z82.49 Family history of ischemic heart disease and other diseases of the circulatory system
CPT/HCPCS: 36415-UA; 80053-TC; 80061-TC; 80307; 80320-TC; 80329-TC; 81001-TC; 82784-90; 82948-90; 83036-90; 83605; 84443-TC; 85007-TC; 85025-TC; 85027-TC; 85610-TC; 85730-TC; 86592-TC; 88189-90; 93005; 93970-TC-50; 94640; 94760; J1630; J1644; J1650; J1956; Z7610

== ENCOUNTER 2017-07-05 12:23 | Inpatient (IN) | payer OTHER, MEDICAID ==
--- NOTE | 2017-07-05 13:45 | ED Physician Chart ---
ED Chief Complaint/HPI - Patient Information Date Seen:: 07/05/17 Time Seen:: 13:43 Chief Complaint:: AGITATION and LT SHOULDER AND BACK PAIN History of Present Illness:: THIS 82-YEAR-OLD MALE WAS REFERRED TO THE EMERGENCY DEPARTMENT FOR EVALUATION OF AGITATION. Allergies:: Allergies Allergy/AdvReac Type Severity Reaction Status Date / Time Penicillins [PCN] AdvReac Verified 04/21/17 17:09 ON/ Historian:: Patient Family MD/PCP:: Unable to locate any medical records from the nursing facility. LMP:: Unable to locate EMS paperwork, or paperwork from the nursing facility. ED Review of Systems - Review of Systems General/Constitutional: No fever, Weakness, No diaphoresis, Other (PT WITH DEMENTIA AND UNRELIABLE INFORMATION FROM PATIENT.) Skin: Skin lesions, No skin lesions, No rash, Other (hyperpigmentation in both lower extremities below the knees consistent with stasis dermatitis. Mild stiffness of the neck with AP ON F FLEXOR FLEXATION) Head: No headache, No light-headedness Eyes: No loss of vision, No diplopia ENT: No earache, No sore throat Neck: No neck pain, No swelling, Stiffness Cardio Vascular: No chest pain, No palpitations, edema Pulmonary: No SOB, No cough, No sputum, No wheezing GI: No nausea, No vomiting, No diarrhea, Constipation G/U: No dysuria, No hematuria (PAIN IN THE LEFT SCAPULAR REGION OF THE BACK.) Musculoskeletal: No bone or joint pain (PAIN IN THE LEFT SHOULDER REGION WITH RANGE OF MOTION. CURRENTLY PAIN FREE.) Family Medical History - Family Member Mother History Unknown: Yes Hx Family Cancer: No Hx Family Stroke: No Hx Family Seizures: No Hx Family Dementia: No Hx Family AIDS: No Hx Family COPD: No Hx Family Psychiatric Problems: No ED Physical Exam - Physical Examination General/Constitutional: Awake, Well-developed, well-nourished, Non-toxic appearing Other Gen/Cons comments:: PATIENT WITH MODERATE TO SEVERE DISCOMFORT UPON ARRIVAL WITH PAIN IN THE LEFT SHOULDER REGION. AT THE TIME OF MY EXAMINATION THE PATIENT HAD RECEIVED ATIVAN 0.1 MG AND HAD NO CHEST PAIN OR DIFFICULTY BREATHING. HE WAS COMPLAINING OF RESIDUAL PAIN IN THE LEFT SHOULDER REGION. Head: Atraumatic Eyes: Lids, conjuctiva normal, PERRL, EOMI Skin: Nl inspection, No rash, No skin lesions, No ecchymosis, No lymphadenopathy Other Skin comments:: THE ORAL MUCOSA APPEARED TO BE VERY DRY WITH A SHRUNKEN TUNNING. THE PATIENT HAS HYPERPIGMENTATION AND MILD EDEMA IN THE PRETIBIAL REGION OF BOTH LOWER EXTREMITIES. CAPILLARY REFILL APPEARED NORMAL. PULSES WERE WEAK. ENMT: External ears, nose nl, Tonsils nl Other ENMT comments:: ORAL MUCOSA APPEARS TO BE VERY DRY. Neck: Nontender, Full ROM w/o pain, No JVD, No bruit, No mass, No stridor Respiratory: Nl effort/Exclusion, No Wheeze/Rhonchi/Rales GI: No tenderness/rebounding/guarding, No organomegaly, No hernia, Normal BS's : No CVA tenderness Other Extremities comments:: PATIENT HAS MOVEMENT IN ALL 4 EXTREMITIES BUT HIS STRENGTH IS NOT WHAT ONE WOULD EXPECT FOR HIS AGE AND BUILD. ED Labs/Radiology/EKG Results - Lab Results Results: NORMAL SINUS RHYTHM AT A RATE OF 77 WITH NO ECTOPY. AXIS IS NORMAL. OK INTERVAL WAS 71 AND SHORTENED. THE QRS DURATION IS 137 WITH NONSPECIFIC CONDUCTION DELAY. SHORT OK INTERVAL. NO ST SEGMENT ELEVATION OR DEPRESSION. IMPRESSION ABNORMAL EKG WITHOUT SIGNS OF CARDIAC ISCHEMIA. SINGLE VIEW CHEST X -RAY: BORDERLINE CARDIOMEGALY. TORTUOUS AORTA WITH CALCIFICATIONS IN THE ARCH. NO AREAS OF PULMONARY CONSOLIDATION OR INFILTRATE. NO PNEUMOTHORAX. NO PLEURAL EFFUSIONS. IMPRESSION: NO ACUTE CARDIOPULMONARY FINDINGS. Laboratory Results - last 24 hr 07/05/17 07/05/17 07/05/17 12:40 12:40 12:40 WBC 66.3 H* RBC 4.43 Hgb 12.7 Hct 39.5 L MCV 89.2 MCH 28.7 MCHC Differential 32.2 RDW 15.2 Plt Count 255 MPV 9.2 Neutrophils % THREAD REELER Band Neutrophils % 0 Lymphocytes % THREAD REELER Monocytes % THREAD REELER Eosinophils % THREAD REELER Neutrophils (Manual) 8 L Lymphocytes 88 H Monocytes 3 Eosinophils 1 Basophils 0 Sodium 136 Potassium 3.9 Chloride 102 Carbon Dioxide 31.7 H Anion Gap 6.2 L BUN 21 Creatinine 0.8 Est GFR ( Amer) TNP Est GFR (Non-Af Amer) TNP BUN/Creatinine Ratio 26.3 Glucose 93 Whole Bld Lactic Acid Calcium 9.0 Total Bilirubin 0.3 AST 24 ALT 27 Alkaline Phosphatase 74 B-Natriuretic Peptide 72.4 Total Protein 6.6 Albumin 3.3 L Globulin 3.3 Albumin/Globulin Ratio 1.0 Urine Source Urine Color Urine Clarity Urine pH Ur Specific [place] Urine Protein Urine Glucose (UA) Urine Ketones Urine Blood Urine Nitrate Urine Bilirubin Urine Urobilinogen Ur Leukocyte Esterase Urine RBC Urine WBC Ur Epithelial Cells Urine Bacteria 07/05/17 07/05/17 12:40 14:45 WBC RBC Hgb Hct MCV MCH MCHC Differential RDW Plt Count MPV Neutrophils % Band Neutrophils % Lymphocytes % Monocytes % Eosinophils % Neutrophils (Manual) Lymphocytes Monocytes Eosinophils Basophils Sodium Potassium Chloride Carbon Dioxide Anion Gap BUN Creatinine Est GFR ( Amer) Est GFR (Non-Af Amer) BUN/Creatinine Ratio Glucose Whole Bld Lactic Acid 0.74 Calcium Total Bilirubin AST ALT Alkaline Phosphatase B-Natriuretic Peptide Total Protein Albumin Globulin Albumin/Globulin Ratio Urine Source CATH Urine Color YELLOW Urine Clarity CLEAR Urine pH 6.0 Ur Specific [place] 1.025 Urine Protein NEGATIVE Urine Glucose (UA) NEGATIVE Urine Ketones NEGATIVE Urine Blood NEGATIVE Urine Nitrate NEGATIVE Urine Bilirubin NEGATIVE Urine Urobilinogen 0.2 Ur Leukocyte Esterase NEGATIVE Urine RBC 2-5 H Urine WBC 0-2 Ur Epithelial Cells RARE Urine Bacteria NONE SEEN LABORATORY STUDIES: URINALYSIS IS NEGATIVE FOR ANY EVIDENCE OF UTI WITH NO BACTERIA SEEN AND ONLY 0-2 WHITE CELLS. ANABOLIC STUDIES NORMAL SODIUM AND POTASSIUM. THE REMAINING ELECTROLYTES ARE ALL WITHIN NORMAL PARAMETERS EXCEPT FOR THE BICARBONATE RENAL FUNCTION STUDIES SHOWED A NORMAL BUN AND CREATININE. THE NATRURETIC PEPTIDE PENDING AT THIS POINT IN TIME. ED Discharge Plan - Patient Disposition Instructions: Psychosis
[2017-07-05 14:10] LABS: MANUAL DIFF REQUIRED? YES; RED CELL DISTRIBUTION WIDTH 15.2 % (11.5-20.0)
[2017-07-05 14:18] LABS: EOSINOPHILE ABSOLUTE 0.8 Th/cmm (0.1-0.4); HEMATOCRIT 39.5 % (41.0-60); HEMOGLOBIN 12.7 gm/dL (12-16); LYMPHOCYTE ABSOLUTE 55.9 Th/cmm (1.5-3.0); MEAN CELL VOLUME 89.2 fl (80-99); MEAN CORPUSCULAR HEMOGLOBIN 28.7 pg (27.0-31.0); MEAN CORPUSCULAR HGB CONC 32.2 pg (28.0-36.0); MEAN PLATELET VOLUME 9.2 fl; MONOCYTE ABSOLUTE 3.8 Th/cmm (0.3-1.0); NEUTROPHILE ABSOLUTE 5.8 Th/cmm (1.8-8.0); PLATELET COUNT 255 Th/cmm (150-400); RED BLOOD COUNT 4.43 Mil/cmm (3.80-5.80)
[2017-07-05 14:24] LABS: ALBUMIN 3.3 gm/dL (4.2-5.5); ALKALINE PHOSPHATASE 74 U/L (34-104); ANION GAP 6.2 (7.0-16.0); BILIRUBIN,TOTAL 0.3 mg/dL (0.3-1.0); BUN - UREA NITROGEN 21 mg/dL (7-25); CARBON DIOXIDE 31.7 mEq/L (21.0-31.0); CHLORIDE 102 mEq/L (98-107); CREATININE - SERUM 0.8 mg/dL (0.7-1.3); GLUCOSE 93 mg/dL (70-105); POTASSIUM SERUM 3.9 mEq/L (3.5-5.1); SGOT 24 U/L (13-39); SGPT/ALT 27 U/L (7-52); SODIUM SERUM 136 mEq/L (136-145); TOTAL PROTEIN,SERUM 6.6 gm/dL (6.0-8.3)
[2017-07-05 14:28] LABS: WHITE BLOOD COUNT 66.3 Th/cmm (4.8-10.8)
[2017-07-05] MEDS ORDERED: Levofloxacin 750mg/150mL 750 MG/150 ML BAG IV ONE ×2 (14:39→14:50)
[2017-07-05] MEDS ORDERED: Azithromycin 250 MG in Sodium Chloride 0.9% 250 ML IV ONE (14:41)
--- NOTE | 2017-07-05 15:04 | Diagnostic Imaging Report ---
Portable chest x-ray HISTORY: Shortness of breath The heart size is difficult to assess with portable technique and a poor inspiration. Atherosclerotic calcination seen in the aortic arch. No focal prominent processes. No hilar or mediastinal abnormalities. IMPRESSION: 1. No acute abnormalities
[2017-07-05 15:07] LABS: BAND NEUTROPHILE 0 % (0-10); BASOPHIL 0 % (0-3); EOSINOPHIL 1 % (0-5); LYMPHOCYTE 88 % (20-50); MONOCYTE 3 % (2-10); NEUTROPHILS 8 % (40-80); TOTAL CELLS COUNTED 100
[2017-07-05 15:11] LABS: URINE MICROSCOPIC INDICATED? YES; URINE SOURCE CATH
[2017-07-05 15:12] LABS: URINE BILIRUBIN NEGATIVE (NEGATIVE); URINE BLOOD NEGATIVE (NEGATIVE); URINE GLUCOSE (UA) NEGATIVE (NEGATIVE); URINE KETONE NEGATIVE (NEGATIVE); URINE LEUKOCYTE ESTERASE NEGATIVE (NEGATIVE); URINE NITRATE NEGATIVE (NEGATIVE); URINE PROTEIN NEGATIVE (NEGATIVE); URINE UROBILINOGEN 0.2 E.U./dL (0.2 - 1.0)
[2017-07-05 15:29] LABS: URINE CLARITY CLEAR (CLEAR); URINE COLOR YELLOW
[2017-07-05 15:30] LABS: URINE BACTERIA NONE SEEN /hpf (NONE SEEN); URINE EPITHELIAL CELLS RARE /lpf (FEW); URINE WBC 0-2 /hpf (0-5)
[2017-07-05] MEDS: D5-0.9%NS 1,000 ML IV SCH (18:35)
[2017-07-05 21:55] VITALS: BP 108/65
[2017-07-05] MEDS ORDERED: Pneumococcal Vaccine 0.5 mL Vial IM ONE (22:54)
[2017-07-05] MEDS ORDERED: Polyvinyl Alcohol Ophth Soln 15 mL Bottle EACH EYE PRN (23:04)
[2017-07-05] MEDS ORDERED: Magnesium Hydroxide (MOM) 30 mL UDC PO PRN (23:04)
[2017-07-05] MEDS ORDERED: Albuterol/Ipratropium Neb 3 ML AERS HHN PRN (23:04)
--- NOTE | 2017-07-06 05:51 | History and Physical ---
History of Present Illness - HPI Chief Complaint: Agitation and left shoulder pain and back pain HPI: 82 year old male who presents to [facility] ER for evaluation for increased agitation noted at the nursing facility. While in the ER patient was noted to have moderate to severe discomfort to the left shoulder. He was given Ativan to help with agitation. He denies chest pain or SOB. He was complaining of left shoulder pain. 12 lead EKG was done in the ER and noted to be Sinus Rhythm @ 77 Initial Labwork WBC 66.3 H/h 12.7/39.5 platelet 255K Bands 0 N8 L88 Na 136 K 3.9 Bun 21 Cr 0.8 glu 93 UA neg PMH includes Bilateral lower ext cellulitis, Bilateral DVTs, History of Chronic lymphocytic leukemia, Leukocytosis, HTN, dyslipidemia, Dementia CXR done in the ER was neg. Patient was subsequently admitted for further evaluation and treatment. Vital Signs: Last Vital Signs Temp 96.6 F 07/06/17 04:00 Pulse 16 07/06/17 04:00 Resp 16 07/06/17 04:00 BP 137/72 07/06/17 04:00 Pulse Ox 96 07/06/17 04:00 Past Medical History Cardiovascular: Report: HTN Pulmonary: Report: No Pertinent Hx SALES PERSON: Report: Peripheral neuropathy, Other (Dementia) GI: Report: No Pertinent Hx Psych: Report: Depression Musculoskeletal: Report: Other (left shoulder pain and back pain, Bilateral Lower Ext DVT's) Rheumatologic: Report: No pertinent Hx Infectious Disease: Report: No Pertinent Hx Renal/: Report: No Pertinent Hx Endocrine: Report: No Pertinent Hx Dermatology: Report: No Pertinent Hx Other History: history of chronic lymphocytic leukemia - Past Surgical History Past Surgical History: No pertinent Hx Family Medical History - Family Member Mother History Unknown: Yes Hx Family Cancer: No Hx Family Stroke: No Hx Family Seizures: No Hx Family Dementia: No Hx Family AIDS: No Hx Family COPD: No Hx Family Psychiatric Problems: No Social History Smoke: No Alcohol: None Drugs: None Lives: Shelter - Medications Home Medications: Home Medication Medication Instructions Recorded Type Donepezil Hcl [Aricept] 5 mg PO HS tab 05/10/17 Rx Memantine [Namenda] 5 mg PO DAILY tab 05/10/17 Rx Acetaminophen [Tylenol] 650 mg PO Q6H PRN 06/08/17 History Albuterol/Ipratropium Neb [Duoneb 3 ml HHN Q4H PRN 06/08/17 History Neb] Bisacodyl [Dulcolax 10 Mg Supp] 10 mg RC DAILY PRN 06/08/17 History Gabapentin 300 mg PO Q12H 06/08/17 History Lactulose [Cephulac] 30 ml PO DAILY 06/08/17 History Magnesium Hydroxide [Milk of 30 ml PO HS PRN 06/08/17 History Magnesia] Melatonin 5 mg PO QPM 06/08/17 History Escitalopram Oxalate [Lexapro] 5 mg PO DAILY tab 06/11/17 Rx Ascorbic Acid 500 mg PO DAILY 07/05/17 History Budesonide [Pulmicort] 0.5 mg HHN Q12H 07/05/17 History Carvedilol [Coreg] 3.125 mg PO Q12H 07/05/17 History Dextran 70/Hypromellose 1 each OP BID PRN 07/05/17 History [Artificial Tears] Multivitamin w/ Minerals 1 tab PO DAILY 07/05/17 History [Theragran M] Rivaroxaban [Xarelto] 20 mg PO DAILY 07/05/17 History - Allergies Allergies/Adverse Reactions: Allergies Allergy/AdvReac Type Severity Reaction Status Date / Time Penicillins [PCN] AdvReac Verified 04/21/17 17:09 Review of Systems - Review of Systems Constitutional: Report: No Significant Eyes: Report: No Significant ENT: Report: No Significant Respiratory: Report: No Significant Cardiovascular: Report: No Significant Gastrointestinal: Report: No Significant Genitourinary: Report: No Significant Musculoskeletal: Report: Shoulder Pain Skin: Report: No Significant Neurological: Report: No Significant Physical Exam - Physical Exam HEENT: Report: Ears Nose Throat within normal limits, Pharnyx within normal limits Neck: Report: Within normal limits. Denies: Thyromegaly Cardiovascular Systems: Report: +s1/s2 noted, Regular, Rate and Rhythm, no murmurs noted Respiratory: Report: Breath Sounds are within normal limits, Clear to Auscultation of lung mckeon Abdomen: Report: Non-tender to palpation. Denies: Guarding - Lab Results All Lab Results last 24 hours: Laboratory Results - last 24 hr 07/05/17 19:44 POC Glucose 145 H - Assessment Assessment: leukocytosis dementia h/o CLL B/L LE DVT HTN Dyslipidemia Depression Neuropathy L shoulder pain - Plan Plan: ID consult Hem/Onc consult repeat CBC,CMP this AM continue home meds
[2017-07-06 06:37] LABS: BASOPHILE ABSOLUTE 0.1 Th/cumm (0-0.2); EOSINOPHILE ABSOLUTE 0.8 Th/cmm (0.1-0.4); HEMATOCRIT 38.1 % (41.0-60); HEMOGLOBIN 12.6 gm/dL (12-16); LYMPHOCYTE ABSOLUTE 52.8 Th/cmm (1.5-3.0); MEAN CORPUSCULAR HGB CONC 32.9 pg (28.0-36.0); MONOCYTE ABSOLUTE 3.6 Th/cmm (0.3-1.0); PLATELET COUNT 234 Th/cmm (150-400); RED BLOOD COUNT 4.33 Mil/cmm (3.80-5.80)
[2017-07-06 06:46] LABS: % LYMPHOCYTES 80.9 % (20.0-50.0); % MONOCYTES 5.5 % (2.0-10.0); % NEUTROPHILS 12.2 % (40.0-80.0); WHITE BLOOD COUNT 65.3 Th/cmm (4.8-10.8)
[2017-07-06 06:47] LABS: % BASOPHILS 0.1 % (0.0-2.0); % EOSINOPHILS 1.3 % (0.0-5.0)
[2017-07-06 06:56] LABS: ALBUMIN 3.1 gm/dL (4.2-5.5); ALKALINE PHOSPHATASE 66 U/L (34-104); ANION GAP 7.1 (7.0-16.0); BILIRUBIN,TOTAL 0.4 mg/dL (0.3-1.0); BUN - UREA NITROGEN 18 mg/dL (7-25); CALCIUM SERUM 8.8 mg/dL (8.6-10.3); CHLORIDE 101 mEq/L (98-107); CREATININE - SERUM 0.9 mg/dL (0.7-1.3); GLUCOSE 97 mg/dL (70-105); POTASSIUM SERUM 4.1 mEq/L (3.5-5.1); SGOT 17 U/L (13-39); SGPT/ALT 20 U/L (7-52); SODIUM SERUM 132 mEq/L (136-145); TOTAL PROTEIN,SERUM 6.1 gm/dL (6.0-8.3)
[2017-07-06] MEDS: Budesonide 0.5 Mg/2 mL Ud HHN SCH ×2 (07:21→19:32)
[2017-07-06] MEDS: Lactulose 10 Gm/15 mL 30mL UDC PO SCH (08:45)
[2017-07-06] MEDS: Multivitamin w/ Minerals Tab PO SCH (08:46)
[2017-07-06] MEDS: D5-0.9%NS 1,000 ML IV SCH (14:16)
[2017-07-06] MEDS ORDERED: Non-Formulary Item 1 EA (Melatonin [Melatonin] 5 MG) PO SCH (17:00)
--- NOTE | 2017-07-06 17:51 | History & Physical ---
ADMIT DATE: 07/06/2017 HEMATOLOGY ONCOLOGY CONSULTATION REFERRING PHYSICIAN: Dr. Peck. REASON FOR CONSULTATION: Lymphocytosis and a high white count. HISTORY OF PRESENT ILLNESS: The patient is an 82-year-old male who is known to me from previous evaluation about a month and half ago. He presented this time to the hospital with severe shoulder pain and agitation requiring sedation. He was found to have a white count of 66,000; therefore, I was asked to evaluate. The patient is known to me from previous evaluation on 06/11/2017 when he was evaluated for deep vein thrombosis of the both lower extremities and started at that time on Xarelto. His white count was elevated at the time to 70,000 and flow cytometry was ordered. The results are not available. PAST MEDICAL HISTORY: Dyslipidemia, hypertension, dementia and osteoarthritis. PAST SURGICAL HISTORY: Bilateral knee surgery and hip replacement surgery. MEDICATIONS: Reviewed. Now, he is on Xarelto 20 mg once a day. PHYSICAL EXAMINATION: GENERAL: He is awake, not in distress. VITAL SIGNS: Afebrile. Blood pressure is stable. CHEST: Clear. ABDOMEN: Soft and obese. EXTREMITIES: Edema both lower extremities, more on the right, erythema subsided from before. LABORATORY DATA: White count 65,000, hemoglobin 12.6 and platelets 234. The lymphocytes are 88%. No blasts were reported on peripheral smear. Chemistry panel: Potassium 4.1 and creatinine 0.9. Liver functions normal. DIAGNOSTIC DATA: Review of the imaging studies on the computer showed CT scan of the abdomen from 04/23/2017 showing a minimal lymphadenopathy, but no splenomegaly. ASSESSMENT: 1. 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 We will follow with the lab on the previous flow cytometry that was ordered during the previous admission. 2. Venous thrombosis of lower extremities, reported from previous admission in both lower extremities. On the right, it is extending from the right common femoral to the right popliteal and on the left, extending from the left common femoral to left proximal superficial femoral. The patient will be continued on Xarelto extended duration because of his poor mobility. Thank you for the opportunity to participate in the care of this interesting case with you. JOB# [id number]
--- NOTE | 2017-07-06 22:24 | Consultation ---
DATE OF CONSULTATION: 07/06/2017 IDENTIFYING INFORMATION: The patient is an 82-year-old male. REASON FOR CONSULTATION: I was asked to see this patient who has a history of dementia and psychosis, who is a well-known case to me as he was at this facility a few weeks ago. HISTORY OF PRESENT ILLNESS: The patient was admitted because of his shoulder pain and back pain. He has severe to moderate discomfort in the left shoulder. He denies chest pain. The patient was a poor historian. When I tried to talk to him, asked how he is feeling, he said "I feel with my hand." He was not sure where he was. He does know the date. He could not tell me his age though I remember in the past when I saw him a few weeks ago, he was able to do so and I am not sure because he is in pain or if he is on any medication that made him confused associated with his age. He is, however, on Aricept 5 mg at bedtime, Lexapro 5 mg daily and Namenda 5 mg daily. PAST PSYCHIATRIC HISTORY: Agitation, psychosis, depression. MEDICAL HISTORY: Deferred to Dr. Peck. ALLERGIES: THE PATIENT IS ALLERGIC TO PENICILLIN. FAMILY AND SOCIAL HISTORY: The patient, per report, has children. He said he has a daughter in [place] and that is from previous encounter with him. Unable to give me more information today. MENTAL STATUS EXAMINATION: The patient is appropriately dressed, not very groomed. He was alert. He did not know where he was. When asked how he felt, he said with his hand. Unable to answer questions about suicide, homicide, hallucinations, paranoia, sleep or appetite. Poor historian and seems to be unable to participate in a meaningful conversation. He is demented, confused. His insight and judgment is impaired. His long or short-term memory is poor. IMPRESSION: AXIS I: Dementia with delirium secondary to medical condition, psychosis, not otherwise specified. MEDICAL DIAGNOSES: Deferred to the medical doctor. PLAN: I will recommend continue medications. If he gets agitated, may need to go to [facility]; however, he can stay here if he is calm. Thank you very much for allowing me to participate in the care of this most interesting gentleman. JOB# [id number]
--- NOTE | 2017-07-06 22:27 | Consultation ---
Consult Note - Consult Note Service Date: 07/06/17 Referring Physician: Walter Peck Consult Note: PHYSICIAN Consultation Note: Date of Admission: 07/05/17 Purpose of Consultation: Leukocytosis, Chief Complaint: Patient SINCERE MURO was admitted to location Medical/Surgical Unit I with LEUKOCYTOSIS. History of Present Illness: Patient is 82 year old male with history of CLL, Hyperlipidemia, Dementia, essential hypertension,h/o DVT, depression, brought infor increased WBC count, On initial evaluation, his temperature was 98.7 degree F and WBC 66,300. ID consultation, , called for further evaluation. Patient is confused and unable to provide any history. Diagnoses CHRONIC LYMPHOCYTIC LEUKEMIA OF B-CELL TYPE IN REMISSION (07/05/17) ELEVATED WHITE BLOOD CELL COUNT, UNSPECIFIED (07/05/17) HYPERLIPIDEMIA, UNSPECIFIED (07/05/17) UNSPECIFIED DEMENTIA WITHOUT BEHAVIORAL DISTURBANCE (07/05/17) MAJOR DEPRESSIVE DISORDER, RECURRENT, UNSPECIFIED (07/05/17) POLYNEUROPATHY, UNSPECIFIED (07/05/17) ESSENTIAL (PRIMARY) HYPERTENSION (07/05/17) PERSONAL HISTORY OF OTHER VENOUS THROMBOSIS AND EMBOLISM (07/05/17) Allergies Allergy/AdvReac Type Severity Reaction Status Date / Time Penicillins [PCN] AdvReac Verified 04/21/17 17:09 Vital Signs Temp 98.4 F 07/06/17 20:00 Pulse 92 07/06/17 20:22 Resp 19 07/06/17 20:00 BP 94/62 07/06/17 20:22 Pulse Ox 94 07/06/17 20:00 Intake & Output 07/06/17 07/06/17 07/07/17 06:59 18:59 06:59 Intake Total 150 984.167 Balance 150 984.167 Intake: Intake, IV Amount 150 984.167 D5-0.9%Ns 1,000 ml @ 50 984.167 mls/hr IV .Q20H [facility] Rx#: [id number] Laboratory Results - last 24 hr 07/06/17 07/06/17 05:56 05:56 WBC 65.3 H* RBC 4.33 Hgb 12.6 Hct 38.1 L MCV 88.0 MCH 29.0 MCHC Differential 32.9 RDW 15.0 Plt Count 234 MPV 9.0 Neutrophils % 12.2 L Lymphocytes % 80.9 H Monocytes % 5.5 Eosinophils % 1.3 Basophils % 0.1 Sodium 132 L Potassium 4.1 Chloride 101 Carbon Dioxide 28.0 Anion Gap 7.1 BUN 18 Creatinine 0.9 Est GFR ( Amer) TNP Est GFR (Non-Af Amer) TNP BUN/Creatinine Ratio 20.0 Glucose 97 Calcium 8.8 Total Bilirubin 0.4 AST 17 ALT 20 Alkaline Phosphatase 66 Total Protein 6.1 Albumin 3.1 L Globulin 3.0 Albumin/Globulin Ratio 1.0 Home Medication Medication Instructions Recorded Type Donepezil Hcl [Aricept] 5 mg PO HS tab 05/10/17 Rx Memantine [Namenda] 5 mg PO DAILY tab 05/10/17 Rx Acetaminophen [Tylenol] 650 mg PO Q6H PRN 06/08/17 History Albuterol/Ipratropium Neb [Duoneb 3 ml HHN Q4H PRN 06/08/17 History Neb] Bisacodyl [Dulcolax 10 Mg Supp] 10 mg RC DAILY PRN 06/08/17 History Gabapentin 300 mg PO Q12H 06/08/17 History Lactulose [Cephulac] 30 ml PO DAILY 06/08/17 History Magnesium Hydroxide [Milk of 30 ml PO HS PRN 06/08/17 History Magnesia] Melatonin 5 mg PO QPM 06/08/17 History Escitalopram Oxalate [Lexapro] 5 mg PO DAILY tab 06/11/17 Rx Ascorbic Acid 500 mg PO DAILY 07/05/17 History Budesonide [Pulmicort] 0.5 mg HHN Q12H 07/05/17 History Carvedilol [Coreg] 3.125 mg PO Q12H 07/05/17 History Dextran 70/Hypromellose 1 each OP BID PRN 07/05/17 History [Artificial Tears] Multivitamin w/ Minerals 1 tab PO DAILY 07/05/17 History [Theragran M] Rivaroxaban [Xarelto] 20 mg PO DAILY 07/05/17 History Current Medications Generic Name Dose Route Start Last Admin Trade Name Freq PRN Reason Stop Dose Admin Acetaminophen 650 mg 07/05/17 23:04 07/06/17 18:18 Tylenol PO 09/03/17 23:03 650 mg Q6H PRN Administration MILD PAIN Albuterol/Ipratropium 3 ml 07/05/17 23:04 Duoneb Neb [facility] 09/03/17 23:03 Q4H PRN SOB/WHEEZING Artificial Tears 1 drop 07/05/17 23:04 Artificial Tears Ophth Soln EACH EYE BID PRN DRY EYES Ascorbic Acid 500 mg 07/06/17 09:00 07/06/17 08:46 Vitamin C PO 09/04/17 08:59 500 mg DAILY KERMIT Administration Bisacodyl 10 mg 07/05/17 23:04 Dulcolax 10 Mg Supp RC 09/03/17 23:03 DAILY PRN IF MOM INEFFECTIVE Budesonide 0.5 mg 07/06/17 07:00 07/06/17 19:32 Pulmicort N 09/04/17 06:59 0.5 mg Q12HRT KERMIT Administration Carvedilol 3.125 mg 07/06/17 09:00 07/06/17 20:22 Coreg PO 09/03/17 23:14 Not Given Q12HR KERMIT Donepezil HCl 5 mg 07/06/17 21:00 07/06/17 20:21 Aricept PO 09/04/17 20:59 5 mg HS KERMIT Administration Escitalopram Oxalate 5 mg 07/06/17 09:00 Lexapro PO 09/04/17 08:59 DAILY KERMIT Protocol Gabapentin 300 mg 07/06/17 09:00 07/06/17 20:21 Neurontin PO 09/03/17 23:14 300 mg Q12HR KERMIT Administration Dextrose/Sodium Chloride 1,000 mls @ 50 mls/hr 07/05/17 18:16 07/06/17 14:16 D5-0.9%Ns IV 09/03/17 18:15 50 mls/hr .Q20H [facility]ER[facility] Administration Lactulose 20 gm 07/06/17 09:00 07/06/17 08:45 Cephulac PO 09/04/17 08:59 20 gm DAILY KERMIT Administration Lorazepam 1 mg 07/06/17 20:55 Ativan PO 09/04/17 20:54 Q6HR PRN Agitation Protocol Magnesium Hydroxide 30 ml 07/05/17 23:04 Milk Of Magnesia PO 09/03/17 23:03 HS PRN IF NO BM IN 3 DAYS Memantine 5 mg 07/06/17 09:00 07/06/17 08:46 Namenda PO 09/04/17 08:59 5 mg DAILY KERMIT Administration Rivaroxaban 20 mg 07/06/17 09:00 07/06/17 08:46 Xarelto PO 09/04/17 08:59 20 mg DAILY KERMIT Administration Wound Care/Dressing Products 1 appl 07/07/17 09:00 Gersononey TP 09/05/17 08:59 DAILY KERMIT Review of Systems: A 12 point ROS was reviewed with the pertinent positive and negatives noted in the HPI. Social History Smoking Status Unknown if ever smoked Family Medical History Family Medical History Start: 07/05/17 17: 36 Freq: ONCE Status: Active Document 07/05/17 19:30 RESHMA (Rec: 07/05/17 21:56 RESHMA [id number]) Family Medical History Mother History Unknown Yes Physical Exam: General: Comfortable, not in any acute distresss. HEENT: Head NC NT, Oral cavit is MOIST, PINK TONGUE, EYES: NO PALLOR, NO ICTERUS, PUPIL perrla. Cardio: s1 A S2 wnl Respiratory: VESICULAR BREATH SOUNDS, NO CRACKLES NO WHEEZING. Abdominal: SOFT nt nd bs PERESENT. Genital/Urinary: DEFERRED Extremities: NCCE. Neurological: ALERT Awake CONFUSED. Assessment: 1. Leukocytosis. 2. CLL. 3. Hyperlipidemia. 4. Dementia, 5. Essential hypertension. 6. h/o DVT. 7. Depression. Plan: Continue the same treatment. Signed, Cas Frias M.D. [id number]/06/[id number]
[2017-07-07] MEDS: Budesonide 0.5 Mg/2 mL Ud HHN SCH ×2 (07:13→19:32)
--- NOTE | 2017-07-07 08:28 | General Progress Note ---
Subjective - Review of Systems Service Date: 07/07/17 Subjective: Patient was seen and examined this morning and in no acute distress. Denies chest pain or shortness of breath. Objective - Results Result Diagrams: 07/06/17 05:56 07/06/17 05:56 Recent Labs: Laboratory Last Values WBC 65.3 Th/cmm (4.8-10.8) H* 07/06/17 05:56 RBC 4.33 Mil/cmm (3.80-5.80) 07/06/17 05:56 Hgb 12.6 gm/dL (12-16) 07/06/17 05:56 Hct 38.1 % (41.0-60) L 07/06/17 05:56 MCV 88.0 fl (80-99) 07/06/17 05:56 MCH 29.0 pg (27.0-31.0) 07/06/17 05:56 MCHC Differential 32.9 pg (28.0-36.0) 07/06/17 05:56 RDW 15.0 % (11.5-20.0) 07/06/17 05:56 Plt Count 234 Th/cmm (150-400) 07/06/17 05:56 MPV 9.0 fl 07/06/17 05:56 Neutrophils % 12.2 % (40.0-80.0) L 07/06/17 05:56 Band Neutrophils % 0 % (0-10) 07/05/17 12:40 Lymphocytes % 80.9 % (20.0-50.0) H 07/06/17 05:56 Monocytes % 5.5 % (2.0-10.0) 07/06/17 05:56 Eosinophils % 1.3 % (0.0-5.0) 07/06/17 05:56 Basophils % 0.1 % (0.0-2.0) 07/06/17 05:56 Neutrophils (Manual) 8 % (40-80) L 07/05/17 12:40 Lymphocytes 88 % (20-50) H 07/05/17 12:40 Monocytes 3 % (2-10) 07/05/17 12:40 Eosinophils 1 % (0-5) 07/05/17 12:40 Basophils 0 % (0-3) 07/05/17 12:40 Sodium 132 mEq/L (136-145) L 07/06/17 05:56 Potassium 4.1 mEq/L (3.5-5.1) 07/06/17 05:56 Chloride 101 mEq/L (98-107) 07/06/17 05:56 Carbon Dioxide 28.0 mEq/L (21.0-31.0) 07/06/17 05:56 Anion Gap 7.1 (7.0-16.0) 07/06/17 05:56 BUN 18 mg/dL (7-25) 07/06/17 05:56 Creatinine 0.9 mg/dL (0.7-1.3) 07/06/17 05:56 Est GFR ( Amer) TNP 07/06/17 05:56 Est GFR (Non-Af Amer) TNP 07/06/17 05:56 BUN/Creatinine Ratio 20.0 07/06/17 05:56 Glucose 97 mg/dL (70-105) 07/06/17 05:56 POC Glucose 145 MG/DL (70 - 105) H 07/05/17 19:44 Whole Bld Lactic Acid 0.74 mmol/L (0.60-1.99) 07/05/17 12:40 Calcium 8.8 mg/dL (8.6-10.3) 07/06/17 05:56 Total Bilirubin 0.4 mg/dL (0.3-1.0) 07/06/17 05:56 AST 17 U/L (13-39) 07/06/17 05:56 ALT 20 U/L (7-52) 07/06/17 05:56 Alkaline Phosphatase 66 U/L (34-104) 07/06/17 05:56 B-Natriuretic Peptide 72.4 pg/mL (5.0-100.0) 07/05/17 12:40 Total Protein 6.1 gm/dL (6.0-8.3) 07/06/17 05:56 Albumin 3.1 gm/dL (4.2-5.5) L 07/06/17 05:56 Globulin 3.0 gm/dL 07/06/17 05:56 Albumin/Globulin Ratio 1.0 (1.0-1.8) 07/06/17 05:56 Urine Source CATH 07/05/17 14:45 Urine Color YELLOW 07/05/17 14:45 Urine Clarity CLEAR (CLEAR) 07/05/17 14:45 Urine pH 6.0 (4.6 - 8.0) 07/05/17 14:45 Ur Specific [place] 1.025 (1.005-1.030) 07/05/17 14:45 Urine Protein NEGATIVE mg/dL (NEGATIVE) 07/05/17 14:45 Urine Glucose (UA) NEGATIVE mg/dL (NEGATIVE) 07/05/17 14:45 Urine Ketones NEGATIVE mg/dL (NEGATIVE) 07/05/17 14:45 Urine Blood NEGATIVE (NEGATIVE) 07/05/17 14:45 Urine Nitrate NEGATIVE (NEGATIVE) 07/05/17 14:45 Urine Bilirubin NEGATIVE (NEGATIVE) 07/05/17 14:45 Urine Urobilinogen 0.2 E.U./dL (0.2 - 1.0) 07/05/17 14:45 Ur Leukocyte Esterase NEGATIVE (NEGATIVE) 07/05/17 14:45 Urine RBC 2-5 /hpf (0-5) H 07/05/17 14:45 Urine WBC 0-2 /hpf (0-5) 07/05/17 14:45 Ur Epithelial Cells RARE /lpf (FEW) 07/05/17 14:45 Urine Bacteria NONE SEEN /hpf (NONE SEEN) 07/05/17 14:45 - Physical Exam Vitals and I&O: Vital Signs Temp 98.4 F 07/07/17 04:00 Pulse 88 07/07/17 07:13 Resp 18 07/07/17 07:13 BP 109/68 07/07/17 04:00 Pulse Ox 94 07/07/17 07:13 Intake & Output 07/06/17 07/07/17 07/07/17 18:59 06:59 18:59 Intake Total 984.167 Balance 984.167 Weight (lbs) 108.182 kg Intake: Intake, IV Amount 984.167 D5-0.9%Ns 1,000 ml @ 50 984.167 mls/hr IV .Q20H [facility] Rx#: [id number] Active Medications: Current Medications Acetaminophen (Tylenol) 650 mg PO Q6H PRN PRN Reason: MILD PAIN Stop: 09/03/17 23:03 Last Admin: 07/06/17 18:18 Dose: 650 mg Albuterol/Ipratropium (Duoneb Neb) 3 ml HHN Q4H PRN PRN Reason: SOB/WHEEZING Stop: 09/03/17 23:03 Artificial Tears (Artificial Tears Ophth Soln) 1 drop EACH EYE BID PRN PRN Reason: DRY EYES Ascorbic Acid (Vitamin C) 500 mg PO DAILY [facility] Stop: 09/04/17 08:59 Last Admin: 07/06/17 08:46 Dose: 500 mg Bisacodyl (Dulcolax 10 Mg Supp) 10 mg RC DAILY PRN PRN Reason: IF MOM INEFFECTIVE Stop: 09/03/17 23:03 Budesonide (Pulmicort) 0.5 mg HHN Q12HRT [facility] Stop: 09/04/17 06:59 Last Admin: 07/07/17 07:13 Dose: 0.5 mg Carvedilol (Coreg) 3.125 mg PO Q12HR [facility] Stop: 09/03/17 23:14 Last Admin: 07/06/17 20:22 Dose: Not Given Donepezil HCl (Aricept) 5 mg PO HS [facility] Stop: 09/04/17 20:59 Last Admin: 07/06/17 20:21 Dose: 5 mg Escitalopram Oxalate (Lexapro) 5 mg PO DAILY [facility] PRN Reason: Protocol Stop: 09/04/17 08:59 Gabapentin (Neurontin) 300 mg PO Q12HR [facility] Stop: 09/03/17 23:14 Last Admin: 07/06/17 20:21 Dose: 300 mg Dextrose/Sodium Chloride (D5-0.9%Ns) 1,000 mls @ 50 mls/hr IV .Q20H [facility] Stop: 09/03/17 18:15 Last Admin: 07/06/17 14:16 Dose: 50 mls/hr Lactulose (Cephulac) 20 gm PO DAILY [facility] Stop: 09/04/17 08:59 Last Admin: 07/06/17 08:45 Dose: 20 gm Lorazepam (Ativan) 1 mg PO Q6HR PRN; Protocol PRN Reason: Agitation Stop: 09/04/17 20:54 Magnesium Hydroxide (Milk Of Magnesia) 30 ml PO HS PRN PRN Reason: IF NO BM IN 3 DAYS Stop: 09/03/17 23:03 Memantine (Namenda) 5 mg PO DAILY [facility] Stop: 09/04/17 08:59 Last Admin: 07/06/17 08:46 Dose: 5 mg Rivaroxaban (Xarelto) 20 mg PO DAILY [facility] Stop: 09/04/17 08:59 Last Admin: 07/06/17 08:46 Dose: 20 mg Wound Care/Dressing Products (Therahoney) 1 appl TP DAILY [facility] Stop: 09/05/17 08:59 General: Alert, Oriented x3 HEENT: Atraumatic, PERRLA, EOMI Neck: Supple, no JVD, no Thyromegaly Cardiovascular: Regular rate, Normal S1, Normal S2 Lungs: Clear to auscultation Abdomen: Bowel sounds Extremities: no Clubbing, no Cyanosis, no Edema Neurological: Normal gait, Normal speech Assessment/Plan - Assessment Assessment: leukocytosis dementia h/o CLL B/L LE DVT HTN Dyslipidemia Depression Neuropathy L shoulder pain - Plan Plan: ID consult Hem/Onc consult repeat CBC,CMP this AM continue current meds. Nutritional Asmnt/Malnutr-PDOC - Dietary Evaluation Malnutrition Findings (Please click <Entered> for more info): Nutritional Asmnt/Malnutrition Start: 07/06/17 16: 30 Text: Status: Complete Freq: Document 07/06/17 16:33 LCHENG (Rec: 07/06/17 16:42 LCHENG [id number]) Nutritional Asmnt/Malnutrition Patient General Information Nutritional Screening High Risk Consult Diagnosis leukocytosis Pertinent Medical Hx/Surgical Hx HTN, peripheral neuropathy, dementia, depression, left shoulder pain and back pain, bilateral lower ext DVT, chronic lymphocytic leukemia Subjective Information Pt seen lying in bed at time of visit, awake and alert. Pt stated appetite ok, consumed 100% of breakfast and lunch today. pt likes veggetables, fruit, drink milk, eat eggs oftern. Current Diet Order/ Nutrition Support cardiac Pertinent Medications vit C, D-0.9%, cephulac Pertinent Labs 07/06 na 132, glucose 97 Nutritional Hx/Data Height 1.88 m Height (Calculated Centimeters) 188.0 Current Weight (lbs) 108.409 kg Weight (Calculated Kilograms) 108.4 Weight (Calculated Grams) 906118.6 [place] Body Weight 190 % [place] Body Weight 125 Body Mass Index (BMI) 30.7 Weight Status Overweight GI Symptoms GI Symptoms None Last BM no record Difficult in: None Skin Integrity/Comment: reddened to bilateral lower legs, bruise to left knee/ right arm/left arm, abrasion to left elbow/left lower chest , pressure area to bilateral feet, pressure ulcer to left buttocks Current %PO Good (75-100%) Estimated Nutritional Goals BEE in Kcals: Adj wt of IBW Calories/Kcals/Kg 23-30 Kcals Calculated 3884-7392 Protein: Adj wt of IBW Protein g/k-1.2 Protein Calculated 92-110 Fluid: ml 2300-2760ml (1ml/kcal) Nutritional Problem 1. Problem Problem increased nutrition needs ( calorie and protein) Etiology increased metabolic demand for wound healing Signs/Symptoms: open wound to buttock Malnutrition Alert Protein-Calorie Malnutrition N/A Is there a minimum of two criteria No selected? Query Text:Check all the applicable criteria. A minimum of two criteria are recommended for diagnosis of either severe or non-severe malnutrition. Intervention/Recommendation Comments 1. Continue with cardiac diet as ordered. Encouraged protein intake. 2. Recommend Arginaid 1pkg daily to help wound healing 2. Monitor PO intake, wt, labs and skin integrity 3. F/U as moderate risk in 3-5 days, 07/09-07/11 Expected Outcomes/Goals Expected Outcomes/Goals 1. PO intake to meet at least 75% of nutritional needs. 2. Wt stability, skin to remain intact, labs to approach WNL.
[2017-07-07] MEDS: Therahoney Gel 42.5gm Tube TP SCH (09:25)
[2017-07-07] MEDS: Lactulose 10 Gm/15 mL 30mL UDC PO SCH (09:26)
[2017-07-07] MEDS: Multivitamin w/ Minerals Tab PO SCH (09:26)
[2017-07-07] MEDS: D5-0.9%NS 1,000 ML IV SCH (09:33)
--- NOTE | 2017-07-07 15:48 | Infectious Disease Prog Note ---
Infectious Disease Subjective - Review of Systems Service Date: 07/07/17 Subjective: There is no new change, no fever. Infectious Disease Objective - Results Result Diagrams: 07/06/17 05:56 07/06/17 05:56 Recent Labs: Laboratory Last Values WBC 65.3 Th/cmm (4.8-10.8) H* 07/06/17 05:56 RBC 4.33 Mil/cmm (3.80-5.80) 07/06/17 05:56 Hgb 12.6 gm/dL (12-16) 07/06/17 05:56 Hct 38.1 % (41.0-60) L 07/06/17 05:56 MCV 88.0 fl (80-99) 07/06/17 05:56 MCH 29.0 pg (27.0-31.0) 07/06/17 05:56 MCHC Differential 32.9 pg (28.0-36.0) 07/06/17 05:56 RDW 15.0 % (11.5-20.0) 07/06/17 05:56 Plt Count 234 Th/cmm (150-400) 07/06/17 05:56 MPV 9.0 fl 07/06/17 05:56 Neutrophils % 12.2 % (40.0-80.0) L 07/06/17 05:56 Band Neutrophils % 0 % (0-10) 07/05/17 12:40 Lymphocytes % 80.9 % (20.0-50.0) H 07/06/17 05:56 Monocytes % 5.5 % (2.0-10.0) 07/06/17 05:56 Eosinophils % 1.3 % (0.0-5.0) 07/06/17 05:56 Basophils % 0.1 % (0.0-2.0) 07/06/17 05:56 Neutrophils (Manual) 8 % (40-80) L 07/05/17 12:40 Lymphocytes 88 % (20-50) H 07/05/17 12:40 Monocytes 3 % (2-10) 07/05/17 12:40 Eosinophils 1 % (0-5) 07/05/17 12:40 Basophils 0 % (0-3) 07/05/17 12:40 Sodium 132 mEq/L (136-145) L 07/06/17 05:56 Potassium 4.1 mEq/L (3.5-5.1) 07/06/17 05:56 Chloride 101 mEq/L (98-107) 07/06/17 05:56 Carbon Dioxide 28.0 mEq/L (21.0-31.0) 07/06/17 05:56 Anion Gap 7.1 (7.0-16.0) 07/06/17 05:56 BUN 18 mg/dL (7-25) 07/06/17 05:56 Creatinine 0.9 mg/dL (0.7-1.3) 07/06/17 05:56 Est GFR ( Amer) TNP 07/06/17 05:56 Est GFR (Non-Af Amer) TNP 07/06/17 05:56 BUN/Creatinine Ratio 20.0 07/06/17 05:56 Glucose 97 mg/dL (70-105) 07/06/17 05:56 POC Glucose 145 MG/DL (70 - 105) H 07/05/17 19:44 Whole Bld Lactic Acid 0.74 mmol/L (0.60-1.99) 07/05/17 12:40 Calcium 8.8 mg/dL (8.6-10.3) 07/06/17 05:56 Total Bilirubin 0.4 mg/dL (0.3-1.0) 07/06/17 05:56 AST 17 U/L (13-39) 07/06/17 05:56 ALT 20 U/L (7-52) 07/06/17 05:56 Alkaline Phosphatase 66 U/L (34-104) 07/06/17 05:56 B-Natriuretic Peptide 72.4 pg/mL (5.0-100.0) 07/05/17 12:40 Total Protein 6.1 gm/dL (6.0-8.3) 07/06/17 05:56 Albumin 3.1 gm/dL (4.2-5.5) L 07/06/17 05:56 Globulin 3.0 gm/dL 07/06/17 05:56 Albumin/Globulin Ratio 1.0 (1.0-1.8) 07/06/17 05:56 Urine Source CATH 07/05/17 14:45 Urine Color YELLOW 07/05/17 14:45 Urine Clarity CLEAR (CLEAR) 07/05/17 14:45 Urine pH 6.0 (4.6 - 8.0) 07/05/17 14:45 Ur Specific [place] 1.025 (1.005-1.030) 07/05/17 14:45 Urine Protein NEGATIVE mg/dL (NEGATIVE) 07/05/17 14:45 Urine Glucose (UA) NEGATIVE mg/dL (NEGATIVE) 07/05/17 14:45 Urine Ketones NEGATIVE mg/dL (NEGATIVE) 07/05/17 14:45 Urine Blood NEGATIVE (NEGATIVE) 07/05/17 14:45 Urine Nitrate NEGATIVE (NEGATIVE) 07/05/17 14:45 Urine Bilirubin NEGATIVE (NEGATIVE) 07/05/17 14:45 Urine Urobilinogen 0.2 E.U./dL (0.2 - 1.0) 07/05/17 14:45 Ur Leukocyte Esterase NEGATIVE (NEGATIVE) 07/05/17 14:45 Urine RBC 2-5 /hpf (0-5) H 07/05/17 14:45 Urine WBC 0-2 /hpf (0-5) 07/05/17 14:45 Ur Epithelial Cells RARE /lpf (FEW) 07/05/17 14:45 Urine Bacteria NONE SEEN /hpf (NONE SEEN) 07/05/17 14:45 - Physical Exam Vitals and I&O: Vital Signs Temp 98.7 F 07/07/17 12:00 Pulse 78 07/07/17 12:00 Resp 18 07/07/17 12:00 BP 114/74 07/07/17 12:00 Pulse Ox 94 07/07/17 12:00 Intake & Output 07/06/17 07/07/17 07/07/17 18:59 06:59 18:59 Intake Total 984.167 964.167 Balance 984.167 964.167 Weight (lbs) 108.182 kg Intake: Intake, IV Amount 984.167 964.167 D5-0.9%Ns 1,000 ml @ 50 984.167 964.167 mls/hr IV .Q20H [facility] Rx#: [id number] Active Medications: Current Medications Acetaminophen (Tylenol) 650 mg PO Q6H PRN PRN Reason: MILD PAIN Stop: 09/03/17 23:03 Last Admin: 07/07/17 11:42 Dose: 650 mg Albuterol/Ipratropium (Duoneb Neb) 3 ml HHN Q4H PRN PRN Reason: SOB/WHEEZING Stop: 09/03/17 23:03 Artificial Tears (Artificial Tears Ophth Soln) 1 drop EACH EYE BID PRN PRN Reason: DRY EYES Ascorbic Acid (Vitamin C) 500 mg PO DAILY [facility] Stop: 09/04/17 08:59 Last Admin: 07/07/17 09:25 Dose: 500 mg Bisacodyl (Dulcolax 10 Mg Supp) 10 mg RC DAILY PRN PRN Reason: IF MOM INEFFECTIVE Stop: 09/03/17 23:03 Budesonide (Pulmicort) 0.5 mg HHN Q12HRT [facility] Stop: 09/04/17 06:59 Last Admin: 07/07/17 07:13 Dose: 0.5 mg Carvedilol (Coreg) 3.125 mg PO Q12HR [facility] Stop: 09/03/17 23:14 Last Admin: 07/07/17 09:27 Dose: Not Given Donepezil HCl (Aricept) 5 mg PO HS [facility] Stop: 09/04/17 20:59 Last Admin: 07/06/17 20:21 Dose: 5 mg Escitalopram Oxalate (Lexapro) 5 mg PO DAILY [facility] PRN Reason: Protocol Stop: 09/04/17 08:59 Gabapentin (Neurontin) 300 mg PO Q12HR [facility] Stop: 09/03/17 23:14 Last Admin: 07/07/17 09:25 Dose: 300 mg Dextrose/Sodium Chloride (D5-0.9%Ns) 1,000 mls @ 50 mls/hr IV .Q20H [facility] Stop: 09/03/17 18:15 Last Admin: 07/07/17 09:33 Dose: 50 mls/hr Lactulose (Cephulac) 20 gm PO DAILY [facility] Stop: 09/04/17 08:59 Last Admin: 07/07/17 09:26 Dose: 20 gm Lorazepam (Ativan) 1 mg PO Q6HR PRN; Protocol PRN Reason: Agitation Stop: 09/04/17 20:54 Magnesium Hydroxide (Milk Of Magnesia) 30 ml PO HS PRN PRN Reason: IF NO BM IN 3 DAYS Stop: 09/03/17 23:03 Memantine (Namenda) 5 mg PO DAILY [facility] Stop: 09/04/17 08:59 Last Admin: 07/07/17 09:26 Dose: 5 mg Rivaroxaban (Xarelto) 20 mg PO DAILY [facility] Stop: 09/04/17 08:59 Last Admin: 07/07/17 09:26 Dose: 20 mg Wound Care/Dressing Products (Therahoney) 1 appl TP DAILY [facility] Stop: 09/05/17 08:59 Last Admin: 07/07/17 09:25 Dose: 1 appl General: no acute distress, well developed, well nourished HEENT: atraumatic, normocephalic, PERRLA, EOMI Neck: supple, no thyromegaly, no lymphadenopathy Cardiovascular: S1S2, regular Lungs: clear to auscultation bilaterally, clear to percussion Abdomen: soft, no tender, no distended, no rebound Extremities: no cyanosis, no clubbing, no edema Neurological: awake, alert, oriented Skin: intact Infectious Disease Assmt/Plan - Assessment Assessment: 1. Leukocytosis. 2. CLL. 3. Hyperlipidemia. 4. Dementia, 5. Essential hypertension. 6. h/o DVT. 7. Depression. - Plan Plan: CPM. Nutritional Asmnt/Malnutr-PDOC - Dietary Evaluation Malnutrition Findings (Please click <Entered> for more info): Nutritional Asmnt/Malnutrition Start: 07/06/17 16: 30 Text: Status: Complete Freq: Document 07/06/17 16:33 LCHENG (Rec: 07/06/17 16:42 LCHENG [id number]) Nutritional Asmnt/Malnutrition Patient General Information Nutritional Screening High Risk Consult Diagnosis leukocytosis Pertinent Medical Hx/Surgical Hx HTN, peripheral neuropathy, dementia, depression, left shoulder pain and back pain, bilateral lower ext DVT, chronic lymphocytic leukemia Subjective Information Pt seen lying in bed at time of visit, awake and alert. Pt stated appetite ok, consumed 100% of breakfast and lunch today. pt likes veggetables, fruit, drink milk, eat eggs oftern. Current Diet Order/ Nutrition Support cardiac Pertinent Medications vit C, D-0.9%, cephulac Pertinent Labs 07/06 na 132, glucose 97 Nutritional Hx/Data Height 1.88 m Height (Calculated Centimeters) 188.0 Current Weight (lbs) 108.409 kg Weight (Calculated Kilograms) 108.4 Weight (Calculated Grams) 991849.6 [place] Body Weight 190 % [place] Body Weight 125 Body Mass Index (BMI) 30.7 Weight Status Overweight GI Symptoms GI Symptoms None Last BM no record Difficult in: None Skin Integrity/Comment: reddened to bilateral lower legs, bruise to left knee/ right arm/left arm, abrasion to left elbow/left lower chest , pressure area to bilateral feet, pressure ulcer to left buttocks Current %PO Good (75-100%) Estimated Nutritional Goals BEE in Kcals: Adj wt of IBW Calories/Kcals/Kg 23-30 Kcals Calculated 1554-3668 Protein: Adj wt of IBW Protein g/k-1.2 Protein Calculated 92-110 Fluid: ml 2300-2760ml (1ml/kcal) Nutritional Problem 1. Problem Problem increased nutrition needs ( calorie and protein) Etiology increased metabolic demand for wound healing Signs/Symptoms: open wound to buttock Malnutrition Alert Protein-Calorie Malnutrition N/A Is there a minimum of two criteria No selected? Query Text:Check all the applicable criteria. A minimum of two criteria are recommended for diagnosis of either severe or non-severe malnutrition. Intervention/Recommendation Comments 1. Continue with cardiac diet as ordered. Encouraged protein intake. 2. Recommend Arginaid 1pkg daily to help wound healing 2. Monitor PO intake, wt, labs and skin integrity 3. F/U as moderate risk in 3-5 days, 07/09-07/11 Expected Outcomes/Goals Expected Outcomes/Goals 1. PO intake to meet at least 75% of nutritional needs. 2. Wt stability, skin to remain intact, labs to approach WNL.
[2017-07-07] MEDS ORDERED: Oxymetazoline 0.05% 15 mL Spray NS PRN (16:26)
--- NOTE | 2017-07-08 00:48 | Progress Notes ---
DATE: 07/07/2017 The patient was seen on the Med-Surg unit. The patient continues to be confused, continues to have episodes of irritability, agitation, but they say he is manageable. I discussed with staff that he could also go to [facility] if not manageable, sleeping well, eating well. No suicidal ideation, homicidal ideation, still confused, unable to make safe plan for self-care or participate in meaningful conversation. He ____ his medication, no side effects. We will continue the patient in group therapy and milieu therapy. Thank you very much for allowing me to participate in care of this most interesting gentleman. JOB# [id number]
[2017-07-08] MEDS: Budesonide 0.5 Mg/2 mL Ud HHN SCH ×2 (07:10→19:19)
--- NOTE | 2017-07-08 08:07 | General Progress Note ---
Subjective - Review of Systems Service Date: 07/08/17 Subjective: Patient was seen and examined this morning and in no acute distress. Denies chest pain or shortness of breath. Eating well. No acute distress. No chest pain , no shortness of breath. Objective - Results Result Diagrams: 07/06/17 05:56 07/06/17 05:56 Recent Labs: Laboratory Last Values WBC 65.3 Th/cmm (4.8-10.8) H* 07/06/17 05:56 RBC 4.33 Mil/cmm (3.80-5.80) 07/06/17 05:56 Hgb 12.6 gm/dL (12-16) 07/06/17 05:56 Hct 38.1 % (41.0-60) L 07/06/17 05:56 MCV 88.0 fl (80-99) 07/06/17 05:56 MCH 29.0 pg (27.0-31.0) 07/06/17 05:56 MCHC Differential 32.9 pg (28.0-36.0) 07/06/17 05:56 RDW 15.0 % (11.5-20.0) 07/06/17 05:56 Plt Count 234 Th/cmm (150-400) 07/06/17 05:56 MPV 9.0 fl 07/06/17 05:56 Neutrophils % 12.2 % (40.0-80.0) L 07/06/17 05:56 Band Neutrophils % 0 % (0-10) 07/05/17 12:40 Lymphocytes % 80.9 % (20.0-50.0) H 07/06/17 05:56 Monocytes % 5.5 % (2.0-10.0) 07/06/17 05:56 Eosinophils % 1.3 % (0.0-5.0) 07/06/17 05:56 Basophils % 0.1 % (0.0-2.0) 07/06/17 05:56 Neutrophils (Manual) 8 % (40-80) L 07/05/17 12:40 Lymphocytes 88 % (20-50) H 07/05/17 12:40 Monocytes 3 % (2-10) 07/05/17 12:40 Eosinophils 1 % (0-5) 07/05/17 12:40 Basophils 0 % (0-3) 07/05/17 12:40 Sodium 132 mEq/L (136-145) L 07/06/17 05:56 Potassium 4.1 mEq/L (3.5-5.1) 07/06/17 05:56 Chloride 101 mEq/L (98-107) 07/06/17 05:56 Carbon Dioxide 28.0 mEq/L (21.0-31.0) 07/06/17 05:56 Anion Gap 7.1 (7.0-16.0) 07/06/17 05:56 BUN 18 mg/dL (7-25) 07/06/17 05:56 Creatinine 0.9 mg/dL (0.7-1.3) 07/06/17 05:56 Est GFR ( Amer) TNP 07/06/17 05:56 Est GFR (Non-Af Amer) TNP 07/06/17 05:56 BUN/Creatinine Ratio 20.0 07/06/17 05:56 Glucose 97 mg/dL (70-105) 07/06/17 05:56 POC Glucose 145 MG/DL (70 - 105) H 07/05/17 19:44 Whole Bld Lactic Acid 0.74 mmol/L (0.60-1.99) 07/05/17 12:40 Calcium 8.8 mg/dL (8.6-10.3) 07/06/17 05:56 Total Bilirubin 0.4 mg/dL (0.3-1.0) 07/06/17 05:56 AST 17 U/L (13-39) 07/06/17 05:56 ALT 20 U/L (7-52) 07/06/17 05:56 Alkaline Phosphatase 66 U/L (34-104) 07/06/17 05:56 B-Natriuretic Peptide 72.4 pg/mL (5.0-100.0) 07/05/17 12:40 Total Protein 6.1 gm/dL (6.0-8.3) 07/06/17 05:56 Albumin 3.1 gm/dL (4.2-5.5) L 07/06/17 05:56 Globulin 3.0 gm/dL 07/06/17 05:56 Albumin/Globulin Ratio 1.0 (1.0-1.8) 07/06/17 05:56 Urine Source CATH 07/05/17 14:45 Urine Color YELLOW 07/05/17 14:45 Urine Clarity CLEAR (CLEAR) 07/05/17 14:45 Urine pH 6.0 (4.6 - 8.0) 07/05/17 14:45 Ur Specific [place] 1.025 (1.005-1.030) 07/05/17 14:45 Urine Protein NEGATIVE mg/dL (NEGATIVE) 07/05/17 14:45 Urine Glucose (UA) NEGATIVE mg/dL (NEGATIVE) 07/05/17 14:45 Urine Ketones NEGATIVE mg/dL (NEGATIVE) 07/05/17 14:45 Urine Blood NEGATIVE (NEGATIVE) 07/05/17 14:45 Urine Nitrate NEGATIVE (NEGATIVE) 07/05/17 14:45 Urine Bilirubin NEGATIVE (NEGATIVE) 07/05/17 14:45 Urine Urobilinogen 0.2 E.U./dL (0.2 - 1.0) 07/05/17 14:45 Ur Leukocyte Esterase NEGATIVE (NEGATIVE) 07/05/17 14:45 Urine RBC 2-5 /hpf (0-5) H 07/05/17 14:45 Urine WBC 0-2 /hpf (0-5) 07/05/17 14:45 Ur Epithelial Cells RARE /lpf (FEW) 07/05/17 14:45 Urine Bacteria NONE SEEN /hpf (NONE SEEN) 07/05/17 14:45 - Physical Exam Vitals and I&O: Vital Signs Temp 97.1 F 07/08/17 04:00 Pulse 89 07/08/17 07:10 Resp 18 07/08/17 07:10 BP 139/78 07/08/17 04:00 Pulse Ox 94 07/08/17 07:10 Intake & Output 07/07/17 07/08/17 07/08/17 18:59 06:59 18:59 Intake Total 964.167 400 Balance 964.167 400 Weight (lbs) 107.955 kg Intake: Intake, IV Amount 964.167 D5-0.9%Ns 1,000 ml @ 50 964.167 mls/hr IV .Q20H [facility] Rx#: [id number] Oral 400 Other: # Voids 2 # Bowel Movements 0 Active Medications: Current Medications Acetaminophen (Tylenol) 650 mg PO Q6H PRN PRN Reason: MILD PAIN Stop: 09/03/17 23:03 Last Admin: 07/07/17 20:58 Dose: 650 mg Albuterol/Ipratropium (Duoneb Neb) 3 ml HHN Q4H PRN PRN Reason: SOB/WHEEZING Stop: 09/03/17 23:03 Artificial Tears (Artificial Tears Ophth Soln) 1 drop EACH EYE BID PRN PRN Reason: DRY EYES Ascorbic Acid (Vitamin C) 500 mg PO DAILY [facility] Stop: 09/04/17 08:59 Last Admin: 07/07/17 09:25 Dose: 500 mg Bisacodyl (Dulcolax 10 Mg Supp) 10 mg RC DAILY PRN PRN Reason: IF MOM INEFFECTIVE Stop: 09/03/17 23:03 Budesonide (Pulmicort) 0.5 mg HHN Q12HRT [facility] Stop: 09/04/17 06:59 Last Admin: 07/08/17 07:10 Dose: 0.5 mg Carvedilol (Coreg) 3.125 mg PO Q12HR [facility] Stop: 09/03/17 23:14 Last Admin: 07/07/17 21:32 Dose: Not Given Donepezil HCl (Aricept) 5 mg PO HS [facility] Stop: 09/04/17 20:59 Last Admin: 07/07/17 20:57 Dose: 5 mg Escitalopram Oxalate (Lexapro) 5 mg PO DAILY [facility] PRN Reason: Protocol Stop: 09/04/17 08:59 Gabapentin (Neurontin) 300 mg PO Q12HR [facility] Stop: 09/03/17 23:14 Last Admin: 07/07/17 20:57 Dose: 300 mg Dextrose/Sodium Chloride (D5-0.9%Ns) 1,000 mls @ 50 mls/hr IV .Q20H [facility] Stop: 09/03/17 18:15 Last Admin: 07/07/17 09:33 Dose: 50 mls/hr Lactulose (Cephulac) 20 gm PO DAILY [facility] Stop: 09/04/17 08:59 Last Admin: 07/07/17 09:26 Dose: 20 gm Lorazepam (Ativan) 1 mg PO Q6HR PRN; Protocol PRN Reason: Agitation Stop: 09/04/17 20:54 Last Admin: 07/07/17 22:31 Dose: 1 mg Magnesium Hydroxide (Milk Of Magnesia) 30 ml PO HS PRN PRN Reason: IF NO BM IN 3 DAYS Stop: 09/03/17 23:03 Memantine (Namenda) 5 mg PO DAILY [facility] Stop: 09/04/17 08:59 Last Admin: 07/07/17 09:26 Dose: 5 mg Oxymetazoline HCl (Afrin) 1 spr NS Q12HR PRN PRN Reason: Allergy Symptoms Stop: 09/05/17 16:25 Last Admin: 07/07/17 21:48 Dose: 1 spr Rivaroxaban (Xarelto) 20 mg PO DAILY [facility] Stop: 09/04/17 08:59 Last Admin: 07/07/17 09:26 Dose: 20 mg Wound Care/Dressing Products (Therahoney) 1 appl TP DAILY [facility] Stop: 09/05/17 08:59 Last Admin: 07/07/17 09:25 Dose: 1 appl General: Alert, Oriented x3 HEENT: Atraumatic, PERRLA, EOMI Neck: Supple, no JVD, no Thyromegaly Cardiovascular: Regular rate, Normal S1, Normal S2 Lungs: Clear to auscultation Abdomen: Bowel sounds Extremities: no Clubbing, no Cyanosis, no Edema Neurological: Normal gait, Normal speech Assessment/Plan - Assessment Assessment: leukocytosis dementia h/o CLL B/L LE DVT HTN Dyslipidemia Depression Neuropathy L shoulder pain - Plan Plan: ID consult Hem/Onc consult repeat CBC,CMP this AM continue current meds. Nutritional Asmnt/Malnutr-PDOC - Dietary Evaluation Malnutrition Findings (Please click <Entered> for more info): Nutritional Asmnt/Malnutrition Start: 07/06/17 16: 30 Text: Status: Complete Freq: Document 07/06/17 16:33 LCHENG (Rec: 07/06/17 16:42 LCHENG [id number]) Nutritional Asmnt/Malnutrition Patient General Information Nutritional Screening High Risk Consult Diagnosis leukocytosis Pertinent Medical Hx/Surgical Hx HTN, peripheral neuropathy, dementia, depression, left shoulder pain and back pain, bilateral lower ext DVT, chronic lymphocytic leukemia Subjective Information Pt seen lying in bed at time of visit, awake and alert. Pt stated appetite ok, consumed 100% of breakfast and lunch today. pt likes veggetables, fruit, drink milk, eat eggs oftern. Current Diet Order/ Nutrition Support cardiac Pertinent Medications vit C, D-0.9%, cephulac Pertinent Labs 07/06 na 132, glucose 97 Nutritional Hx/Data Height 1.88 m Height (Calculated Centimeters) 188.0 Current Weight (lbs) 108.409 kg Weight (Calculated Kilograms) 108.4 Weight (Calculated Grams) 911906.6 [place] Body Weight 190 % [place] Body Weight 125 Body Mass Index (BMI) 30.7 Weight Status Overweight GI Symptoms GI Symptoms None Last BM no record Difficult in: None Skin Integrity/Comment: reddened to bilateral lower legs, bruise to left knee/ right arm/left arm, abrasion to left elbow/left lower chest , pressure area to bilateral feet, pressure ulcer to left buttocks Current %PO Good (75-100%) Estimated Nutritional Goals BEE in Kcals: Adj wt of IBW Calories/Kcals/Kg 23-30 Kcals Calculated 7871-9619 Protein: Adj wt of IBW Protein g/k-1.2 Protein Calculated 92-110 Fluid: ml 2300-2760ml (1ml/kcal) Nutritional Problem 1. Problem Problem increased nutrition needs ( calorie and protein) Etiology increased metabolic demand for wound healing Signs/Symptoms: open wound to buttock Malnutrition Alert Protein-Calorie Malnutrition N/A Is there a minimum of two criteria No selected? Query Text:Check all the applicable criteria. A minimum of two criteria are recommended for diagnosis of either severe or non-severe malnutrition. Intervention/Recommendation Comments 1. Continue with cardiac diet as ordered. Encouraged protein intake. 2. Recommend Arginaid 1pkg daily to help wound healing 2. Monitor PO intake, wt, labs and skin integrity 3. F/U as moderate risk in 3-5 days, 07/09-07/11 Expected Outcomes/Goals Expected Outcomes/Goals 1. PO intake to meet at least 75% of nutritional needs. 2. Wt stability, skin to remain intact, labs to approach WNL.
[2017-07-08] MEDS: Escitalopram Oxalate 5 mg Tab PO SCH ×3 (08:52→09:24)
[2017-07-08 08:55] LABS: BUN - UREA NITROGEN 12 mg/dL (7-25); CALCIUM SERUM 8.9 mg/dL (8.6-10.3); CHLORIDE 103 mEq/L (98-107); CREATININE - SERUM 0.8 mg/dL (0.7-1.3); GLUCOSE 134 mg/dL (70-105); SODIUM SERUM 134 mEq/L (136-145)
[2017-07-08] MEDS: Lactulose 10 Gm/15 mL 30mL UDC PO SCH (09:21)
[2017-07-08] MEDS: Multivitamin w/ Minerals Tab PO SCH (09:22)
[2017-07-08] MEDS: Therahoney Gel 42.5gm Tube TP SCH (09:23)
--- NOTE | 2017-07-08 10:11 | General Progress Note ---
Subjective - Review of Systems Service Date: 07/08/17 Subjective: no pain Objective - Results Result Diagrams: 07/06/17 05:56 07/08/17 08:35 Recent Labs: Laboratory Last Values WBC 65.3 Th/cmm (4.8-10.8) H* 07/06/17 05:56 RBC 4.33 Mil/cmm (3.80-5.80) 07/06/17 05:56 Hgb 12.6 gm/dL (12-16) 07/06/17 05:56 Hct 38.1 % (41.0-60) L 07/06/17 05:56 MCV 88.0 fl (80-99) 07/06/17 05:56 MCH 29.0 pg (27.0-31.0) 07/06/17 05:56 MCHC Differential 32.9 pg (28.0-36.0) 07/06/17 05:56 RDW 15.0 % (11.5-20.0) 07/06/17 05:56 Plt Count 234 Th/cmm (150-400) 07/06/17 05:56 MPV 9.0 fl 07/06/17 05:56 Neutrophils % 12.2 % (40.0-80.0) L 07/06/17 05:56 Band Neutrophils % 0 % (0-10) 07/05/17 12:40 Lymphocytes % 80.9 % (20.0-50.0) H 07/06/17 05:56 Monocytes % 5.5 % (2.0-10.0) 07/06/17 05:56 Eosinophils % 1.3 % (0.0-5.0) 07/06/17 05:56 Basophils % 0.1 % (0.0-2.0) 07/06/17 05:56 Neutrophils (Manual) 8 % (40-80) L 07/05/17 12:40 Lymphocytes 88 % (20-50) H 07/05/17 12:40 Monocytes 3 % (2-10) 07/05/17 12:40 Eosinophils 1 % (0-5) 07/05/17 12:40 Basophils 0 % (0-3) 07/05/17 12:40 Sodium 134 mEq/L (136-145) L 07/08/17 08:35 Potassium 4.0 mEq/L (3.5-5.1) 07/08/17 08:35 Chloride 103 mEq/L (98-107) 07/08/17 08:35 Carbon Dioxide 30.0 mEq/L (21.0-31.0) 07/08/17 08:35 Anion Gap 5.0 (7.0-16.0) L 07/08/17 08:35 BUN 12 mg/dL (7-25) 07/08/17 08:35 Creatinine 0.8 mg/dL (0.7-1.3) 07/08/17 08:35 Est GFR ( Amer) TNP 07/08/17 08:35 Est GFR (Non-Af Amer) TNP 07/08/17 08:35 BUN/Creatinine Ratio 15.0 07/08/17 08:35 Glucose 134 mg/dL (70-105) H 07/08/17 08:35 POC Glucose 145 MG/DL (70 - 105) H 07/05/17 19:44 Whole Bld Lactic Acid 0.74 mmol/L (0.60-1.99) 07/05/17 12:40 Calcium 8.9 mg/dL (8.6-10.3) 07/08/17 08:35 Total Bilirubin 0.4 mg/dL (0.3-1.0) 07/06/17 05:56 AST 17 U/L (13-39) 07/06/17 05:56 ALT 20 U/L (7-52) 07/06/17 05:56 Alkaline Phosphatase 66 U/L (34-104) 07/06/17 05:56 B-Natriuretic Peptide 72.4 pg/mL (5.0-100.0) 07/05/17 12:40 Total Protein 6.1 gm/dL (6.0-8.3) 07/06/17 05:56 Albumin 3.1 gm/dL (4.2-5.5) L 07/06/17 05:56 Globulin 3.0 gm/dL 07/06/17 05:56 Albumin/Globulin Ratio 1.0 (1.0-1.8) 07/06/17 05:56 Urine Source CATH 07/05/17 14:45 Urine Color YELLOW 07/05/17 14:45 Urine Clarity CLEAR (CLEAR) 07/05/17 14:45 Urine pH 6.0 (4.6 - 8.0) 07/05/17 14:45 Ur Specific [place] 1.025 (1.005-1.030) 07/05/17 14:45 Urine Protein NEGATIVE mg/dL (NEGATIVE) 07/05/17 14:45 Urine Glucose (UA) NEGATIVE mg/dL (NEGATIVE) 07/05/17 14:45 Urine Ketones NEGATIVE mg/dL (NEGATIVE) 07/05/17 14:45 Urine Blood NEGATIVE (NEGATIVE) 07/05/17 14:45 Urine Nitrate NEGATIVE (NEGATIVE) 07/05/17 14:45 Urine Bilirubin NEGATIVE (NEGATIVE) 07/05/17 14:45 Urine Urobilinogen 0.2 E.U./dL (0.2 - 1.0) 07/05/17 14:45 Ur Leukocyte Esterase NEGATIVE (NEGATIVE) 07/05/17 14:45 Urine RBC 2-5 /hpf (0-5) H 07/05/17 14:45 Urine WBC 0-2 /hpf (0-5) 07/05/17 14:45 Ur Epithelial Cells RARE /lpf (FEW) 07/05/17 14:45 Urine Bacteria NONE SEEN /hpf (NONE SEEN) 07/05/17 14:45 - Physical Exam Vitals and I&O: Vital Signs Temp 97.1 F 07/08/17 04:00 Pulse 86 07/08/17 09:23 Resp 18 07/08/17 07:10 BP 117/68 07/08/17 09:23 Pulse Ox 94 07/08/17 07:10 Intake & Output 07/07/17 07/08/17 07/08/17 18:59 06:59 18:59 Intake Total 964.167 400 Balance 964.167 400 Weight (lbs) 107.955 kg Intake: Intake, IV Amount 964.167 D5-0.9%Ns 1,000 ml @ 50 964.167 mls/hr IV .Q20H [facility] Rx#: [id number] Oral 400 Other: # Voids 2 # Bowel Movements 0 Active Medications: Current Medications Acetaminophen (Tylenol) 650 mg PO Q6H PRN PRN Reason: MILD PAIN Stop: 09/03/17 23:03 Last Admin: 07/07/17 20:58 Dose: 650 mg Albuterol/Ipratropium (Duoneb Neb) 3 ml HHN Q4H PRN PRN Reason: SOB/WHEEZING Stop: 09/03/17 23:03 Artificial Tears (Artificial Tears Ophth Soln) 1 drop EACH EYE BID PRN PRN Reason: DRY EYES Ascorbic Acid (Vitamin C) 500 mg PO DAILY [facility] Stop: 09/04/17 08:59 Last Admin: 07/08/17 09:22 Dose: 500 mg Bisacodyl (Dulcolax 10 Mg Supp) 10 mg RC DAILY PRN PRN Reason: IF MOM INEFFECTIVE Stop: 09/03/17 23:03 Budesonide (Pulmicort) 0.5 mg HHN Q12HRT [facility] Stop: 09/04/17 06:59 Last Admin: 07/08/17 07:10 Dose: 0.5 mg Carvedilol (Coreg) 3.125 mg PO Q12HR [facility] Stop: 09/03/17 23:14 Last Admin: 07/08/17 09:23 Dose: 3.125 mg Donepezil HCl (Aricept) 5 mg PO HS [facility] Stop: 09/04/17 20:59 Last Admin: 07/07/17 20:57 Dose: 5 mg Escitalopram Oxalate (Lexapro) 5 mg PO DAILY [facility] PRN Reason: Protocol Stop: 09/04/17 08:59 Last Admin: 07/08/17 09:24 Dose: 5 mg Gabapentin (Neurontin) 300 mg PO Q12HR [facility] Stop: 09/03/17 23:14 Last Admin: 07/08/17 09:22 Dose: 300 mg Dextrose/Sodium Chloride (D5-0.9%Ns) 1,000 mls @ 50 mls/hr IV .Q20H [facility] Stop: 09/03/17 18:15 Last Admin: 07/07/17 09:33 Dose: 50 mls/hr Lactulose (Cephulac) 20 gm PO DAILY [facility] Stop: 09/04/17 08:59 Last Admin: 07/08/17 09:21 Dose: 20 gm Lorazepam (Ativan) 1 mg PO Q6HR PRN; Protocol PRN Reason: Agitation Stop: 09/04/17 20:54 Last Admin: 07/07/17 22:31 Dose: 1 mg Magnesium Hydroxide (Milk Of Magnesia) 30 ml PO HS PRN PRN Reason: IF NO BM IN 3 DAYS Stop: 09/03/17 23:03 Memantine (Namenda) 5 mg PO DAILY [facility] Stop: 09/04/17 08:59 Last Admin: 07/08/17 09:23 Dose: 5 mg Oxymetazoline HCl (Afrin) 1 spr NS Q12HR PRN PRN Reason: Allergy Symptoms Stop: 09/05/17 16:25 Last Admin: 07/07/17 21:48 Dose: 1 spr Rivaroxaban (Xarelto) 20 mg PO DAILY [facility] Stop: 09/04/17 08:59 Last Admin: 07/08/17 09:22 Dose: 20 mg Wound Care/Dressing Products (Therahoney) 1 appl TP DAILY [facility] Stop: 09/05/17 08:59 Last Admin: 07/08/17 09:23 Dose: 1 appl General: Alert, Oriented x3 HEENT: Atraumatic, PERRLA, EOMI Neck: Supple, no JVD, no Thyromegaly Cardiovascular: Regular rate, Normal S1, Normal S2 Lungs: Clear to auscultation Abdomen: Bowel sounds Extremities: no Clubbing, no Cyanosis, no Edema Neurological: Normal gait, Normal speech Assessment/Plan - Assessment Assessment: * Chronic leukocytosis; likely CLL * Retrieve result of flowcytometry Follow cbc ; no intervention Nutritional Asmnt/Malnutr-PDOC - Dietary Evaluation Malnutrition Findings (Please click <Entered> for more info): Nutritional Asmnt/Malnutrition Start: 07/06/17 16: 30 Text: Status: Complete Freq: Document 07/06/17 16:33 LCHENG (Rec: 07/06/17 16:42 LCHENG [id number]) Nutritional Asmnt/Malnutrition Patient General Information Nutritional Screening High Risk Consult Diagnosis leukocytosis Pertinent Medical Hx/Surgical Hx HTN, peripheral neuropathy, dementia, depression, left shoulder pain and back pain, bilateral lower ext DVT, chronic lymphocytic leukemia Subjective Information Pt seen lying in bed at time of visit, awake and alert. Pt stated appetite ok, consumed 100% of breakfast and lunch today. pt likes veggetables, fruit, drink milk, eat eggs oftern. Current Diet Order/ Nutrition Support cardiac Pertinent Medications vit C, D-0.9%, cephulac Pertinent Labs 07/06 na 132, glucose 97 Nutritional Hx/Data Height 1.88 m Height (Calculated Centimeters) 188.0 Current Weight (lbs) 108.409 kg Weight (Calculated Kilograms) 108.4 Weight (Calculated Grams) 501171.6 [place] Body Weight 190 % [place] Body Weight 125 Body Mass Index (BMI) 30.7 Weight Status Overweight GI Symptoms GI Symptoms None Last BM no record Difficult in: None Skin Integrity/Comment: reddened to bilateral lower legs, bruise to left knee/ right arm/left arm, abrasion to left elbow/left lower chest , pressure area to bilateral feet, pressure ulcer to left buttocks Current %PO Good (75-100%) Estimated Nutritional Goals BEE in Kcals: Adj wt of IBW Calories/Kcals/Kg 23-30 Kcals Calculated 8321-6446 Protein: Adj wt of IBW Protein g/k-1.2 Protein Calculated 92-110 Fluid: ml 2300-2760ml (1ml/kcal) Nutritional Problem 1. Problem Problem increased nutrition needs ( calorie and protein) Etiology increased metabolic demand for wound healing Signs/Symptoms: open wound to buttock Malnutrition Alert Protein-Calorie Malnutrition N/A Is there a minimum of two criteria No selected? Query Text:Check all the applicable criteria. A minimum of two criteria are recommended for diagnosis of either severe or non-severe malnutrition. Intervention/Recommendation Comments 1. Continue with cardiac diet as ordered. Encouraged protein intake. 2. Recommend Arginaid 1pkg daily to help wound healing 2. Monitor PO intake, wt, labs and skin integrity 3. F/U as moderate risk in 3-5 days, 07/09-07/11 Expected Outcomes/Goals Expected Outcomes/Goals 1. PO intake to meet at least 75% of nutritional needs. 2. Wt stability, skin to remain intact, labs to approach WNL.
--- NOTE | 2017-07-08 16:00 | Infectious Disease Prog Note ---
Infectious Disease Subjective - Review of Systems Service Date: 07/08/17 Subjective: There is no new change, no fever. Infectious Disease Objective - Results Result Diagrams: 07/06/17 05:56 07/08/17 08:35 Recent Labs: Laboratory Last Values WBC 65.3 Th/cmm (4.8-10.8) H* 07/06/17 05:56 RBC 4.33 Mil/cmm (3.80-5.80) 07/06/17 05:56 Hgb 12.6 gm/dL (12-16) 07/06/17 05:56 Hct 38.1 % (41.0-60) L 07/06/17 05:56 MCV 88.0 fl (80-99) 07/06/17 05:56 MCH 29.0 pg (27.0-31.0) 07/06/17 05:56 MCHC Differential 32.9 pg (28.0-36.0) 07/06/17 05:56 RDW 15.0 % (11.5-20.0) 07/06/17 05:56 Plt Count 234 Th/cmm (150-400) 07/06/17 05:56 MPV 9.0 fl 07/06/17 05:56 Neutrophils % 12.2 % (40.0-80.0) L 07/06/17 05:56 Band Neutrophils % 0 % (0-10) 07/05/17 12:40 Lymphocytes % 80.9 % (20.0-50.0) H 07/06/17 05:56 Monocytes % 5.5 % (2.0-10.0) 07/06/17 05:56 Eosinophils % 1.3 % (0.0-5.0) 07/06/17 05:56 Basophils % 0.1 % (0.0-2.0) 07/06/17 05:56 Neutrophils (Manual) 8 % (40-80) L 07/05/17 12:40 Lymphocytes 88 % (20-50) H 07/05/17 12:40 Monocytes 3 % (2-10) 07/05/17 12:40 Eosinophils 1 % (0-5) 07/05/17 12:40 Basophils 0 % (0-3) 07/05/17 12:40 Sodium 134 mEq/L (136-145) L 07/08/17 08:35 Potassium 4.0 mEq/L (3.5-5.1) 07/08/17 08:35 Chloride 103 mEq/L (98-107) 07/08/17 08:35 Carbon Dioxide 30.0 mEq/L (21.0-31.0) 07/08/17 08:35 Anion Gap 5.0 (7.0-16.0) L 07/08/17 08:35 BUN 12 mg/dL (7-25) 07/08/17 08:35 Creatinine 0.8 mg/dL (0.7-1.3) 07/08/17 08:35 Est GFR ( Amer) TNP 07/08/17 08:35 Est GFR (Non-Af Amer) TNP 07/08/17 08:35 BUN/Creatinine Ratio 15.0 07/08/17 08:35 Glucose 134 mg/dL (70-105) H 07/08/17 08:35 POC Glucose 145 MG/DL (70 - 105) H 07/05/17 19:44 Whole Bld Lactic Acid 0.74 mmol/L (0.60-1.99) 07/05/17 12:40 Calcium 8.9 mg/dL (8.6-10.3) 07/08/17 08:35 Total Bilirubin 0.4 mg/dL (0.3-1.0) 07/06/17 05:56 AST 17 U/L (13-39) 07/06/17 05:56 ALT 20 U/L (7-52) 07/06/17 05:56 Alkaline Phosphatase 66 U/L (34-104) 07/06/17 05:56 B-Natriuretic Peptide 72.4 pg/mL (5.0-100.0) 07/05/17 12:40 Total Protein 6.1 gm/dL (6.0-8.3) 07/06/17 05:56 Albumin 3.1 gm/dL (4.2-5.5) L 07/06/17 05:56 Globulin 3.0 gm/dL 07/06/17 05:56 Albumin/Globulin Ratio 1.0 (1.0-1.8) 07/06/17 05:56 Urine Source CATH 07/05/17 14:45 Urine Color YELLOW 07/05/17 14:45 Urine Clarity CLEAR (CLEAR) 07/05/17 14:45 Urine pH 6.0 (4.6 - 8.0) 07/05/17 14:45 Ur Specific [place] 1.025 (1.005-1.030) 07/05/17 14:45 Urine Protein NEGATIVE mg/dL (NEGATIVE) 07/05/17 14:45 Urine Glucose (UA) NEGATIVE mg/dL (NEGATIVE) 07/05/17 14:45 Urine Ketones NEGATIVE mg/dL (NEGATIVE) 07/05/17 14:45 Urine Blood NEGATIVE (NEGATIVE) 07/05/17 14:45 Urine Nitrate NEGATIVE (NEGATIVE) 07/05/17 14:45 Urine Bilirubin NEGATIVE (NEGATIVE) 07/05/17 14:45 Urine Urobilinogen 0.2 E.U./dL (0.2 - 1.0) 07/05/17 14:45 Ur Leukocyte Esterase NEGATIVE (NEGATIVE) 07/05/17 14:45 Urine RBC 2-5 /hpf (0-5) H 07/05/17 14:45 Urine WBC 0-2 /hpf (0-5) 07/05/17 14:45 Ur Epithelial Cells RARE /lpf (FEW) 07/05/17 14:45 Urine Bacteria NONE SEEN /hpf (NONE SEEN) 07/05/17 14:45 - Physical Exam Vitals and I&O: Vital Signs Temp 97.4 F 07/08/17 12:00 Pulse 66 07/08/17 12:00 Resp 18 07/08/17 12:00 BP 112/58 07/08/17 12:00 Pulse Ox 97 07/08/17 12:00 Intake & Output 07/07/17 07/08/17 07/08/17 18:59 06:59 18:59 Intake Total 964.167 400 Balance 964.167 400 Weight (lbs) 107.955 kg Intake: Intake, IV Amount 964.167 D5-0.9%Ns 1,000 ml @ 50 964.167 mls/hr IV .Q20H [facility] Rx#: [id number] Oral 400 Other: # Voids 2 # Bowel Movements 0 Active Medications: Current Medications Acetaminophen (Tylenol) 650 mg PO Q6H PRN PRN Reason: MILD PAIN Stop: 09/03/17 23:03 Last Admin: 07/07/17 20:58 Dose: 650 mg Albuterol/Ipratropium (Duoneb Neb) 3 ml HHN Q4H PRN PRN Reason: SOB/WHEEZING Stop: 09/03/17 23:03 Artificial Tears (Artificial Tears Ophth Soln) 1 drop EACH EYE BID PRN PRN Reason: DRY EYES Ascorbic Acid (Vitamin C) 500 mg PO DAILY [facility] Stop: 09/04/17 08:59 Last Admin: 07/08/17 09:22 Dose: 500 mg Bisacodyl (Dulcolax 10 Mg Supp) 10 mg RC DAILY PRN PRN Reason: IF MOM INEFFECTIVE Stop: 09/03/17 23:03 Budesonide (Pulmicort) 0.5 mg HHN Q12HRT [facility] Stop: 09/04/17 06:59 Last Admin: 07/08/17 07:10 Dose: 0.5 mg Carvedilol (Coreg) 3.125 mg PO Q12HR [facility] Stop: 09/03/17 23:14 Last Admin: 07/08/17 09:23 Dose: 3.125 mg Donepezil HCl (Aricept) 5 mg PO HS [facility] Stop: 09/04/17 20:59 Last Admin: 07/07/17 20:57 Dose: 5 mg Escitalopram Oxalate (Lexapro) 5 mg PO DAILY [facility] PRN Reason: Protocol Stop: 09/04/17 08:59 Last Admin: 07/08/17 09:24 Dose: 5 mg Gabapentin (Neurontin) 300 mg PO Q12HR [facility] Stop: 09/03/17 23:14 Last Admin: 07/08/17 09:22 Dose: 300 mg Dextrose/Sodium Chloride (D5-0.9%Ns) 1,000 mls @ 50 mls/hr IV .Q20H [facility] Stop: 09/03/17 18:15 Last Admin: 07/07/17 09:33 Dose: 50 mls/hr Lactulose (Cephulac) 20 gm PO DAILY [facility] Stop: 09/04/17 08:59 Last Admin: 07/08/17 09:21 Dose: 20 gm Lorazepam (Ativan) 1 mg PO Q6HR PRN; Protocol PRN Reason: Agitation Stop: 09/04/17 20:54 Last Admin: 07/07/17 22:31 Dose: 1 mg Magnesium Hydroxide (Milk Of Magnesia) 30 ml PO HS PRN PRN Reason: IF NO BM IN 3 DAYS Stop: 09/03/17 23:03 Memantine (Namenda) 5 mg PO DAILY [facility] Stop: 09/04/17 08:59 Last Admin: 07/08/17 09:23 Dose: 5 mg Oxymetazoline HCl (Afrin) 1 spr NS Q12HR PRN PRN Reason: Allergy Symptoms Stop: 09/05/17 16:25 Last Admin: 07/07/17 21:48 Dose: 1 spr Rivaroxaban (Xarelto) 20 mg PO DAILY [facility] Stop: 09/04/17 08:59 Last Admin: 07/08/17 09:22 Dose: 20 mg Wound Care/Dressing Products (Therahoney) 1 appl TP DAILY [facility] Stop: 09/05/17 08:59 Last Admin: 07/08/17 09:23 Dose: 1 appl General: no acute distress, well developed, well nourished HEENT: atraumatic, normocephalic, PERRLA, EOMI Neck: supple, no thyromegaly Cardiovascular: S1S2, regular Lungs: clear to auscultation bilaterally, clear to percussion Abdomen: soft, no tender, no distended Extremities: no cyanosis, no clubbing, no edema Neurological: awake, alert, oriented Skin: intact Infectious Disease Assmt/Plan - Assessment Assessment: 1. Leukocytosis. 2. CLL. 3. Hyperlipidemia. 4. Dementia, 5. Essential hypertension. 6. h/o DVT. 7. Depression. - Plan Plan: CPM. Nutritional Asmnt/Malnutr-PDOC - Dietary Evaluation Malnutrition Findings (Please click <Entered> for more info): Nutritional Asmnt/Malnutrition Start: 07/06/17 16: 30 Text: Status: Complete Freq: Document 07/06/17 16:33 LCHENG (Rec: 07/06/17 16:42 LCHERIBERTOG [id number]) Nutritional Asmnt/Malnutrition Patient General Information Nutritional Screening High Risk Consult Diagnosis leukocytosis Pertinent Medical Hx/Surgical Hx HTN, peripheral neuropathy, dementia, depression, left shoulder pain and back pain, bilateral lower ext DVT, chronic lymphocytic leukemia Subjective Information Pt seen lying in bed at time of visit, awake and alert. Pt stated appetite ok, consumed 100% of breakfast and lunch today. pt likes veggetables, fruit, drink milk, eat eggs oftern. Current Diet Order/ Nutrition Support cardiac Pertinent Medications vit C, D-0.9%, cephulac Pertinent Labs 07/06 na 132, glucose 97 Nutritional Hx/Data Height 1.88 m Height (Calculated Centimeters) 188.0 Current Weight (lbs) 108.409 kg Weight (Calculated Kilograms) 108.4 Weight (Calculated Grams) 663866.6 [place] Body Weight 190 % [place] Body Weight 125 Body Mass Index (BMI) 30.7 Weight Status Overweight GI Symptoms GI Symptoms None Last BM no record Difficult in: None Skin Integrity/Comment: reddened to bilateral lower legs, bruise to left knee/ right arm/left arm, abrasion to left elbow/left lower chest , pressure area to bilateral feet, pressure ulcer to left buttocks Current %PO Good (75-100%) Estimated Nutritional Goals BEE in Kcals: Adj wt of IBW Calories/Kcals/Kg 23-30 Kcals Calculated 6248-8740 Protein: Adj wt of IBW Protein g/k-1.2 Protein Calculated 92-110 Fluid: ml 2300-2760ml (1ml/kcal) Nutritional Problem 1. Problem Problem increased nutrition needs ( calorie and protein) Etiology increased metabolic demand for wound healing Signs/Symptoms: open wound to buttock Malnutrition Alert Protein-Calorie Malnutrition N/A Is there a minimum of two criteria No selected? Query Text:Check all the applicable criteria. A minimum of two criteria are recommended for diagnosis of either severe or non-severe malnutrition. Intervention/Recommendation Comments 1. Continue with cardiac diet as ordered. Encouraged protein intake. 2. Recommend Arginaid 1pkg daily to help wound healing 2. Monitor PO intake, wt, labs and skin integrity 3. F/U as moderate risk in 3-5 days, 07/09-07/11 Expected Outcomes/Goals Expected Outcomes/Goals 1. PO intake to meet at least 75% of nutritional needs. 2. Wt stability, skin to remain intact, labs to approach WNL.
--- NOTE | 2017-07-09 02:02 | Progress Notes ---
DATE: 07/08/2017 Case was discussed with staff of the patient, reviewed records. He is alert now. He is feeding himself. He is able to carry on a conversation, was able to remember me, but not exactly. He still is demented, confused, unable to make safe plan for self-care, compliant with the medication with no side effects, no sedation, no nausea. The patient needs follow up with his psychiatrist upon discharge. Thank you very much for allowing me to participate in the care of this most interesting gentleman. JOB# [id number]
[2017-07-09] MEDS: Budesonide 0.5 Mg/2 mL Ud HHN SCH ×2 (07:36→18:33)
--- NOTE | 2017-07-09 08:14 | General Progress Note ---
Subjective - Review of Systems Service Date: 07/09/17 Subjective: Patient was seen and examined this morning and in no acute distress. Denies chest pain or shortness of breath. Eating well. No acute distress. No chest pain , no shortness of breath. Objective - Results Result Diagrams: 07/06/17 05:56 07/08/17 08:35 Recent Labs: Laboratory Last Values WBC 65.3 Th/cmm (4.8-10.8) H* 07/06/17 05:56 RBC 4.33 Mil/cmm (3.80-5.80) 07/06/17 05:56 Hgb 12.6 gm/dL (12-16) 07/06/17 05:56 Hct 38.1 % (41.0-60) L 07/06/17 05:56 MCV 88.0 fl (80-99) 07/06/17 05:56 MCH 29.0 pg (27.0-31.0) 07/06/17 05:56 MCHC Differential 32.9 pg (28.0-36.0) 07/06/17 05:56 RDW 15.0 % (11.5-20.0) 07/06/17 05:56 Plt Count 234 Th/cmm (150-400) 07/06/17 05:56 MPV 9.0 fl 07/06/17 05:56 Neutrophils % 12.2 % (40.0-80.0) L 07/06/17 05:56 Band Neutrophils % 0 % (0-10) 07/05/17 12:40 Lymphocytes % 80.9 % (20.0-50.0) H 07/06/17 05:56 Monocytes % 5.5 % (2.0-10.0) 07/06/17 05:56 Eosinophils % 1.3 % (0.0-5.0) 07/06/17 05:56 Basophils % 0.1 % (0.0-2.0) 07/06/17 05:56 Neutrophils (Manual) 8 % (40-80) L 07/05/17 12:40 Lymphocytes 88 % (20-50) H 07/05/17 12:40 Monocytes 3 % (2-10) 07/05/17 12:40 Eosinophils 1 % (0-5) 07/05/17 12:40 Basophils 0 % (0-3) 07/05/17 12:40 Sodium 134 mEq/L (136-145) L 07/08/17 08:35 Potassium 4.0 mEq/L (3.5-5.1) 07/08/17 08:35 Chloride 103 mEq/L (98-107) 07/08/17 08:35 Carbon Dioxide 30.0 mEq/L (21.0-31.0) 07/08/17 08:35 Anion Gap 5.0 (7.0-16.0) L 07/08/17 08:35 BUN 12 mg/dL (7-25) 07/08/17 08:35 Creatinine 0.8 mg/dL (0.7-1.3) 07/08/17 08:35 Est GFR ( Amer) TNP 07/08/17 08:35 Est GFR (Non-Af Amer) TNP 07/08/17 08:35 BUN/Creatinine Ratio 15.0 07/08/17 08:35 Glucose 134 mg/dL (70-105) H 07/08/17 08:35 POC Glucose 145 MG/DL (70 - 105) H 07/05/17 19:44 Whole Bld Lactic Acid 0.74 mmol/L (0.60-1.99) 07/05/17 12:40 Calcium 8.9 mg/dL (8.6-10.3) 07/08/17 08:35 Total Bilirubin 0.4 mg/dL (0.3-1.0) 07/06/17 05:56 AST 17 U/L (13-39) 07/06/17 05:56 ALT 20 U/L (7-52) 07/06/17 05:56 Alkaline Phosphatase 66 U/L (34-104) 07/06/17 05:56 B-Natriuretic Peptide 72.4 pg/mL (5.0-100.0) 07/05/17 12:40 Total Protein 6.1 gm/dL (6.0-8.3) 07/06/17 05:56 Albumin 3.1 gm/dL (4.2-5.5) L 07/06/17 05:56 Globulin 3.0 gm/dL 07/06/17 05:56 Albumin/Globulin Ratio 1.0 (1.0-1.8) 07/06/17 05:56 Urine Source CATH 07/05/17 14:45 Urine Color YELLOW 07/05/17 14:45 Urine Clarity CLEAR (CLEAR) 07/05/17 14:45 Urine pH 6.0 (4.6 - 8.0) 07/05/17 14:45 Ur Specific [place] 1.025 (1.005-1.030) 07/05/17 14:45 Urine Protein NEGATIVE mg/dL (NEGATIVE) 07/05/17 14:45 Urine Glucose (UA) NEGATIVE mg/dL (NEGATIVE) 07/05/17 14:45 Urine Ketones NEGATIVE mg/dL (NEGATIVE) 07/05/17 14:45 Urine Blood NEGATIVE (NEGATIVE) 07/05/17 14:45 Urine Nitrate NEGATIVE (NEGATIVE) 07/05/17 14:45 Urine Bilirubin NEGATIVE (NEGATIVE) 07/05/17 14:45 Urine Urobilinogen 0.2 E.U./dL (0.2 - 1.0) 07/05/17 14:45 Ur Leukocyte Esterase NEGATIVE (NEGATIVE) 07/05/17 14:45 Urine RBC 2-5 /hpf (0-5) H 07/05/17 14:45 Urine WBC 0-2 /hpf (0-5) 07/05/17 14:45 Ur Epithelial Cells RARE /lpf (FEW) 07/05/17 14:45 Urine Bacteria NONE SEEN /hpf (NONE SEEN) 07/05/17 14:45 - Physical Exam Vitals and I&O: Vital Signs Temp 96.5 F 07/09/17 04:00 Pulse 80 07/09/17 07:37 Resp 18 07/09/17 07:37 BP 109/61 07/09/17 04:00 Pulse Ox 94 07/09/17 07:37 Intake & Output 07/08/17 07/09/17 07/09/17 18:59 06:59 18:59 Intake Total 400 660 Output Total 3 Balance 397 660 Weight (lbs) 107.955 kg 107.955 kg Intake: Oral 400 660 Output: Urine 3 Other: # Voids 2 Active Medications: Current Medications Acetaminophen (Tylenol) 650 mg PO Q6H PRN PRN Reason: MILD PAIN Stop: 09/03/17 23:03 Last Admin: 07/09/17 04:56 Dose: 650 mg Albuterol/Ipratropium (Duoneb Neb) 3 ml HHN Q4H PRN PRN Reason: SOB/WHEEZING Stop: 09/03/17 23:03 Artificial Tears (Artificial Tears Ophth Soln) 1 drop EACH EYE BID PRN PRN Reason: DRY EYES Ascorbic Acid (Vitamin C) 500 mg PO DAILY [facility] Stop: 09/04/17 08:59 Last Admin: 07/08/17 09:22 Dose: 500 mg Bisacodyl (Dulcolax 10 Mg Supp) 10 mg RC DAILY PRN PRN Reason: IF MOM INEFFECTIVE Stop: 09/03/17 23:03 Budesonide (Pulmicort) 0.5 mg HHN Q12HRT [facility] Stop: 09/04/17 06:59 Last Admin: 07/09/17 07:36 Dose: 0.5 mg Carvedilol (Coreg) 3.125 mg PO Q12HR [facility] Stop: 09/03/17 23:14 Last Admin: 07/08/17 22:09 Dose: 3.125 mg Donepezil HCl (Aricept) 5 mg PO HS [facility] Stop: 09/04/17 20:59 Last Admin: 07/08/17 22:09 Dose: 5 mg Escitalopram Oxalate (Lexapro) 5 mg PO DAILY [facility] PRN Reason: Protocol Stop: 09/04/17 08:59 Last Admin: 07/08/17 09:24 Dose: 5 mg Gabapentin (Neurontin) 300 mg PO Q12HR [facility] Stop: 09/03/17 23:14 Last Admin: 07/08/17 22:08 Dose: 300 mg Dextrose/Sodium Chloride (D5-0.9%Ns) 1,000 mls @ 50 mls/hr IV .Q20H [facility] Stop: 09/03/17 18:15 Last Admin: 07/07/17 09:33 Dose: 50 mls/hr Lactulose (Cephulac) 20 gm PO DAILY [facility] Stop: 09/04/17 08:59 Last Admin: 07/08/17 09:21 Dose: 20 gm Lorazepam (Ativan) 1 mg PO Q6HR PRN; Protocol PRN Reason: Agitation Stop: 09/04/17 20:54 Last Admin: 07/09/17 04:56 Dose: 1 mg Magnesium Hydroxide (Milk Of Magnesia) 30 ml PO HS PRN PRN Reason: IF NO BM IN 3 DAYS Stop: 09/03/17 23:03 Memantine (Namenda) 5 mg PO DAILY [facility] Stop: 09/04/17 08:59 Last Admin: 07/08/17 09:23 Dose: 5 mg Oxymetazoline HCl (Afrin) 1 spr NS Q12HR PRN PRN Reason: Allergy Symptoms Stop: 09/05/17 16:25 Last Admin: 07/07/17 21:48 Dose: 1 spr Rivaroxaban (Xarelto) 20 mg PO DAILY [facility] Stop: 09/04/17 08:59 Last Admin: 07/08/17 09:22 Dose: 20 mg Wound Care/Dressing Products (Therahoney) 1 appl TP DAILY [facility] Stop: 09/05/17 08:59 Last Admin: 07/08/17 09:23 Dose: 1 appl General: Alert, Oriented x3 HEENT: Atraumatic, PERRLA, EOMI Neck: Supple, no JVD, no Thyromegaly Cardiovascular: Regular rate, Normal S1, Normal S2 Lungs: Clear to auscultation Abdomen: Bowel sounds Extremities: no Clubbing, no Cyanosis, no Edema Neurological: Normal gait, Normal speech Assessment/Plan - Assessment Assessment: leukocytosis dementia h/o CLL B/L LE DVT HTN Dyslipidemia Depression Neuropathy L shoulder pain hyponatremia - Plan Plan: continue home meds discharge planning Nutritional Asmnt/Malnutr-PDOC - Dietary Evaluation Malnutrition Findings (Please click <Entered> for more info): Nutritional Asmnt/Malnutrition Start: 07/06/17 16: 30 Text: Status: Complete Freq: Document 07/06/17 16:33 HERIBERTOG (Rec: 07/06/17 16:42 [place] [id number]) Nutritional Asmnt/Malnutrition Patient General Information Nutritional Screening High Risk Consult Diagnosis leukocytosis Pertinent Medical Hx/Surgical Hx HTN, peripheral neuropathy, dementia, depression, left shoulder pain and back pain, bilateral lower ext DVT, chronic lymphocytic leukemia Subjective Information Pt seen lying in bed at time of visit, awake and alert. Pt stated appetite ok, consumed 100% of breakfast and lunch today. pt likes veggetables, fruit, drink milk, eat eggs oftern. Current Diet Order/ Nutrition Support cardiac Pertinent Medications vit C, D-0.9%, cephulac Pertinent Labs 07/06 na 132, glucose 97 Nutritional Hx/Data Height 1.88 m Height (Calculated Centimeters) 188.0 Current Weight (lbs) 108.409 kg Weight (Calculated Kilograms) 108.4 Weight (Calculated Grams) 814909.6 [place] Body Weight 190 % [place] Body Weight 125 Body Mass Index (BMI) 30.7 Weight Status Overweight GI Symptoms GI Symptoms None Last BM no record Difficult in: None Skin Integrity/Comment: reddened to bilateral lower legs, bruise to left knee/ right arm/left arm, abrasion to left elbow/left lower chest , pressure area to bilateral feet, pressure ulcer to left buttocks Current %PO Good (75-100%) Estimated Nutritional Goals BEE in Kcals: Adj wt of IBW Calories/Kcals/Kg 23-30 Kcals Calculated 2416-7117 Protein: Adj wt of IBW Protein g/k-1.2 Protein Calculated 92-110 Fluid: ml 2300-2760ml (1ml/kcal) Nutritional Problem 1. Problem Problem increased nutrition needs ( calorie and protein) Etiology increased metabolic demand for wound healing Signs/Symptoms: open wound to buttock Malnutrition Alert Protein-Calorie Malnutrition N/A Is there a minimum of two criteria No selected? Query Text:Check all the applicable criteria. A minimum of two criteria are recommended for diagnosis of either severe or non-severe malnutrition. Intervention/Recommendation Comments 1. Continue with cardiac diet as ordered. Encouraged protein intake. 2. Recommend Arginaid 1pkg daily to help wound healing 2. Monitor PO intake, wt, labs and skin integrity 3. F/U as moderate risk in 3-5 days, 07/09-07/11 Expected Outcomes/Goals Expected Outcomes/Goals 1. PO intake to meet at least 75% of nutritional needs. 2. Wt stability, skin to remain intact, labs to approach WNL.
[2017-07-09] MEDS: Lactulose 10 Gm/15 mL 30mL UDC PO SCH (09:23)
[2017-07-09] MEDS: Escitalopram Oxalate 5 mg Tab PO SCH (09:23)
[2017-07-09] MEDS: Multivitamin w/ Minerals Tab PO SCH (09:24)
[2017-07-09] MEDS: Therahoney Gel 42.5gm Tube TP SCH (09:25)
--- NOTE | 2017-07-09 14:51 | Infectious Disease Prog Note ---
Infectious Disease Subjective - Review of Systems Service Date: 07/09/17 Subjective: There is no new change, no fever. Infectious Disease Objective - Results Result Diagrams: 07/06/17 05:56 07/08/17 08:35 Recent Labs: Laboratory Last Values WBC 65.3 Th/cmm (4.8-10.8) H* 07/06/17 05:56 RBC 4.33 Mil/cmm (3.80-5.80) 07/06/17 05:56 Hgb 12.6 gm/dL (12-16) 07/06/17 05:56 Hct 38.1 % (41.0-60) L 07/06/17 05:56 MCV 88.0 fl (80-99) 07/06/17 05:56 MCH 29.0 pg (27.0-31.0) 07/06/17 05:56 MCHC Differential 32.9 pg (28.0-36.0) 07/06/17 05:56 RDW 15.0 % (11.5-20.0) 07/06/17 05:56 Plt Count 234 Th/cmm (150-400) 07/06/17 05:56 MPV 9.0 fl 07/06/17 05:56 Neutrophils % 12.2 % (40.0-80.0) L 07/06/17 05:56 Band Neutrophils % 0 % (0-10) 07/05/17 12:40 Lymphocytes % 80.9 % (20.0-50.0) H 07/06/17 05:56 Monocytes % 5.5 % (2.0-10.0) 07/06/17 05:56 Eosinophils % 1.3 % (0.0-5.0) 07/06/17 05:56 Basophils % 0.1 % (0.0-2.0) 07/06/17 05:56 Neutrophils (Manual) 8 % (40-80) L 07/05/17 12:40 Lymphocytes 88 % (20-50) H 07/05/17 12:40 Monocytes 3 % (2-10) 07/05/17 12:40 Eosinophils 1 % (0-5) 07/05/17 12:40 Basophils 0 % (0-3) 07/05/17 12:40 Sodium 134 mEq/L (136-145) L 07/08/17 08:35 Potassium 4.0 mEq/L (3.5-5.1) 07/08/17 08:35 Chloride 103 mEq/L (98-107) 07/08/17 08:35 Carbon Dioxide 30.0 mEq/L (21.0-31.0) 07/08/17 08:35 Anion Gap 5.0 (7.0-16.0) L 07/08/17 08:35 BUN 12 mg/dL (7-25) 07/08/17 08:35 Creatinine 0.8 mg/dL (0.7-1.3) 07/08/17 08:35 Est GFR ( Amer) TNP 07/08/17 08:35 Est GFR (Non-Af Amer) TNP 07/08/17 08:35 BUN/Creatinine Ratio 15.0 07/08/17 08:35 Glucose 134 mg/dL (70-105) H 07/08/17 08:35 POC Glucose 145 MG/DL (70 - 105) H 07/05/17 19:44 Whole Bld Lactic Acid 0.74 mmol/L (0.60-1.99) 07/05/17 12:40 Calcium 8.9 mg/dL (8.6-10.3) 07/08/17 08:35 Total Bilirubin 0.4 mg/dL (0.3-1.0) 07/06/17 05:56 AST 17 U/L (13-39) 07/06/17 05:56 ALT 20 U/L (7-52) 07/06/17 05:56 Alkaline Phosphatase 66 U/L (34-104) 07/06/17 05:56 B-Natriuretic Peptide 72.4 pg/mL (5.0-100.0) 07/05/17 12:40 Total Protein 6.1 gm/dL (6.0-8.3) 07/06/17 05:56 Albumin 3.1 gm/dL (4.2-5.5) L 07/06/17 05:56 Globulin 3.0 gm/dL 07/06/17 05:56 Albumin/Globulin Ratio 1.0 (1.0-1.8) 07/06/17 05:56 Urine Source CATH 07/05/17 14:45 Urine Color YELLOW 07/05/17 14:45 Urine Clarity CLEAR (CLEAR) 07/05/17 14:45 Urine pH 6.0 (4.6 - 8.0) 07/05/17 14:45 Ur Specific [place] 1.025 (1.005-1.030) 07/05/17 14:45 Urine Protein NEGATIVE mg/dL (NEGATIVE) 07/05/17 14:45 Urine Glucose (UA) NEGATIVE mg/dL (NEGATIVE) 07/05/17 14:45 Urine Ketones NEGATIVE mg/dL (NEGATIVE) 07/05/17 14:45 Urine Blood NEGATIVE (NEGATIVE) 07/05/17 14:45 Urine Nitrate NEGATIVE (NEGATIVE) 07/05/17 14:45 Urine Bilirubin NEGATIVE (NEGATIVE) 07/05/17 14:45 Urine Urobilinogen 0.2 E.U./dL (0.2 - 1.0) 07/05/17 14:45 Ur Leukocyte Esterase NEGATIVE (NEGATIVE) 07/05/17 14:45 Urine RBC 2-5 /hpf (0-5) H 07/05/17 14:45 Urine WBC 0-2 /hpf (0-5) 07/05/17 14:45 Ur Epithelial Cells RARE /lpf (FEW) 07/05/17 14:45 Urine Bacteria NONE SEEN /hpf (NONE SEEN) 07/05/17 14:45 - Physical Exam Vitals and I&O: Vital Signs Temp 96.5 F 07/09/17 04:00 Pulse 80 07/09/17 07:37 Resp 18 07/09/17 07:37 BP 109/61 07/09/17 04:00 Pulse Ox 94 07/09/17 07:37 Intake & Output 07/08/17 07/09/17 07/09/17 18:59 06:59 18:59 Intake Total 400 660 Output Total 3 Balance 397 660 Weight (lbs) 107.955 kg 107.955 kg Intake: Oral 400 660 Output: Urine 3 Other: # Voids 2 Active Medications: Current Medications Acetaminophen (Tylenol) 650 mg PO Q6H PRN PRN Reason: MILD PAIN Stop: 09/03/17 23:03 Last Admin: 07/09/17 04:56 Dose: 650 mg Albuterol/Ipratropium (Duoneb Neb) 3 ml HHN Q4H PRN PRN Reason: SOB/WHEEZING Stop: 09/03/17 23:03 Artificial Tears (Artificial Tears Ophth Soln) 1 drop EACH EYE BID PRN PRN Reason: DRY EYES Ascorbic Acid (Vitamin C) 500 mg PO DAILY [facility] Stop: 09/04/17 08:59 Last Admin: 07/09/17 09:22 Dose: 500 mg Bisacodyl (Dulcolax 10 Mg Supp) 10 mg RC DAILY PRN PRN Reason: IF MOM INEFFECTIVE Stop: 09/03/17 23:03 Budesonide (Pulmicort) 0.5 mg HHN Q12HRT [facility] Stop: 09/04/17 06:59 Last Admin: 07/09/17 07:36 Dose: 0.5 mg Carvedilol (Coreg) 3.125 mg PO Q12HR [facility] Stop: 09/03/17 23:14 Last Admin: 07/09/17 09:22 Dose: Not Given Donepezil HCl (Aricept) 5 mg PO HS [facility] Stop: 09/04/17 20:59 Last Admin: 07/08/17 22:09 Dose: 5 mg Escitalopram Oxalate (Lexapro) 5 mg PO DAILY [facility] PRN Reason: Protocol Stop: 09/04/17 08:59 Last Admin: 07/09/17 09:23 Dose: 5 mg Gabapentin (Neurontin) 300 mg PO Q12HR [facility] Stop: 09/03/17 23:14 Last Admin: 07/09/17 09:23 Dose: 300 mg Dextrose/Sodium Chloride (D5-0.9%Ns) 1,000 mls @ 50 mls/hr IV .Q20H [facility] Stop: 09/03/17 18:15 Last Admin: 07/07/17 09:33 Dose: 50 mls/hr Lactulose (Cephulac) 20 gm PO DAILY [facility] Stop: 09/04/17 08:59 Last Admin: 07/09/17 09:23 Dose: 20 gm Lorazepam (Ativan) 1 mg PO Q6HR PRN; Protocol PRN Reason: Agitation Stop: 09/04/17 20:54 Last Admin: 07/09/17 04:56 Dose: 1 mg Magnesium Hydroxide (Milk Of Magnesia) 30 ml PO HS PRN PRN Reason: IF NO BM IN 3 DAYS Stop: 09/03/17 23:03 Memantine (Namenda) 5 mg PO DAILY [facility] Stop: 09/04/17 08:59 Last Admin: 07/09/17 09:24 Dose: 5 mg Oxymetazoline HCl (Afrin) 1 spr NS Q12HR PRN PRN Reason: Allergy Symptoms Stop: 09/05/17 16:25 Last Admin: 07/07/17 21:48 Dose: 1 spr Rivaroxaban (Xarelto) 20 mg PO DAILY [facility] Stop: 09/04/17 08:59 Last Admin: 07/09/17 09:24 Dose: 20 mg Wound Care/Dressing Products (Therahoney) 1 appl TP DAILY [facility] Stop: 09/05/17 08:59 Last Admin: 07/09/17 09:25 Dose: 1 appl General: no acute distress, well developed, well nourished HEENT: atraumatic, normocephalic, PERRLA Neck: supple, no thyromegaly, no lymphadenopathy Cardiovascular: S1S2, regular Lungs: clear to auscultation bilaterally, clear to percussion Abdomen: soft, no tender, no distended Extremities: no cyanosis, no clubbing Neurological: awake, alert, oriented Skin: intact Infectious Disease Assmt/Plan - Assessment Assessment: 1. Leukocytosis. 2. CLL. 3. Hyperlipidemia. 4. Dementia, 5. Essential hypertension. 6. h/o DVT. 7. Depression. - Plan Plan: CPM. Nutritional Asmnt/Malnutr-PDOC - Dietary Evaluation Malnutrition Findings (Please click <Entered> for more info): Nutritional Asmnt/Malnutrition Start: 07/06/17 16: 30 Text: Status: Complete Freq: Document 07/06/17 16:33 HERIBERTO (Rec: 07/06/17 16:42 [email or web address] Nutritional Asmnt/Malnutrition Patient General Information Nutritional Screening High Risk Consult Diagnosis leukocytosis Pertinent Medical Hx/Surgical Hx HTN, peripheral neuropathy, dementia, depression, left shoulder pain and back pain, bilateral lower ext DVT, chronic lymphocytic leukemia Subjective Information Pt seen lying in bed at time of visit, awake and alert. Pt stated appetite ok, consumed 100% of breakfast and lunch today. pt likes veggetables, fruit, drink milk, eat eggs oftern. Current Diet Order/ Nutrition Support cardiac Pertinent Medications vit C, D-0.9%, cephulac Pertinent Labs 07/06 na 132, glucose 97 Nutritional Hx/Data Height 1.88 m Height (Calculated Centimeters) 188.0 Current Weight (lbs) 108.409 kg Weight (Calculated Kilograms) 108.4 Weight (Calculated Grams) 471547.6 [place] Body Weight 190 % White Body Weight 125 Body Mass Index (BMI) 30.7 Weight Status Overweight GI Symptoms GI Symptoms None Last BM no record Difficult in: None Skin Integrity/Comment: reddened to bilateral lower legs, bruise to left knee/ right arm/left arm, abrasion to left elbow/left lower chest , pressure area to bilateral feet, pressure ulcer to left buttocks Current %PO Good (75-100%) Estimated Nutritional Goals BEE in Kcals: Adj wt of IBW Calories/Kcals/Kg 23-30 Kcals Calculated 8629-7408 Protein: Adj wt of IBW Protein g/k-1.2 Protein Calculated 92-110 Fluid: ml 2300-2760ml (1ml/kcal) Nutritional Problem 1. Problem Problem increased nutrition needs ( calorie and protein) Etiology increased metabolic demand for wound healing Signs/Symptoms: open wound to buttock Malnutrition Alert Protein-Calorie Malnutrition N/A Is there a minimum of two criteria No selected? Query Text:Check all the applicable criteria. A minimum of two criteria are recommended for diagnosis of either severe or non-severe malnutrition. Intervention/Recommendation Comments 1. Continue with cardiac diet as ordered. Encouraged protein intake. 2. Recommend Arginaid 1pkg daily to help wound healing 2. Monitor PO intake, wt, labs and skin integrity 3. F/U as moderate risk in 3-5 days, 07/09-07/11 Expected Outcomes/Goals Expected Outcomes/Goals 1. PO intake to meet at least 75% of nutritional needs. 2. Wt stability, skin to remain intact, labs to approach WNL.
[2017-07-09] MEDS: D5-0.9%NS 1,000 ML IV SCH (21:49)
--- NOTE | 2017-07-10 03:30 | Progress Notes ---
DATE: 07/09/2017 Case was discussed with staff of the patient, reviewed records. The patient is on the medical floor, has been yelling and screaming today, which is unlike him. He continues to be confused, demented. Advised the staff to increase the Lexapro and use Ativan intramuscular if needed, the same dose, which is 0.5 mg a day as needed and if he is still agitated, he may need to go to [facility]. Thank you very much for allowing me to participate in the care of this most interesting gentleman. The patient denies any current intent to harm himself or anybody. JOB# [id number]
--- NOTE | 2017-07-10 05:08 | General Progress Note ---
Subjective - Review of Systems Service Date: 07/10/17 Subjective: Patient was seen and examined this morning and in no acute distress. Denies chest pain or shortness of breath. Eating well. No acute distress. No chest pain , no shortness of breath. Objective - Results Result Diagrams: 07/06/17 05:56 07/08/17 08:35 Recent Labs: Laboratory Last Values WBC 65.3 Th/cmm (4.8-10.8) H* 07/06/17 05:56 RBC 4.33 Mil/cmm (3.80-5.80) 07/06/17 05:56 Hgb 12.6 gm/dL (12-16) 07/06/17 05:56 Hct 38.1 % (41.0-60) L 07/06/17 05:56 MCV 88.0 fl (80-99) 07/06/17 05:56 MCH 29.0 pg (27.0-31.0) 07/06/17 05:56 MCHC Differential 32.9 pg (28.0-36.0) 07/06/17 05:56 RDW 15.0 % (11.5-20.0) 07/06/17 05:56 Plt Count 234 Th/cmm (150-400) 07/06/17 05:56 MPV 9.0 fl 07/06/17 05:56 Neutrophils % 12.2 % (40.0-80.0) L 07/06/17 05:56 Band Neutrophils % 0 % (0-10) 07/05/17 12:40 Lymphocytes % 80.9 % (20.0-50.0) H 07/06/17 05:56 Monocytes % 5.5 % (2.0-10.0) 07/06/17 05:56 Eosinophils % 1.3 % (0.0-5.0) 07/06/17 05:56 Basophils % 0.1 % (0.0-2.0) 07/06/17 05:56 Neutrophils (Manual) 8 % (40-80) L 07/05/17 12:40 Lymphocytes 88 % (20-50) H 07/05/17 12:40 Monocytes 3 % (2-10) 07/05/17 12:40 Eosinophils 1 % (0-5) 07/05/17 12:40 Basophils 0 % (0-3) 07/05/17 12:40 Sodium 134 mEq/L (136-145) L 07/08/17 08:35 Potassium 4.0 mEq/L (3.5-5.1) 07/08/17 08:35 Chloride 103 mEq/L (98-107) 07/08/17 08:35 Carbon Dioxide 30.0 mEq/L (21.0-31.0) 07/08/17 08:35 Anion Gap 5.0 (7.0-16.0) L 07/08/17 08:35 BUN 12 mg/dL (7-25) 07/08/17 08:35 Creatinine 0.8 mg/dL (0.7-1.3) 07/08/17 08:35 Est GFR ( Amer) TNP 07/08/17 08:35 Est GFR (Non-Af Amer) TNP 07/08/17 08:35 BUN/Creatinine Ratio 15.0 07/08/17 08:35 Glucose 134 mg/dL (70-105) H 07/08/17 08:35 POC Glucose 145 MG/DL (70 - 105) H 07/05/17 19:44 Whole Bld Lactic Acid 0.74 mmol/L (0.60-1.99) 07/05/17 12:40 Calcium 8.9 mg/dL (8.6-10.3) 07/08/17 08:35 Total Bilirubin 0.4 mg/dL (0.3-1.0) 07/06/17 05:56 AST 17 U/L (13-39) 07/06/17 05:56 ALT 20 U/L (7-52) 07/06/17 05:56 Alkaline Phosphatase 66 U/L (34-104) 07/06/17 05:56 B-Natriuretic Peptide 72.4 pg/mL (5.0-100.0) 07/05/17 12:40 Total Protein 6.1 gm/dL (6.0-8.3) 07/06/17 05:56 Albumin 3.1 gm/dL (4.2-5.5) L 07/06/17 05:56 Globulin 3.0 gm/dL 07/06/17 05:56 Albumin/Globulin Ratio 1.0 (1.0-1.8) 07/06/17 05:56 Urine Source CATH 07/05/17 14:45 Urine Color YELLOW 07/05/17 14:45 Urine Clarity CLEAR (CLEAR) 07/05/17 14:45 Urine pH 6.0 (4.6 - 8.0) 07/05/17 14:45 Ur Specific [place] 1.025 (1.005-1.030) 07/05/17 14:45 Urine Protein NEGATIVE mg/dL (NEGATIVE) 07/05/17 14:45 Urine Glucose (UA) NEGATIVE mg/dL (NEGATIVE) 07/05/17 14:45 Urine Ketones NEGATIVE mg/dL (NEGATIVE) 07/05/17 14:45 Urine Blood NEGATIVE (NEGATIVE) 07/05/17 14:45 Urine Nitrate NEGATIVE (NEGATIVE) 07/05/17 14:45 Urine Bilirubin NEGATIVE (NEGATIVE) 07/05/17 14:45 Urine Urobilinogen 0.2 E.U./dL (0.2 - 1.0) 07/05/17 14:45 Ur Leukocyte Esterase NEGATIVE (NEGATIVE) 07/05/17 14:45 Urine RBC 2-5 /hpf (0-5) H 07/05/17 14:45 Urine WBC 0-2 /hpf (0-5) 07/05/17 14:45 Ur Epithelial Cells RARE /lpf (FEW) 07/05/17 14:45 Urine Bacteria NONE SEEN /hpf (NONE SEEN) 07/05/17 14:45 - Physical Exam Vitals and I&O: Vital Signs Temp 96.9 F 07/10/17 04:00 Pulse 78 07/10/17 04:00 Resp 18 07/10/17 04:00 BP 128/68 07/10/17 04:00 Pulse Ox 98 07/10/17 04:00 Intake & Output 07/09/17 07/09/17 07/10/17 06:59 18:59 06:59 Intake Total 660 650 Balance 660 650 Weight (lbs) 107.955 kg 107.955 kg 107.501 kg Intake: Oral 660 650 Other: # Voids 2 4 # Bowel Movements 1 Stool Characteristics Formed Brown Weight Source Bedscale Bedscale Bedscale Active Medications: Current Medications Acetaminophen (Tylenol) 650 mg PO Q6H PRN PRN Reason: MILD PAIN Stop: 09/03/17 23:03 Last Admin: 07/09/17 04:56 Dose: 650 mg Albuterol/Ipratropium (Duoneb Neb) 3 ml HHN Q4H PRN PRN Reason: SOB/WHEEZING Stop: 09/03/17 23:03 Artificial Tears (Artificial Tears Ophth Soln) 1 drop EACH EYE BID PRN PRN Reason: DRY EYES Ascorbic Acid (Vitamin C) 500 mg PO DAILY [facility] Stop: 09/04/17 08:59 Last Admin: 07/09/17 09:22 Dose: 500 mg Bisacodyl (Dulcolax 10 Mg Supp) 10 mg RC DAILY PRN PRN Reason: IF MOM INEFFECTIVE Stop: 09/03/17 23:03 Budesonide (Pulmicort) 0.5 mg HHN Q12HRT [facility] Stop: 09/04/17 06:59 Last Admin: 07/09/17 18:33 Dose: 0.5 mg Carvedilol (Coreg) 3.125 mg PO Q12HR [facility] Stop: 09/03/17 23:14 Last Admin: 07/09/17 21:51 Dose: 3.125 mg Donepezil HCl (Aricept) 5 mg PO HS [facility] Stop: 09/04/17 20:59 Last Admin: 07/09/17 21:50 Dose: 5 mg Escitalopram Oxalate (Lexapro) 10 mg PO DAILY [facility] PRN Reason: Protocol Stop: 09/08/17 08:59 Gabapentin (Neurontin) 300 mg PO Q12HR [facility] Stop: 09/03/17 23:14 Last Admin: 07/09/17 21:50 Dose: 300 mg Dextrose/Sodium Chloride (D5-0.9%Ns) 1,000 mls @ 50 mls/hr IV .Q20H [facility] Stop: 09/03/17 18:15 Last Admin: 07/09/17 21:49 Dose: 50 mls/hr Lactulose (Cephulac) 20 gm PO DAILY [facility] Stop: 09/04/17 08:59 Last Admin: 07/09/17 09:23 Dose: 20 gm Lorazepam (Ativan) 1 mg PO Q6HR PRN; Protocol PRN Reason: Agitation Stop: 09/04/17 20:54 Last Admin: 07/09/17 04:56 Dose: 1 mg Lorazepam (Ativan) 1 mg IM Q6HR PRN; Protocol PRN Reason: Agitation Stop: 09/07/17 15:15 Magnesium Hydroxide (Milk Of Magnesia) 30 ml PO HS PRN PRN Reason: IF NO BM IN 3 DAYS Stop: 09/03/17 23:03 Memantine (Namenda) 5 mg PO DAILY [facility] Stop: 09/04/17 08:59 Last Admin: 07/09/17 09:24 Dose: 5 mg Oxymetazoline HCl (Afrin) 1 spr NS Q12HR PRN PRN Reason: Allergy Symptoms Stop: 09/05/17 16:25 Last Admin: 07/07/17 21:48 Dose: 1 spr Rivaroxaban (Xarelto) 20 mg PO DAILY [facility] Stop: 09/04/17 08:59 Last Admin: 07/09/17 09:24 Dose: 20 mg Wound Care/Dressing Products (Therahoney) 1 appl TP DAILY [facility] Stop: 09/05/17 08:59 Last Admin: 07/09/17 09:25 Dose: 1 appl General: Alert, Oriented x3 HEENT: Atraumatic, PERRLA, EOMI Neck: Supple, no JVD, no Thyromegaly Cardiovascular: Regular rate, Normal S1, Normal S2 Lungs: Clear to auscultation Abdomen: Bowel sounds Extremities: no Clubbing, no Cyanosis, no Edema Neurological: Normal gait, Normal speech Assessment/Plan - Assessment Assessment: leukocytosis dementia h/o CLL B/L LE DVT HTN Dyslipidemia Depression Neuropathy L shoulder pain hyponatremia - Plan Plan: continue home meds okay to transfer back to SNF. Nutritional Asmnt/Malnutr-PDOC - Dietary Evaluation Malnutrition Findings (Please click <Entered> for more info): Nutritional Asmnt/Malnutrition Start: 07/06/17 16: 30 Text: Status: Complete Freq: Document 07/06/17 16:33 LCHENG (Rec: 07/06/17 16:42 LCH[id number]) Nutritional Asmnt/Malnutrition Patient General Information Nutritional Screening High Risk Consult Diagnosis leukocytosis Pertinent Medical Hx/Surgical Hx HTN, peripheral neuropathy, dementia, depression, left shoulder pain and back pain, bilateral lower ext DVT, chronic lymphocytic leukemia Subjective Information Pt seen lying in bed at time of visit, awake and alert. Pt stated appetite ok, consumed 100% of breakfast and lunch today. pt likes veggetables, fruit, drink milk, eat eggs oftern. Current Diet Order/ Nutrition Support cardiac Pertinent Medications vit C, D-0.9%, cephulac Pertinent Labs 07/06 na 132, glucose 97 Nutritional Hx/Data Height 1.88 m Height (Calculated Centimeters) 188.0 Current Weight (lbs) 108.409 kg Weight (Calculated Kilograms) 108.4 Weight (Calculated Grams) 479262.6 [place] Body Weight 190 % [place] Body Weight 125 Body Mass Index (BMI) 30.7 Weight Status Overweight GI Symptoms GI Symptoms None Last BM no record Difficult in: None Skin Integrity/Comment: reddened to bilateral lower legs, bruise to left knee/ right arm/left arm, abrasion to left elbow/left lower chest , pressure area to bilateral feet, pressure ulcer to left buttocks Current %PO Good (75-100%) Estimated Nutritional Goals BEE in Kcals: Adj wt of IBW Calories/Kcals/Kg 23-30 Kcals Calculated 0053-7219 Protein: Adj wt of IBW Protein g/k-1.2 Protein Calculated 92-110 Fluid: ml 2300-2760ml (1ml/kcal) Nutritional Problem 1. Problem Problem increased nutrition needs ( calorie and protein) Etiology increased metabolic demand for wound healing Signs/Symptoms: open wound to buttock Malnutrition Alert Protein-Calorie Malnutrition N/A Is there a minimum of two criteria No selected? Query Text:Check all the applicable criteria. A minimum of two criteria are recommended for diagnosis of either severe or non-severe malnutrition. Intervention/Recommendation Comments 1. Continue with cardiac diet as ordered. Encouraged protein intake. 2. Recommend Arginaid 1pkg daily to help wound healing 2. Monitor PO intake, wt, labs and skin integrity 3. F/U as moderate risk in 3-5 days, 07/09-07/11 Expected Outcomes/Goals Expected Outcomes/Goals 1. PO intake to meet at least 75% of nutritional needs. 2. Wt stability, skin to remain intact, labs to approach WNL.
[2017-07-10] MEDS: Lactulose 10 Gm/15 mL 30mL UDC PO SCH (08:32)
[2017-07-10] MEDS: Multivitamin w/ Minerals Tab PO SCH (08:33)
[2017-07-10] MEDS: Therahoney Gel 42.5gm Tube TP SCH (08:33)
[2017-07-10] MEDS ORDERED: Escitalopram Oxalate 5 mg Tab PO SCH (09:00)
--- NOTE | 2017-07-12 20:24 | Discharge Summary ---
DATE OF DISCHARGE: 07/10/2017 ATTENDING PHYSICIAN: Dr. Walter Peck. PRELIMINARY DIAGNOSES: 1. Leukocytosis. 2. Dementia. 3. History of chronic lymphocytic leukemia. 4. Bilateral lower extremity deep venous thrombosis. 5. Hypertension. 6. Dyslipidemia. 7. Depression. 8. Neuropathy. 9. Left shoulder pain. DISCHARGE DIAGNOSES: 1. Leukocytosis. 2. Dementia. 3. History of chronic lymphocytic leukemia. 4. Bilateral lower extremity deep venous thrombosis. 5. Hypertension. 6. Dyslipidemia. 7. Depression. 8. Neuropathy. 9. Left shoulder pain. BRIEF HISTORY OF PRESENT ILLNESS: This is an 82-year-old male who presents to [facility] ER for evaluation of increased agitation noted at the nursing facility. While in the ER, the patient was noted to have [id number] discomfort to the left shoulder, was given Ativan to help with agitation. Denied any chest pain or shortness of breath, but was complaining of left shoulder pain. A 12-lead EKG was done in the ER, which was noted to be sinus rhythm at 77 beats per minute. His initial lab work revealed a white count of 66,000, hemoglobin 12.7, hematocrit 39.5, and platelets 255,000. No bands, neutrophils are 8, lymphocytes were elevated at 88. Sodium was 136, potassium 3.9, BUN 21, creatinine 0.8, glucose was 93. His UA was negative. PAST MEDICAL HISTORY: Includes bilateral lower extremity cellulitis, bilateral DVTs, history of chronic lymphocytic leukemia. He has had a history of leukocytosis, hypertension, dyslipidemia, and dementia. Chest x-ray done in the ER was essentially negative. He was subsequently admitted for further evaluation and treatment. HOSPITAL COURSE: The patient improved during his hospital stay, was seen and evaluated by Oncology, Dr. Lacy. Please see dictated report. He was also seen by Infectious Disease. Please see dictated report. The patient was given a dose of antibiotics initially in the ER, but blood tests did not reveal any infectious cause for the elevated leukocytosis. He remained afebrile during his hospital stay and was subsequently discharged back to the long-term to continue same orders. [facility]# [id number]
== END 2017-07-10 11:45 | DRG 841 ==
LOC: ER 12:23 → MSI 17:20
PROVIDERS: ADMIT Family Medicine; ATTEND Family Medicine
DX: C91.10 Chronic lymphocytic leukemia of B-cell type not having achieved remission (principal); F33.9 Major depressive disorder, recurrent, unspecified; G62.9 Polyneuropathy, unspecified; E87.1 Hypo-osmolality and hyponatremia; F03.90 Unspecified dementia, unspecified severity, without behavioral disturbance, psychotic disturbance, mood disturbance, and anxiety; I10 Essential (primary) hypertension; E78.5 Hyperlipidemia, unspecified; M25.512 Pain in left shoulder; M19.90 Unspecified osteoarthritis, unspecified site; Z96.649 Presence of unspecified artificial hip joint; M54.9 Dorsalgia, unspecified; Z86.718 Personal history of other venous thrombosis and embolism; Z88.0 Allergy status to penicillin
CPT/HCPCS: 36415-UA; 71045-TC; 80048-TC; 80053-TC; 81001-TC; 82948-90; 83605; 83880-TC; 85007-TC; 85025-TC; 85027-TC; 88189-90; 90732; 93005; 94760; 96375; J0456; J1956; J2060; J7042; Z7610

== ENCOUNTER 2018-03-05 18:15 | Inpatient (IN) | payer OTHER, MEDICAID ==
--- NOTE | 2018-03-05 18:32 | ED Physician Chart ---
ED Chief Complaint/HPI - Patient Information Date Seen:: 03/05/18 Time Seen:: 18:42 Chief Complaint:: jaundice & abnormal labs History of Present Illness:: jaundice & abnormal labs. no other complaints. 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 Allergies:: Allergies Allergy/AdvReac Type Severity Reaction Status Date / Time Penicillins [PCN] AdvReac Verified 04/21/17 17:09 Historian:: Medical Records Review:: Nurse's Note Reviewed ED Review of Systems - Review of Systems General/Constitutional: No fever, No chills, No weight loss, No weakness, No diaphoresis, No edema, No loss of appetite, Other (abnormal labs) Skin: Other (jaundice) Head: No headache, No light-headedness Eyes: No loss of vision, No pain, No diplopia ENT: No earache, No nasal drainage, No sore throat, No tinnitus Neck: No neck pain, No swelling, No thyromegaly, No stiffness, No mass noted Cardio Vascular: No chest pain, No palpitations, No PND, No orthopnea, No edema Pulmonary: No SOB, No cough, No sputum, No wheezing GI: No nausea, No vomiting, No diarrhea, No pain, No melena, No hematochezia, No constipation, No hematemesis G/U: No dysuria, No frequency, No hematuria Musculoskeletal: No bone or joint pain, No back pain, No muscle pain Endocrine: No polyuria, No polydipsia Psychiatric: No prior psych history, No depression, No anxiety, No suicidal ideation Hematopoietic: No bruising, No lymphadenopathy Allergic/Immuno: No urticaria, No angioedema Neurological: No syncope, No focal symptoms, No weakness, No paresthesia, No headache, No seizure, No dizziness, No confusion, No vertigo ED Past Medical History - Past Medical History Obtainable: No Past Medical History: HTN, CAD, Dementia, Other (jaundice; leukemia; BLE DVT) Psychiatricy History: Depression, Schizophrenia, Dementia, Other (anxiety; psychosis) Family Medical History - Family Member Mother History Unknown: Yes Hx Family Cancer: No Hx Family Stroke: No Hx Family Seizures: No Hx Family Dementia: No Hx Family AIDS: No Hx Family COPD: No Hx Family Psychiatric Problems: No ED Physical Exam - Physical Examination General/Constitutional: Awake, Well-developed, well-nourished, Alert, No distress, Non-toxic appearing, Ambulatory Other Gen/Cons comments:: chronically ill appearing and jaundiced Head: Atraumatic Eyes: Lids, conjuctiva normal, PERRL, EOMI Other Skin comments:: jaundiced ENMT: External ears, nose nl Neck: Nontender, No nuchal rigidity, No stridor Respiratory: Nl effort/Exclusion Other Respiratory comments:: decreased breath sounds at bases. Cardio Vascular: RRR, No murmur, gallop, rubs, NL S1 S2 GI: No tenderness/rebounding/guarding, No organomegaly, No hernia, Normal BS's, Nondistended, No mass/bruits, No McBurney tenderness Extremities: No tenderness or effusion, Full ROM, normal strength in all extremities, No edema, Normal digits & nails Other Neuro/Psych comments:: agitated. ED Assessment - Assessment General Assessment: sign out given to Dr. Gill to check labs and dispo the patient. ED Septic Shock - . Is Septic Shock (SBP<90, OR Lactate>4 mmol\L) present?: No ED Reassessment (Disposition) - Diagnosis Diagnosis:: Jaundice h/o leukemia HTN Schizophrenia Psychosis Dementia Depression Anxiety ASHD BLE DVT
[2018-03-05 19:24] LABS: ALKALINE PHOSPHATASE 306 U/L (34-104); AMYLASE SERUM 12 U/L (29-103); ANION GAP 14.1 (7.0-16.0); BILIRUBIN,TOTAL 11.9 mg/dL (0.3-1.0); BUN - UREA NITROGEN 14 mg/dL (7-25); CALCIUM SERUM 8.5 mg/dL (8.6-10.3); CARBON DIOXIDE 24.6 mEq/L (21.0-31.0); CHLORIDE 109 mEq/L (98-107); CREATININE - SERUM 0.8 mg/dL (0.7-1.3); GLUCOSE 86 mg/dL (70-105); PHOSPHOROUS 3.4 mg/dL (2.5-5.0); POTASSIUM SERUM 3.7 mEq/L (3.5-5.1); SGOT 189 U/L (13-39); SGPT/ALT 211 U/L (7-52); SODIUM SERUM 144 mEq/L (136-145)
[2018-03-05 19:26] LABS: INR 3.3 (0.5-1.4); PROTHROMBIN TIME (TEST) 32.4 SECONDS (9.5-11.5)
[2018-03-05 19:32] LABS: LIPASE < 3 U/L (11-82)
[2018-03-05 20:22] LABS: HEMATOCRIT 37.7 % (41.0-60); HEMOGLOBIN 12.6 gm/dL (12-16); MEAN CELL VOLUME 89.4 fl (80-99); MEAN CORPUSCULAR HEMOGLOBIN 29.8 pg (27.0-31.0); MEAN CORPUSCULAR HGB CONC 33.4 pg (28.0-36.0); MEAN PLATELET VOLUME 8.8 fl; PLATELET COUNT 287 Th/cmm (150-400); RED BLOOD COUNT 4.21 Mil/cmm (3.80-5.80); RED CELL DISTRIBUTION WIDTH 16.4 % (11.5-20.0)
[2018-03-05 20:35] LABS: WHITE BLOOD COUNT 95.9 Th/cmm (4.8-10.8)
[2018-03-05] MEDS ORDERED: Sodium Chloride 0.9% 1,000 ML IV ONE ×2 (21:23→22:15)
[2018-03-05] MEDS ORDERED: Levofloxacin 500mg/100mL 500 MG/100 ML BAG IV ONE ×2 (21:28→21:30)
[2018-03-06] MEDS: D5-0.45NS 1,000 ML IV SCH ×2 (00:57→21:34)
--- NOTE | 2018-03-06 05:43 | History and Physical ---
History of Present Illness - HPI Chief Complaint: Jaundice HPI: 83 y/o male who presents to [facility] ER from SNF for elevated WBC 's and abnormal labwork. He has a previous history of Paranoid Schizophrenia, depression, CAD, h/o DVT, neuropathy, GERD, anxiety disorder, Dementia, Acute Lymphoblastic Leukemia. While in the ER he had labwork which revealed the following ... WBC 95.9 H/H37.7/89.4 platelets 287K Na 144 K 3.7 Bun/Cr 14/0.8 glu 86 Lactic Acid 2.3 AST 189 ALT 211 Alk 306 Ammonia 44 amylase 12 lipase <3 Patient was subsequently admitted to [facility] for further evaluation and treatment. 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 h/o DVT - Past Surgical History Past Surgical History: No pertinent Hx Family Medical History - Family Member Mother History Unknown: Yes Hx Family Cancer: No Hx Family Stroke: No Hx Family Seizures: No Hx Family Dementia: No Hx Family AIDS: No Hx Family COPD: No Hx Family Psychiatric Problems: No Social History Smoke: No Alcohol: None Drugs: None Lives: [facility] - Medications Home Medications: Home Medication Medication Instructions Recorded Type Acetaminophen [Tylenol] 650 mg PO Q4H PRN 06/08/17 History Rivaroxaban [Xarelto] 20 mg PO HS 07/05/17 History Donepezil Hcl [Aricept] 10 mg PO HS 03/05/18 History Famotidine [Pepcid] 20 mg PO BID 03/05/18 History Lorazepam [Ativan] 1 mg IM BID 03/05/18 History Memantine [Namenda] 10 mg PO DAILY 03/05/18 History QUEtiapine Fumarate [SEROquel] 100 mg PO BID 03/05/18 History - Allergies Allergies/Adverse Reactions: Allergies Allergy/AdvReac Type Severity Reaction Status Date / Time milk Allergy Verified 03/05/18 18:41 sesame seed Allergy Verified 03/05/18 18:41 shrimp Allergy Verified 03/05/18 18:41 wheat Allergy Verified 03/05/18 18:42 Penicillins [PCN] AdvReac Verified 04/21/17 17:09 egg white Allergy Uncoded 03/05/18 18:41 Review of Systems - Review of Systems Constitutional: Report: No Significant Eyes: Report: No Significant ENT: Report: No Significant Respiratory: Report: No Significant Cardiovascular: Report: No Significant Gastrointestinal: Report: No Significant Genitourinary: Report: No Significant Musculoskeletal: Report: No Significant Skin: Report: Juan Alberto Neurological: Report: Confusion Physical Exam - Physical Exam HEENT: Report: Ears Nose Throat within normal limits, Pharnyx within normal limits Neck: Report: Within normal limits Cardiovascular Systems: Report: +s1/s2 noted, Regular, Rate and Rhythm Respiratory: Report: Breath Sounds are within normal limits Abdomen: Report: Non-tender to palpation Back: Report: Inspection of back is within normal limits. Extremities: Report: Non-tender to palpation. Skin: Report: Other (jaundice) - Lab Results All Lab Results last 24 hours: Laboratory Results - last 24 hr 03/05/18 03/05/18 03/05/18 18:15 18:45 18:45 WBC 95.9 H* D RBC 4.21 Hgb 12.6 Hct 37.7 L MCV 89.4 MCH 29.8 MCHC Differential 33.4 RDW 16.4 Plt Count 287 MPV 8.8 Add Manual Diff YES PT 32.4 H INR 3.30 H PTT (Actin FS) 43.8 H Sodium 144 Potassium 3.7 Chloride 109 H Carbon Dioxide 24.6 Anion Gap 14.1 BUN 14 Creatinine 0.8 Est GFR ( Amer) TNP Est GFR (Non-Af Amer) TNP BUN/Creatinine Ratio 17.5 Glucose 86 Whole Bld Lactic Acid Calcium 8.5 L Phosphorus 3.4 Magnesium 2.0 Total Bilirubin 11.9 H AST 189 H ALT 211 H Alkaline Phosphatase 306 H Ammonia Total Protein 6.0 Albumin 3.0 L Globulin 3.0 Albumin/Globulin Ratio 1.0 Amylase 12 L Lipase < 3 L 03/05/18 03/05/18 03/05/18 18:45 18:45 22:50 WBC RBC Hgb Hct MCV MCH MCHC Differential RDW Plt Count MPV Add Manual Diff PT INR PTT (Actin FS) Sodium Potassium Chloride Carbon Dioxide Anion Gap BUN Creatinine Est GFR ( Amer) Est GFR (Non-Af Amer) BUN/Creatinine Ratio Glucose Whole Bld Lactic Acid 2.30 H* 1.02 Calcium Phosphorus Magnesium Total Bilirubin AST ALT Alkaline Phosphatase Ammonia 44 Total Protein Albumin Globulin Albumin/Globulin Ratio Amylase Lipase - Assessment Assessment: Jaundice h/o leukemia HTN Schizophrenia Psychosis Dementia Depression Anxiety ASHD B/L DVT - Plan Plan: repeat labwork CMP CBC,PT/INR Psychiatric consult Hem/Onc consult
[2018-03-06 08:03] LABS: INR 1.8 (0.5-1.4); PROTHROMBIN TIME (TEST) 18.2 SECONDS (9.5-11.5)
[2018-03-06 08:19] LABS: RED CELL DISTRIBUTION WIDTH 16.6 % (11.5-20.0)
[2018-03-06 08:58] LABS: HEMATOCRIT 38.4 % (41.0-60); HEMOGLOBIN 12.7 gm/dL (12-16); MEAN CELL VOLUME 89.5 fl (80-99); MEAN CORPUSCULAR HEMOGLOBIN 29.5 pg (27.0-31.0); PLATELET COUNT 291 Th/cmm (150-400); RED BLOOD COUNT 4.29 Mil/cmm (3.80-5.80)
[2018-03-06 09:02] LABS: WHITE BLOOD COUNT 95.8 Th/cmm (4.8-10.8)
[2018-03-06 10:55] LABS: ALBUMIN 2.7 gm/dL (4.2-5.5); ALKALINE PHOSPHATASE 286 U/L (34-104); ANION GAP 12.4 (7.0-16.0); BILIRUBIN,TOTAL 12.6 mg/dL (0.3-1.0); BUN - UREA NITROGEN 10 mg/dL (7-25); CALCIUM SERUM 8.2 mg/dL (8.6-10.3); CARBON DIOXIDE 23.7 mEq/L (21.0-31.0); CHLORIDE 111 mEq/L (98-107); CREATININE - SERUM 0.8 mg/dL (0.7-1.3); GLUCOSE 93 mg/dL (70-105); POTASSIUM SERUM 4.1 mEq/L (3.5-5.1); SGOT 172 U/L (13-39); SGPT/ALT 188 U/L (7-52); SODIUM SERUM 143 mEq/L (136-145); TOTAL PROTEIN,SERUM 5.5 gm/dL (6.0-8.3)
--- NOTE | 2018-03-06 21:34 | Consultation ---
DATE OF CONSULTATION: 03/06/2018 IDENTIFYING INFORMATION: The patient is an 83-year-old male. HISTORY OF PRESENT ILLNESS: I was asked to see this patient who has a history of schizophrenia, chronic paranoid, and depression. He was admitted because of jaundice with very elevated white cell count with a history of leukemia, with a history of coronary artery disease, history of deep vein thrombosis, neuropathy, GERD, and anxiety. He is also demented. He has acute lymphoblastic leukemia. The patient himself was a poor historian. He was able to tell me he is that he has 5 children. Apparently, his daughter takes care of him. He has been on Aricept 10 mg at bedtime, lorazepam, Namenda 10 mg daily, and Seroquel 100 mg twice a day. PAST PSYCHIATRIC HISTORY: The patient has prior history of schizophrenia, who was hospitalized before at [facility]. The patient was unable to give much information. He is demented and confused. MEDICAL HISTORY: As per medical doctor. The patient was diagnosed with leukemia, acute lymphoblastic leukemia, jaundice, atherosclerotic heart disease, and history of bilateral deep vein thrombosis. ALLERGIES: THE PATIENT IS ALLERGIC TO MILK, SESAME SEED, SHRIMP, ____, PENICILLIN, AND EGG WHITE. MEDICATIONS: The patient was restarted on his medications the Seroquel, Namenda, and Aricept. The patient was also on antibiotic. FAMILY AND SOCIAL HISTORY: The patient is . He reports to have 5 children. Unable to tell me how far he went to school ____. Unable to give much information. MENTAL STATUS EXAMINATION: The patient was appropriately dressed, not very groomed. He looked tired, flat affect, no eye contact. Jaundice. He was alert. He was able to tell me his age. Unable tell me the date, where he is, why he is here. His long or short term is poor. Unable to tell me where he is, why he is here, or the date. He denies any auditory or visual hallucination. Denies any intent to harm himself or anyone. His insight and judgment are impaired. Does not know where he is, why he is here, and unable to make a safe plan for self-care, demented, and confused. Insight and judgment are impaired. IMPRESSION: AXIS I: History of schizophrenia, depression, not otherwise specified, dementia. MEDICAL DIAGNOSES: As per medical doctor. PLAN: I would recommend to continue medications. Thank you very much for allowing me to participate in the care of this most interesting gentleman. JOB# [id number]
--- NOTE | 2018-03-07 06:08 | General Progress Note ---
Subjective - Review of Systems Service Date: 03/07/18 Subjective: Patient is awake, alert but confused. jaundice. no acute distress. Objective - Results Result Diagrams: 03/06/18 06:15 03/06/18 06:15 Recent Labs: Laboratory Last Values WBC 95.8 Th/cmm (4.8-10.8) H* 03/06/18 06:15 RBC 4.29 Mil/cmm (3.80-5.80) 03/06/18 06:15 Hgb 12.7 gm/dL (12-16) 03/06/18 06:15 Hct 38.4 % (41.0-60) L 03/06/18 06:15 MCV 89.5 fl (80-99) 03/06/18 06:15 MCH 29.5 pg (27.0-31.0) 03/06/18 06:15 MCHC Differential 33.0 pg (28.0-36.0) 03/06/18 06:15 RDW 16.6 % (11.5-20.0) 03/06/18 06:15 Plt Count 291 Th/cmm (150-400) 03/06/18 06:15 MPV 10.0 fl 03/06/18 06:15 Add Manual Diff YES 03/06/18 06:15 PT 18.2 SECONDS (9.5-11.5) H 03/06/18 06:15 INR 1.80 (0.5-1.4) H 03/06/18 06:15 PTT (Actin FS) 35.2 SECONDS (26.0-38.0) 03/06/18 06:15 Sodium 143 mEq/L (136-145) 03/06/18 06:15 Potassium 4.1 mEq/L (3.5-5.1) 03/06/18 06:15 Chloride 111 mEq/L (98-107) H 03/06/18 06:15 Carbon Dioxide 23.7 mEq/L (21.0-31.0) 03/06/18 06:15 Anion Gap 12.4 (7.0-16.0) 03/06/18 06:15 BUN 10 mg/dL (7-25) 03/06/18 06:15 Creatinine 0.8 mg/dL (0.7-1.3) 03/06/18 06:15 Est GFR ( Amer) TNP 03/06/18 06:15 Est GFR (Non-Af Amer) TNP 03/06/18 06:15 BUN/Creatinine Ratio 12.5 03/06/18 06:15 Glucose 93 mg/dL (70-105) 03/06/18 06:15 Whole Bld Lactic Acid 1.02 mmol/L (0.60-1.99) 03/05/18 22:50 Calcium 8.2 mg/dL (8.6-10.3) L 03/06/18 06:15 Phosphorus 3.4 mg/dL (2.5-5.0) 03/05/18 18:45 Magnesium 2.0 mg/dL (1.9-2.7) 03/05/18 18:45 Total Bilirubin 12.6 mg/dL (0.3-1.0) H 03/06/18 06:15 AST 172 U/L (13-39) H 03/06/18 06:15 ALT 188 U/L (7-52) H 03/06/18 06:15 Alkaline Phosphatase 286 U/L (34-104) H 03/06/18 06:15 Ammonia 44 umol/L (16-53) 03/05/18 18:45 Total Protein 5.5 gm/dL (6.0-8.3) L 03/06/18 06:15 Albumin 2.7 gm/dL (4.2-5.5) L 03/06/18 06:15 Globulin 2.8 gm/dL 03/06/18 06:15 Albumin/Globulin Ratio 1.0 (1.0-1.8) 03/06/18 06:15 Amylase 12 U/L (29-103) L 03/05/18 18:45 Lipase < 3 U/L (11-82) L 03/05/18 18:45 - Physical Exam Vitals and I&O: Vital Signs Temp 97.7 F 03/07/18 04:00 Pulse 69 03/07/18 04:00 Resp 18 03/07/18 04:00 BP 112/63 03/07/18 04:00 Pulse Ox 99 03/07/18 04:00 Intake & Output 03/06/18 03/06/18 03/07/18 06:59 18:59 06:59 Intake Total 7864 825 7984 Balance 4452 352 3967 Weight (lbs) 92.533 kg 92.986 kg Intake: Intake, IV Amount 1099 1000 D5-0.45NS 1,000 ml @ 50 1000 mls/hr IV .Q20H [facility] Rx#: [id number] Oral 550 360 Other: # Voids 5 2 # Bowel Movements 1 0 Stool Characteristics Brown Brown Weight Source Bedscale Bedscale Active Medications: Current Medications Acetaminophen (Tylenol) 650 mg PO Q4H PRN PRN Reason: MILD PAIN Stop: 05/05/18 05:41 Donepezil HCl (Aricept) 10 mg PO HS [facility] Stop: 05/05/18 20:59 Last Admin: 03/06/18 21:32 Dose: 10 mg Famotidine (Pepcid) 20 mg PO BID [facility] Stop: 05/05/18 08:59 Last Admin: 03/06/18 17:01 Dose: Not Given Dextrose/Sodium Chloride (D5-0.45ns) 1,000 mls @ 50 mls/hr IV .Q20H [facility] Stop: 05/04/18 21:59 Last Admin: 03/06/18 21:34 Dose: 50 mls/hr Lorazepam (Ativan) 1 mg IVP Q6HR PRN; Protocol PRN Reason: Agitation Stop: 05/04/18 21:44 Last Admin: 03/06/18 05:46 Dose: 1 mg Lorazepam (Ativan) 1 mg IM BID [facility]; Protocol Stop: 05/05/18 08:59 Last Admin: 03/06/18 16:59 Dose: Not Given Memantine (Namenda) 10 mg PO DAILY [facility] Stop: 05/05/18 08:59 Last Admin: 03/06/18 09:50 Dose: 10 mg Quetiapine Fumarate (Seroquel) 100 mg PO BID [facility]; Protocol Stop: 05/05/18 08:59 Last Admin: 03/06/18 17:01 Dose: Not Given General: Alert, No acute distress HEENT: Atraumatic, PERRLA, EOMI Neck: Supple Cardiovascular: Regular rate, Normal S1, Normal S2 Lungs: Clear to auscultation Extremities: no Clubbing, no Cyanosis, no Edema Neurological: Normal gait, Normal speech Assessment/Plan - Assessment Assessment: Jaundice h/o leukemia HTN Schizophrenia Psychosis Dementia Depression Anxiety ASHD B/L DVT - Plan Plan: repeat labwork CMP CBC,PT/INR Psychiatric consult Hem/Onc consult
--- NOTE | 2018-03-07 10:52 | Diagnostic Imaging Report ---
Bilateral lower extremity DVT study HISTORY: Pain, history of bilateral DVT COMPARISON: DVT study on 06/09/2017 Technique: Longitudinal and transverse sonographic images of the bilateral lower extremity veins were obtained with doppler analysis. FINDINGS: Exam of the right side demonstrates diffuse lower extremity deep venous thrombosis extending from the right common femoral to the right popliteal vein. Exam of the left side demonstrates diffuse left lower extremity deep venous thrombosis extending from the left superficial femoral to left popliteal vein. Due to patient being uncooperative, the left posterior tibial left peroneal veins are not able to be evaluated. IMPRESSION: Diffuse bilateral lower extremity deep venous thrombosis. Note, patient has history of DVT seen on prior exams. Clinical correlation and follow-up is needed. Results were relayed to the referring team following the exam.
--- NOTE | 2018-03-07 13:23 | Diagnostic Imaging Report ---
Ultrasound abdomen HISTORY: Elevated liver function tests COMPARISON: CT abdomen and pelvis on 04/23/2017 Technique: Sonography of the abdomen was performed in multiple planes. FINDINGS: Exam is severely limited due to body habitus and patient lack of cooperation. The liver is poorly visualized. The gallbladder was also not well visualized. The common bile duct and pancreas were also not well visualized. The right kidney measures 10.8 x 6.0 cm demonstrating 2 large cysts including upper pole cyst measuring 6.1 cm lower pole cyst measuring 10.2 cm. The left kidney measures 11.0 x 6.3 cm. No evidence of focal lesions or hydronephrosis. The spleen measures 11.7 cm. The abdominal aorta is not well-visualized. IMPRESSION: Markedly limited exam due to body habitus and inability for patient to cooperate. The liver and gallbladder were not able to be well evaluated on this exam. Large right renal cysts. If necessary short-term CT follow-up may again be performed.
[2018-03-07] MEDS: D5-0.45NS 1,000 ML IV SCH (20:22)
--- NOTE | 2018-03-07 22:53 | Progress Notes ---
DATE: 03/07/2018 Case was discussed with staff of the patient, reviewed records. The patient is more smiling today, not as flat as he was yesterday. He had jaundice. He has leukemia. He is unpredictable and impulsive, internally preoccupied, but not acting anyway dangerous. He is compliant with the medication with no side effects, 100 mg of Seroquel twice a day, Namenda 10 mg twice a day and Aricept 10 mg at bedtime. Thank you very much for allowing me to participate in the care of this most interesting gentleman. JOB# [id number]
--- NOTE | 2018-03-08 01:18 | Consultation ---
DATE OF CONSULTATION: 03/07/2018 INPATIENT GASTROINTESTINAL CONSULTATION CONSULTING PHYSICIAN: Dr. Peck. REASON FOR CONSULTATION: Elevated liver function tests and jaundice. HISTORY OF PRESENT ILLNESS: The patient is an 83-year-old male with past medical history significant for schizophrenia, depression, coronary artery disease, history of DVT, acute lymphoblastic leukemia, dementia, who was admitted to the hospital after he was found to have elevated leukocytosis and elevated liver function tests at his nursing facility. History is mostly obtained from the nursing staff and the chart as the patient is not really able to participate in the interview in a meaningful manner. He does not report any abdominal pain. He denies any liver history or liver problems in the past; however, apparently it was noted that he was becoming increasingly jaundiced at his nursing facility and labs revealed worsening leukocytosis and worsening bilirubin levels and the patient was transferred here to the hospital. Labs in the Emergency Room showed white blood cell count of 95 as well as a total bilirubin level of 12 and INR of 3.3, although the patient is on Xarelto. The patient was admitted and is now on restraint given bouts of agitation. In looking through the patient's chart, the last time he was admitted to the hospital was 06/2017, at which point he had a white blood cell count in the 60s, but his liver function tests were normal then. He is not able to tell me if he started any new psychiatric medications or if he has started any new chemotherapies during the interim time. PAST MEDICAL HISTORY: Schizophrenia, depression, anxiety, acute lymphoblastic leukemia, coronary artery disease, DVT. PAST SURGICAL HISTORY: There is no reported abdominal surgeries. FAMILY HISTORY: Noncontributory. SOCIAL HISTORY: The patient lives at the nursing facility. No documented history of alcoholism or illicit drug use. ALLERGIES: THERE ARE REPORTED ALLERGIES TO MILK, SESAME SEEDS, SHRIMP, WHEAT, AND PENICILLINS. REVIEW OF SYSTEMS: Not possible given the patient is not able to participate in the interview. CURRENT MEDICATIONS: Tylenol, IV fluids, Aricept, Pepcid, Ativan, Namenda, and Seroquel. PHYSICAL EXAMINATION: VITAL SIGNS: Blood pressure of 112/63, pulse 69 beats per minute, respiratory rate of 19, temperature of 97.7, and oxygenation of 99%. GENERAL: The patient is lying flat in bed, alert and oriented x 1, two-point restraints. HEAD, EARS, EYES, NOSE AND THROAT: Normocephalic, atraumatic appearing head. Pupils are equal and reactive to light. There is scleral icterus. Moist mucous membranes. NECK: Supple. No JVD or thyromegaly. CHEST: Clear to auscultation bilaterally. CARDIOVASCULAR: S1, S2 are present, regular rate and rhythm. ABDOMEN: Obese, soft, nontender to palpation. There is no guarding or rebound. No fluid distention. EXTREMITIES: 1+ pitting edema bilaterally. Pulses are not present. SKIN: There is marked jaundice. There is no cyanosis. LABORATORY DATA: White blood cell count 95.8, hemoglobin 12.7, platelet count is 291. INR on admission was 3.3, this morning is 1.8. Unclear if he was given vitamin K. Total bilirubin 11.9, AST 189, ALT 211, alkaline phosphatase 306. Lipase was less than 3. There is no imaging that has been performed. IMPRESSION: This is an 83-year-old male with history of schizophrenia on psychiatric medication, acute lymphoblastic leukemia, coronary artery disease, deep venous thrombosis on Xarelto, who was admitted to the hospital with a marked leukocytosis and jaundice. 1. Elevated liver function tests and jaundice. 2. Leukocytosis. 3. History of leukemia. 4. Schizophrenia on psychiatric medication. 5. Coronary artery disease. 6. Deep venous thrombosis on Xarelto. DISCUSSION: At this point, the differential diagnosis for this patient's liver function test elevation is broad. He does not appear to have any pain or signs of infection as I do not think this is a cholangitis and it is unlikely to be an obstructive jaundice given this is primarily a cholestasis picture; however, this needs to be ruled out first and foremost with imaging tests such as ultrasound, but also MRCP. There could be metastatic disease in the liver that can cause LFTs such as this, but I would also be worried about either effects from his leukemia or a drug-induced liver injury possibly from psychiatric medication or even from chemotherapy if he has been receiving this for leukemia. 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 RECOMMENDATIONS: 1. We will get an abdominal ultrasound and also an MRCP to evaluate for any obstructive signs or any liver lesions. 2. We will send a full liver workup including viral autoimmune studies. 3. Agree with Hematology/Oncology consultation. Try to find out some collateral information if he has been receiving any new medications such as chemotherapy agents or any new psychiatric medications. 4. If the LFTs continue to worsen and there is no obstructive reason for this or no metastasis that is found, I would recommend stopping nonessential medications, especially the psychiatric medications as there is concern for drug-induced liver injury. 5. Diet as tolerated for the time being. I will continue to follow. Thank you for allowing me to participate in his care. Please call if you have any further questions. JOB# [id number]
[2018-03-08 08:10] LABS: HEP A AB IGM Negative (Negative); HEP B CORE IGM Negative (Negative); HEP B SURFACE AG QL Negative (Negative); HEP C ANTIBODY <0.1 s/co ratio (0.0-0.9)
--- NOTE | 2018-03-08 08:33 | General Progress Note ---
Subjective - Review of Systems Service Date: 03/08/18 Subjective: Patient is awake, alert but confused. jaundice. no acute distress. Objective - Results Result Diagrams: 03/06/18 06:15 03/06/18 06:15 Recent Labs: Laboratory Last Values WBC 95.8 Th/cmm (4.8-10.8) H* 03/06/18 06:15 RBC 4.29 Mil/cmm (3.80-5.80) 03/06/18 06:15 Hgb 12.7 gm/dL (12-16) 03/06/18 06:15 Hct 38.4 % (41.0-60) L 03/06/18 06:15 MCV 89.5 fl (80-99) 03/06/18 06:15 MCH 29.5 pg (27.0-31.0) 03/06/18 06:15 MCHC Differential 33.0 pg (28.0-36.0) 03/06/18 06:15 RDW 16.6 % (11.5-20.0) 03/06/18 06:15 Plt Count 291 Th/cmm (150-400) 03/06/18 06:15 MPV 10.0 fl 03/06/18 06:15 Add Manual Diff YES 03/06/18 06:15 PT 18.2 SECONDS (9.5-11.5) H 03/06/18 06:15 INR 1.80 (0.5-1.4) H 03/06/18 06:15 PTT (Actin FS) 35.2 SECONDS (26.0-38.0) 03/06/18 06:15 Sodium 143 mEq/L (136-145) 03/06/18 06:15 Potassium 4.1 mEq/L (3.5-5.1) 03/06/18 06:15 Chloride 111 mEq/L (98-107) H 03/06/18 06:15 Carbon Dioxide 23.7 mEq/L (21.0-31.0) 03/06/18 06:15 Anion Gap 12.4 (7.0-16.0) 03/06/18 06:15 BUN 10 mg/dL (7-25) 03/06/18 06:15 Creatinine 0.8 mg/dL (0.7-1.3) 03/06/18 06:15 Est GFR ( Amer) TNP 03/06/18 06:15 Est GFR (Non-Af Amer) TNP 03/06/18 06:15 BUN/Creatinine Ratio 12.5 03/06/18 06:15 Glucose 93 mg/dL (70-105) 03/06/18 06:15 Whole Bld Lactic Acid 1.02 mmol/L (0.60-1.99) 03/05/18 22:50 Calcium 8.2 mg/dL (8.6-10.3) L 03/06/18 06:15 Phosphorus 3.4 mg/dL (2.5-5.0) 03/05/18 18:45 Magnesium 2.0 mg/dL (1.9-2.7) 03/05/18 18:45 Total Bilirubin 12.6 mg/dL (0.3-1.0) H 03/06/18 06:15 AST 172 U/L (13-39) H 03/06/18 06:15 ALT 188 U/L (7-52) H 03/06/18 06:15 Alkaline Phosphatase 286 U/L (34-104) H 03/06/18 06:15 Ammonia 44 umol/L (16-53) 03/05/18 18:45 Total Protein 5.5 gm/dL (6.0-8.3) L 03/06/18 06:15 Albumin 2.7 gm/dL (4.2-5.5) L 03/06/18 06:15 Globulin 2.8 gm/dL 03/06/18 06:15 Albumin/Globulin Ratio 1.0 (1.0-1.8) 03/06/18 06:15 Amylase 12 U/L (29-103) L 03/05/18 18:45 Lipase < 3 U/L (11-82) L 03/05/18 18:45 Hepatitis A IgM Ab Negative (Negative) 03/07/18 09:00 Hep Bs Antigen Negative (Negative) 03/07/18 09:00 Hep B Core IgM Ab Negative (Negative) 03/07/18 09:00 Hepatitis C Antibody <0.1 s/co ratio (0.0-0.9) 03/07/18 09:00 - Physical Exam Vitals and I&O: Vital Signs Temp 97.4 F 03/08/18 07:57 Pulse 65 03/08/18 07:57 Resp 18 03/08/18 07:57 BP 170/68 03/08/18 07:57 Pulse Ox 99 03/08/18 07:57 Intake & Output 03/07/18 03/08/18 03/08/18 18:59 06:59 18:59 Intake Total 1250 240 Balance 1250 240 Weight (lbs) 92.986 kg 92.986 kg Intake: Intake, IV Amount 1000 D5-0.45NS 1,000 ml @ 50 1000 mls/hr IV .Q20H [facility] Rx#: [id number] Oral 250 240 Other: # Voids 3 1 # Bowel Movements 0 0 Stool Characteristics Brown Weight Source Bedscale Bedscale Active Medications: Current Medications Acetaminophen (Tylenol) 650 mg PO Q4H PRN PRN Reason: MILD PAIN Stop: 05/05/18 05:41 Donepezil HCl (Aricept) 10 mg PO [facility] Stop: 05/05/18 20:59 Last Admin: 03/07/18 20:22 Dose: 10 mg Famotidine (Pepcid) 20 mg PO BID [facility] Stop: 05/05/18 08:59 Last Admin: 03/07/18 17:42 Dose: 20 mg Dextrose/Sodium Chloride (D5-0.45ns) 1,000 mls @ 50 mls/hr IV .Q20H [facility] Stop: 05/04/18 21:59 Last Admin: 03/07/18 20:22 Dose: 50 mls/hr Lorazepam (Ativan) 1 mg IVP Q6HR PRN; Protocol PRN Reason: Agitation Stop: 05/04/18 21:44 Last Admin: 03/07/18 22:24 Dose: 1 mg Lorazepam (Ativan) 1 mg IM BID [facility]; Protocol Stop: 05/05/18 08:59 Last Admin: 03/07/18 17:42 Dose: Not Given Memantine (Namenda) 10 mg PO DAILY [facility] Stop: 05/05/18 08:59 Last Admin: 03/07/18 08:50 Dose: Not Given Quetiapine Fumarate (Seroquel) 100 mg PO BID [facility]; Protocol Stop: 05/05/18 08:59 Last Admin: 03/07/18 17:42 Dose: 100 mg Rivaroxaban (Xarelto) 20 mg PO [facility] Stop: 05/06/18 20:59 Last Admin: 03/07/18 20:22 Dose: 20 mg General: Alert, No acute distress HEENT: Atraumatic, PERRLA, EOMI Neck: Supple Cardiovascular: Regular rate, Normal S1, Normal S2 Lungs: Clear to auscultation Extremities: no Clubbing, no Cyanosis, no Edema Neurological: Normal gait, Normal speech Assessment/Plan - Assessment Assessment: Jaundice h/o leukemia HTN Schizophrenia Psychosis Dementia Depression Anxiety ASHD B/L DVT - Plan Plan: repeat labwork CMP CBC,PT/INR Psychiatric consult Hem/Onc consult consider hospice eval if okay with family members
--- NOTE | 2018-03-08 08:48 | GI Progress Note ---
Subjective - Review of Systems Service Date: 03/08/18 Subjective: Pt agitated, would not comply with US yesterday. Objective - Results Result Diagrams: 03/06/18 06:15 03/06/18 06:15 Recent Labs: Laboratory Last Values WBC 95.8 Th/cmm (4.8-10.8) H* 03/06/18 06:15 RBC 4.29 Mil/cmm (3.80-5.80) 03/06/18 06:15 Hgb 12.7 gm/dL (12-16) 03/06/18 06:15 Hct 38.4 % (41.0-60) L 03/06/18 06:15 MCV 89.5 fl (80-99) 03/06/18 06:15 MCH 29.5 pg (27.0-31.0) 03/06/18 06:15 MCHC Differential 33.0 pg (28.0-36.0) 03/06/18 06:15 RDW 16.6 % (11.5-20.0) 03/06/18 06:15 Plt Count 291 Th/cmm (150-400) 03/06/18 06:15 MPV 10.0 fl 03/06/18 06:15 Add Manual Diff YES 03/06/18 06:15 PT 18.2 SECONDS (9.5-11.5) H 03/06/18 06:15 INR 1.80 (0.5-1.4) H 03/06/18 06:15 PTT (Actin FS) 35.2 SECONDS (26.0-38.0) 03/06/18 06:15 Sodium 143 mEq/L (136-145) 03/06/18 06:15 Potassium 4.1 mEq/L (3.5-5.1) 03/06/18 06:15 Chloride 111 mEq/L (98-107) H 03/06/18 06:15 Carbon Dioxide 23.7 mEq/L (21.0-31.0) 03/06/18 06:15 Anion Gap 12.4 (7.0-16.0) 03/06/18 06:15 BUN 10 mg/dL (7-25) 03/06/18 06:15 Creatinine 0.8 mg/dL (0.7-1.3) 03/06/18 06:15 Est GFR ( Amer) TNP 03/06/18 06:15 Est GFR (Non-Af Amer) TNP 03/06/18 06:15 BUN/Creatinine Ratio 12.5 03/06/18 06:15 Glucose 93 mg/dL (70-105) 03/06/18 06:15 Whole Bld Lactic Acid 1.02 mmol/L (0.60-1.99) 03/05/18 22:50 Calcium 8.2 mg/dL (8.6-10.3) L 03/06/18 06:15 Phosphorus 3.4 mg/dL (2.5-5.0) 03/05/18 18:45 Magnesium 2.0 mg/dL (1.9-2.7) 03/05/18 18:45 Total Bilirubin 12.6 mg/dL (0.3-1.0) H 03/06/18 06:15 AST 172 U/L (13-39) H 03/06/18 06:15 ALT 188 U/L (7-52) H 03/06/18 06:15 Alkaline Phosphatase 286 U/L (34-104) H 03/06/18 06:15 Ammonia 44 umol/L (16-53) 03/05/18 18:45 Total Protein 5.5 gm/dL (6.0-8.3) L 03/06/18 06:15 Albumin 2.7 gm/dL (4.2-5.5) L 03/06/18 06:15 Globulin 2.8 gm/dL 03/06/18 06:15 Albumin/Globulin Ratio 1.0 (1.0-1.8) 03/06/18 06:15 Amylase 12 U/L (29-103) L 03/05/18 18:45 Lipase < 3 U/L (11-82) L 03/05/18 18:45 Hepatitis A IgM Ab Negative (Negative) 03/07/18 09:00 Hep Bs Antigen Negative (Negative) 03/07/18 09:00 Hep B Core IgM Ab Negative (Negative) 03/07/18 09:00 Hepatitis C Antibody <0.1 s/co ratio (0.0-0.9) 03/07/18 09:00 - Physical Exam Vitals and I&O: Vital Signs Temp 97.4 F 03/08/18 07:57 Pulse 65 03/08/18 07:57 Resp 18 03/08/18 07:57 BP 170/68 03/08/18 07:57 Pulse Ox 99 03/08/18 07:57 Intake & Output 03/07/18 03/08/18 03/08/18 18:59 06:59 18:59 Intake Total 1250 240 Balance 1250 240 Weight (lbs) 92.986 kg 92.986 kg Intake: Intake, IV Amount 1000 D5-0.45NS 1,000 ml @ 50 1000 mls/hr IV .Q20H [facility] Rx#: [id number] Oral 250 240 Other: # Voids 3 1 # Bowel Movements 0 0 Stool Characteristics Brown Weight Source Bedscale Bedscale Active Medications: Current Medications Acetaminophen (Tylenol) 650 mg PO Q4H PRN PRN Reason: MILD PAIN Stop: 05/05/18 05:41 Donepezil HCl (Aricept) 10 mg PO HS [facility] Stop: 05/05/18 20:59 Last Admin: 03/07/18 20:22 Dose: 10 mg Famotidine (Pepcid) 20 mg PO BID [facility] Stop: 05/05/18 08:59 Last Admin: 03/07/18 17:42 Dose: 20 mg Dextrose/Sodium Chloride (D5-0.45ns) 1,000 mls @ 50 mls/hr IV .Q20H [facility] Stop: 05/04/18 21:59 Last Admin: 03/07/18 20:22 Dose: 50 mls/hr Lorazepam (Ativan) 1 mg IVP Q6HR PRN; Protocol PRN Reason: Agitation Stop: 05/04/18 21:44 Last Admin: 03/07/18 22:24 Dose: 1 mg Lorazepam (Ativan) 1 mg IM BID [facility]; Protocol Stop: 05/05/18 08:59 Last Admin: 03/07/18 17:42 Dose: Not Given Memantine (Namenda) 10 mg PO DAILY [facility] Stop: 05/05/18 08:59 Last Admin: 03/07/18 08:50 Dose: Not Given Quetiapine Fumarate (Seroquel) 100 mg PO BID [facility]; Protocol Stop: 05/05/18 08:59 Last Admin: 03/07/18 17:42 Dose: 100 mg Rivaroxaban (Xarelto) 20 mg PO [facility] Stop: 05/06/18 20:59 Last Admin: 03/07/18 20:22 Dose: 20 mg General: Alert, No acute distress HEENT: Atraumatic, PERRLA, EOMI Neck: Supple Cardiovascular: Regular rate Lungs: Clear to auscultation Abdomen: Bowel sounds, Soft, no Tender, no Hepatomegaly, no Splenomegaly, no Distended Extremities: no Clubbing, no Cyanosis, no Edema Neurological: Normal speech Skin: Other (jaundice) Assessment/Plan - Assessment Assessment: # Schizophrenia # 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 In addition, LFTs are elevated and pt markedly jaundice. This may be due ALL involvement of the liver, or mass effect on the biliary tract. Imaging has been ordered to evaluate this, but pt has been uncooperative thus far. Hyperviscosity due to the WBC count may also cause liver pathology and cholestasis. A liver serologic workup is underway as well DILI is possible as well, although at this point I favor leukemia as the driving factor for his liver disease Plan: - will try order CT abd/pelvis today to image the liver. Doubt that pt will comply with MRCP and did not allow for quality US study - hematology evaluation - trend LFTs - follow autoimmune and metabolic liver workup. Viral studies negative - pt and family will be having meeting today. Generally he has a poor prognosis (although should be verified by his oncologist), and hospice may be considered
[2018-03-08 09:45] LABS: INR 1.07 (0.5-1.4); PROTHROMBIN TIME (TEST) 11.1 SECONDS (9.5-11.5)
[2018-03-08 09:49] LABS: ALB/GLOB RATIO 0.9 (1.0-1.8); ALBUMIN 2.6 gm/dL (4.2-5.5); ALKALINE PHOSPHATASE 317 U/L (34-104); ANION GAP 11.9 (7.0-16.0); BILIRUBIN,TOTAL 16.6 mg/dL (0.3-1.0); BUN - UREA NITROGEN 9 mg/dL (7-25); CALCIUM SERUM 8.3 mg/dL (8.6-10.3); CARBON DIOXIDE 25.2 mEq/L (21.0-31.0); CHLORIDE 106 mEq/L (98-107); CREATININE - SERUM 0.8 mg/dL (0.7-1.3); GLUCOSE 100 mg/dL (70-105); POTASSIUM SERUM 3.1 mEq/L (3.5-5.1); SGOT 171 U/L (13-39); SGPT/ALT 169 U/L (7-52); SODIUM SERUM 140 mEq/L (136-145); TOTAL PROTEIN,SERUM 5.4 gm/dL (6.0-8.3)
[2018-03-08 10:01] LABS: HEMATOCRIT 37.6 % (41.0-60); HEMOGLOBIN 12.7 gm/dL (12-16); MEAN CELL VOLUME 89.6 fl (80-99); MEAN CORPUSCULAR HEMOGLOBIN 30.2 pg (27.0-31.0); MEAN CORPUSCULAR HGB CONC 33.7 pg (28.0-36.0); MEAN PLATELET VOLUME 9.9 fl; PLATELET COUNT 304 Th/cmm (150-400); RED CELL DISTRIBUTION WIDTH 16.6 % (11.5-20.0)
[2018-03-08] MEDS ORDERED: Morphine Sulfate 2 mg/mL 1mL Syr IM PRN (11:00)
[2018-03-08] MEDS: KCL 20mEq/100mL Premix 20 MEQ/100 ML PIGGYBACK IV SCH ×2 (12:11→14:38)
--- NOTE | 2018-03-08 12:19 | Diagnostic Imaging Report ---
CT abdomen and pelvis without intravenous contrast Indication: Abdominal pain, evaluate for liver lesions Comparison: CT abdomen and pelvis on 04/23/2017, Technique: Axial images were obtained from the lung bases to the bilateral proximal femurs without IV contrast. Coronal reconstructions were made. total DLP: [id number], CTDI15.9 FINDINGS: Hypoventilatory and atelectatic changes of the lung bases are noted. Assessment of the solid organs is limited due to lack of IV contrast. Exam is also limited due to motion. Limited assessment of the liver demonstrates punctate granulomas along the dome of the liver. There is suboptimal assessment of the gallbladder. There appear to be small stones. There is severe pancreatic gland atrophy with mild haziness of the pancreatic gland margins. No focal splenic lesions. No focal adrenal lesions. Large right renal cysts are seen at the superior pole the largest at the inferior pole measuring 7.6 x 7.2 cm. 4 mm nonobstructive right renal stone is noted. Left hip arthroplasty seen with streak artifact limiting assessment of pelvis. Minimal diverticulosis is noted without diverticulitis. There is copious stool throughout the colon. No evidence of appendicitis. No free fluid or free air. Atherosclerosis is noted. IVC filter is seen at L2/L3. Advanced degenerative changes of the spine are noted. IMPRESSION: Limited exam due to motion and lack of IV contrast. Punctate granulomas the dome of the liver is noted. Otherwise no discrete focal lesions identified on this noncontrast exam. Suboptimal assessment of the gallbladder. There appear to be gallstones within also compared to previous CT examination. If there is concern for inflammatory process of the gallbladder, nuclear HIDA scan may be obtained for further assessment. Severe pancreatic gland atrophy with haziness of the pancreatic margins. Changes associated mild pancreatitis cannot be excluded, please correlate with patient's clinical findings. Copious stool throughout the colon. Heavy atherosclerotic vascular disease. IVC filter at L2/L3. Right renal cysts. Left hip arthroplasty Degenerative changes.
[2018-03-08 12:38] LABS: BAND NEUTROPHILE 0 % (0-10); EOSINOPHIL 1 % (0-5); LYMPHOCYTE 84 % (20-50); MONOCYTE 5 % (2-10); NEUTROPHILS 10 % (40-80)
[2018-03-08 12:42] LABS: BAND NEUTROPHILE 0 % (0-10); NEUTROPHILS 12 % (40-80)
[2018-03-08 12:43] LABS: BASOPHIL 0 % (0-3); EOSINOPHIL 1 % (0-5); LYMPHOCYTE 78 % (20-50); MONOCYTE 9 % (2-10)
[2018-03-08 12:46] LABS: BAND NEUTROPHILE 0 % (0-10); BASOPHIL 0 % (0-3); EOSINOPHIL 0 % (0-5); LYMPHOCYTE 83 % (20-50); MONOCYTE 7 % (2-10); NEUTROPHILS 10 % (40-80)
[2018-03-08] MEDS: D5-0.45NS 1,000 ML IV SCH (21:58)
--- NOTE | 2018-03-08 23:30 | Progress Notes ---
DATE: 03/08/2018 SUBJECTIVE: Case was discussed with staff of the patient, reviewed records. The patient has been having episodes of agitation and had to be medicated this morning; however, in general, he is sleeping better. He used to being treated for leukemia, weakness. He is jaundice, anemic. The patient ____ aggressive. He may need to go to [facility], however, meanwhile. Thank you very much for allowing me to participate in the care of this most interesting gentleman. JOB# [id number]
--- NOTE | 2018-03-09 08:19 | General Progress Note ---
Subjective - Review of Systems Service Date: 03/09/18 Subjective: Patient is awake, alert but confused. jaundice. no acute distress. HIDA scan noted. On IV fluids. Objective - Results Result Diagrams: 03/08/18 09:19 03/08/18 09:19 Recent Labs: Laboratory Last Values WBC 102.0 Th/cmm (4.8-10.8) H* 03/08/18 09:19 RBC 4.20 Mil/cmm (3.80-5.80) 03/08/18 09:19 Hgb 12.7 gm/dL (12-16) 03/08/18 09:19 Hct 37.6 % (41.0-60) L 03/08/18 09:19 MCV 89.6 fl (80-99) 03/08/18 09:19 MCH 30.2 pg (27.0-31.0) 03/08/18 09:19 MCHC Differential 33.7 pg (28.0-36.0) 03/08/18 09:19 RDW 16.6 % (11.5-20.0) 03/08/18 09:19 Plt Count 304 Th/cmm (150-400) 03/08/18 09:19 MPV 9.9 fl 03/08/18 09:19 Add Manual Diff YES 03/08/18 09:19 Band Neutrophils % 0 % (0-10) 03/08/18 09:19 Neutrophils (Manual) 10 % (40-80) L 03/08/18 09:19 Lymphocytes 84 % (20-50) H 03/08/18 09:19 Monocytes 5 % (2-10) 03/08/18 09:19 Eosinophils 1 % (0-5) 03/08/18 09:19 Basophils 0 % (0-3) 03/06/18 06:15 Metamyelocytes % (0-0) 03/06/18 06:15 PT 11.1 SECONDS (9.5-11.5) 03/08/18 09:19 INR 1.07 (0.5-1.4) 03/08/18 09:19 PTT (Actin FS) 35.2 SECONDS (26.0-38.0) 03/06/18 06:15 Sodium 140 mEq/L (136-145) 03/08/18 09:19 Potassium 3.1 mEq/L (3.5-5.1) L 03/08/18 09:19 Chloride 106 mEq/L (98-107) 03/08/18 09:19 Carbon Dioxide 25.2 mEq/L (21.0-31.0) 03/08/18 09:19 Anion Gap 11.9 (7.0-16.0) 03/08/18 09:19 BUN 9 mg/dL (7-25) 03/08/18 09:19 Creatinine 0.8 mg/dL (0.7-1.3) 03/08/18 09:19 Est GFR ( Amer) TNP 03/08/18 09:19 Est GFR (Non-Af Amer) TNP 03/08/18 09:19 BUN/Creatinine Ratio 11.3 03/08/18 09:19 Glucose 100 mg/dL (70-105) 03/08/18 09:19 Whole Bld Lactic Acid 1.02 mmol/L (0.60-1.99) 03/05/18 22:50 Calcium 8.3 mg/dL (8.6-10.3) L 03/08/18 09:19 Phosphorus 3.4 mg/dL (2.5-5.0) 03/05/18 18:45 Magnesium 2.0 mg/dL (1.9-2.7) 03/05/18 18:45 Total Bilirubin 16.6 mg/dL (0.3-1.0) H 03/08/18 09:19 AST 171 U/L (13-39) H 03/08/18 09:19 ALT 169 U/L (7-52) H 03/08/18 09:19 Alkaline Phosphatase 317 U/L (34-104) H 03/08/18 09:19 Ammonia 44 umol/L (16-53) 03/05/18 18:45 Total Protein 5.4 gm/dL (6.0-8.3) L 03/08/18 09:19 Albumin 2.6 gm/dL (4.2-5.5) L 03/08/18 09:19 Globulin 2.8 gm/dL 03/08/18 09:19 Albumin/Globulin Ratio 0.9 (1.0-1.8) L 03/08/18 09:19 Amylase 12 U/L (29-103) L 03/05/18 18:45 Lipase < 3 U/L (11-82) L 03/05/18 18:45 Hepatitis A IgM Ab Negative (Negative) 03/07/18 09:00 Hep Bs Antigen Negative (Negative) 03/07/18 09:00 Hep B Core IgM Ab Negative (Negative) 03/07/18 09:00 Hepatitis C Antibody <0.1 s/co ratio (0.0-0.9) 03/07/18 09:00 - Physical Exam Vitals and I&O: Vital Signs Temp 97.3 F 03/09/18 04:00 Pulse 75 03/09/18 04:00 Resp 19 03/09/18 04:00 BP 130/64 03/09/18 04:00 Pulse Ox 96 03/09/18 04:00 Intake & Output 03/08/18 03/09/18 03/09/18 18:59 06:59 18:59 Intake Total 1100 350 Balance 1100 350 Weight (lbs) 93.894 kg Intake: Intake, IV Amount 1100 D5-0.45NS 1,000 ml @ 50 1000 mls/hr IV .Q20H [facility] Rx#: [id number] KCL 20mEq/100mL Premix 20 100 meq In 100 ml @ 50 mls/ hr IV Q2H [facility] Rx#: [id number] Oral 350 Other: # Voids 3 # Bowel Movements 0 Weight Source Bedscale Active Medications: Current Medications Acetaminophen (Tylenol) 650 mg PO Q4H PRN PRN Reason: MILD PAIN Stop: 05/05/18 05:41 Donepezil HCl (Aricept) 10 mg PO HS [facility] Stop: 05/05/18 20:59 Last Admin: 03/08/18 21:49 Dose: 10 mg Famotidine (Pepcid) 20 mg PO BID [facility] Stop: 05/05/18 08:59 Last Admin: 03/08/18 17:45 Dose: Not Given Dextrose/Sodium Chloride (D5-0.45ns) 1,000 mls @ 50 mls/hr IV .Q20H [facility] Stop: 05/04/18 21:59 Last Admin: 03/08/18 21:58 Dose: 50 mls/hr Lorazepam (Ativan) 1 mg IVP Q6HR PRN; Protocol PRN Reason: Agitation Stop: 05/04/18 21:44 Last Admin: 03/07/18 22:24 Dose: 1 mg Lorazepam (Ativan) 1 mg IM BID [facility]; Protocol Stop: 05/05/18 08:59 Last Admin: 03/08/18 18:08 Dose: 1 mg Memantine (Namenda) 10 mg PO DAILY [facility] Stop: 05/05/18 08:59 Morphine Sulfate (Morphine) 1 mg IVP Q4HR PRN PRN Reason: Pain (Severe) Stop: 05/07/18 10:59 Quetiapine Fumarate (Seroquel) 100 mg PO BID [facility]; Protocol Stop: 05/05/18 08:59 Last Admin: 03/08/18 17:46 Dose: Not Given Rivaroxaban (Xarelto) 20 mg PO HS [facility] Stop: 05/06/18 20:59 Last Admin: 03/08/18 21:49 Dose: 20 mg General: Alert, No acute distress HEENT: Atraumatic, PERRLA, EOMI Neck: Supple Cardiovascular: Regular rate Lungs: Clear to auscultation Abdomen: Bowel sounds, Soft, no Tender, no Hepatomegaly, no Splenomegaly, no Distended Extremities: no Clubbing, no Cyanosis, no Edema Neurological: Normal speech Skin: Other (jaundice) Assessment/Plan - Assessment Assessment: Jaundice h/o leukemia HTN Schizophrenia Psychosis Dementia Depression Anxiety ASHD B/L DVT Leukocytosis - Plan Plan: repeat labwork CMP CBC,PT/INR Psychiatric consult Hem/Onc consult Gen Surgery consult
--- NOTE | 2018-03-09 08:24 | GI Progress Note ---
Subjective - Review of Systems Service Date: 03/09/18 Subjective: No overnight events, could not get MRCP as pt could not cooperate with the scanner Objective - Results Result Diagrams: 03/08/18 09:19 03/08/18 09:19 Recent Labs: Laboratory Last Values WBC 102.0 Th/cmm (4.8-10.8) H* 03/08/18 09:19 RBC 4.20 Mil/cmm (3.80-5.80) 03/08/18 09:19 Hgb 12.7 gm/dL (12-16) 03/08/18 09:19 Hct 37.6 % (41.0-60) L 03/08/18 09:19 MCV 89.6 fl (80-99) 03/08/18 09:19 MCH 30.2 pg (27.0-31.0) 03/08/18 09: MCHC Differential 33.7 pg (28.0-36.0) 03/08/18 09:19 RDW 16.6 % (11.5-20.0) 03/08/18 09:19 Plt Count 304 Th/cmm (150-400) 03/08/18 09:19 MPV 9.9 fl 03/08/18 09:19 Add Manual Diff YES 03/08/18 09:19 Band Neutrophils % 0 % (0-10) 03/08/18 09:19 Neutrophils (Manual) 10 % (40-80) L 03/08/18 09:19 Lymphocytes 84 % (20-50) H 03/08/18 09:19 Monocytes 5 % (2-10) 03/08/18 09:19 Eosinophils 1 % (0-5) 03/08/18 09:19 Basophils 0 % (0-3) 03/06/18 06:15 Metamyelocytes % (0-0) 03/06/18 06:15 PT 11.1 SECONDS (9.5-11.5) 03/08/18 09:19 INR 1.07 (0.5-1.4) 03/08/18 09:19 PTT (Actin FS) 35.2 SECONDS (26.0-38.0) 03/06/18 06:15 Sodium 140 mEq/L (136-145) 03/08/18 09:19 Potassium 3.1 mEq/L (3.5-5.1) L 03/08/18 09:19 Chloride 106 mEq/L (98-107) 03/08/18 09:19 Carbon Dioxide 25.2 mEq/L (21.0-31.0) 03/08/18 09:19 Anion Gap 11.9 (7.0-16.0) 03/08/18 09:19 BUN 9 mg/dL (7-25) 03/08/18 09:19 Creatinine 0.8 mg/dL (0.7-1.3) 03/08/18 09:19 Est GFR ( Amer) TNP 03/08/18 09:19 Est GFR (Non-Af Amer) TNP 03/08/18 09:19 BUN/Creatinine Ratio 11.3 03/08/18 09:19 Glucose 100 mg/dL (70-105) 03/08/18 09:19 Whole Bld Lactic Acid 1.02 mmol/L (0.60-1.99) 03/05/18 22:50 Calcium 8.3 mg/dL (8.6-10.3) L 03/08/18 09:19 Phosphorus 3.4 mg/dL (2.5-5.0) 03/05/18 18:45 Magnesium 2.0 mg/dL (1.9-2.7) 03/05/18 18:45 Total Bilirubin 16.6 mg/dL (0.3-1.0) H 03/08/18 09:19 AST 171 U/L (13-39) H 03/08/18 09:19 ALT 169 U/L (7-52) H 03/08/18 09:19 Alkaline Phosphatase 317 U/L (34-104) H 03/08/18 09:19 Ammonia 44 umol/L (16-53) 03/05/18 18:45 Total Protein 5.4 gm/dL (6.0-8.3) L 03/08/18 09:19 Albumin 2.6 gm/dL (4.2-5.5) L 03/08/18 09:19 Globulin 2.8 gm/dL 03/08/18 09:19 Albumin/Globulin Ratio 0.9 (1.0-1.8) L 03/08/18 09:19 Amylase 12 U/L (29-103) L 03/05/18 18:45 Lipase < 3 U/L (11-82) L 03/05/18 18:45 Hepatitis A IgM Ab Negative (Negative) 03/07/18 09:00 Hep Bs Antigen Negative (Negative) 03/07/18 09:00 Hep B Core IgM Ab Negative (Negative) 03/07/18 09:00 Hepatitis C Antibody <0.1 s/co ratio (0.0-0.9) 03/07/18 09:00 - Physical Exam Vitals and I&O: Vital Signs Temp 97.3 F 03/09/18 04:00 Pulse 75 03/09/18 04:00 Resp 19 03/09/18 04:00 BP 130/64 03/09/18 04:00 Pulse Ox 96 03/09/18 04:00 Intake & Output 03/08/18 03/09/18 03/09/18 18:59 06:59 18:59 Intake Total 1100 350 Balance 1100 350 Weight (lbs) 93.894 kg Intake: Intake, IV Amount 1100 D5-0.45NS 1,000 ml @ 50 1000 mls/hr IV .Q20H [facility] Rx#: [id number] KCL 20mEq/100mL Premix 20 100 meq In 100 ml @ 50 mls/ hr IV Q2H [facility] Rx#: [id number] Oral 350 Other: # Voids 3 # Bowel Movements 0 Weight Source Bedscale Active Medications: Current Medications Acetaminophen (Tylenol) 650 mg PO Q4H PRN PRN Reason: MILD PAIN Stop: 05/05/18 05:41 Donepezil HCl (Aricept) 10 mg PO HS [facility] Stop: 05/05/18 20:59 Last Admin: 03/08/18 21:49 Dose: 10 mg Famotidine (Pepcid) 20 mg PO BID [facility] Stop: 05/05/18 08:59 Last Admin: 03/08/18 17:45 Dose: Not Given Dextrose/Sodium Chloride (D5-0.45ns) 1,000 mls @ 50 mls/hr IV .Q20H [facility] Stop: 05/04/18 21:59 Last Admin: 03/08/18 21:58 Dose: 50 mls/hr Lorazepam (Ativan) 1 mg IVP Q6HR PRN; Protocol PRN Reason: Agitation Stop: 05/04/18 21:44 Last Admin: 03/07/18 22:24 Dose: 1 mg Lorazepam (Ativan) 1 mg IM BID [facility]; Protocol Stop: 05/05/18 08:59 Last Admin: 03/08/18 18:08 Dose: 1 mg Memantine (Namenda) 10 mg PO DAILY [facility] Stop: 05/05/18 08:59 Morphine Sulfate (Morphine) 1 mg IVP Q4HR PRN PRN Reason: Pain (Severe) Stop: 05/07/18 10:59 Quetiapine Fumarate (Seroquel) 100 mg PO BID [facility]; Protocol Stop: 05/05/18 08:59 Last Admin: 03/08/18 17:46 Dose: Not Given Rivaroxaban (Xarelto) 20 mg PO HS [facility] Stop: 05/06/18 20:59 Last Admin: 03/08/18 21:49 Dose: 20 mg General: Alert, No acute distress HEENT: Atraumatic, PERRLA, EOMI Neck: Supple Cardiovascular: Regular rate Lungs: Clear to auscultation Abdomen: Bowel sounds, Soft, no Tender, no Hepatomegaly, no Splenomegaly, no Distended Extremities: no Clubbing, no Cyanosis, no Edema Neurological: Normal speech Skin: Other (jaundice) Assessment/Plan - Assessment Assessment: # Schizophrenia # 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 In addition , LFTs are elevated and pt markedly jaundice. This may be due ALL involvement of the liver, or mass effect on the biliary tract. Imaging has been ordered to evaluate this, but pt has been uncooperative thus far. Hyperviscosity due to the WBC count may also cause liver pathology and cholestasis. A liver serologic workup is underway as well DILI is possible as well, although at this point I favor leukemia as the driving factor for his liver disease Pt not able to comply with MRCP on 03/08. I do not think this is obstructive jaundice as non con CT does not show obvious dilated ducts, but MRCP would be the only way to really confirm this. Still no hematology evaluation as of 03/09 Plan: - MRCP when and if the pt will comply - hematology evaluation, leukemia is likely the etiology of this pt's presentation - trend LFTs - follow autoimmune and metabolic liver workup. Viral studies negative - pt and family will be having meeting today. Generally he has a poor prognosis (although should be verified by his oncologist), and hospice may be considered and is not unreasonable
[2018-03-09 08:33] LABS: HEMATOCRIT 39.4 % (41.0-60); HEMOGLOBIN 13.3 gm/dL (12-16); MEAN CELL VOLUME 87.7 fl (80-99); MEAN CORPUSCULAR HEMOGLOBIN 29.6 pg (27.0-31.0); MEAN CORPUSCULAR HGB CONC 33.7 pg (28.0-36.0); MEAN PLATELET VOLUME 8.8 fl; PLATELET COUNT 306 Th/cmm (150-400); RED BLOOD COUNT 4.49 Mil/cmm (3.80-5.80); RED CELL DISTRIBUTION WIDTH 16.6 % (11.5-20.0)
[2018-03-09 08:46] LABS: WHITE BLOOD COUNT 110.6 Th/cmm (4.8-10.8)
--- NOTE | 2018-03-09 08:46 | Diagnostic Imaging Report ---
Nuclear medicine HIDA scan HISTORY: Jaundice, biliary obstruction COMPARISON: The abdomen and pelvis on 03/08/2018 ultrasound abdomen on 03/07/2018 Technique/procedure: 5.1 mCi of technetium labeled Choletec was administered intravenously and multiple scintigraphic images were obtained for up to 3 hours FINDINGS: Exam is limited due to technical factors. There is asymmetric uptake of the liver primarily along the upper right lobe. No gross biliary excretion of gallbladder uptake identified. IMPRESSION: Limited exam due to technical factors. Asymmetric more focal uptake is seen along the upper right lobe of the liver. No gross excretion or gallbladder uptake is identified. Differential considerations would be severe hepatocellular disease and cholestasis. Biliary obstructive process may also be considered. Occult Hepatic mass lesion is less likely given findings on recent CT exam. Clinical correlation is needed. Assessment for cholecystitis was also limited on this exam.
[2018-03-09 08:48] LABS: ALBUMIN 2.8 gm/dL (4.2-5.5); ALKALINE PHOSPHATASE 340 U/L (34-104); ANION GAP 13.2 (7.0-16.0); BILIRUBIN,TOTAL 18.7 mg/dL (0.3-1.0); BUN - UREA NITROGEN 9 mg/dL (7-25); CALCIUM SERUM 8.3 mg/dL (8.6-10.3); CARBON DIOXIDE 24.2 mEq/L (21.0-31.0); CHLORIDE 104 mEq/L (98-107); CREATININE - SERUM 0.8 mg/dL (0.7-1.3); GLUCOSE 130 mg/dL (70-105); MAGNESIUM 1.7 mg/dL (1.9-2.7); POTASSIUM SERUM 3.4 mEq/L (3.5-5.1); SGOT 171 U/L (13-39); SGPT/ALT 172 U/L (7-52); SODIUM SERUM 138 mEq/L (136-145); TOTAL PROTEIN,SERUM 5.7 gm/dL (6.0-8.3)
[2018-03-09 08:59] LABS: BAND NEUTROPHILE 0 % (0-10); BASOPHIL 0 % (0-3); EOSINOPHIL 0 % (0-5); LYMPHOCYTE 86 % (20-50); MONOCYTE 4 % (2-10); NEUTROPHILS 10 % (40-80)
--- NOTE | 2018-03-09 09:01 | General Progress Note ---
Subjective - Review of Systems Service Date: 03/09/18 Events since last encounter: consult dictated has leukemia GI and hematology/oncology consult Objective - Results Result Diagrams: 03/09/18 08:30 03/09/18 08:30 Recent Labs: Laboratory Last Values WBC 110.6 Th/cmm (4.8-10.8) H* 03/09/18 08:30 RBC 4.49 Mil/cmm (3.80-5.80) 03/09/18 08:30 Hgb 13.3 gm/dL (12-16) 03/09/18 08:30 Hct 39.4 % (41.0-60) L 03/09/18 08:30 MCV 87.7 fl (80-99) 03/09/18 08:30 MCH 29.6 pg (27.0-31.0) 03/09/18 08:30 MCHC Differential 33.7 pg (28.0-36.0) 03/09/18 08:30 RDW 16.6 % (11.5-20.0) 03/09/18 08:30 Plt Count 306 Th/cmm (150-400) 03/09/18 08:30 MPV 8.8 fl 03/09/18 08:30 Add Manual Diff YES 03/09/18 08:30 Band Neutrophils % 0 % (0-10) 03/08/18 09:19 Neutrophils (Manual) 10 % (40-80) L 03/08/18 09:19 Lymphocytes 84 % (20-50) H 03/08/18 09:19 Monocytes 5 % (2-10) 03/08/18 09:19 Eosinophils 1 % (0-5) 03/08/18 09:19 Basophils 0 % (0-3) 03/06/18 06:15 Metamyelocytes % (0-0) 03/06/18 06:15 PT 11.1 SECONDS (9.5-11.5) 03/08/18 09:19 INR 1.07 (0.5-1.4) 03/08/18 09:19 PTT (Actin FS) 35.2 SECONDS (26.0-38.0) 03/06/18 06:15 Sodium 138 mEq/L (136-145) 03/09/18 08:30 Potassium 3.4 mEq/L (3.5-5.1) L 03/09/18 08:30 Chloride 104 mEq/L (98-107) 03/09/18 08:30 Carbon Dioxide 24.2 mEq/L (21.0-31.0) 03/09/18 08:30 Anion Gap 13.2 (7.0-16.0) 03/09/18 08:30 BUN 9 mg/dL (7-25) 03/09/18 08:30 Creatinine 0.8 mg/dL (0.7-1.3) 03/09/18 08:30 Est GFR ( Amer) TNP 03/09/18 08:30 Est GFR (Non-Af Amer) TNP 03/09/18 08:30 BUN/Creatinine Ratio 11.3 03/09/18 08:30 Glucose 130 mg/dL (70-105) H 03/09/18 08:30 Whole Bld Lactic Acid 1.02 mmol/L (0.60-1.99) 03/05/18 22:50 Calcium 8.3 mg/dL (8.6-10.3) L 03/09/18 08:30 Phosphorus 3.4 mg/dL (2.5-5.0) 03/05/18 18:45 Magnesium 1.7 mg/dL (1.9-2.7) L 03/09/18 08:30 Total Bilirubin 18.7 mg/dL (0.3-1.0) H 03/09/18 08:30 AST 171 U/L (13-39) H 03/09/18 08:30 ALT 172 U/L (7-52) H 03/09/18 08:30 Alkaline Phosphatase 340 U/L (34-104) H 03/09/18 08:30 Ammonia 44 umol/L (16-53) 03/05/18 18:45 Total Protein 5.7 gm/dL (6.0-8.3) L 03/09/18 08:30 Albumin 2.8 gm/dL (4.2-5.5) L 03/09/18 08:30 Globulin 2.9 gm/dL 03/09/18 08:30 Albumin/Globulin Ratio 1.0 (1.0-1.8) 03/09/18 08:30 Amylase 12 U/L (29-103) L 03/05/18 18:45 Lipase < 3 U/L (11-82) L 03/05/18 18:45 Hepatitis A IgM Ab Negative (Negative) 03/07/18 09:00 Hep Bs Antigen Negative (Negative) 03/07/18 09:00 Hep B Core IgM Ab Negative (Negative) 03/07/18 09:00 Hepatitis C Antibody <0.1 s/co ratio (0.0-0.9) 03/07/18 09:00 - Physical Exam Vitals and I&O: Vital Signs Temp 98.2 F 03/09/18 08:23 Pulse 74 03/09/18 08:23 Resp 17 03/09/18 08:23 BP 134/57 03/09/18 08:23 Pulse Ox 90 03/09/18 08:23 Intake & Output 03/08/18 03/09/18 03/09/18 18:59 06:59 18:59 Intake Total 1100 350 Balance 1100 350 Weight (lbs) 93.894 kg Intake: Intake, IV Amount 1100 D5-0.45NS 1,000 ml @ 50 1000 mls/hr IV .Q20H [facility] Rx#: [id number] KCL 20mEq/100mL Premix 20 100 meq In 100 ml @ 50 mls/ hr IV Q2H [facility] Rx#: [id number] Oral 350 Other: # Voids 3 # Bowel Movements 0 Weight Source Bedscale Active Medications: Current Medications Acetaminophen (Tylenol) 650 mg PO Q4H PRN PRN Reason: MILD PAIN Stop: 05/05/18 05:41 Donepezil HCl (Aricept) 10 mg PO HS [facility] Stop: 05/05/18 20:59 Last Admin: 03/08/18 21:49 Dose: 10 mg Famotidine (Pepcid) 20 mg PO BID [facility] Stop: 05/05/18 08:59 Last Admin: 03/08/18 17:45 Dose: Not Given Dextrose/Sodium Chloride (D5-0.45ns) 1,000 mls @ 50 mls/hr IV .Q20H [facility] Stop: 05/04/18 21:59 Last Admin: 03/08/18 21:58 Dose: 50 mls/hr Lorazepam (Ativan) 1 mg IVP Q6HR PRN; Protocol PRN Reason: Agitation Stop: 05/04/18 21:44 Last Admin: 03/07/18 22:24 Dose: 1 mg Lorazepam (Ativan) 1 mg IV BID [facility]; Protocol Stop: 05/08/18 08:59 Memantine (Namenda) 10 mg PO DAILY [facility] Stop: 05/05/18 08:59 Morphine Sulfate (Morphine) 1 mg IVP Q4HR PRN PRN Reason: Pain (Severe) Stop: 05/07/18 10:59 Quetiapine Fumarate (Seroquel) 100 mg PO BID [facility]; Protocol Stop: 05/05/18 08:59 Last Admin: 03/08/18 17:46 Dose: Not Given Rivaroxaban (Xarelto) 20 mg PO HS [facility] Stop: 05/06/18 20:59 Last Admin: 03/08/18 21:49 Dose: 20 mg General: Alert, No acute distress HEENT: Atraumatic, PERRLA, EOMI Neck: Supple Cardiovascular: Regular rate Lungs: Clear to auscultation Abdomen: Bowel sounds, Soft, no Tender, no Hepatomegaly, no Splenomegaly, no Distended Extremities: no Clubbing, no Cyanosis, no Edema Neurological: Normal speech Skin: Other (jaundice)
--- NOTE | 2018-03-09 09:42 | Consultation ---
DATE OF CONSULTATION: 03/09/2018 SURGICAL CONSULT REFERRING PHYSICIAN: Dr. Peck. REASON FOR CONSULTATION: Jaundice, etiology? Thank you for referring this patient to me. This is an 83-year-old male who comes in because of increasing jaundice. His past medical history includes schizophrenia, depression, anxiety, recently diagnosed acute lymphoblastic leukemia, coronary artery disease, DVT for which he takes Xarelto now. The information is gathered from the chart as the patient is unable to give any meaningful information. Laboratory studies show WBC 95,900 when he came in, today it is 102,000. His lymphocyte is 84%. PT is elevated to 32 with PTT of 43.8. Lactic acid markedly elevated. The bilirubin has gone up from 11.9 to 16.6 today with the rest of liver function test markedly abnormal. The lipase is normal. Hepatitis test are negative. CT scan of the abdomen showed possible gallstones, pancreatic atrophy is noted and there appears to be some granulomas in the dome of the liver, although no discrete focal lesions are noted. There is copious stool in the colon, renal cyst and previous left hip arthroplasty. PHYSICAL EXAMINATION: Now, GENERAL: The patient is happily eating his breakfast and unable to give any information. ABDOMEN: Negative for pain or mass. ASSESSMENT AND PLAN: Dr. Briseno, dairy cattle farm worker is working up the patient for etiology of his jaundice but unlikely this is not a surgical problem. JOB# [id number]
[2018-03-09 13:10] LABS: AFP TUMOR MARKER 1.2 ng/mL (0.0-8.3); ANTI-NUCLEAR AB SCREEN Negative; CERULOPLASMIN 31.8 mg/dL (16.0-31.0); F1 ACTIN-SMOOTH MUSC IGG 8 Units (0-19); MITOCHONDRIAL AB 5.9 Units (0.0-20.0)
[2018-03-09] MEDS ORDERED: Potassium Chloride 20 mEq ER Tab PO ONE (17:00)
[2018-03-09] MEDS: D5-0.45NS 1,000 ML IV SCH (19:17)
--- NOTE | 2018-03-09 19:48 | Progress Notes ---
DATE: 03/09/2018 Case was discussed with staff of the patient, reviewed records, discussed with staff. Staff reports has episodes of spitting, agitation. He is demented, confused, unable to make safe plan for self-care, unable to carry on a conversation, been getting Ativan. He is on Namenda 10 mg daily, Aricept 10 mg at bedtime, Seroquel 100 mg twice a day with no side effects and I think care he can get Ativan if he gets agitated. I do not want to increase the dose because of his medical condition. Thank you very much for allowing me to participate in the care of this most interesting gentleman. I will be away for the next few days and you can contact the covering psychiatrist, Dr. Gonzalez and Dr. Oglesby if anything needed. JOB# [id number]
[2018-03-10 07:20] LABS: HEMOGLOBIN 12.6 gm/dL (12-16); MEAN CELL VOLUME 88.6 fl (80-99); MEAN CORPUSCULAR HEMOGLOBIN 30.1 pg (27.0-31.0); MEAN PLATELET VOLUME 9.9 fl; PLATELET COUNT 271 Th/cmm (150-400); RED BLOOD COUNT 4.18 Mil/cmm (3.80-5.80); RED CELL DISTRIBUTION WIDTH 16.6 % (11.5-20.0)
[2018-03-10 07:35] LABS: WHITE BLOOD COUNT 99.3 Th/cmm (4.8-10.8)
[2018-03-10 07:37] LABS: ALBUMIN 2.5 gm/dL (4.2-5.5); ALKALINE PHOSPHATASE 343 U/L (34-104); ANION GAP 9.9 (7.0-16.0); BILIRUBIN,TOTAL 17.5 mg/dL (0.3-1.0); BUN - UREA NITROGEN 9 mg/dL (7-25); CALCIUM SERUM 8.1 mg/dL (8.6-10.3); CARBON DIOXIDE 25.7 mEq/L (21.0-31.0); CHLORIDE 104 mEq/L (98-107); CREATININE - SERUM 0.8 mg/dL (0.7-1.3); GLUCOSE 102 mg/dL (70-105); POTASSIUM SERUM 3.6 mEq/L (3.5-5.1); SGOT 164 U/L (13-39); SGPT/ALT 160 U/L (7-52); SODIUM SERUM 136 mEq/L (136-145); TOTAL PROTEIN,SERUM 5.1 gm/dL (6.0-8.3)
[2018-03-10 07:38] LABS: BILIRUBIN,DIRECT 10.27 mg/dL (0.0-0.2); MAGNESIUM 1.7 mg/dL (1.9-2.7); PHOSPHOROUS 2.6 mg/dL (2.5-5.0)
[2018-03-10 07:53] LABS: INR 1.17 (0.5-1.4); PROTHROMBIN TIME (TEST) 12.1 SECONDS (9.5-11.5)
--- NOTE | 2018-03-10 08:02 | GI Progress Note ---
Subjective - Review of Systems Service Date: 03/10/18 Subjective: Seen by Dr argueta yesterday, no other overnight events Objective - Results Result Diagrams: 03/10/18 06:47 03/10/18 06:47 Recent Labs: Laboratory Last Values WBC 99.3 Th/cmm (4.8-10.8) H* D 03/10/18 06:47 RBC 4.18 Mil/cmm (3.80-5.80) 03/10/18 06:47 Hgb 12.6 gm/dL (12-16) 03/10/18 06:47 Hct 37.0 % (41.0-60) L 03/10/18 06:47 MCV 88.6 fl (80-99) 03/10/18 06:47 MCH 30.1 pg (27.0-31.0) 03/10/18 06:47 MCHC Differential 34.0 pg (28.0-36.0) 03/10/18 06:47 RDW 16.6 % (11.5-20.0) 03/10/18 06:47 Plt Count 271 Th/cmm (150-400) 03/10/18 06:47 MPV 9.9 fl 03/10/18 06:47 Add Manual Diff YES 03/10/18 06:47 Band Neutrophils % 0 % (0-10) 03/09/18 08:30 Neutrophils (Manual) 10 % (40-80) L 03/09/18 08:30 Lymphocytes 86 % (20-50) H 03/09/18 08:30 Monocytes 4 % (2-10) 03/09/18 08:30 Eosinophils 0 % (0-5) 03/09/18 08:30 Basophils 0 % (0-3) 03/09/18 08:30 Metamyelocytes % (0-0) 03/06/18 06:15 PT 11.1 SECONDS (9.5-11.5) 03/08/18 09:19 INR 1.07 (0.5-1.4) 03/08/18 09:19 PTT (Actin FS) 35.2 SECONDS (26.0-38.0) 03/06/18 06:15 Sodium 136 mEq/L (136-145) 03/10/18 06:47 Potassium 3.6 mEq/L (3.5-5.1) 03/10/18 06:47 Chloride 104 mEq/L (98-107) 03/10/18 06:47 Carbon Dioxide 25.7 mEq/L (21.0-31.0) 03/10/18 06:47 Anion Gap 9.9 (7.0-16.0) 03/10/18 06:47 BUN 9 mg/dL (7-25) 03/10/18 06:47 Creatinine 0.8 mg/dL (0.7-1.3) 03/10/18 06:47 Est GFR ( Amer) TNP 03/10/18 06:47 Est GFR (Non-Af Amer) TNP 03/10/18 06:47 BUN/Creatinine Ratio 11.3 03/10/18 06:47 Glucose 102 mg/dL (70-105) 03/10/18 06:47 Whole Bld Lactic Acid 1.02 mmol/L (0.60-1.99) 03/05/18 22:50 Calcium 8.1 mg/dL (8.6-10.3) L 03/10/18 06:47 Phosphorus 2.6 mg/dL (2.5-5.0) 03/10/18 06:47 Magnesium 1.7 mg/dL (1.9-2.7) L 03/10/18 06:47 Iron 78 ug/dL (38-169) 03/07/18 09:00 TIBC 182 ug/dL (250-450) L 03/07/18 09:00 Iron Saturation 43 % (15-55) 03/07/18 09:00 Unsaturated IBC 104 ug/dL (111-343) L 03/07/18 09:00 Ferritin 279 ng/mL (30-400) 03/07/18 09:00 Total Bilirubin 17.5 mg/dL (0.3-1.0) H 03/10/18 06:47 Direct Bilirubin 10.27 mg/dL (0.0-0.2) H 03/10/18 06:47 AST 164 U/L (13-39) H 03/10/18 06:47 ALT 160 U/L (7-52) H 03/10/18 06:47 Alkaline Phosphatase 343 U/L (34-104) H 03/10/18 06:47 Ammonia 44 umol/L (16-53) 03/05/18 18:45 Lactate Dehydrogenase 184 U/L (140-271) 03/10/18 06:47 Total Protein 5.1 gm/dL (6.0-8.3) L 03/10/18 06:47 Albumin 2.5 gm/dL (4.2-5.5) L 03/10/18 06:47 Globulin 2.6 gm/dL 03/10/18 06:47 Albumin/Globulin Ratio 1.0 (1.0-1.8) 03/10/18 06:47 Ceruloplasmin 31.8 mg/dL (16.0-31.0) H 03/07/18 09:00 Amylase 12 U/L (29-103) L 03/05/18 18:45 Lipase < 3 U/L (11-82) L 03/05/18 18:45 Tumor Marker AFP 1.2 ng/mL (0.0-8.3) 03/07/18 09:00 FRANTZ Screen Negative 03/07/18 09:00 Anti-Mitochondrial Ab 5.9 Units (0.0-20.0) 03/07/18 09:00 Smooth Muscle IgG Ab 8 Units (0-19) 03/07/18 09:00 Hepatitis A IgM Ab Negative (Negative) 03/07/18 09:00 Hep Bs Antigen Negative (Negative) 03/07/18 09:00 Hep B Core IgM Ab Negative (Negative) 03/07/18 09:00 Hepatitis C Antibody <0.1 s/co ratio (0.0-0.9) 03/07/18 09:00 - Physical Exam Vitals and I&O: Vital Signs Temp 97.3 F 03/10/18 04:00 Pulse 73 03/10/18 04:00 Resp 17 03/10/18 04:00 BP 125/70 03/10/18 04:00 Pulse Ox 96 03/10/18 04:00 Intake & Output 03/09/18 03/10/18 03/10/18 18:59 06:59 18:59 Intake Total 1600 100 Balance 1600 100 Weight (lbs) 93.894 kg 94.347 kg Intake: Intake, IV Amount 1000 D5-0.45NS 1,000 ml @ 50 1000 mls/hr IV .Q20H [facility] Rx#: [id number] Oral 600 100 Other: # Voids 3 3 # Bowel Movements 1 0 Weight Source Bedscale Bedscale Active Medications: Current Medications Acetaminophen (Tylenol) 650 mg PO Q4H PRN PRN Reason: MILD PAIN Stop: 05/05/18 05:41 Donepezil HCl (Aricept) 10 mg PO HS [facility] Stop: 05/05/18 20:59 Last Admin: 03/09/18 22:32 Dose: 10 mg Famotidine (Pepcid) 20 mg PO BID [facility] Stop: 05/05/18 08:59 Last Admin: 03/09/18 16:36 Dose: 20 mg Dextrose/Sodium Chloride (D5-0.45ns) 1,000 mls @ 50 mls/hr IV .Q20H [facility] Stop: 05/04/18 21:59 Last Admin: 03/09/18 19:17 Dose: 50 mls/hr Lorazepam (Ativan) 1 mg IVP Q6HR PRN; Protocol PRN Reason: Agitation Stop: 05/04/18 21:44 Last Admin: 03/07/18 22:24 Dose: 1 mg Lorazepam (Ativan) 1 mg IV BID [facility]; Protocol Stop: 05/08/18 08:59 Last Admin: 03/09/18 18:27 Dose: Not Given Memantine (Namenda) 10 mg PO DAILY [facility] Stop: 05/05/18 08:59 Last Admin: 03/09/18 09:37 Dose: 10 mg Morphine Sulfate (Morphine) 1 mg IVP Q4HR PRN PRN Reason: Pain (Severe) Stop: 05/07/18 10:59 Quetiapine Fumarate (Seroquel) 100 mg PO BID [facility]; Protocol Stop: 05/05/18 08:59 Last Admin: 03/09/18 16:36 Dose: 100 mg Rivaroxaban (Xarelto) 20 mg PO HS [facility] Stop: 05/06/18 20:59 Last Admin: 03/09/18 22:32 Dose: 20 mg General: Alert, No acute distress HEENT: Atraumatic, PERRLA, EOMI Neck: Supple Cardiovascular: Regular rate Lungs: Clear to auscultation Abdomen: Bowel sounds, Soft, no Tender, no Hepatomegaly, no Splenomegaly, no Distended Extremities: no Clubbing, no Cyanosis, no Edema Neurological: Normal speech Skin: Other (jaundice) Assessment/Plan - Assessment Assessment: # Schizophrenia # 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 In addition , LFTs are elevated and pt markedly jaundice. This may be due ALL involvement of the liver, or mass effect on the biliary tract. Imaging has been ordered to evaluate this, but pt has been uncooperative thus far. Hyperviscosity due to the WBC count may also cause liver pathology and cholestasis. Autoimmune liver labs and viral labs are negative DILI is possible as well, although at this point I favor leukemia as the driving factor for his liver disease Pt not able to comply with MRCP on 03/08. I do not think this is obstructive jaundice as non con CT does not show obvious dilated ducts, but MRCP would be the only way to really confirm this. Follow up hematology recommendations, although unclear if pt can get chemotherapy with this level of jaundice. Plan: - MRCP when and if the pt will comply, can think about giving ativan to help relax the pt - hematology evaluation, leukemia is likely the etiology of this pt's presentation - trend LFTs - Autoimmune hepatitis labs negative. Viral studies negative - pt and family considering hospice. Generally he has a poor prognosis ( although should be verified by his oncologist), and hospice may be considered and is not unreasonable
--- NOTE | 2018-03-10 09:15 | Consultation ---
DATE OF CONSULTATION: 03/10/2018 HISTORY OF PRESENT ILLNESS: An 83-year-old male with history of schizophrenia, depression, currently admitted because of jaundice, leukemia, history of also with current elevated white cell count, also CAD, neuropathy, dementia. On [id number]-wdks, the patient is AO to name, place, not situation, not month. He knows the year. He is not quite sure about the day of the week. He has no idea what city he is in. He is calm at this time, but remains in restraints. Slightly impulsive, unpredictable, very confused, very poor historian. PAST PSYCHIATRIC HISTORY: As noted. MEDICATIONS: Noted. MENTAL STATUS EXAMINATION: Somewhat unkempt, confused, disoriented. No overt SI or HI. No current psychotic symptoms. PROVISIONAL DIAGNOSES: Dementia, also schizophrenia. Under medical, please see full H and P likely overlying delirium. RECOMMENDATIONS AND PLAN: Continue medications at current dosing. Use Ativan judiciously, avoid anticholinergics, benzodiazepins. JOB# [id number]
[2018-03-10 12:00] LABS: LYMPHOCYTE 82 % (20-50); MONOCYTE 6 % (2-10); NEUTROPHILS 12 % (40-80)
[2018-03-11] MEDS: D5-0.45NS 1,000 ML IV SCH ×2 (01:13→16:38)
--- NOTE | 2018-03-11 05:00 | General Progress Note ---
Subjective - Review of Systems Service Date: 03/10/18 Subjective: Patient is awake, alert but confused. jaundice. no acute distress. HIDA scan noted. On IV fluids. Objective - Results Result Diagrams: 03/10/18 06:47 03/10/18 06:47 Recent Labs: Laboratory Last Values WBC 99.3 Th/cmm (4.8-10.8) H* D 03/10/18 06:47 RBC 4.18 Mil/cmm (3.80-5.80) 03/10/18 06:47 Hgb 12.6 gm/dL (12-16) 03/10/18 06:47 Hct 37.0 % (41.0-60) L 03/10/18 06:47 MCV 88.6 fl (80-99) 03/10/18 06:47 MCH 30.1 pg (27.0-31.0) 03/10/18 06:47 MCHC Differential 34.0 pg (28.0-36.0) 03/10/18 06:47 RDW 16.6 % (11.5-20.0) 03/10/18 06:47 Plt Count 271 Th/cmm (150-400) 03/10/18 06:47 MPV 9.9 fl 03/10/18 06:47 Add Manual Diff YES 03/10/18 06:47 Band Neutrophils % 0 % (0-10) 03/09/18 08:30 Neutrophils (Manual) 12 % (40-80) L 03/10/18 06:47 Lymphocytes 82 % (20-50) H 03/10/18 06:47 Monocytes 6 % (2-10) 03/10/18 06:47 Eosinophils 0 % (0-5) 03/09/18 08:30 Basophils 0 % (0-3) 03/09/18 08:30 Metamyelocytes % (0-0) 03/06/18 06:15 Smear Path Review 03/10/18 06:47 Plt Count 271 Th/cmm (150-750) 03/10/18 06:47 PT 12.1 SECONDS (9.5-11.5) H 03/10/18 06:47 INR 1.17 (0.5-1.4) 03/10/18 06:47 PTT (Actin FS) 34.5 SECONDS (26.0-38.0) 03/10/18 06:47 Fibrinogen 376.0 mg/dL (200.0-400.0) 03/10/18 06:47 D-Dimer 162 ng/mL (100-400) 03/10/18 06:47 Sodium 136 mEq/L (136-145) 03/10/18 06:47 Potassium 3.6 mEq/L (3.5-5.1) 03/10/18 06:47 Chloride 104 mEq/L (98-107) 03/10/18 06:47 Carbon Dioxide 25.7 mEq/L (21.0-31.0) 03/10/18 06:47 Anion Gap 9.9 (7.0-16.0) 03/10/18 06:47 BUN 9 mg/dL (7-25) 03/10/18 06:47 Creatinine 0.8 mg/dL (0.7-1.3) 03/10/18 06:47 Est GFR ( Amer) TNP 03/10/18 06:47 Est GFR (Non-Af Amer) TNP 03/10/18 06:47 BUN/Creatinine Ratio 11.3 03/10/18 06:47 Glucose 102 mg/dL (70-105) 03/10/18 06:47 Whole Bld Lactic Acid 1.02 mmol/L (0.60-1.99) 03/05/18 22:50 Calcium 8.1 mg/dL (8.6-10.3) L 03/10/18 06:47 Phosphorus 2.6 mg/dL (2.5-5.0) 03/10/18 06:47 Magnesium 1.7 mg/dL (1.9-2.7) L 03/10/18 06:47 Iron 78 ug/dL (38-169) 03/07/18 09:00 TIBC 182 ug/dL (250-450) L 03/07/18 09:00 Iron Saturation 43 % (15-55) 03/07/18 09:00 Unsaturated IBC 104 ug/dL (111-343) L 03/07/18 09:00 Ferritin 279 ng/mL (30-400) 03/07/18 09:00 Total Bilirubin 17.5 mg/dL (0.3-1.0) H 03/10/18 06:47 Direct Bilirubin 10.27 mg/dL (0.0-0.2) H 03/10/18 06:47 AST 164 U/L (13-39) H 03/10/18 06:47 ALT 160 U/L (7-52) H 03/10/18 06:47 Alkaline Phosphatase 343 U/L (34-104) H 03/10/18 06:47 Ammonia 44 umol/L (16-53) 03/05/18 18:45 Lactate Dehydrogenase 184 U/L (140-271) 03/10/18 06:47 Total Protein 5.1 gm/dL (6.0-8.3) L 03/10/18 06:47 Albumin 2.5 gm/dL (4.2-5.5) L 03/10/18 06:47 Globulin 2.6 gm/dL 03/10/18 06:47 Albumin/Globulin Ratio 1.0 (1.0-1.8) 03/10/18 06:47 Ceruloplasmin 31.8 mg/dL (16.0-31.0) H 03/07/18 09:00 Amylase 12 U/L (29-103) L 03/05/18 18:45 Lipase < 3 U/L (11-82) L 03/05/18 18:45 Tumor Marker AFP 1.2 ng/mL (0.0-8.3) 03/07/18 09:00 FRANTZ Screen Negative 03/07/18 09:00 Anti-Mitochondrial Ab 5.9 Units (0.0-20.0) 03/07/18 09:00 Smooth Muscle IgG Ab 8 Units (0-19) 03/07/18 09:00 Hepatitis A IgM Ab Negative (Negative) 03/07/18 09:00 Hep Bs Antigen Negative (Negative) 03/07/18 09:00 Hep B Core IgM Ab Negative (Negative) 03/07/18 09:00 Hepatitis C Antibody <0.1 s/co ratio (0.0-0.9) 03/07/18 09:00 - Physical Exam Vitals and I&O: Vital Signs Temp 97.2 F 03/10/18 23:58 Pulse 48 03/10/18 23:58 Resp 17 03/11/18 04:00 BP 92/62 03/10/18 23:58 Pulse Ox 96 11/22/18 23:58 Intake & Output 03/10/18 03/10/18 03/11/18 06:59 18:59 06:59 Intake Total 100 1550 Balance 100 1550 Weight (lbs) 94.347 kg 94.347 kg Intake: Intake, IV Amount 1000 D5-0.45NS 1,000 ml @ 50 1000 mls/hr IV .Q20H [facility] Rx#: [id number] Oral 100 550 Other: # Voids 3 3 # Bowel Movements 0 0 Weight Source Bedscale Bedscale Active Medications: Current Medications Acetaminophen (Tylenol) 650 mg PO Q4H PRN PRN Reason: MILD PAIN Stop: 05/05/18 05:41 Last Admin: 03/10/18 20:45 Dose: 650 mg Donepezil HCl (Aricept) 10 mg PO [facility] Stop: 05/05/18 20:59 Last Admin: 03/10/18 20:45 Dose: 10 mg Famotidine (Pepcid) 20 mg PO BID [facility] Stop: 05/05/18 08:59 Last Admin: 03/10/18 17:23 Dose: Not Given Dextrose/Sodium Chloride (D5-0.45ns) 1,000 mls @ 50 mls/hr IV .Q20H [facility] Stop: 05/04/18 21:59 Last Admin: 03/11/18 01:13 Dose: 50 mls/hr Lorazepam (Ativan) 1 mg IVP Q6HR PRN; Protocol PRN Reason: Agitation Stop: 05/04/18 21:44 Last Admin: 03/10/18 21:30 Dose: 1 mg Lorazepam (Ativan) 1 mg IV BID [facility]; Protocol Stop: 05/08/18 08:59 Last Admin: 03/10/18 17:17 Dose: 1 mg Memantine (Namenda) 10 mg PO DAILY [facility] Stop: 05/05/18 08:59 Last Admin: 03/10/18 08:41 Dose: 10 mg Morphine Sulfate (Morphine) 1 mg IVP Q4HR PRN PRN Reason: Pain (Severe) Stop: 05/07/18 10:59 Quetiapine Fumarate (Seroquel) 100 mg PO BID [facility]; Protocol Stop: 05/05/18 08:59 Last Admin: 03/10/18 17:24 Dose: Not Given Rivaroxaban (Xarelto) 20 mg PO [facility] Stop: 05/06/18 20:59 Last Admin: 03/10/18 20:45 Dose: 20 mg General: Alert, No acute distress HEENT: Atraumatic, PERRLA, EOMI Neck: Supple Cardiovascular: Regular rate Lungs: Clear to auscultation Abdomen: Bowel sounds, Soft, no Tender, no Hepatomegaly, no Splenomegaly, no Distended Extremities: no Clubbing, no Cyanosis, no Edema Neurological: Normal speech Skin: Other (jaundice) Assessment/Plan - Assessment Assessment: Jaundice h/o leukemia HTN Schizophrenia Psychosis Dementia Depression Anxiety ASHD B/L DVT Leukocytosis - Plan Plan: repeat labwork CMP CBC,PT/INR Psychiatric consult Hem/Onc consult Gen Surgery consult Nutritional Asmnt/Malnutr-PDOC - Dietary Evaluation Malnutrition Findings (Please click <Entered> for more info): Nutritional Asmnt/Malnutrition Start: 03/09/18 14: 20 Text: Status: Complete Freq: Protocol: Document 03/09/18 14:20 ESTHER (Rec: 03/09/18 15:11 ESTHER [email or web address]) Nutritional Asmnt/Malnutrition Patient General Information Nutritional Screening Moderate Risk Diagnosis jaundice, elevated coagulants Pertinent Medical Hx/Surgical Hx paranoid schizophrenia, depression, CAD, DVT, neuropathy, GERD, anxiety, dementia, acute lymphoblastic leukemia Subjective Information Pt resting in bed at time of visit. Pt appears confused and calm and states he likes his food, but also states he eats foods associated with his listed allergies. Spoke to RN Robbie who states pt is confused and is on restraints d/t being combative at times. Pt was NPO, but now on regular diet and RN states pt finished 75% of meals today with assist. Per EMR, PO intake 75-100% since admitted. Current Diet Order/ Nutrition Support regular Pertinent Medications D5-0.45ns, pepcid, seroquel, xarelto Pertinent Labs 03/09: K 3.4, Ca 8.3, glucose 130, Alb 2.8, Mg 1.7 03/08: K 3.1, Ca 8.3, glucose 100, Alb 2.6 Nutritional Hx/Data Height 1.88 m Height (Calculated Centimeters) 188.0 Current Weight (lbs) 93.894 kg Weight (Calculated Kilograms) 93.9 Weight (Calculated Grams) 70715.6 [place] Body Weight 190 lb Body Mass Index (BMI) 26.6 Weight Status Overweight GI Symptoms GI Symptoms None Last BM 03/06 Difficult in: None Food Allergies Yes: milk, wheat, sesame seed, shrimp, egg white Skin Integrity/Comment: jaundiced; reddened rashes to right axilla, right chest, and right upper arm; reddened buttocks; marilou 13 Current %PO Good (75-100%) Estimated Nutritional Goals BEE in Kcals: Using Current wt Calories/Kcals/Kg 25-30 Kcals Calculated 2525-2780 Protein: Using Current wt Protein g/k.0 Protein Calculated 94 g Fluid: ml 8859-2155 (1 ml/kcal) Nutritional Problem 1. Problem Problem Altered nutrition related lab values Etiology electrolyte imbalance Signs/Symptoms: K 3.4, Ca 8.3, Mg 1.7 Malnutrition Alert Is there a minimum of two criteria No selected? Query Text:Check all the applicable criteria. A minimum of two criteria are recommended for diagnosis of either severe or non-severe malnutrition. Malnutrition Related to Morbid Obesity Malnutrition related to morbid obesity No Intervention/Recommendation Comments 1. Continue with regular diet as ordered and MD to replace electrolytes as needed 2. Consider adding nutrition supplement if needs not met through diet alone 3. Monitor PO intake, wt, labs and skin integrity 4. F/U as moderate risk in 3-5 days, 03/12- Expected Outcomes/Goals Expected Outcomes/Goals 1. PO intake at least 75% of all meals 2. Wt stability, skin integrity to improve, and nutrition related labs to approach normal limits Reviewed by Judy Fitch RD
--- NOTE | 2018-03-11 05:06 | General Progress Note ---
Subjective - Review of Systems Service Date: 03/11/18 Subjective: Patient is awake, alert but confused. jaundice. no acute distress. HIDA scan noted. On IV fluids. Objective - Results Result Diagrams: 03/10/18 06:47 03/10/18 06:47 Recent Labs: Laboratory Last Values WBC 99.3 Th/cmm (4.8-10.8) H* D 03/10/18 06:47 RBC 4.18 Mil/cmm (3.80-5.80) 03/10/18 06:47 Hgb 12.6 gm/dL (12-16) 03/10/18 06:47 Hct 37.0 % (41.0-60) L 03/10/18 06:47 MCV 88.6 fl (80-99) 03/10/18 06:47 MCH 30.1 pg (27.0-31.0) 03/10/18 06:47 MCHC Differential 34.0 pg (28.0-36.0) 03/10/18 06:47 RDW 16.6 % (11.5-20.0) 03/10/18 06:47 Plt Count 271 Th/cmm (150-400) 03/10/18 06:47 MPV 9.9 fl 03/10/18 06:47 Add Manual Diff YES 03/10/18 06:47 Band Neutrophils % 0 % (0-10) 03/09/18 08:30 Neutrophils (Manual) 12 % (40-80) L 03/10/18 06:47 Lymphocytes 82 % (20-50) H 03/10/18 06:47 Monocytes 6 % (2-10) 03/10/18 06:47 Eosinophils 0 % (0-5) 03/09/18 08:30 Basophils 0 % (0-3) 03/09/18 08:30 Metamyelocytes % (0-0) 03/06/18 06:15 Smear Path Review 03/10/18 06:47 Plt Count 271 Th/cmm (150-750) 03/10/18 06:47 PT 12.1 SECONDS (9.5-11.5) H 03/10/18 06:47 INR 1.17 (0.5-1.4) 03/10/18 06:47 PTT (Actin FS) 34.5 SECONDS (26.0-38.0) 03/10/18 06:47 Fibrinogen 376.0 mg/dL (200.0-400.0) 03/10/18 06:47 D-Dimer 162 ng/mL (100-400) 03/10/18 06:47 Sodium 136 mEq/L (136-145) 03/10/18 06:47 Potassium 3.6 mEq/L (3.5-5.1) 03/10/18 06:47 Chloride 104 mEq/L (98-107) 03/10/18 06:47 Carbon Dioxide 25.7 mEq/L (21.0-31.0) 03/10/18 06:47 Anion Gap 9.9 (7.0-16.0) 03/10/18 06:47 BUN 9 mg/dL (7-25) 03/10/18 06:47 Creatinine 0.8 mg/dL (0.7-1.3) 03/10/18 06:47 Est GFR ( Amer) TNP 03/10/18 06:47 Est GFR (Non-Af Amer) TNP 03/10/18 06:47 BUN/Creatinine Ratio 11.3 03/10/18 06:47 Glucose 102 mg/dL (70-105) 03/10/18 06:47 Whole Bld Lactic Acid 1.02 mmol/L (0.60-1.99) 03/05/18 22:50 Calcium 8.1 mg/dL (8.6-10.3) L 03/10/18 06:47 Phosphorus 2.6 mg/dL (2.5-5.0) 03/10/18 06:47 Magnesium 1.7 mg/dL (1.9-2.7) L 03/10/18 06:47 Iron 78 ug/dL (38-169) 03/07/18 09:00 TIBC 182 ug/dL (250-450) L 03/07/18 09:00 Iron Saturation 43 % (15-55) 03/07/18 09:00 Unsaturated IBC 104 ug/dL (111-343) L 03/07/18 09:00 Ferritin 279 ng/mL (30-400) 03/07/18 09:00 Total Bilirubin 17.5 mg/dL (0.3-1.0) H 03/10/18 06:47 Direct Bilirubin 10.27 mg/dL (0.0-0.2) H 03/10/18 06:47 AST 164 U/L (13-39) H 03/10/18 06:47 ALT 160 U/L (7-52) H 03/10/18 06:47 Alkaline Phosphatase 343 U/L (34-104) H 03/10/18 06:47 Ammonia 44 umol/L (16-53) 03/05/18 18:45 Lactate Dehydrogenase 184 U/L (140-271) 03/10/18 06:47 Total Protein 5.1 gm/dL (6.0-8.3) L 03/10/18 06:47 Albumin 2.5 gm/dL (4.2-5.5) L 03/10/18 06:47 Globulin 2.6 gm/dL 03/10/18 06:47 Albumin/Globulin Ratio 1.0 (1.0-1.8) 03/10/18 06:47 Ceruloplasmin 31.8 mg/dL (16.0-31.0) H 03/07/18 09:00 Amylase 12 U/L (29-103) L 03/05/18 18:45 Lipase < 3 U/L (11-82) L 03/05/18 18:45 Tumor Marker AFP 1.2 ng/mL (0.0-8.3) 03/07/18 09:00 FRANTZ Screen Negative 03/07/18 09:00 Anti-Mitochondrial Ab 5.9 Units (0.0-20.0) 03/07/18 09:00 Smooth Muscle IgG Ab 8 Units (0-19) 03/07/18 09:00 Hepatitis A IgM Ab Negative (Negative) 03/07/18 09:00 Hep Bs Antigen Negative (Negative) 03/07/18 09:00 Hep B Core IgM Ab Negative (Negative) 03/07/18 09:00 Hepatitis C Antibody <0.1 s/co ratio (0.0-0.9) 03/07/18 09:00 - Physical Exam Vitals and I&O: Vital Signs Temp 97.2 F 03/10/18 23:58 Pulse 48 03/10/18 23:58 Resp 17 03/11/18 04:00 BP 92/62 03/10/18 23:58 Pulse Ox 96 11/22/18 23:58 Intake & Output 03/10/18 03/10/18 03/11/18 06:59 18:59 06:59 Intake Total 100 1550 Balance 100 1550 Weight (lbs) 94.347 kg 94.347 kg Intake: Intake, IV Amount 1000 D5-0.45NS 1,000 ml @ 50 1000 mls/hr IV .Q20H [facility] Rx#: [id number] Oral 100 550 Other: # Voids 3 3 # Bowel Movements 0 0 Weight Source Bedscale Bedscale Active Medications: Current Medications Acetaminophen (Tylenol) 650 mg PO Q4H PRN PRN Reason: MILD PAIN Stop: 05/05/18 05:41 Last Admin: 03/10/18 20:45 Dose: 650 mg Donepezil HCl (Aricept) 10 mg PO [facility] Stop: 05/05/18 20:59 Last Admin: 03/10/18 20:45 Dose: 10 mg Famotidine (Pepcid) 20 mg PO BID [facility] Stop: 05/05/18 08:59 Last Admin: 03/10/18 17:23 Dose: Not Given Dextrose/Sodium Chloride (D5-0.45ns) 1,000 mls @ 50 mls/hr IV .Q20H [facility] Stop: 05/04/18 21:59 Last Admin: 03/11/18 01:13 Dose: 50 mls/hr Lorazepam (Ativan) 1 mg IVP Q6HR PRN; Protocol PRN Reason: Agitation Stop: 05/04/18 21:44 Last Admin: 03/10/18 21:30 Dose: 1 mg Lorazepam (Ativan) 1 mg IV BID [facility]; Protocol Stop: 05/08/18 08:59 Last Admin: 03/10/18 17:17 Dose: 1 mg Memantine (Namenda) 10 mg PO DAILY [facility] Stop: 05/05/18 08:59 Last Admin: 03/10/18 08:41 Dose: 10 mg Morphine Sulfate (Morphine) 1 mg IVP Q4HR PRN PRN Reason: Pain (Severe) Stop: 05/07/18 10:59 Quetiapine Fumarate (Seroquel) 100 mg PO BID [facility]; Protocol Stop: 05/05/18 08:59 Last Admin: 03/10/18 17:24 Dose: Not Given Rivaroxaban (Xarelto) 20 mg PO [facility] Stop: 05/06/18 20:59 Last Admin: 03/10/18 20:45 Dose: 20 mg General: Alert, No acute distress HEENT: Atraumatic, PERRLA, EOMI Neck: Supple Cardiovascular: Regular rate Lungs: Clear to auscultation Abdomen: Bowel sounds, Soft, no Tender, no Hepatomegaly, no Splenomegaly, no Distended Extremities: no Clubbing, no Cyanosis, no Edema Neurological: Normal speech Skin: Other (jaundice) Assessment/Plan - Assessment Assessment: Jaundice h/o leukemia HTN Schizophrenia Psychosis Dementia Depression Anxiety ASHD B/L DVT Leukocytosis - Plan Plan: repeat labwork CMP CBC,PT/INR Psychiatric consult Hem/Onc consult Gen Surgery consult Nutritional Asmnt/Malnutr-PDOC - Dietary Evaluation Malnutrition Findings (Please click <Entered> for more info): Nutritional Asmnt/Malnutrition Start: 03/09/18 14: 20 Text: Status: Complete Freq: Protocol: Document 03/09/18 14:20 ESTHER (Rec: 03/09/18 15:11 ESTHER [email or web address]) Nutritional Asmnt/Malnutrition Patient General Information Nutritional Screening Moderate Risk Diagnosis jaundice, elevated coagulants Pertinent Medical Hx/Surgical Hx paranoid schizophrenia, depression, CAD, DVT, neuropathy, GERD, anxiety, dementia, acute lymphoblastic leukemia Subjective Information Pt resting in bed at time of visit. Pt appears confused and calm and states he likes his food, but also states he eats foods associated with his listed allergies. Spoke to RN Robbie who states pt is confused and is on restraints d/t being combative at times. Pt was NPO, but now on regular diet and RN states pt finished 75% of meals today with assist. Per EMR, PO intake 75-100% since admitted. Current Diet Order/ Nutrition Support regular Pertinent Medications D5-0.45ns, pepcid, seroquel, xarelto Pertinent Labs 03/09: K 3.4, Ca 8.3, glucose 130, Alb 2.8, Mg 1.7 03/08: K 3.1, Ca 8.3, glucose 100, Alb 2.6 Nutritional Hx/Data Height 1.88 m Height (Calculated Centimeters) 188.0 Current Weight (lbs) 93.894 kg Weight (Calculated Kilograms) 93.9 Weight (Calculated Grams) 56607.6 [place] Body Weight 190 lb Body Mass Index (BMI) 26.6 Weight Status Overweight GI Symptoms GI Symptoms None Last BM 03/06 Difficult in: None Food Allergies Yes: milk, wheat, sesame seed, shrimp, egg white Skin Integrity/Comment: jaundiced; reddened rashes to right axilla, right chest, and right upper arm; reddened buttocks; marilou 13 Current %PO Good (75-100%) Estimated Nutritional Goals BEE in Kcals: Using Current wt Calories/Kcals/Kg 25-30 Kcals Calculated 0954-7158 Protein: Using Current wt Protein g/k.0 Protein Calculated 94 g Fluid: ml 7536-4865 (1 ml/kcal) Nutritional Problem 1. Problem Problem Altered nutrition related lab values Etiology electrolyte imbalance Signs/Symptoms: K 3.4, Ca 8.3, Mg 1.7 Malnutrition Alert Is there a minimum of two criteria No selected? Query Text:Check all the applicable criteria. A minimum of two criteria are recommended for diagnosis of either severe or non-severe malnutrition. Malnutrition Related to Morbid Obesity Malnutrition related to morbid obesity No Intervention/Recommendation Comments 1. Continue with regular diet as ordered and MD to replace electrolytes as needed 2. Consider adding nutrition supplement if needs not met through diet alone 3. Monitor PO intake, wt, labs and skin integrity 4. F/U as moderate risk in 3-5 days, 03/12- Expected Outcomes/Goals Expected Outcomes/Goals 1. PO intake at least 75% of all meals 2. Wt stability, skin integrity to improve, and nutrition related labs to approach normal limits Reviewed by Judy Fitch RD
--- NOTE | 2018-03-11 08:19 | GI Progress Note ---
Subjective - Review of Systems Service Date: 03/11/18 Subjective: No new changes, remains confused Objective - Results Result Diagrams: 03/10/18 06:47 03/10/18 06:47 Recent Labs: Laboratory Last Values WBC 99.3 Th/cmm (4.8-10.8) H* D 03/10/18 06:47 RBC 4.18 Mil/cmm (3.80-5.80) 03/10/18 06:47 Hgb 12.6 gm/dL (12-16) 03/10/18 06:47 Hct 37.0 % (41.0-60) L 03/10/18 06:47 MCV 88.6 fl (80-99) 03/10/18 06:47 MCH 30.1 pg (27.0-31.0) 03/10/18 06:47 MCHC Differential 34.0 pg (28.0-36.0) 03/10/18 06:47 RDW 16.6 % (11.5-20.0) 03/10/18 06:47 Plt Count 271 Th/cmm (150-400) 03/10/18 06:47 MPV 9.9 fl 03/10/18 06:47 Add Manual Diff YES 03/10/18 06:47 Band Neutrophils % 0 % (0-10) 03/09/18 08:30 Neutrophils (Manual) 12 % (40-80) L 03/10/18 06:47 Lymphocytes 82 % (20-50) H 03/10/18 06:47 Monocytes 6 % (2-10) 03/10/18 06:47 Eosinophils 0 % (0-5) 03/09/18 08:30 Basophils 0 % (0-3) 03/09/18 08:30 Metamyelocytes % (0-0) 03/06/18 06:15 Smear Path Review 03/10/18 06:47 Plt Count 271 Th/cmm (150-750) 03/10/18 06:47 PT 12.1 SECONDS (9.5-11.5) H 03/10/18 06:47 INR 1.17 (0.5-1.4) 03/10/18 06:47 PTT (Actin FS) 34.5 SECONDS (26.0-38.0) 03/10/18 06:47 Fibrinogen 376.0 mg/dL (200.0-400.0) 03/10/18 06:47 D-Dimer 162 ng/mL (100-400) 03/10/18 06:47 Sodium 136 mEq/L (136-145) 03/10/18 06:47 Potassium 3.6 mEq/L (3.5-5.1) 03/10/18 06:47 Chloride 104 mEq/L (98-107) 03/10/18 06:47 Carbon Dioxide 25.7 mEq/L (21.0-31.0) 03/10/18 06:47 Anion Gap 9.9 (7.0-16.0) 03/10/18 06:47 BUN 9 mg/dL (7-25) 03/10/18 06:47 Creatinine 0.8 mg/dL (0.7-1.3) 03/10/18 06:47 Est GFR ( Amer) TNP 03/10/18 06:47 Est GFR (Non-Af Amer) TNP 03/10/18 06:47 BUN/Creatinine Ratio 11.3 03/10/18 06:47 Glucose 102 mg/dL (70-105) 03/10/18 06:47 Whole Bld Lactic Acid 1.02 mmol/L (0.60-1.99) 03/05/18 22:50 Calcium 8.1 mg/dL (8.6-10.3) L 03/10/18 06:47 Phosphorus 2.6 mg/dL (2.5-5.0) 03/10/18 06:47 Magnesium 1.7 mg/dL (1.9-2.7) L 03/10/18 06:47 Iron 78 ug/dL (38-169) 03/07/18 09:00 TIBC 182 ug/dL (250-450) L 03/07/18 09:00 Iron Saturation 43 % (15-55) 03/07/18 09:00 Unsaturated IBC 104 ug/dL (111-343) L 03/07/18 09:00 Ferritin 279 ng/mL (30-400) 03/07/18 09:00 Total Bilirubin 17.5 mg/dL (0.3-1.0) H 03/10/18 06:47 Direct Bilirubin 10.27 mg/dL (0.0-0.2) H 03/10/18 06:47 AST 164 U/L (13-39) H 03/10/18 06:47 ALT 160 U/L (7-52) H 03/10/18 06:47 Alkaline Phosphatase 343 U/L (34-104) H 03/10/18 06:47 Ammonia 44 umol/L (16-53) 03/05/18 18:45 Lactate Dehydrogenase 184 U/L (140-271) 03/10/18 06:47 Total Protein 5.1 gm/dL (6.0-8.3) L 03/10/18 06:47 Albumin 2.5 gm/dL (4.2-5.5) L 03/10/18 06:47 Globulin 2.6 gm/dL 03/10/18 06:47 Albumin/Globulin Ratio 1.0 (1.0-1.8) 03/10/18 06:47 Ceruloplasmin 31.8 mg/dL (16.0-31.0) H 03/07/18 09:00 Amylase 12 U/L (29-103) L 03/05/18 18:45 Lipase < 3 U/L (11-82) L 03/05/18 18:45 Tumor Marker AFP 1.2 ng/mL (0.0-8.3) 03/07/18 09:00 FRANTZ Screen Negative 03/07/18 09:00 Anti-Mitochondrial Ab 5.9 Units (0.0-20.0) 03/07/18 09:00 Smooth Muscle IgG Ab 8 Units (0-19) 03/07/18 09:00 Hepatitis A IgM Ab Negative (Negative) 03/07/18 09:00 Hep Bs Antigen Negative (Negative) 03/07/18 09:00 Hep B Core IgM Ab Negative (Negative) 03/07/18 09:00 Hepatitis C Antibody <0.1 s/co ratio (0.0-0.9) 03/07/18 09:00 - Physical Exam Vitals and I&O: Vital Signs Temp 96.1 F 03/11/18 08:11 Pulse 77 03/11/18 08:11 Resp 17 03/11/18 08:11 BP 109/62 03/11/18 08:11 Pulse Ox 100 03/11/18 08:11 Intake & Output 03/10/18 03/11/18 03/11/18 18:59 06:59 18:59 Intake Total 1550 100 Balance 1550 100 Weight (lbs) 94.347 kg 94.404 kg Intake: Intake, IV Amount 1000 D5-0.45NS 1,000 ml @ 50 1000 mls/hr IV .Q20H [facility] Rx#: [id number] Oral 550 100 Other: # Voids 3 2 # Bowel Movements 0 1 Weight Source Bedscale Bedscale Active Medications: Current Medications Acetaminophen (Tylenol) 650 mg PO Q4H PRN PRN Reason: MILD PAIN Stop: 05/05/18 05:41 Last Admin: 03/11/18 05:41 Dose: 650 mg Donepezil HCl (Aricept) 10 mg PO [facility] Stop: 05/05/18 20:59 Last Admin: 03/10/18 20:45 Dose: 10 mg Famotidine (Pepcid) 20 mg PO BID [facility] Stop: 05/05/18 08:59 Last Admin: 03/10/18 17:23 Dose: Not Given Dextrose/Sodium Chloride (D5-0.45ns) 1,000 mls @ 50 mls/hr IV .Q20H [facility] Stop: 05/04/18 21:59 Last Admin: 03/11/18 01:13 Dose: 50 mls/hr Lorazepam (Ativan) 1 mg IVP Q6HR PRN; Protocol PRN Reason: Agitation Stop: 05/04/18 21:44 Last Admin: 03/11/18 05:13 Dose: 1 mg Lorazepam (Ativan) 1 mg IV BID [facility]; Protocol Stop: 05/08/18 08:59 Last Admin: 03/10/18 17:17 Dose: 1 mg Memantine (Namenda) 10 mg PO DAILY [facility] Stop: 05/05/18 08:59 Last Admin: 03/10/18 08:41 Dose: 10 mg Morphine Sulfate (Morphine) 1 mg IVP Q4HR PRN PRN Reason: Pain (Severe) Stop: 05/07/18 10:59 Quetiapine Fumarate (Seroquel) 100 mg PO BID [facility]; Protocol Stop: 05/05/18 08:59 Last Admin: 03/10/18 17:24 Dose: Not Given Rivaroxaban (Xarelto) 20 mg PO [facility] Stop: 05/06/18 20:59 Last Admin: 03/10/18 20:45 Dose: 20 mg General: Alert, No acute distress HEENT: Atraumatic, PERRLA, EOMI Neck: Supple Cardiovascular: Regular rate Lungs: Clear to auscultation Abdomen: Bowel sounds, Soft, no Tender, no Hepatomegaly, no Splenomegaly, no Distended Extremities: no Clubbing, no Cyanosis, no Edema Neurological: Normal speech Skin: Other (jaundice) Assessment/Plan - Assessment Assessment: # Schizophrenia # 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 In addition , LFTs are elevated and pt markedly jaundice. This may be due ALL involvement of the liver, or mass effect on the biliary tract. Imaging has been ordered to evaluate this, but pt has been uncooperative thus far. Hyperviscosity due to the WBC count may also cause liver pathology and cholestasis. Autoimmune liver labs and viral labs are negative DILI is possible as well, although at this point I favor leukemia as the driving factor for his liver disease Pt not able to comply with MRCP on 03/08. I do not think this is obstructive jaundice as non con CT does not show obvious dilated ducts, but MRCP would be the only way to really confirm this. Follow up hematology recommendations, although unclear if pt can get chemotherapy with this level of jaundice. Plan: - MRCP when and if the pt will comply, can think about giving ativan to help relax the pt - hematology evaluation, leukemia is likely the etiology of this pt's presentation - trend LFTs - Autoimmune hepatitis labs negative. Viral studies negative - pt and family considering hospice. Generally he has a poor prognosis ( although should be verified by his oncologist), and hospice may be considered and is not unreasonable
--- NOTE | 2018-03-11 10:09 | General Progress Note ---
Subjective - Review of Systems Service Date: 03/12/18 Events since last encounter: 03/12/[address] Willoughby noted labs, clinical status same Objective - Results Result Diagrams: 03/10/18 06:47 03/10/18 06:47 Recent Labs: Laboratory Last Values WBC 99.3 Th/cmm (4.8-10.8) H* D 03/10/18 06:47 RBC 4.18 Mil/cmm (3.80-5.80) 03/10/18 06:47 Hgb 12.6 gm/dL (12-16) 03/10/18 06:47 Hct 37.0 % (41.0-60) L 03/10/18 06:47 MCV 88.6 fl (80-99) 03/10/18 06:47 MCH 30.1 pg (27.0-31.0) 03/10/18 06:47 MCHC Differential 34.0 pg (28.0-36.0) 03/10/18 06:47 RDW 16.6 % (11.5-20.0) 03/10/18 06:47 Plt Count 271 Th/cmm (150-400) 03/10/18 06:47 MPV 9.9 fl 03/10/18 06:47 Add Manual Diff YES 03/10/18 06:47 Band Neutrophils % 0 % (0-10) 03/09/18 08:30 Neutrophils (Manual) 12 % (40-80) L 03/10/18 06:47 Lymphocytes 82 % (20-50) H 03/10/18 06:47 Monocytes 6 % (2-10) 03/10/18 06:47 Eosinophils 0 % (0-5) 03/09/18 08:30 Basophils 0 % (0-3) 03/09/18 08:30 Metamyelocytes % (0-0) 03/06/18 06:15 Smear Path Review 03/10/18 06:47 Plt Count 271 Th/cmm (150-750) 03/10/18 06:47 PT 12.1 SECONDS (9.5-11.5) H 03/10/18 06:47 INR 1.17 (0.5-1.4) 03/10/18 06:47 PTT (Actin FS) 34.5 SECONDS (26.0-38.0) 03/10/18 06:47 Fibrinogen 376.0 mg/dL (200.0-400.0) 03/10/18 06:47 D-Dimer 162 ng/mL (100-400) 03/10/18 06:47 Sodium 136 mEq/L (136-145) 03/10/18 06:47 Potassium 3.6 mEq/L (3.5-5.1) 03/10/18 06:47 Chloride 104 mEq/L (98-107) 03/10/18 06:47 Carbon Dioxide 25.7 mEq/L (21.0-31.0) 03/10/18 06:47 Anion Gap 9.9 (7.0-16.0) 03/10/18 06:47 BUN 9 mg/dL (7-25) 03/10/18 06:47 Creatinine 0.8 mg/dL (0.7-1.3) 03/10/18 06:47 Est GFR ( Amer) TNP 03/10/18 06:47 Est GFR (Non-Af Amer) TNP 03/10/18 06:47 BUN/Creatinine Ratio 11.3 03/10/18 06:47 Glucose 102 mg/dL (70-105) 03/10/18 06:47 Whole Bld Lactic Acid 1.02 mmol/L (0.60-1.99) 03/05/18 22:50 Calcium 8.1 mg/dL (8.6-10.3) L 03/10/18 06:47 Phosphorus 2.6 mg/dL (2.5-5.0) 03/10/18 06:47 Magnesium 1.7 mg/dL (1.9-2.7) L 03/10/18 06:47 Iron 78 ug/dL (38-169) 03/07/18 09:00 TIBC 182 ug/dL (250-450) L 03/07/18 09:00 Iron Saturation 43 % (15-55) 03/07/18 09:00 Unsaturated IBC 104 ug/dL (111-343) L 03/07/18 09:00 Ferritin 279 ng/mL (30-400) 03/07/18 09:00 Total Bilirubin 17.5 mg/dL (0.3-1.0) H 03/10/18 06:47 Direct Bilirubin 10.27 mg/dL (0.0-0.2) H 03/10/18 06:47 AST 164 U/L (13-39) H 03/10/18 06:47 ALT 160 U/L (7-52) H 03/10/18 06:47 Alkaline Phosphatase 343 U/L (34-104) H 03/10/18 06:47 Ammonia 44 umol/L (16-53) 03/05/18 18:45 Lactate Dehydrogenase 184 U/L (140-271) 03/10/18 06:47 Total Protein 5.1 gm/dL (6.0-8.3) L 03/10/18 06:47 Albumin 2.5 gm/dL (4.2-5.5) L 03/10/18 06:47 Globulin 2.6 gm/dL 03/10/18 06:47 Albumin/Globulin Ratio 1.0 (1.0-1.8) 03/10/18 06:47 Ceruloplasmin 31.8 mg/dL (16.0-31.0) H 03/07/18 09:00 Amylase 12 U/L (29-103) L 03/05/18 18:45 Lipase < 3 U/L (11-82) L 03/05/18 18:45 Tumor Marker AFP 1.2 ng/mL (0.0-8.3) 03/07/18 09:00 FRANTZ Screen Negative 03/07/18 09:00 Anti-Mitochondrial Ab 5.9 Units (0.0-20.0) 03/07/18 09:00 Smooth Muscle IgG Ab 8 Units (0-19) 03/07/18 09:00 Hepatitis A IgM Ab Negative (Negative) 03/07/18 09:00 Hep Bs Antigen Negative (Negative) 03/07/18 09:00 Hep B Core IgM Ab Negative (Negative) 03/07/18 09:00 Hepatitis C Antibody <0.1 s/co ratio (0.0-0.9) 03/07/18 09:00 - Physical Exam Vitals and I&O: Vital Signs Temp 96.5 F 03/11/18 09:12 Pulse 76 03/11/18 09:12 Resp 18 03/11/18 09:12 BP 115/68 03/11/18 09:12 Pulse Ox 100 11/23/18 08:11 Intake & Output 03/10/18 03/11/18 03/11/18 18:59 06:59 18:59 Intake Total 1550 100 Balance 1550 100 Weight (lbs) 94.347 kg 94.404 kg Intake: Intake, IV Amount 1000 D5-0.45NS 1,000 ml @ 50 1000 mls/hr IV .Q20H [facility] Rx#: [id number] Oral 550 100 Other: # Voids 3 2 # Bowel Movements 0 1 Stool Characteristics Formed Weight Source Bedscale Bedscale Active Medications: Current Medications Acetaminophen (Tylenol) 650 mg PO Q4H PRN PRN Reason: MILD PAIN Stop: 05/05/18 05:41 Last Admin: 03/11/18 05:41 Dose: 650 mg Donepezil HCl (Aricept) 10 mg PO [facility] Stop: 05/05/18 20:59 Last Admin: 03/10/18 20:45 Dose: 10 mg Famotidine (Pepcid) 20 mg PO BID [facility] Stop: 05/05/18 08:59 Last Admin: 03/11/18 08:31 Dose: 20 mg Dextrose/Sodium Chloride (D5-0.45ns) 1,000 mls @ 50 mls/hr IV .Q20H [facility] Stop: 05/04/18 21:59 Last Admin: 03/11/18 01:13 Dose: 50 mls/hr Lorazepam (Ativan) 1 mg IVP Q6HR PRN; Protocol PRN Reason: Agitation Stop: 05/04/18 21:44 Last Admin: 03/11/18 05:13 Dose: 1 mg Lorazepam (Ativan) 1 mg IV BID [facility]; Protocol Stop: 05/08/18 08:59 Last Admin: 03/11/18 08:34 Dose: Not Given Memantine (Namenda) 10 mg PO DAILY [facility] Stop: 05/05/18 08:59 Last Admin: 03/11/18 08:31 Dose: 10 mg Morphine Sulfate (Morphine) 1 mg IVP Q4HR PRN PRN Reason: Pain (Severe) Stop: 05/07/18 10:59 Quetiapine Fumarate (Seroquel) 100 mg PO BID [facility]; Protocol Stop: 05/05/18 08:59 Last Admin: 03/11/18 08:31 Dose: 100 mg Rivaroxaban (Xarelto) 20 mg PO [facility] Stop: 05/06/18 20:59 Last Admin: 03/10/18 20:45 Dose: 20 mg General: Alert, No acute distress HEENT: Atraumatic, PERRLA, EOMI Neck: Supple Cardiovascular: Regular rate Lungs: Clear to auscultation Abdomen: Bowel sounds, Soft, no Tender, no Hepatomegaly, no Splenomegaly, no Distended Extremities: no Clubbing, no Cyanosis, no Edema Neurological: Normal speech Skin: Other (jaundice) Nutritional Asmnt/Malnutr-PDOC - Dietary Evaluation Malnutrition Findings (Please click <Entered> for more info): Nutritional Asmnt/Malnutrition Start: 03/09/18 14: 20 Text: Status: Complete Freq: Protocol: Document 03/09/18 14:20 ESTHER (Rec: 03/09/18 15:11 ESTHER [email or web address]) Nutritional Asmnt/Malnutrition Patient General Information Nutritional Screening Moderate Risk Diagnosis jaundice, elevated coagulants Pertinent Medical Hx/Surgical Hx paranoid schizophrenia, depression, CAD, DVT, neuropathy, GERD, anxiety, dementia, acute lymphoblastic leukemia Subjective Information Pt resting in bed at time of visit. Pt appears confused and calm and states he likes his food, but also states he eats foods associated with his listed allergies. Spoke to RN Robbie who states pt is confused and is on restraints d/t being combative at times. Pt was NPO, but now on regular diet and RN states pt finished 75% of meals today with assist. Per EMR, PO intake 75-100% since admitted. Current Diet Order/ Nutrition Support regular Pertinent Medications D5-0.45ns, pepcid, seroquel, xarelto Pertinent Labs 03/09: K 3.4, Ca 8.3, glucose 130, Alb 2.8, Mg 1.7 03/08: K 3.1, Ca 8.3, glucose 100, Alb 2.6 Nutritional Hx/Data Height 1.88 m Height (Calculated Centimeters) 188.0 Current Weight (lbs) 93.894 kg Weight (Calculated Kilograms) 93.9 Weight (Calculated Grams) 44236.6 [place] Body Weight 190 lb Body Mass Index (BMI) 26.6 Weight Status Overweight GI Symptoms GI Symptoms None Last BM 03/06 Difficult in: None Food Allergies Yes: milk, wheat, sesame seed, shrimp, egg white Skin Integrity/Comment: jaundiced; reddened rashes to right axilla, right chest, and right upper arm; reddened buttocks; marilou 13 Current %PO Good (75-100%) Estimated Nutritional Goals BEE in Kcals: Using Current wt Calories/Kcals/Kg 25-30 Kcals Calculated 1035-8813 Protein: Using Current wt Protein g/k.0 Protein Calculated 94 g Fluid: ml 2259-1812 (1 ml/kcal) Nutritional Problem 1. Problem Problem Altered nutrition related lab values Etiology electrolyte imbalance Signs/Symptoms: K 3.4, Ca 8.3, Mg 1.7 Malnutrition Alert Is there a minimum of two criteria No selected? Query Text:Check all the applicable criteria. A minimum of two criteria are recommended for diagnosis of either severe or non-severe malnutrition. Malnutrition Related to Morbid Obesity Malnutrition related to morbid obesity No Intervention/Recommendation Comments 1. Continue with regular diet as ordered and MD to replace electrolytes as needed 2. Consider adding nutrition supplement if needs not met through diet alone 3. Monitor PO intake, wt, labs and skin integrity 4. F/U as moderate risk in 3-5 days, 03/12- Expected Outcomes/Goals Expected Outcomes/Goals 1. PO intake at least 75% of all meals 2. Wt stability, skin integrity to improve, and nutrition related labs to approach normal limits Reviewed by Judy Fitch RD
[2018-03-11] MEDS: Morphine Sulfate 2 mg/mL 1mL Syr IVP PRN (13:34)
--- NOTE | 2018-03-12 07:16 | General Progress Note ---
Subjective - Review of Systems Service Date: 03/12/18 Subjective: Patient is awake, alert but confused. jaundice. no acute distress. HIDA scan noted. On IV fluids. magnesium noted. Objective - Results Result Diagrams: 03/10/18 06:47 03/10/18 06:47 Recent Labs: Laboratory Last Values WBC 99.3 Th/cmm (4.8-10.8) H* D 03/10/18 06:47 RBC 4.18 Mil/cmm (3.80-5.80) 03/10/18 06:47 Hgb 12.6 gm/dL (12-16) 03/10/18 06:47 Hct 37.0 % (41.0-60) L 03/10/18 06:47 MCV 88.6 fl (80-99) 03/10/18 06:47 MCH 30.1 pg (27.0-31.0) 03/10/18 06:47 MCHC Differential 34.0 pg (28.0-36.0) 03/10/18 06:47 RDW 16.6 % (11.5-20.0) 03/10/18 06:47 Plt Count 271 Th/cmm (150-400) 03/10/18 06:47 MPV 9.9 fl 03/10/18 06:47 Add Manual Diff YES 03/10/18 06:47 Band Neutrophils % 0 % (0-10) 03/09/18 08:30 Neutrophils (Manual) 12 % (40-80) L 03/10/18 06:47 Lymphocytes 82 % (20-50) H 03/10/18 06:47 Monocytes 6 % (2-10) 03/10/18 06:47 Eosinophils 0 % (0-5) 03/09/18 08:30 Basophils 0 % (0-3) 03/09/18 08:30 Metamyelocytes % (0-0) 03/06/18 06:15 Smear Path Review 03/10/18 06:47 Plt Count 271 Th/cmm (150-750) 03/10/18 06:47 PT 12.1 SECONDS (9.5-11.5) H 03/10/18 06:47 INR 1.17 (0.5-1.4) 03/10/18 06:47 PTT (Actin FS) 34.5 SECONDS (26.0-38.0) 03/10/18 06:47 Fibrinogen 376.0 mg/dL (200.0-400.0) 03/10/18 06:47 D-Dimer 162 ng/mL (100-400) 03/10/18 06:47 Sodium 136 mEq/L (136-145) 03/10/18 06:47 Potassium 3.6 mEq/L (3.5-5.1) 03/10/18 06:47 Chloride 104 mEq/L (98-107) 03/10/18 06:47 Carbon Dioxide 25.7 mEq/L (21.0-31.0) 03/10/18 06:47 Anion Gap 9.9 (7.0-16.0) 03/10/18 06:47 BUN 9 mg/dL (7-25) 03/10/18 06:47 Creatinine 0.8 mg/dL (0.7-1.3) 03/10/18 06:47 Est GFR ( Amer) TNP 03/10/18 06:47 Est GFR (Non-Af Amer) TNP 03/10/18 06:47 BUN/Creatinine Ratio 11.3 03/10/18 06:47 Glucose 102 mg/dL (70-105) 03/10/18 06:47 Whole Bld Lactic Acid 1.02 mmol/L (0.60-1.99) 03/05/18 22:50 Calcium 8.1 mg/dL (8.6-10.3) L 03/10/18 06:47 Phosphorus 2.6 mg/dL (2.5-5.0) 03/10/18 06:47 Magnesium 1.7 mg/dL (1.9-2.7) L 03/10/18 06:47 Iron 78 ug/dL (38-169) 03/07/18 09:00 TIBC 182 ug/dL (250-450) L 03/07/18 09:00 Iron Saturation 43 % (15-55) 03/07/18 09:00 Unsaturated IBC 104 ug/dL (111-343) L 03/07/18 09:00 Ferritin 279 ng/mL (30-400) 03/07/18 09:00 Total Bilirubin 17.5 mg/dL (0.3-1.0) H 03/10/18 06:47 Direct Bilirubin 10.27 mg/dL (0.0-0.2) H 03/10/18 06:47 AST 164 U/L (13-39) H 03/10/18 06:47 ALT 160 U/L (7-52) H 03/10/18 06:47 Alkaline Phosphatase 343 U/L (34-104) H 03/10/18 06:47 Ammonia 44 umol/L (16-53) 03/05/18 18:45 Lactate Dehydrogenase 184 U/L (140-271) 03/10/18 06:47 Total Protein 5.1 gm/dL (6.0-8.3) L 03/10/18 06:47 Albumin 2.5 gm/dL (4.2-5.5) L 03/10/18 06:47 Globulin 2.6 gm/dL 03/10/18 06:47 Albumin/Globulin Ratio 1.0 (1.0-1.8) 03/10/18 06:47 Ceruloplasmin 31.8 mg/dL (16.0-31.0) H 03/07/18 09:00 Amylase 12 U/L (29-103) L 03/05/18 18:45 Lipase < 3 U/L (11-82) L 03/05/18 18:45 Tumor Marker AFP 1.2 ng/mL (0.0-8.3) 03/07/18 09:00 Carcinoembryonic Ag 3.1 ng/mL (0.0-4.7) 03/10/18 06:47 CA 19-9 Antigen 230 U/mL (0-35) H 03/10/18 06:47 FRANTZ Screen Negative 03/07/18 09:00 Anti-Mitochondrial Ab 5.9 Units (0.0-20.0) 03/07/18 09:00 Smooth Muscle IgG Ab 8 Units (0-19) 03/07/18 09:00 Hepatitis A IgM Ab Negative (Negative) 03/07/18 09:00 Hep Bs Antigen Negative (Negative) 03/07/18 09:00 Hep B Core IgM Ab Negative (Negative) 03/07/18 09:00 Hepatitis C Antibody <0.1 s/co ratio (0.0-0.9) 03/07/18 09:00 - Physical Exam Vitals and I&O: Vital Signs Temp 97.1 F 03/12/18 04:00 Pulse 87 03/12/18 04:00 Resp 17 03/12/18 04:00 BP 104/58 03/12/18 04:00 Pulse Ox 91 03/12/18 04:00 Intake & Output 03/11/18 03/12/18 03/12/18 18:59 06:59 18:59 Intake Total 1570.833 Balance 1570.833 Weight (lbs) 92.986 kg 94.03 kg Intake: Intake, IV Amount 770.833 D5-0.45NS 1,000 ml @ 50 770.833 mls/hr IV .Q20H [facility] Rx#: [id number] Oral 800 Other: # Voids 5 2 # Bowel Movements 2 2 Stool Characteristics Formed Formed Weight Source Bedscale Bedscale Active Medications: Current Medications Acetaminophen (Tylenol) 650 mg PO Q4H PRN PRN Reason: MILD PAIN Stop: 05/05/18 05:41 Last Admin: 03/11/18 05:41 Dose: 650 mg Donepezil HCl (Aricept) 10 mg PO HS [facility] Stop: 05/05/18 20:59 Last Admin: 03/11/18 20:25 Dose: 10 mg Famotidine (Pepcid) 20 mg PO BID [facility] Stop: 05/05/18 08:59 Last Admin: 03/11/18 16:39 Dose: Not Given Dextrose/Sodium Chloride (D5-0.45ns) 1,000 mls @ 50 mls/hr IV .Q20H [facility] Stop: 05/04/18 21:59 Last Admin: 03/11/18 16:38 Dose: 50 mls/hr Magnesium Sulfate 1 gm/ Sodium (Chloride) 52 mls @ 52 mls/hr IV X1 ONE Stop: 03/12/18 08:10 Lorazepam (Ativan) 1 mg IVP Q6HR PRN; Protocol PRN Reason: Agitation Stop: 05/04/18 21:44 Last Admin: 03/11/18 05:13 Dose: 1 mg Lorazepam (Ativan) 1 mg IV BID [facility]; Protocol Stop: 05/08/18 08:59 Last Admin: 03/11/18 16:39 Dose: Not Given Memantine (Namenda) 10 mg PO DAILY [facility] Stop: 05/05/18 08:59 Last Admin: 03/11/18 08:31 Dose: 10 mg Morphine Sulfate (Morphine) 1 mg IVP Q4HR PRN PRN Reason: Pain (Severe) Stop: 05/07/18 10:59 Last Admin: 03/11/18 13:34 Dose: 1 mg Quetiapine Fumarate (Seroquel) 100 mg PO BID [facility]; Protocol Stop: 05/05/18 08:59 Last Admin: 03/11/18 16:40 Dose: Not Given Rivaroxaban (Xarelto) 20 mg PO HS [facility] Stop: 05/06/18 20:59 Last Admin: 03/11/18 20:26 Dose: 20 mg General: Alert, No acute distress HEENT: Atraumatic, PERRLA, EOMI Neck: Supple Cardiovascular: Regular rate Lungs: Clear to auscultation Abdomen: Bowel sounds, Soft, no Tender, no Hepatomegaly, no Splenomegaly, no Distended Extremities: no Clubbing, no Cyanosis, no Edema Neurological: Normal speech Skin: Other (jaundice) Assessment/Plan - Assessment Assessment: Jaundice h/o leukemia HTN Schizophrenia Psychosis Dementia Depression Anxiety ASHD B/L DVT Leukocytosis hypomagenesemia - Plan Plan: repeat labwork CMP CBC,PT/INR Psychiatric consult Hem/Onc consult Gen Surgery consult Mg rider Nutritional Asmnt/Malnutr-PDOC - Dietary Evaluation Malnutrition Findings (Please click <Entered> for more info): Nutritional Asmnt/Malnutrition Start: 03/09/18 14: 20 Text: Status: Complete Freq: Protocol: Document 03/09/18 14:20 ESTHER (Rec: 03/09/18 15:11 ESTHER [email or web address]) Nutritional Asmnt/Malnutrition Patient General Information Nutritional Screening Moderate Risk Diagnosis jaundice, elevated coagulants Pertinent Medical Hx/Surgical Hx paranoid schizophrenia, depression, CAD, DVT, neuropathy, GERD, anxiety, dementia, acute lymphoblastic leukemia Subjective Information Pt resting in bed at time of visit. Pt appears confused and calm and states he likes his food, but also states he eats foods associated with his listed allergies. Spoke to CHELSEA Avalos who states pt is confused and is on restraints d/t being combative at times. Pt was NPO, but now on regular diet and RN states pt finished 75% of meals today with assist. Per EMR, PO intake 75-100% since admitted. Current Diet Order/ Nutrition Support regular Pertinent Medications D5-0.45ns, pepcid, seroquel, xarelto Pertinent Labs 03/09: K 3.4, Ca 8.3, glucose 130, Alb 2.8, Mg 1.7 03/08: K 3.1, Ca 8.3, glucose 100, Alb 2.6 Nutritional Hx/Data Height 1.88 m Height (Calculated Centimeters) 188.0 Current Weight (lbs) 93.894 kg Weight (Calculated Kilograms) 93.9 Weight (Calculated Grams) 94862.6 [place] Body Weight 190 lb Body Mass Index (BMI) 26.6 Weight Status Overweight GI Symptoms GI Symptoms None Last BM 03/06 Difficult in: None Food Allergies Yes: milk, wheat, sesame seed, shrimp, egg white Skin Integrity/Comment: jaundiced; reddened rashes to right axilla, right chest, and right upper arm; reddened buttocks; marilou 13 Current %PO Good (75-100%) Estimated Nutritional Goals BEE in Kcals: Using Current wt Calories/Kcals/Kg 25-30 Kcals Calculated 6600-9504 Protein: Using Current wt Protein g/k.0 Protein Calculated 94 g Fluid: ml 2039-1719 (1 ml/kcal) Nutritional Problem 1. Problem Problem Altered nutrition related lab values Etiology electrolyte imbalance Signs/Symptoms: K 3.4, Ca 8.3, Mg 1.7 Malnutrition Alert Is there a minimum of two criteria No selected? Query Text:Check all the applicable criteria. A minimum of two criteria are recommended for diagnosis of either severe or non-severe malnutrition. Malnutrition Related to Morbid Obesity Malnutrition related to morbid obesity No Intervention/Recommendation Comments 1. Continue with regular diet as ordered and MD to replace electrolytes as needed 2. Consider adding nutrition supplement if needs not met through diet alone 3. Monitor PO intake, wt, labs and skin integrity 4. F/U as moderate risk in 3-5 days, 03/12- Expected Outcomes/Goals Expected Outcomes/Goals 1. PO intake at least 75% of all meals 2. Wt stability, skin integrity to improve, and nutrition related labs to approach normal limits Reviewed by Judy Fitch RD
--- NOTE | 2018-03-12 07:52 | GI Progress Note ---
Subjective - Review of Systems Service Date: 03/12/18 Subjective: No overnight events Objective - Results Result Diagrams: 03/10/18 06:47 03/10/18 06:47 Recent Labs: Laboratory Last Values WBC 99.3 Th/cmm (4.8-10.8) H* D 03/10/18 06:47 RBC 4.18 Mil/cmm (3.80-5.80) 03/10/18 06:47 Hgb 12.6 gm/dL (12-16) 03/10/18 06:47 Hct 37.0 % (41.0-60) L 03/10/18 06:47 MCV 88.6 fl (80-99) 03/10/18 06:47 MCH 30.1 pg (27.0-31.0) 03/10/18 06:47 MCHC Differential 34.0 pg (28.0-36.0) 03/10/18 06:47 RDW 16.6 % (11.5-20.0) 03/10/18 06:47 Plt Count 271 Th/cmm (150-400) 03/10/18 06:47 MPV 9.9 fl 03/10/18 06:47 Add Manual Diff YES 03/10/18 06:47 Band Neutrophils % 0 % (0-10) 03/09/18 08:30 Neutrophils (Manual) 12 % (40-80) L 03/10/18 06:47 Lymphocytes 82 % (20-50) H 03/10/18 06:47 Monocytes 6 % (2-10) 03/10/18 06:47 Eosinophils 0 % (0-5) 03/09/18 08:30 Basophils 0 % (0-3) 03/09/18 08:30 Metamyelocytes % (0-0) 03/06/18 06:15 Smear Path Review 03/10/18 06:47 Plt Count 271 Th/cmm (150-750) 03/10/18 06:47 PT 12.1 SECONDS (9.5-11.5) H 03/10/18 06:47 INR 1.17 (0.5-1.4) 03/10/18 06:47 PTT (Actin FS) 34.5 SECONDS (26.0-38.0) 03/10/18 06:47 Fibrinogen 376.0 mg/dL (200.0-400.0) 03/10/18 06:47 D-Dimer 162 ng/mL (100-400) 03/10/18 06:47 Sodium 136 mEq/L (136-145) 03/10/18 06:47 Potassium 3.6 mEq/L (3.5-5.1) 03/10/18 06:47 Chloride 104 mEq/L (98-107) 03/10/18 06:47 Carbon Dioxide 25.7 mEq/L (21.0-31.0) 03/10/18 06:47 Anion Gap 9.9 (7.0-16.0) 03/10/18 06:47 BUN 9 mg/dL (7-25) 03/10/18 06:47 Creatinine 0.8 mg/dL (0.7-1.3) 03/10/18 06:47 Est GFR ( Amer) TNP 03/10/18 06:47 Est GFR (Non-Af Amer) TNP 03/10/18 06:47 BUN/Creatinine Ratio 11.3 03/10/18 06:47 Glucose 102 mg/dL (70-105) 03/10/18 06:47 Whole Bld Lactic Acid 1.02 mmol/L (0.60-1.99) 03/05/18 22:50 Calcium 8.1 mg/dL (8.6-10.3) L 03/10/18 06:47 Phosphorus 2.6 mg/dL (2.5-5.0) 03/10/18 06:47 Magnesium 1.7 mg/dL (1.9-2.7) L 03/10/18 06:47 Iron 78 ug/dL (38-169) 03/07/18 09:00 TIBC 182 ug/dL (250-450) L 03/07/18 09:00 Iron Saturation 43 % (15-55) 03/07/18 09:00 Unsaturated IBC 104 ug/dL (111-343) L 03/07/18 09:00 Ferritin 279 ng/mL (30-400) 03/07/18 09:00 Total Bilirubin 17.5 mg/dL (0.3-1.0) H 03/10/18 06:47 Direct Bilirubin 10.27 mg/dL (0.0-0.2) H 03/10/18 06:47 AST 164 U/L (13-39) H 03/10/18 06:47 ALT 160 U/L (7-52) H 03/10/18 06:47 Alkaline Phosphatase 343 U/L (34-104) H 03/10/18 06:47 Ammonia 44 umol/L (16-53) 03/05/18 18:45 Lactate Dehydrogenase 184 U/L (140-271) 03/10/18 06:47 Total Protein 5.1 gm/dL (6.0-8.3) L 03/10/18 06:47 Albumin 2.5 gm/dL (4.2-5.5) L 03/10/18 06:47 Globulin 2.6 gm/dL 03/10/18 06:47 Albumin/Globulin Ratio 1.0 (1.0-1.8) 03/10/18 06:47 Ceruloplasmin 31.8 mg/dL (16.0-31.0) H 03/07/18 09:00 Amylase 12 U/L (29-103) L 03/05/18 18:45 Lipase < 3 U/L (11-82) L 03/05/18 18:45 Tumor Marker AFP 1.2 ng/mL (0.0-8.3) 03/07/18 09:00 Carcinoembryonic Ag 3.1 ng/mL (0.0-4.7) 03/10/18 06:47 CA 19-9 Antigen 230 U/mL (0-35) H 03/10/18 06:47 FRANTZ Screen Negative 03/07/18 09:00 Anti-Mitochondrial Ab 5.9 Units (0.0-20.0) 03/07/18 09:00 Smooth Muscle IgG Ab 8 Units (0-19) 03/07/18 09:00 Hepatitis A IgM Ab Negative (Negative) 03/07/18 09:00 Hep Bs Antigen Negative (Negative) 03/07/18 09:00 Hep B Core IgM Ab Negative (Negative) 03/07/18 09:00 Hepatitis C Antibody <0.1 s/co ratio (0.0-0.9) 03/07/18 09:00 - Physical Exam Vitals and I&O: Vital Signs Temp 97.1 F 03/12/18 04:00 Pulse 87 03/12/18 04:00 Resp 17 03/12/18 04:00 BP 104/58 03/12/18 04:00 Pulse Ox 91 03/12/18 04:00 Intake & Output 03/11/18 03/12/18 03/12/18 18:59 06:59 18:59 Intake Total 1570.833 Balance 1570.833 Weight (lbs) 92.986 kg 94.03 kg Intake: Intake, IV Amount 770.833 D5-0.45NS 1,000 ml @ 50 770.833 mls/hr IV .Q20H [facility] Rx#: [id number] Oral 800 Other: # Voids 5 2 # Bowel Movements 2 2 Stool Characteristics Formed Formed Weight Source Bedscale Bedscale Active Medications: Current Medications Acetaminophen (Tylenol) 650 mg PO Q4H PRN PRN Reason: MILD PAIN Stop: 05/05/18 05:41 Last Admin: 03/11/18 05:41 Dose: 650 mg Donepezil HCl (Aricept) 10 mg PO HS [facility] Stop: 05/05/18 20:59 Last Admin: 03/11/18 20:25 Dose: 10 mg Famotidine (Pepcid) 20 mg PO BID [facility] Stop: 05/05/18 08:59 Last Admin: 03/11/18 16:39 Dose: Not Given Dextrose/Sodium Chloride (D5-0.45ns) 1,000 mls @ 50 mls/hr IV .Q20H [facility] Stop: 05/04/18 21:59 Last Admin: 03/11/18 16:38 Dose: 50 mls/hr Magnesium Sulfate 1 gm/ Sodium (Chloride) 52 mls @ 52 mls/hr IV X1 ONE Stop: 03/12/18 08:10 Lorazepam (Ativan) 1 mg IVP Q6HR PRN; Protocol PRN Reason: Agitation Stop: 05/04/18 21:44 Last Admin: 03/11/18 05:13 Dose: 1 mg Lorazepam (Ativan) 1 mg IV BID [facility]; Protocol Stop: 05/08/18 08:59 Last Admin: 03/11/18 16:39 Dose: Not Given Memantine (Namenda) 10 mg PO DAILY [facility] Stop: 05/05/18 08:59 Last Admin: 03/11/18 08:31 Dose: 10 mg Morphine Sulfate (Morphine) 1 mg IVP Q4HR PRN PRN Reason: Pain (Severe) Stop: 05/07/18 10:59 Last Admin: 03/11/18 13:34 Dose: 1 mg Quetiapine Fumarate (Seroquel) 100 mg PO BID [facility]; Protocol Stop: 05/05/18 08:59 Last Admin: 03/11/18 16:40 Dose: Not Given Rivaroxaban (Xarelto) 20 mg PO HS [facility] Stop: 05/06/18 20:59 Last Admin: 03/11/18 20:26 Dose: 20 mg General: Alert, No acute distress HEENT: Atraumatic, PERRLA, EOMI Neck: Supple Cardiovascular: Regular rate Lungs: Clear to auscultation Abdomen: Bowel sounds, Soft, no Tender, no Hepatomegaly, no Splenomegaly, no Distended Extremities: no Clubbing, no Cyanosis, no Edema Neurological: Normal speech Skin: Other (jaundice) Assessment/Plan - Assessment Assessment: # Schizophrenia # 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 In addition , LFTs are elevated and pt markedly jaundice. This may be due ALL involvement of the liver, or mass effect on the biliary tract. Imaging has been ordered to evaluate this, but pt has been uncooperative thus far. Hyperviscosity due to the WBC count may also cause liver pathology and cholestasis. Autoimmune liver labs and viral labs are negative DILI is possible as well, although at this point I favor leukemia as the driving factor for his liver disease Pt not able to comply with MRCP on 03/08. I do not think this is obstructive jaundice as non con CT does not show obvious dilated ducts, but MRCP would be the only way to really confirm this. Follow up hematology recommendations, although unclear if pt can get chemotherapy with this level of jaundice. Plan: Will re-attempt US today to look for any evidence of dilated biliary ducts. I do not suspect this is the case however. - MRCP when and if the pt will comply, can think about giving ativan to help relax the pt - hematology evaluation, leukemia is likely the etiology of this pt's presentation - trend LFTs - Autoimmune hepatitis labs negative. Viral studies negative - pt and family considering hospice. Generally he has a poor prognosis ( although should be verified by his oncologist), and hospice may be considered and is not unreasonable
[2018-03-12] MEDS: Morphine Sulfate 2 mg/mL 1mL Syr IVP PRN ×2 (10:21→20:10)
[2018-03-12] MEDS: D5-0.45NS 1,000 ML IV SCH (10:54)
--- NOTE | 2018-03-13 05:45 | General Progress Note ---
Subjective - Review of Systems Service Date: 03/13/18 Subjective: Patient is awake, alert but confused. jaundice. no acute distress. HIDA scan noted. On IV fluids. magnesium noted. Objective - Results Result Diagrams: 03/10/18 06:47 03/10/18 06:47 Recent Labs: Laboratory Last Values WBC 99.3 Th/cmm (4.8-10.8) H* D 03/10/18 06:47 RBC 4.18 Mil/cmm (3.80-5.80) 03/10/18 06:47 Hgb 12.6 gm/dL (12-16) 03/10/18 06:47 Hct 37.0 % (41.0-60) L 03/10/18 06:47 MCV 88.6 fl (80-99) 03/10/18 06:47 MCH 30.1 pg (27.0-31.0) 03/10/18 06:47 MCHC Differential 34.0 pg (28.0-36.0) 03/10/18 06:47 RDW 16.6 % (11.5-20.0) 03/10/18 06:47 Plt Count 271 Th/cmm (150-400) 03/10/18 06:47 MPV 9.9 fl 03/10/18 06:47 Add Manual Diff YES 03/10/18 06:47 Band Neutrophils % 0 % (0-10) 03/09/18 08:30 Neutrophils (Manual) 12 % (40-80) L 03/10/18 06:47 Lymphocytes 82 % (20-50) H 03/10/18 06:47 Monocytes 6 % (2-10) 03/10/18 06:47 Eosinophils 0 % (0-5) 03/09/18 08:30 Basophils 0 % (0-3) 03/09/18 08:30 Metamyelocytes % (0-0) 03/06/18 06:15 Smear Path Review 03/10/18 06:47 Plt Count 271 Th/cmm (150-750) 03/10/18 06:47 PT 12.1 SECONDS (9.5-11.5) H 03/10/18 06:47 INR 1.17 (0.5-1.4) 03/10/18 06:47 PTT (Actin FS) 34.5 SECONDS (26.0-38.0) 03/10/18 06:47 Fibrinogen 376.0 mg/dL (200.0-400.0) 03/10/18 06:47 D-Dimer 162 ng/mL (100-400) 03/10/18 06:47 Sodium 136 mEq/L (136-145) 03/10/18 06:47 Potassium 3.6 mEq/L (3.5-5.1) 03/10/18 06:47 Chloride 104 mEq/L (98-107) 03/10/18 06:47 Carbon Dioxide 25.7 mEq/L (21.0-31.0) 03/10/18 06:47 Anion Gap 9.9 (7.0-16.0) 03/10/18 06:47 BUN 9 mg/dL (7-25) 03/10/18 06:47 Creatinine 0.8 mg/dL (0.7-1.3) 03/10/18 06:47 Est GFR ( Amer) TNP 03/10/18 06:47 Est GFR (Non-Af Amer) TNP 03/10/18 06:47 BUN/Creatinine Ratio 11.3 03/10/18 06:47 Glucose 102 mg/dL (70-105) 03/10/18 06:47 Whole Bld Lactic Acid 1.02 mmol/L (0.60-1.99) 03/05/18 22:50 Calcium 8.1 mg/dL (8.6-10.3) L 03/10/18 06:47 Phosphorus 2.6 mg/dL (2.5-5.0) 03/10/18 06:47 Magnesium 1.7 mg/dL (1.9-2.7) L 03/10/18 06:47 Iron 78 ug/dL (38-169) 03/07/18 09:00 TIBC 182 ug/dL (250-450) L 03/07/18 09:00 Iron Saturation 43 % (15-55) 03/07/18 09:00 Unsaturated IBC 104 ug/dL (111-343) L 03/07/18 09:00 Ferritin 279 ng/mL (30-400) 03/07/18 09:00 Total Bilirubin 17.5 mg/dL (0.3-1.0) H 03/10/18 06:47 Direct Bilirubin 10.27 mg/dL (0.0-0.2) H 03/10/18 06:47 AST 164 U/L (13-39) H 03/10/18 06:47 ALT 160 U/L (7-52) H 03/10/18 06:47 Alkaline Phosphatase 343 U/L (34-104) H 03/10/18 06:47 Ammonia 44 umol/L (16-53) 03/05/18 18:45 Lactate Dehydrogenase 184 U/L (140-271) 03/10/18 06:47 Total Protein 5.1 gm/dL (6.0-8.3) L 03/10/18 06:47 Albumin 2.5 gm/dL (4.2-5.5) L 03/10/18 06:47 Globulin 2.6 gm/dL 03/10/18 06:47 Albumin/Globulin Ratio 1.0 (1.0-1.8) 03/10/18 06:47 Ceruloplasmin 31.8 mg/dL (16.0-31.0) H 03/07/18 09:00 Amylase 12 U/L (29-103) L 03/05/18 18:45 Lipase < 3 U/L (11-82) L 03/05/18 18:45 Tumor Marker AFP 1.2 ng/mL (0.0-8.3) 03/07/18 09:00 Carcinoembryonic Ag 3.1 ng/mL (0.0-4.7) 03/10/18 06:47 CA 19-9 Antigen 230 U/mL (0-35) H 03/10/18 06:47 FRANTZ Screen Negative 03/07/18 09:00 Anti-Mitochondrial Ab 5.9 Units (0.0-20.0) 03/07/18 09:00 Smooth Muscle IgG Ab 8 Units (0-19) 03/07/18 09:00 Hepatitis A IgM Ab Negative (Negative) 03/07/18 09:00 Hep Bs Antigen Negative (Negative) 03/07/18 09:00 Hep B Core IgM Ab Negative (Negative) 03/07/18 09:00 Hepatitis C Antibody <0.1 s/co ratio (0.0-0.9) 03/07/18 09:00 - Physical Exam Vitals and I&O: Vital Signs Temp 98.2 F 03/13/18 04:00 Pulse 92 03/13/18 04:00 Resp 20 03/13/18 04:00 BP 91/48 03/13/18 04:00 Pulse Ox 97 03/13/18 04:00 Intake & Output 03/12/18 03/12/18 03/13/18 06:59 18:59 06:59 Intake Total 1213.333 Balance 1213.333 Weight (lbs) 94.03 kg 92.986 kg 92.986 kg Intake: Intake, IV Amount 913.333 D5-0.45NS 1,000 ml @ 50 913.333 mls/hr IV .Q20H [facility] [place] Rx#: [id number] Oral 300 Other: # Voids 2 5 # Bowel Movements 2 1 Stool Characteristics Formed Formed Formed Weight Source Bedscale Bedscale Bedscale Active Medications: Current Medications Acetaminophen (Tylenol) 650 mg PO Q4H PRN PRN Reason: MILD PAIN Stop: 05/05/18 05:41 Last Admin: 03/11/18 05:41 Dose: 650 mg Donepezil HCl (Aricept) 10 mg PO HS [facility] Stop: 05/05/18 20:59 Last Admin: 03/12/18 21:22 Dose: 10 mg Famotidine (Pepcid) 20 mg PO BID [facility] Stop: 05/05/18 08:59 Last Admin: 03/12/18 16:50 Dose: Not Given Dextrose/Sodium Chloride (D5-0.45ns) 1,000 mls @ 50 mls/hr IV .Q20H [facility] Stop: 05/04/18 21:59 Last Admin: 03/12/18 10:54 Dose: 50 mls/hr Lorazepam (Ativan) 1 mg IVP Q6HR PRN; Protocol PRN Reason: Agitation Stop: 05/04/18 21:44 Last Admin: 03/11/18 05:13 Dose: 1 mg Lorazepam (Ativan) 1 mg IV BID [facility] [place]; Protocol Stop: 05/08/18 08:59 Last Admin: 03/12/18 22:13 Dose: 1 mg Memantine (Namenda) 10 mg PO DAILY [facility] Stop: 05/05/18 08:59 Last Admin: 03/12/18 08:28 Dose: 10 mg Morphine Sulfate (Morphine) 1 mg IVP Q4HR PRN PRN Reason: Pain (Severe) Stop: 05/07/18 10:59 Last Admin: 03/12/18 20:10 Dose: 1 mg Quetiapine Fumarate (Seroquel) 100 mg PO BID [facility] [place]; Protocol Stop: 05/05/18 08:59 Last Admin: 03/12/18 16:50 Dose: Not Given Rivaroxaban (Xarelto) 20 mg PO HS [facility] Stop: 05/06/18 20:59 Last Admin: 03/12/18 21:22 Dose: 20 mg General: Alert, No acute distress HEENT: Atraumatic, PERRLA, EOMI Neck: Supple Cardiovascular: Regular rate Lungs: Clear to auscultation Abdomen: Bowel sounds, Soft, no Tender, no Hepatomegaly, no Splenomegaly, no Distended Extremities: no Clubbing, no Cyanosis, no Edema Neurological: Normal speech Skin: Other (jaundice) Assessment/Plan - Assessment Assessment: Jaundice h/o leukemia HTN Schizophrenia Psychosis Dementia Depression Anxiety ASHD B/L DVT Leukocytosis hypomagenesemia - Plan Plan: repeat labwork CMP CBC,PT/INR Psychiatric consult Hem/Onc consult Gen Surgery consult Mg rider Nutritional Asmnt/Malnutr-PDOC - Dietary Evaluation Malnutrition Findings (Please click <Entered> for more info): Nutritional Asmnt/Malnutrition Start: 03/09/18 14: 20 Text: Status: Complete Freq: Protocol: Document 03/09/18 14:20 ESTHER (Rec: 03/09/18 15:11 ESTHER [email or web address]) Nutritional Asmnt/Malnutrition Patient General Information Nutritional Screening Moderate Risk Diagnosis jaundice, elevated coagulants Pertinent Medical Hx/Surgical Hx paranoid schizophrenia, depression, CAD, DVT, neuropathy, GERD, anxiety, dementia, acute lymphoblastic leukemia Subjective Information Pt resting in bed at time of visit. Pt appears confused and calm and states he likes his food, but also states he eats foods associated with his listed allergies. Spoke to RN Robbie who states pt is confused and is on restraints d/t being combative at times. Pt was NPO, but now on regular diet and RN states pt finished 75% of meals today with assist. Per EMR, PO intake 75-100% since admitted. Current Diet Order/ Nutrition Support regular Pertinent Medications D5-0.45ns, pepcid, seroquel, xarelto Pertinent Labs 03/09: K 3.4, Ca 8.3, glucose 130, Alb 2.8, Mg 1.7 03/08: K 3.1, Ca 8.3, glucose 100, Alb 2.6 Nutritional Hx/Data Height 1.88 m Height (Calculated Centimeters) 188.0 Current Weight (lbs) 93.894 kg Weight (Calculated Kilograms) 93.9 Weight (Calculated Grams) [address]25.6 [place] Body Weight 190 lb Body Mass Index (BMI) 26.6 Weight Status Overweight GI Symptoms GI Symptoms None Last BM 03/06 Difficult in: None Food Allergies Yes: milk, wheat, sesame seed, shrimp, egg white Skin Integrity/Comment: jaundiced; reddened rashes to right axilla, right chest, and right upper arm; reddened buttocks; marilou 13 Current %PO Good (75-100%) Estimated Nutritional Goals BEE in Kcals: Using Current wt Calories/Kcals/Kg 25-30 Kcals Calculated 2900-6727 Protein: Using Current wt Protein g/k.0 Protein Calculated 94 g Fluid: ml 9112-4703 (1 ml/kcal) Nutritional Problem 1. Problem Problem Altered nutrition related lab values Etiology electrolyte imbalance Signs/Symptoms: K 3.4, Ca 8.3, Mg 1.7 Malnutrition Alert Is there a minimum of two criteria No selected? Query Text:Check all the applicable criteria. A minimum of two criteria are recommended for diagnosis of either severe or non-severe malnutrition. Malnutrition Related to Morbid Obesity Malnutrition related to morbid obesity No Intervention/Recommendation Comments 1. Continue with regular diet as ordered and MD to replace electrolytes as needed 2. Consider adding nutrition supplement if needs not met through diet alone 3. Monitor PO intake, wt, labs and skin integrity 4. F/U as moderate risk in 3-5 days, 03/12- Expected Outcomes/Goals Expected Outcomes/Goals 1. PO intake at least 75% of all meals 2. Wt stability, skin integrity to improve, and nutrition related labs to approach normal limits Reviewed by Judy Fitch RD
[2018-03-13 07:06] LABS: ALBUMIN 2.4 gm/dL (4.2-5.5); ALKALINE PHOSPHATASE 304 U/L (34-104); ANION GAP 10.9 (7.0-16.0); BILIRUBIN,TOTAL 17.1 mg/dL (0.3-1.0); CALCIUM SERUM 7.7 mg/dL (8.6-10.3); CARBON DIOXIDE 21.4 mEq/L (21.0-31.0); CHLORIDE 107 mEq/L (98-107); CREATININE - SERUM 0.9 mg/dL (0.7-1.3); GLUCOSE 109 mg/dL (70-105); POTASSIUM SERUM 3.3 mEq/L (3.5-5.1); SGOT 156 U/L (13-39); SGPT/ALT 150 U/L (7-52); SODIUM SERUM 136 mEq/L (136-145); TOTAL PROTEIN,SERUM 4.9 gm/dL (6.0-8.3)
[2018-03-13 07:19] LABS: BASOPHILE ABSOLUTE 0.3 Th/cumm (0-0.2); EOSINOPHILE ABSOLUTE 0.1 Th/cmm (0.1-0.4); LYMPHOCYTE ABSOLUTE 27.6 Th/cmm (1.5-3.0); MONOCYTE ABSOLUTE 2.9 Th/cmm (0.3-1.0); NEUTROPHILE ABSOLUTE 2.3 Th/cmm (1.8-8.0); RED CELL DISTRIBUTION WIDTH 17.2 % (11.5-20.0)
[2018-03-13 07:21] LABS: HEMATOCRIT 34.6 % (41.0-60); HEMOGLOBIN 11.7 gm/dL (12-16); MEAN CELL VOLUME 87.6 fl (80-99); MEAN CORPUSCULAR HEMOGLOBIN 29.6 pg (27.0-31.0); MEAN CORPUSCULAR HGB CONC 33.8 pg (28.0-36.0); MEAN PLATELET VOLUME 9.9 fl; PLATELET COUNT 279 Th/cmm (150-400); RED BLOOD COUNT 3.95 Mil/cmm (3.80-5.80)
[2018-03-13 08:17] LABS: BUN - UREA NITROGEN 9 mg/dL (7-25)
--- NOTE | 2018-03-13 08:36 | GI Progress Note ---
Subjective - Review of Systems Service Date: 03/13/18 Subjective: Pt refused US yesterday, and it was not done. NO other events Objective - Results Result Diagrams: 03/10/18 06:47 03/13/18 06:35 Recent Labs: Laboratory Last Values WBC 99.3 Th/cmm (4.8-10.8) H* D 03/10/18 06:47 RBC 4.18 Mil/cmm (3.80-5.80) 03/10/18 06:47 Hgb 12.6 gm/dL (12-16) 03/10/18 06:47 Hct 37.0 % (41.0-60) L 03/10/18 06:47 MCV 88.6 fl (80-99) 03/10/18 06:47 MCH 30.1 pg (27.0-31.0) 03/10/18 06:47 MCHC Differential 34.0 pg (28.0-36.0) 03/10/18 06:47 RDW 16.6 % (11.5-20.0) 03/10/18 06:47 Plt Count 271 Th/cmm (150-400) 03/10/18 06:47 MPV 9.9 fl 03/10/18 06:47 Add Manual Diff YES 03/10/18 06:47 Band Neutrophils % 0 % (0-10) 03/09/18 08:30 Neutrophils (Manual) 12 % (40-80) L 03/10/18 06:47 Lymphocytes 82 % (20-50) H 03/10/18 06:47 Monocytes 6 % (2-10) 03/10/18 06:47 Eosinophils 0 % (0-5) 03/09/18 08:30 Basophils 0 % (0-3) 03/09/18 08:30 Metamyelocytes % (0-0) 03/06/18 06:15 Smear Path Review 03/10/18 06:47 Plt Count 271 Th/cmm (150-750) 03/10/18 06:47 PT 12.1 SECONDS (9.5-11.5) H 03/10/18 06:47 INR 1.17 (0.5-1.4) 03/10/18 06:47 PTT (Actin FS) 34.5 SECONDS (26.0-38.0) 03/10/18 06:47 Fibrinogen 376.0 mg/dL (200.0-400.0) 03/10/18 06:47 D-Dimer 162 ng/mL (100-400) 03/10/18 06:47 Sodium 136 mEq/L (136-145) 03/13/18 06:35 Potassium 3.3 mEq/L (3.5-5.1) L 03/13/18 06:35 Chloride 107 mEq/L (98-107) 03/13/18 06:35 Carbon Dioxide 21.4 mEq/L (21.0-31.0) 03/13/18 06:35 Anion Gap 10.9 (7.0-16.0) 03/13/18 06:35 BUN 9 mg/dL (7-25) 03/13/18 06:35 Creatinine 0.9 mg/dL (0.7-1.3) 03/13/18 06:35 Est GFR ( Amer) TNP 03/13/18 06:35 Est GFR (Non-Af Amer) TNP 03/13/18 06:35 BUN/Creatinine Ratio 10.0 03/13/18 06:35 Glucose 109 mg/dL (70-105) H 03/13/18 06:35 Whole Bld Lactic Acid 1.02 mmol/L (0.60-1.99) 03/05/18 22:50 Calcium 7.7 mg/dL (8.6-10.3) L 03/13/18 06:35 Phosphorus 2.6 mg/dL (2.5-5.0) 03/10/18 06:47 Magnesium 1.7 mg/dL (1.9-2.7) L 03/10/18 06:47 Iron 78 ug/dL (38-169) 03/07/18 09:00 TIBC 182 ug/dL (250-450) L 03/07/18 09:00 Iron Saturation 43 % (15-55) 03/07/18 09:00 Unsaturated IBC 104 ug/dL (111-343) L 03/07/18 09:00 Ferritin 279 ng/mL (30-400) 03/07/18 09:00 Total Bilirubin 17.1 mg/dL (0.3-1.0) H 03/13/18 06:35 Direct Bilirubin 10.27 mg/dL (0.0-0.2) H 03/10/18 06:47 AST 156 U/L (13-39) H 03/13/18 06:35 ALT 150 U/L (7-52) H 03/13/18 06:35 Alkaline Phosphatase 304 U/L (34-104) H 03/13/18 06:35 Ammonia 44 umol/L (16-53) 03/05/18 18:45 Lactate Dehydrogenase 184 U/L (140-271) 03/10/18 06:47 Total Protein 4.9 gm/dL (6.0-8.3) L 03/13/18 06:35 Albumin 2.4 gm/dL (4.2-5.5) L 03/13/18 06:35 Globulin 2.5 gm/dL 03/13/18 06:35 Albumin/Globulin Ratio 1.0 (1.0-1.8) 03/13/18 06:35 Ceruloplasmin 31.8 mg/dL (16.0-31.0) H 03/07/18 09:00 Amylase 12 U/L (29-103) L 03/05/18 18:45 Lipase < 3 U/L (11-82) L 03/05/18 18:45 Tumor Marker AFP 1.2 ng/mL (0.0-8.3) 03/07/18 09:00 Carcinoembryonic Ag 3.1 ng/mL (0.0-4.7) 03/10/18 06:47 CA 19-9 Antigen 230 U/mL (0-35) H 03/10/18 06:47 FRANTZ Screen Negative 03/07/18 09:00 Anti-Mitochondrial Ab 5.9 Units (0.0-20.0) 03/07/18 09:00 Smooth Muscle IgG Ab 8 Units (0-19) 03/07/18 09:00 Hepatitis A IgM Ab Negative (Negative) 03/07/18 09:00 Hep Bs Antigen Negative (Negative) 03/07/18 09:00 Hep B Core IgM Ab Negative (Negative) 03/07/18 09:00 Hepatitis C Antibody <0.1 s/co ratio (0.0-0.9) 03/07/18 09:00 - Physical Exam Vitals and I&O: Vital Signs Temp 97.4 F 03/13/18 07:46 Pulse 78 03/13/18 07:46 Resp 19 03/13/18 07:46 BP 99/52 03/13/18 07:46 Pulse Ox 97 03/13/18 07:46 Intake & Output 03/12/18 03/13/18 03/13/18 18:59 06:59 18:59 Intake Total 1213.333 Balance 1213.333 Weight (lbs) 92.986 kg 92.986 kg Intake: Intake, IV Amount 913.333 D5-0.45NS 1,000 ml @ 50 913.333 mls/hr IV .Q20H [facility] Rx#: [id number] Oral 300 Other: # Voids 5 # Bowel Movements 1 Stool Characteristics Formed Formed Weight Source Bedscale Bedscale Active Medications: Current Medications Acetaminophen (Tylenol) 650 mg PO Q4H PRN PRN Reason: MILD PAIN Stop: 05/05/18 05:41 Last Admin: 03/11/18 05:41 Dose: 650 mg Donepezil HCl (Aricept) 10 mg PO HS [facility] Stop: 05/05/18 20:59 Last Admin: 03/12/18 21:22 Dose: 10 mg Famotidine (Pepcid) 20 mg PO BID [facility] Stop: 05/05/18 08:59 Last Admin: 03/12/18 16:50 Dose: Not Given Dextrose/Sodium Chloride (D5-0.45ns) 1,000 mls @ 50 mls/hr IV .Q20H [facility] Stop: 05/04/18 21:59 Last Admin: 03/12/18 10:54 Dose: 50 mls/hr Lorazepam (Ativan) 1 mg IVP Q6HR PRN; Protocol PRN Reason: Agitation Stop: 05/04/18 21:44 Last Admin: 03/11/18 05:13 Dose: 1 mg Lorazepam (Ativan) 1 mg IV BID [facility]; Protocol Stop: 05/08/18 08:59 Last Admin: 03/12/18 22:13 Dose: 1 mg Memantine (Namenda) 10 mg PO DAILY [facility] Stop: 05/05/18 08:59 Last Admin: 03/12/18 08:28 Dose: 10 mg Morphine Sulfate (Morphine) 1 mg IVP Q4HR PRN PRN Reason: Pain (Severe) Stop: 05/07/18 10:59 Last Admin: 03/12/18 20:10 Dose: 1 mg Quetiapine Fumarate (Seroquel) 100 mg PO BID [facility]; Protocol Stop: 05/05/18 08:59 Last Admin: 03/12/18 16:50 Dose: Not Given Rivaroxaban (Xarelto) 20 mg PO HS [facility] Stop: 05/06/18 20:59 Last Admin: 03/12/18 21:22 Dose: 20 mg General: Alert, No acute distress HEENT: Atraumatic, PERRLA, EOMI Neck: Supple Cardiovascular: Regular rate Lungs: Clear to auscultation Abdomen: Bowel sounds, Soft, no Tender, no Hepatomegaly, no Splenomegaly, no Distended Extremities: no Clubbing, no Cyanosis, no Edema Neurological: Normal speech Skin: Other (jaundice) Assessment/Plan - Assessment Assessment: # Schizophrenia # CLL # Elevated LFTs # Bilateral DVT Spoke with Dr Willoughby, who has diagnosed CLL. This should not cause the degree of liver dysfunction and jaundice we are seeing. Thus, he may have an obstructive jaundice that is yet undefined. Possibilities include pancreatic cancer or biliary cancer. The next best diagnostic test would be MRCP. However, the pt does NOT stay still , even for US or CT scan. He has schizophrenia, which at the current level of control, is impacting his ability to comply with this workup. His family would like everything done at this time. I think that we can try for another US today, and make sure to give him IV ativan directly before the attempt. Ultimately, in order to really evaluate the bile ducts and pancreas for malignancy in this patient who will not comply with MRCP, the options are to try and medicate him for the MR procedure OR to attempt to have him undergo Endoscopic Ultrasound with general anesthesia. I think the EUS with anesthesia would be the more feasible option, and has the benefit of also allowing for a biopsy to be performed. HOwever, this is NOT done at this hospital, and would require him to be transferred to a tertiary center willing to do this exam. DILI is possible as well, although at this point I think malignancy is more likely Plan: Will re-attempt US today to look for any evidence of dilated biliary ducts WITH IV ativan. - would start looking into tertiary transfer for Endoscopic Ultrasound (EUS) with general anesthesia support given the above discussion. - hematology evaluation - trend LFTs - Autoimmune hepatitis labs negative. Viral studies negative
[2018-03-13 08:39] LABS: WHITE BLOOD COUNT 97.8 Th/cmm (4.8-10.8)
[2018-03-13 08:40] LABS: LYMPHOCYTE 80 % (20-50); MONOCYTE 5 % (2-10); NEUTROPHILS 15 % (40-80)
[2018-03-13] MEDS: D5-0.45NS 1,000 ML IV SCH (09:40)
--- NOTE | 2018-03-13 09:57 | Diagnostic Imaging Report ---
Exam: Left shoulder joint HISTORY: Pain Findings: Multiple views of left shoulder joint reviewed. The study demonstrates no evidence for acute fracture dislocation. Degenerative osteoarthritis with narrowing of the joint space is noted. The left acromioclavicular joint is intact. IMPRESSION: Degenerative osteoarthritis left shoulder joint.
[2018-03-13 14:33] LABS: ABSOLUTE RETICULOCYTE 150.1 Th/cmm; CORRECTED RETICULOCYTE COUNT 2.9 % (0.5-1.5); HEMATOCRIT 34.6 % (40.0-54.0); RBC RETICULOCYTE COUNT 3.95 Mil/cmm; RETICULOCYTES % COUNTED 3.8 % (0.5-1.5)
--- NOTE | 2018-03-14 07:54 | Diagnostic Imaging Report ---
Ultrasound abdomen HISTORY: Abdominal pain, assess for dilated bile duct COMPARISON: CT abdomen and pelvis on 03/08/2018 and nuclear medicine HIDA scan on 03/08/2018. Study was also compared ultrasound on 03/07/2018 Technique: Sonography of the abdomen was performed in multiple planes. FINDINGS: Exam is limited due to patient body habitus as patient was uncooperative. The liver demonstrates a heterogeneous echotexture. Assessment for liver lesions is nondiagnostic on this exam. Hepatomegaly is noted with liver measuring 20.1 cm. There appear to be multiple small gallstones, however, assessment of the gallbladder was limited on this exam. The gallbladder wall is also difficult to assess. The common bile duct measures 7 mm. The right kidney measures 11.8 x 6.3 cm demonstrating 2 large cysts the largest measuring 7.9 x 7.5 cm. The left kidney measures 11.3 x 6.5 seen. No hydronephrosis. The spleen measures 15.5 cm. IMPRESSION: Limited exam due to body habitus and patient being uncooperative. Suboptimal assessment of the gallbladder, however, there appear to be multiple gallstones. The common bile duct is within normal limits limits for patient's age measuring 7 mm. If necessary MRCP follow-up may be of value. Hepatosplenomegaly. Heterogeneous liver which may reflect underlying hepatocellular disease. Right renal cysts.
--- NOTE | 2018-03-14 08:16 | General Progress Note ---
Subjective - Review of Systems Service Date: 03/14/18 Subjective: Patient is awake, alert but confused. jaundice. no acute distress. GI note appreciated. Patient to have abdominal US today. Objective - Results Result Diagrams: 03/13/18 06:35 03/13/18 06:35 Recent Labs: Laboratory Last Values WBC 97.8 Th/cmm (4.8-10.8) H* 03/13/18 06:35 RBC 3.95 Mil/cmm (3.80-5.80) 03/13/18 06:35 Hgb 11.7 gm/dL (12-16) L 03/13/18 06:35 Hct 34.6 % (40.0-54.0) L 03/13/18 06:35 MCV 87.6 fl (80-99) 03/13/18 06:35 MCH 29.6 pg (27.0-31.0) 03/13/18 06:35 MCHC Differential 33.8 pg (28.0-36.0) 03/13/18 06:35 RDW 17.2 % (11.5-20.0) 03/13/18 06:35 Plt Count 279 Th/cmm (150-400) 03/13/18 06:35 MPV 9.9 fl 03/13/18 06:35 Add Manual Diff YES 03/13/18 06:35 Band Neutrophils % 0 % (0-10) 03/09/18 08:30 Neutrophils (Manual) 15 % (40-80) L 03/13/18 06:35 Lymphocytes 80 % (20-50) H 03/13/18 06:35 Monocytes 5 % (2-10) 03/13/18 06:35 Eosinophils 0 % (0-5) 03/09/18 08:30 Basophils 0 % (0-3) 03/09/18 08:30 Metamyelocytes % (0-0) 03/06/18 06:15 Smear Path Review SEE NOTE 03/13/18 06:35 Total Retics Counted 3.8 % (0.5-1.5) H 03/13/18 06:35 Absolute Retic 150.1 Th/cmm 03/13/18 06:35 Corrected Retic Count 2.9 % (0.5-1.5) H 03/13/18 06:35 Plt Count 271 Th/cmm (150-750) 03/10/18 06:47 PT 12.1 SECONDS (9.5-11.5) H 03/10/18 06:47 INR 1.17 (0.5-1.4) 03/10/18 06:47 PTT (Actin FS) 34.5 SECONDS (26.0-38.0) 03/10/18 06:47 Fibrinogen 376.0 mg/dL (200.0-400.0) 03/10/18 06:47 D-Dimer 162 ng/mL (100-400) 03/10/18 06:47 Sodium 136 mEq/L (136-145) 03/13/18 06:35 Potassium 3.3 mEq/L (3.5-5.1) L 03/13/18 06:35 Chloride 107 mEq/L (98-107) 03/13/18 06:35 Carbon Dioxide 21.4 mEq/L (21.0-31.0) 03/13/18 06:35 Anion Gap 10.9 (7.0-16.0) 03/13/18 06:35 BUN 9 mg/dL (7-25) 03/13/18 06:35 Creatinine 0.9 mg/dL (0.7-1.3) 03/13/18 06:35 Est GFR ( Amer) TNP 03/13/18 06:35 Est GFR (Non-Af Amer) TNP 03/13/18 06:35 BUN/Creatinine Ratio 10.0 03/13/18 06:35 Glucose 109 mg/dL (70-105) H 03/13/18 06:35 Whole Bld Lactic Acid 1.02 mmol/L (0.60-1.99) 03/05/18 22:50 Calcium 7.7 mg/dL (8.6-10.3) L 03/13/18 06:35 Phosphorus 2.6 mg/dL (2.5-5.0) 03/10/18 06:47 Magnesium 1.7 mg/dL (1.9-2.7) L 03/10/18 06:47 Iron 78 ug/dL (38-169) 03/07/18 09:00 TIBC 182 ug/dL (250-450) L 03/07/18 09:00 Iron Saturation 43 % (15-55) 03/07/18 09:00 Unsaturated IBC 104 ug/dL (111-343) L 03/07/18 09:00 Ferritin 279 ng/mL (30-400) 03/07/18 09:00 Total Bilirubin 17.1 mg/dL (0.3-1.0) H 03/13/18 06:35 Direct Bilirubin 10.27 mg/dL (0.0-0.2) H 03/10/18 06:47 AST 156 U/L (13-39) H 03/13/18 06:35 ALT 150 U/L (7-52) H 03/13/18 06:35 Alkaline Phosphatase 304 U/L (34-104) H 03/13/18 06:35 Ammonia 44 umol/L (16-53) 03/05/18 18:45 Lactate Dehydrogenase 184 U/L (140-271) 03/10/18 06:47 Total Protein 4.9 gm/dL (6.0-8.3) L 03/13/18 06:35 Albumin 2.4 gm/dL (4.2-5.5) L 03/13/18 06:35 Globulin 2.5 gm/dL 03/13/18 06:35 Albumin/Globulin Ratio 1.0 (1.0-1.8) 03/13/18 06:35 Ceruloplasmin 31.8 mg/dL (16.0-31.0) H 03/07/18 09:00 Amylase 12 U/L (29-103) L 03/05/18 18:45 Lipase < 3 U/L (11-82) L 03/05/18 18:45 Tumor Marker AFP 1.2 ng/mL (0.0-8.3) 03/07/18 09:00 Carcinoembryonic Ag 3.1 ng/mL (0.0-4.7) 03/10/18 06:47 CA 19-9 Antigen 230 U/mL (0-35) H 03/10/18 06:47 FRANTZ Screen Negative 03/07/18 09:00 Anti-Mitochondrial Ab 5.9 Units (0.0-20.0) 03/07/18 09:00 Smooth Muscle IgG Ab 8 Units (0-19) 03/07/18 09:00 Hepatitis A IgM Ab Negative (Negative) 03/07/18 09:00 Hep Bs Antigen Negative (Negative) 03/07/18 09:00 Hep B Core IgM Ab Negative (Negative) 03/07/18 09:00 Hepatitis C Antibody <0.1 s/co ratio (0.0-0.9) 03/07/18 09:00 BELINDA, IgG Interpret NEGATIVE 03/13/18 06:35 - Physical Exam Vitals and I&O: Vital Signs Temp 96.9 F 03/14/18 08:01 Pulse 75 03/14/18 08:01 Resp 17 03/14/18 08:01 BP 123/66 03/14/18 08:01 Pulse Ox 98 03/14/18 08:01 Intake & Output 03/13/18 03/14/18 03/14/18 18:59 06:59 18:59 Intake Total 100 125 Balance 100 125 Weight (lbs) 92.986 kg 92.986 kg Intake: Oral 100 125 Other: # Voids 3 2 # Bowel Movements 1 Stool Characteristics Formed Formed Weight Source Bedscale Bedscale Active Medications: Current Medications Acetaminophen (Tylenol) 650 mg PO Q4H PRN PRN Reason: MILD PAIN Stop: 05/05/18 05:41 Last Admin: 03/11/18 05:41 Dose: 650 mg Donepezil HCl (Aricept) 10 mg PO HS [facility] Stop: 05/05/18 20:59 Last Admin: 03/13/18 21:30 Dose: 10 mg Famotidine (Pepcid) 20 mg PO BID [facility] Stop: 05/05/18 08:59 Last Admin: 03/13/18 11:49 Dose: Not Given Dextrose/Sodium Chloride (D5-0.45ns) 1,000 mls @ 50 mls/hr IV .Q20H [facility] Stop: 05/04/18 21:59 Last Admin: 03/13/18 09:40 Dose: 50 mls/hr Lorazepam (Ativan) 1 mg IVP Q6HR PRN; Protocol PRN Reason: Agitation Stop: 05/04/18 21:44 Last Admin: 03/13/18 15:17 Dose: 1 mg Lorazepam (Ativan) 1 mg IV BID [facility]; Protocol Stop: 05/08/18 08:59 Last Admin: 03/13/18 18:13 Dose: 1 mg Memantine (Namenda) 10 mg PO DAILY [facility] Stop: 05/05/18 08:59 Last Admin: 03/13/18 11:49 Dose: Not Given Morphine Sulfate (Morphine) 1 mg IVP Q4HR PRN PRN Reason: Pain (Severe) Stop: 05/07/18 10:59 Last Admin: 03/12/18 20:10 Dose: 1 mg Quetiapine Fumarate (Seroquel) 100 mg PO BID [facility]; Protocol Stop: 05/05/18 08:59 Last Admin: 03/13/18 11:50 Dose: Not Given Rivaroxaban (Xarelto) 20 mg PO HS [facility] Stop: 05/06/18 20:59 Last Admin: 03/13/18 21:30 Dose: 20 mg General: Alert, No acute distress HEENT: Atraumatic, PERRLA, EOMI Neck: Supple Cardiovascular: Regular rate Lungs: Clear to auscultation Abdomen: Bowel sounds, Soft, no Tender, no Hepatomegaly, no Splenomegaly, no Distended Extremities: no Clubbing, no Cyanosis, no Edema Neurological: Normal speech Skin: Other (jaundice) Assessment/Plan - Assessment Assessment: Jaundice h/o leukemia HTN Schizophrenia Psychosis Dementia Depression Anxiety ASHD B/L DVT Leukocytosis hypomagenesemia hypokalemia - Plan Plan: repeat labwork CMP CBC,PT/INR Psychiatric consult Hem/Onc consult Gen Surgery consult Mg rider for abdominal US Nutritional Asmnt/Malnutr-PDOC - Dietary Evaluation Malnutrition Findings (Please click <Entered> for more info): Nutritional Asmnt/Malnutrition Start: 03/09/18 14: 20 Text: Status: Complete Freq: Protocol: Document 03/09/18 14:20 ESTHER (Rec: 03/09/18 15:11 ESTHER [email or web address]) Nutritional Asmnt/Malnutrition Patient General Information Nutritional Screening Moderate Risk Diagnosis jaundice, elevated coagulants Pertinent Medical Hx/Surgical Hx paranoid schizophrenia, depression, CAD, DVT, neuropathy, GERD, anxiety, dementia, acute lymphoblastic leukemia Subjective Information Pt resting in bed at time of visit. Pt appears confused and calm and states he likes his food, but also states he eats foods associated with his listed allergies. Spoke to CHELSEA Avalos who states pt is confused and is on restraints d/t being combative at times. Pt was NPO, but now on regular diet and RN states pt finished 75% of meals today with assist. Per EMR, PO intake 75-100% since admitted. Current Diet Order/ Nutrition Support regular Pertinent Medications D5-0.45ns, pepcid, seroquel, xarelto Pertinent Labs 03/09: K 3.4, Ca 8.3, glucose 130, Alb 2.8, Mg 1.7 03/08: K 3.1, Ca 8.3, glucose 100, Alb 2.6 Nutritional Hx/Data Height 1.88 m Height (Calculated Centimeters) 188.0 Current Weight (lbs) 93.894 kg Weight (Calculated Kilograms) 93.9 Weight (Calculated Grams) 00995.6 [place] Body Weight 190 lb Body Mass Index (BMI) 26.6 Weight Status Overweight GI Symptoms GI Symptoms None Last BM 03/06 Difficult in: None Food Allergies Yes: milk, wheat, sesame seed, shrimp, egg white Skin Integrity/Comment: jaundiced; reddened rashes to right axilla, right chest, and right upper arm; reddened buttocks; marilou 13 Current %PO Good (75-100%) Estimated Nutritional Goals BEE in Kcals: Using Current wt Calories/Kcals/Kg 25-30 Kcals Calculated 7789-2037 Protein: Using Current wt Protein g/k.0 Protein Calculated 94 g Fluid: ml 0590-6538 (1 ml/kcal) Nutritional Problem 1. Problem Problem Altered nutrition related lab values Etiology electrolyte imbalance Signs/Symptoms: K 3.4, Ca 8.3, Mg 1.7 Malnutrition Alert Is there a minimum of two criteria No selected? Query Text:Check all the applicable criteria. A minimum of two criteria are recommended for diagnosis of either severe or non-severe malnutrition. Malnutrition Related to Morbid Obesity Malnutrition related to morbid obesity No Intervention/Recommendation Comments 1. Continue with regular diet as ordered and MD to replace electrolytes as needed 2. Consider adding nutrition supplement if needs not met through diet alone 3. Monitor PO intake, wt, labs and skin integrity 4. F/U as moderate risk in 3-5 days, 03/12- Expected Outcomes/Goals Expected Outcomes/Goals 1. PO intake at least 75% of all meals 2. Wt stability, skin integrity to improve, and nutrition related labs to approach normal limits Reviewed by Judy Fitch RD
--- NOTE | 2018-03-14 09:07 | GI Progress Note ---
Subjective - Review of Systems Service Date: 03/14/18 Subjective: No new events Objective - Results Result Diagrams: 03/13/18 06:35 03/13/18 06:35 Recent Labs: Laboratory Last Values WBC 97.8 Th/cmm (4.8-10.8) H* 03/13/18 06:35 RBC 3.95 Mil/cmm (3.80-5.80) 03/13/18 06:35 Hgb 11.7 gm/dL (12-16) L 03/13/18 06:35 Hct 34.6 % (40.0-54.0) L 03/13/18 06:35 MCV 87.6 fl (80-99) 03/13/18 06:35 MCH 29.6 pg (27.0-31.0) 03/13/18 06:35 MCHC Differential 33.8 pg (28.0-36.0) 03/13/18 06:35 RDW 17.2 % (11.5-20.0) 03/13/18 06:35 Plt Count 279 Th/cmm (150-400) 03/13/18 06:35 MPV 9.9 fl 03/13/18 06:35 Add Manual Diff YES 03/13/18 06:35 Band Neutrophils % 0 % (0-10) 03/09/18 08:30 Neutrophils (Manual) 15 % (40-80) L 03/13/18 06:35 Lymphocytes 80 % (20-50) H 03/13/18 06:35 Monocytes 5 % (2-10) 03/13/18 06:35 Eosinophils 0 % (0-5) 03/09/18 08:30 Basophils 0 % (0-3) 03/09/18 08:30 Metamyelocytes % (0-0) 03/06/18 06:15 Smear Path Review SEE NOTE 03/13/18 06:35 Total Retics Counted 3.8 % (0.5-1.5) H 03/13/18 06:35 Absolute Retic 150.1 Th/cmm 03/13/18 06:35 Corrected Retic Count 2.9 % (0.5-1.5) H 03/13/18 06:35 Plt Count 271 Th/cmm (150-750) 03/10/18 06:47 PT 12.1 SECONDS (9.5-11.5) H 03/10/18 06:47 INR 1.17 (0.5-1.4) 03/10/18 06:47 PTT (Actin FS) 34.5 SECONDS (26.0-38.0) 03/10/18 06:47 Fibrinogen 376.0 mg/dL (200.0-400.0) 03/10/18 06:47 D-Dimer 162 ng/mL (100-400) 03/10/18 06:47 Sodium 136 mEq/L (136-145) 03/13/18 06:35 Potassium 3.3 mEq/L (3.5-5.1) L 03/13/18 06:35 Chloride 107 mEq/L (98-107) 03/13/18 06:35 Carbon Dioxide 21.4 mEq/L (21.0-31.0) 03/13/18 06:35 Anion Gap 10.9 (7.0-16.0) 03/13/18 06:35 BUN 9 mg/dL (7-25) 03/13/18 06:35 Creatinine 0.9 mg/dL (0.7-1.3) 03/13/18 06:35 Est GFR ( Amer) TNP 03/13/18 06:35 Est GFR (Non-Af Amer) TNP 03/13/18 06:35 BUN/Creatinine Ratio 10.0 03/13/18 06:35 Glucose 109 mg/dL (70-105) H 03/13/18 06:35 Whole Bld Lactic Acid 1.02 mmol/L (0.60-1.99) 03/05/18 22:50 Calcium 7.7 mg/dL (8.6-10.3) L 03/13/18 06:35 Phosphorus 2.6 mg/dL (2.5-5.0) 03/10/18 06:47 Magnesium 1.7 mg/dL (1.9-2.7) L 03/10/18 06:47 Iron 78 ug/dL (38-169) 03/07/18 09:00 TIBC 182 ug/dL (250-450) L 03/07/18 09:00 Iron Saturation 43 % (15-55) 03/07/18 09:00 Unsaturated IBC 104 ug/dL (111-343) L 03/07/18 09:00 Ferritin 279 ng/mL (30-400) 03/07/18 09:00 Total Bilirubin 17.1 mg/dL (0.3-1.0) H 03/13/18 06:35 Direct Bilirubin 10.27 mg/dL (0.0-0.2) H 03/10/18 06:47 AST 156 U/L (13-39) H 03/13/18 06:35 ALT 150 U/L (7-52) H 03/13/18 06:35 Alkaline Phosphatase 304 U/L (34-104) H 03/13/18 06:35 Ammonia 44 umol/L (16-53) 03/05/18 18:45 Lactate Dehydrogenase 184 U/L (140-271) 03/10/18 06:47 Total Protein 4.9 gm/dL (6.0-8.3) L 03/13/18 06:35 Albumin 2.4 gm/dL (4.2-5.5) L 03/13/18 06:35 Globulin 2.5 gm/dL 03/13/18 06:35 Albumin/Globulin Ratio 1.0 (1.0-1.8) 03/13/18 06:35 Ceruloplasmin 31.8 mg/dL (16.0-31.0) H 03/07/18 09:00 Amylase 12 U/L (29-103) L 03/05/18 18:45 Lipase < 3 U/L (11-82) L 03/05/18 18:45 Tumor Marker AFP 1.2 ng/mL (0.0-8.3) 03/07/18 09:00 Carcinoembryonic Ag 3.1 ng/mL (0.0-4.7) 03/10/18 06:47 CA 19-9 Antigen 230 U/mL (0-35) H 03/10/18 06:47 FRANTZ Screen Negative 03/07/18 09:00 Anti-Mitochondrial Ab 5.9 Units (0.0-20.0) 03/07/18 09:00 Smooth Muscle IgG Ab 8 Units (0-19) 03/07/18 09:00 Hepatitis A IgM Ab Negative (Negative) 03/07/18 09:00 Hep Bs Antigen Negative (Negative) 03/07/18 09:00 Hep B Core IgM Ab Negative (Negative) 03/07/18 09:00 Hepatitis C Antibody <0.1 s/co ratio (0.0-0.9) 03/07/18 09:00 BELINDA, IgG Interpret NEGATIVE 03/13/18 06:35 - Physical Exam Vitals and I&O: Vital Signs Temp 96.9 F 03/14/18 08:01 Pulse 75 03/14/18 08:01 Resp 17 03/14/18 08:01 BP 123/66 03/14/18 08:01 Pulse Ox 98 03/14/18 08:01 Intake & Output 03/13/18 03/14/18 03/14/18 18:59 06:59 18:59 Intake Total 100 125 Balance 100 125 Weight (lbs) 92.986 kg 92.986 kg Intake: Oral 100 125 Other: # Voids 3 2 # Bowel Movements 1 Stool Characteristics Formed Formed Weight Source Bedscale Bedscale Active Medications: Current Medications Acetaminophen (Tylenol) 650 mg PO Q4H PRN PRN Reason: MILD PAIN Stop: 05/05/18 05:41 Last Admin: 03/11/18 05:41 Dose: 650 mg Donepezil HCl (Aricept) 10 mg PO HS [facility] Stop: 05/05/18 20:59 Last Admin: 03/13/18 21:30 Dose: 10 mg Famotidine (Pepcid) 20 mg PO BID [facility] Stop: 05/05/18 08:59 Last Admin: 03/13/18 11:49 Dose: Not Given Dextrose/Sodium Chloride (D5-0.45ns) 1,000 mls @ 50 mls/hr IV .Q20H [facility] Stop: 05/04/18 21:59 Last Admin: 03/13/18 09:40 Dose: 50 mls/hr Potassium Chloride (Potassium Chloride) 20 meq in 100 mls @ 50 mls/hr IV Q2H [facility] Stop: 03/14/18 12:29 Lorazepam (Ativan) 1 mg IVP Q6HR PRN; Protocol PRN Reason: Agitation Stop: 05/04/18 21:44 Last Admin: 03/13/18 15:17 Dose: 1 mg Lorazepam (Ativan) 1 mg IV BID [facility]; Protocol Stop: 05/08/18 08:59 Last Admin: 03/13/18 18:13 Dose: 1 mg Memantine (Namenda) 10 mg PO DAILY [facility] Stop: 05/05/18 08:59 Last Admin: 03/13/18 11:49 Dose: Not Given Morphine Sulfate (Morphine) 1 mg IVP Q4HR PRN PRN Reason: Pain (Severe) Stop: 05/07/18 10:59 Last Admin: 03/12/18 20:10 Dose: 1 mg Quetiapine Fumarate (Seroquel) 100 mg PO BID [facility]; Protocol Stop: 05/05/18 08:59 Last Admin: 03/13/18 11:50 Dose: Not Given Rivaroxaban (Xarelto) 20 mg PO HS [facility] Stop: 05/06/18 20:59 Last Admin: 03/13/18 21:30 Dose: 20 mg General: Alert, No acute distress HEENT: Atraumatic, PERRLA, EOMI Neck: Supple Cardiovascular: Regular rate Lungs: Clear to auscultation Abdomen: Bowel sounds, Soft, no Tender, no Hepatomegaly, no Splenomegaly, no Distended Extremities: no Clubbing, no Cyanosis, no Edema Neurological: Normal speech Skin: Other (jaundice) Assessment/Plan - Assessment Assessment: # Schizophrenia # CLL # Elevated LFTs # Bilateral DVT Spoke with Dr Willoughby, who has diagnosed CLL. This should not cause the degree of liver dysfunction and jaundice we are seeing. Thus, he may have an obstructive jaundice that is yet undefined. Possibilities include pancreatic cancer or biliary cancer. The next best diagnostic test would be MRCP. However, the pt does NOT stay still , even for US or CT scan. He has schizophrenia, which at the current level of control, is impacting his ability to comply with this workup. His family would like everything done at this time. US was re-attempted on 03/13, and again was poor study. However, there were gallstones seen but the CBD was only 7mm. Doubtful the jaundice is from choledocholithiasis. A cholangiocarcinoma that is at the hilum is certainly possible. Ultimately, in order to really evaluate the bile ducts and pancreas for malignancy in this patient who will not comply with MRCP, the options are to try and medicate him for the MR procedure OR to attempt to have him undergo Endoscopic Ultrasound with general anesthesia. I think the EUS with anesthesia would be the more feasible option, and has the benefit of also allowing for a biopsy to be performed. HOwever, this is NOT done at this hospital, and would require him to be transferred to a tertiary center willing to do this exam. DILI is possible as well, although at this point I think malignancy is more likely Plan: - would start looking into tertiary transfer for Endoscopic Ultrasound (EUS) with general anesthesia support given the above discussion. - MRCP not possible given pt not able to comply, even with ativan given. - hematology evaluation - trend LFTs - Autoimmune hepatitis labs negative. Viral studies negative
[2018-03-14] MEDS: KCL 20mEq/100mL Premix 20 MEQ/100 ML PIGGYBACK IV SCH ×2 (10:37→13:39)
--- NOTE | 2018-03-15 01:11 | Progress Notes ---
DATE: 03/14/2018 SUBJECTIVE: Case was discussed with staff of the patient, reviewed records. The patient continues to be medically ill, not cleared medically. The patient has been in general cooperative. He will have an endoscopic ultrasound with the general anesthesia, the patient is unable to comply with MRCP. He needs to be seen by hand slitter. The patient is with hepatitis. The patient is unable to participate in meaningful conversation or make safe plan for self-care. He is unpredictable, impulsive, demented, confused, and recommend to continue his medication. Thank you very much for allowing me to participate in the care of this most interesting gentleman. JOB# [id number]
[2018-03-15] MEDS: D5-0.45NS 1,000 ML IV SCH (06:52)
[2018-03-15 07:17] LABS: HEMOGLOBIN 12.3 gm/dL (12-16)
[2018-03-15 07:27] LABS: MEAN CELL VOLUME 87.2 fl (80-99); MEAN CORPUSCULAR HEMOGLOBIN 29.8 pg (27.0-31.0); MEAN CORPUSCULAR HGB CONC 34.2 pg (28.0-36.0); MEAN PLATELET VOLUME 10.1 fl; PLATELET COUNT 313 Th/cmm (150-400); RED BLOOD COUNT 4.13 Mil/cmm (3.80-5.80); RED CELL DISTRIBUTION WIDTH 17.9 % (11.5-20.0)
[2018-03-15 07:43] LABS: ALBUMIN 2.5 gm/dL (4.2-5.5); ALKALINE PHOSPHATASE 333 U/L (34-104); ANION GAP 11.3 (7.0-16.0); BILIRUBIN,TOTAL 20.4 mg/dL (0.3-1.0); BUN - UREA NITROGEN 7 mg/dL (7-25); CALCIUM SERUM 8.3 mg/dL (8.6-10.3); CARBON DIOXIDE 25.1 mEq/L (21.0-31.0); CHLORIDE 102 mEq/L (98-107); CREATININE - SERUM 0.8 mg/dL (0.7-1.3); GLUCOSE 95 mg/dL (70-105); POTASSIUM SERUM 3.4 mEq/L (3.5-5.1); SGOT 140 U/L (13-39); SGPT/ALT 137 U/L (7-52); SODIUM SERUM 135 mEq/L (136-145); TOTAL PROTEIN,SERUM 5.1 gm/dL (6.0-8.3)
[2018-03-15 07:44] LABS: WHITE BLOOD COUNT 104.4 Th/cmm (4.8-10.8)
[2018-03-15 08:06] LABS: BAND NEUTROPHILE 0 % (0-10); NEUTROPHILS 35 % (40-80)
[2018-03-15 08:07] LABS: BASOPHIL 0 % (0-3); EOSINOPHIL 1 % (0-5); LYMPHOCYTE 60 % (20-50); MONOCYTE 4 % (2-10)
--- NOTE | 2018-03-15 08:19 | GI Progress Note ---
Subjective - Review of Systems Service Date: 03/15/18 Subjective: No new events Objective - Results Result Diagrams: 03/15/18 06:40 03/15/18 06:40 Recent Labs: Laboratory Last Values WBC 104.4 Th/cmm (4.8-10.8) H* 03/15/18 06:40 RBC 4.13 Mil/cmm (3.80-5.80) 03/15/18 06:40 Hgb 12.3 gm/dL (12-16) 03/15/18 06:40 Hct 36.0 % (41.0-60) L 03/15/18 06:40 MCV 87.2 fl (80-99) 03/15/18 06:40 MCH 29.8 pg (27.0-31.0) 03/15/18 06:40 MCHC Differential 34.2 pg (28.0-36.0) 03/15/18 06:40 RDW 17.9 % (11.5-20.0) 03/15/18 06:40 Plt Count 313 Th/cmm (150-400) 03/15/18 06:40 MPV 10.1 fl 03/15/18 06:40 Add Manual Diff YES 03/15/18 06:40 Band Neutrophils % 0 % (0-10) 03/15/18 06:40 Neutrophils (Manual) 35 % (40-80) L 03/15/18 06:40 Lymphocytes 60 % (20-50) H 03/15/18 06:40 Monocytes 4 % (2-10) 03/15/18 06:40 Eosinophils 1 % (0-5) 03/15/18 06:40 Basophils 0 % (0-3) 03/15/18 06:40 Metamyelocytes % (0-0) 03/06/18 06:15 Smear Path Review SEE NOTE 03/13/18 06:35 Total Retics Counted 3.8 % (0.5-1.5) H 03/13/18 06:35 Absolute Retic 150.1 Th/cmm 03/13/18 06:35 Corrected Retic Count 2.9 % (0.5-1.5) H 03/13/18 06:35 Haptoglobin 229 mg/dL (34-200) H 03/13/18 06:35 Plt Count 271 Th/cmm (150-750) 03/10/18 06:47 PT 12.1 SECONDS (9.5-11.5) H 03/10/18 06:47 INR 1.17 (0.5-1.4) 03/10/18 06:47 PTT (Actin FS) 34.5 SECONDS (26.0-38.0) 03/10/18 06:47 Fibrinogen 376.0 mg/dL (200.0-400.0) 03/10/18 06:47 D-Dimer 162 ng/mL (100-400) 03/10/18 06:47 Sodium 135 mEq/L (136-145) L 03/15/18 06:40 Potassium 3.4 mEq/L (3.5-5.1) L 03/15/18 06:40 Chloride 102 mEq/L (98-107) 03/15/18 06:40 Carbon Dioxide 25.1 mEq/L (21.0-31.0) 03/15/18 06:40 Anion Gap 11.3 (7.0-16.0) 03/15/18 06:40 BUN 7 mg/dL (7-25) 03/15/18 06:40 Creatinine 0.8 mg/dL (0.7-1.3) 03/15/18 06:40 Est GFR ( Amer) TNP 03/15/18 06:40 Est GFR (Non-Af Amer) TNP 03/15/18 06:40 BUN/Creatinine Ratio 8.8 03/15/18 06:40 Glucose 95 mg/dL (70-105) 03/15/18 06:40 Whole Bld Lactic Acid 1.02 mmol/L (0.60-1.99) 03/05/18 22:50 Calcium 8.3 mg/dL (8.6-10.3) L 03/15/18 06:40 Phosphorus 2.6 mg/dL (2.5-5.0) 03/10/18 06:47 Magnesium 1.7 mg/dL (1.9-2.7) L 03/10/18 06:47 Iron 78 ug/dL (38-169) 03/07/18 09:00 TIBC 182 ug/dL (250-450) L 03/07/18 09:00 Iron Saturation 43 % (15-55) 03/07/18 09:00 Unsaturated IBC 104 ug/dL (111-343) L 03/07/18 09:00 Ferritin 279 ng/mL (30-400) 03/07/18 09:00 Total Bilirubin 20.4 mg/dL (0.3-1.0) H 03/15/18 06:40 Direct Bilirubin 10.27 mg/dL (0.0-0.2) H 03/10/18 06:47 AST 140 U/L (13-39) H 03/15/18 06:40 ALT 137 U/L (7-52) H 03/15/18 06:40 Alkaline Phosphatase 333 U/L (34-104) H 03/15/18 06:40 Ammonia 44 umol/L (16-53) 03/05/18 18:45 Lactate Dehydrogenase 184 U/L (140-271) 03/10/18 06:47 Total Protein 5.1 gm/dL (6.0-8.3) L 03/15/18 06:40 Albumin 2.5 gm/dL (4.2-5.5) L 03/15/18 06:40 Globulin 2.6 gm/dL 03/15/18 06:40 Albumin/Globulin Ratio 1.0 (1.0-1.8) 03/15/18 06:40 Ceruloplasmin 31.8 mg/dL (16.0-31.0) H 03/07/18 09:00 Amylase 12 U/L (29-103) L 03/05/18 18:45 Lipase < 3 U/L (11-82) L 03/05/18 18:45 Tumor Marker AFP 1.2 ng/mL (0.0-8.3) 03/07/18 09:00 Carcinoembryonic Ag 3.1 ng/mL (0.0-4.7) 03/10/18 06:47 CA 19-9 Antigen 230 U/mL (0-35) H 03/10/18 06:47 FRANTZ Screen Negative 03/07/18 09:00 Anti-Mitochondrial Ab 5.9 Units (0.0-20.0) 03/07/18 09:00 Smooth Muscle IgG Ab 8 Units (0-19) 03/07/18 09:00 Hepatitis A IgM Ab Negative (Negative) 03/07/18 09:00 Hep Bs Antigen Negative (Negative) 03/07/18 09:00 Hep B Core IgM Ab Negative (Negative) 03/07/18 09:00 Hepatitis C Antibody <0.1 s/co ratio (0.0-0.9) 03/07/18 09:00 BELINDA, IgG Interpret NEGATIVE 03/13/18 06:35 - Physical Exam Vitals and I&O: Vital Signs Temp 97.4 F 03/15/18 04:00 Pulse 74 03/15/18 04:00 Resp 18 03/15/18 04:00 BP 96/54 03/15/18 04:00 Pulse Ox 99 03/15/18 04:00 Intake & Output 03/14/18 03/15/18 03/15/18 18:59 06:59 18:59 Intake Total 345 Balance 345 Weight (lbs) 92.986 kg 92.986 kg Intake: Intake, IV Amount 100 KCL 20mEq/100mL Premix 20 100 meq In 100 ml @ 50 mls/ hr IV Q2H [facility] Rx#: [id number] Oral 245 Other: # Voids 3 3 # Bowel Movements 0 0 Stool Characteristics Formed Formed Weight Source Bedscale Bedscale Active Medications: Current Medications Acetaminophen (Tylenol) 650 mg PO Q4H PRN PRN Reason: MILD PAIN Stop: 05/05/18 05:41 Last Admin: 03/11/18 05:41 Dose: 650 mg Donepezil HCl (Aricept) 10 mg PO HS [facility] Stop: 05/05/18 20:59 Last Admin: 03/14/18 21:43 Dose: 10 mg Famotidine (Pepcid) 20 mg PO BID [facility] Stop: 05/05/18 08:59 Last Admin: 03/14/18 18:33 Dose: 20 mg Dextrose/Sodium Chloride (D5-0.45ns) 1,000 mls @ 50 mls/hr IV .Q20H [facility] Stop: 05/04/18 21:59 Last Admin: 03/15/18 06:52 Dose: 50 mls/hr Lorazepam (Ativan) 1 mg IVP Q6HR PRN; Protocol PRN Reason: Agitation Stop: 05/04/18 21:44 Last Admin: 03/14/18 21:44 Dose: 1 mg Lorazepam (Ativan) 1 mg IV BID [facility]; Protocol Stop: 05/08/18 08:59 Last Admin: 03/14/18 18:33 Dose: Not Given Memantine (Namenda) 10 mg PO DAILY [facility] Stop: 05/05/18 08:59 Last Admin: 03/14/18 09:24 Dose: 10 mg Morphine Sulfate (Morphine) 1 mg IVP Q4HR PRN PRN Reason: Pain (Severe) Stop: 05/07/18 10:59 Last Admin: 03/12/18 20:10 Dose: 1 mg Quetiapine Fumarate (Seroquel) 100 mg PO BID [facility]; Protocol Stop: 05/05/18 08:59 Last Admin: 03/14/18 18:47 Dose: Not Given Rivaroxaban (Xarelto) 20 mg PO HS [facility] Stop: 05/06/18 20:59 Last Admin: 03/14/18 21:43 Dose: 20 mg General: Alert, No acute distress HEENT: Atraumatic, PERRLA, EOMI Neck: Supple Cardiovascular: Regular rate Lungs: Clear to auscultation Abdomen: Bowel sounds, Soft, no Tender, no Hepatomegaly, no Splenomegaly, no Distended Extremities: no Clubbing, no Cyanosis, no Edema Neurological: Normal speech Skin: Other (jaundice) Assessment/Plan - Assessment Assessment: # Schizophrenia # CLL # Elevated LFTs # Bilateral DVT Spoke with Dr Willoughby, who has diagnosed CLL. This should not cause the degree of liver dysfunction and jaundice we are seeing. Thus, he may have an obstructive jaundice that is yet undefined. Possibilities include pancreatic cancer or biliary cancer. The next best diagnostic test would be MRCP. However, the pt does NOT stay still , even for US or CT scan. He has schizophrenia, which at the current level of control, is impacting his ability to comply with this workup. His family would like everything done at this time. US was re-attempted on 03/13, and again was poor study. However, there were gallstones seen but the CBD was only 7mm. Doubtful the jaundice is from choledocholithiasis. A cholangiocarcinoma that is at the hilum is certainly possible. Ultimately, in order to really evaluate the bile ducts and pancreas for malignancy in this patient who will not comply with MRCP, the options are to try and medicate him for the MR procedure OR to attempt to have him undergo Endoscopic Ultrasound with general anesthesia. I think the EUS with anesthesia would be the more feasible option, and has the benefit of also allowing for a biopsy to be performed. HOwever, this is NOT done at this hospital, and would require him to be transferred to a tertiary center willing to do this exam. Alternatively, we could consider ERCP here without EUS or MRCP. However, performing ERCP on cholangiocarcinoma that is not staged or diagnosed could affect the pt's viability for treatment (mainly transplant consideration - although he makes for a poor candidate anyway). At this point, would still prefer to see if we can get this to a tertiary center capable of performing EUS with possible FNA biopsy and/or ERCP at the same instance of anesthesia. If this looks like it will ultimately, not happen, can consider empiric ERCP here. DILI is possible as well, although at this point I think malignancy is more likely Plan: - would start looking into tertiary transfer for Endoscopic Ultrasound (EUS) with general anesthesia support given the above discussion. - MRCP not possible given pt not able to comply, even with ativan given. - hematology evaluation - trend LFTs - Autoimmune hepatitis labs negative. Viral studies negative
--- NOTE | 2018-03-15 08:22 | General Progress Note ---
Subjective - Review of Systems Service Date: 03/15/18 Subjective: Patient is awake, alert but confused. jaundice. no acute distress. arranging for possible transfer to higher level of care. call or contact centre manager to assist. Objective - Results Result Diagrams: 03/15/18 06:40 03/15/18 06:40 Recent Labs: Laboratory Last Values WBC 104.4 Th/cmm (4.8-10.8) H* 03/15/18 06:40 RBC 4.13 Mil/cmm (3.80-5.80) 03/15/18 06:40 Hgb 12.3 gm/dL (12-16) 03/15/18 06:40 Hct 36.0 % (41.0-60) L 03/15/18 06:40 MCV 87.2 fl (80-99) 03/15/18 06:40 MCH 29.8 pg (27.0-31.0) 03/15/18 06:40 MCHC Differential 34.2 pg (28.0-36.0) 03/15/18 06:40 RDW 17.9 % (11.5-20.0) 03/15/18 06:40 Plt Count 313 Th/cmm (150-400) 03/15/18 06:40 MPV 10.1 fl 03/15/18 06:40 Add Manual Diff YES 03/15/18 06:40 Band Neutrophils % 0 % (0-10) 03/15/18 06:40 Neutrophils (Manual) 35 % (40-80) L 03/15/18 06:40 Lymphocytes 60 % (20-50) H 03/15/18 06:40 Monocytes 4 % (2-10) 03/15/18 06:40 Eosinophils 1 % (0-5) 03/15/18 06:40 Basophils 0 % (0-3) 03/15/18 06:40 Metamyelocytes % (0-0) 03/06/18 06:15 Smear Path Review SEE NOTE 03/13/18 06:35 Total Retics Counted 3.8 % (0.5-1.5) H 03/13/18 06:35 Absolute Retic 150.1 Th/cmm 03/13/18 06:35 Corrected Retic Count 2.9 % (0.5-1.5) H 03/13/18 06:35 Haptoglobin 229 mg/dL (34-200) H 03/13/18 06:35 Plt Count 271 Th/cmm (150-750) 03/10/18 06:47 PT 12.1 SECONDS (9.5-11.5) H 03/10/18 06:47 INR 1.17 (0.5-1.4) 03/10/18 06:47 PTT (Actin FS) 34.5 SECONDS (26.0-38.0) 03/10/18 06:47 Fibrinogen 376.0 mg/dL (200.0-400.0) 03/10/18 06:47 D-Dimer 162 ng/mL (100-400) 03/10/18 06:47 Sodium 135 mEq/L (136-145) L 03/15/18 06:40 Potassium 3.4 mEq/L (3.5-5.1) L 03/15/18 06:40 Chloride 102 mEq/L (98-107) 03/15/18 06:40 Carbon Dioxide 25.1 mEq/L (21.0-31.0) 03/15/18 06:40 Anion Gap 11.3 (7.0-16.0) 03/15/18 06:40 BUN 7 mg/dL (7-25) 03/15/18 06:40 Creatinine 0.8 mg/dL (0.7-1.3) 03/15/18 06:40 Est GFR ( Amer) TNP 03/15/18 06:40 Est GFR (Non-Af Amer) TNP 03/15/18 06:40 BUN/Creatinine Ratio 8.8 03/15/18 06:40 Glucose 95 mg/dL (70-105) 03/15/18 06:40 Whole Bld Lactic Acid 1.02 mmol/L (0.60-1.99) 03/05/18 22:50 Calcium 8.3 mg/dL (8.6-10.3) L 03/15/18 06:40 Phosphorus 2.6 mg/dL (2.5-5.0) 03/10/18 06:47 Magnesium 1.7 mg/dL (1.9-2.7) L 03/10/18 06:47 Iron 78 ug/dL (38-169) 03/07/18 09:00 TIBC 182 ug/dL (250-450) L 03/07/18 09:00 Iron Saturation 43 % (15-55) 03/07/18 09:00 Unsaturated IBC 104 ug/dL (111-343) L 03/07/18 09:00 Ferritin 279 ng/mL (30-400) 03/07/18 09:00 Total Bilirubin 20.4 mg/dL (0.3-1.0) H 03/15/18 06:40 Direct Bilirubin 10.27 mg/dL (0.0-0.2) H 03/10/18 06:47 AST 140 U/L (13-39) H 03/15/18 06:40 ALT 137 U/L (7-52) H 03/15/18 06:40 Alkaline Phosphatase 333 U/L (34-104) H 03/15/18 06:40 Ammonia 44 umol/L (16-53) 03/05/18 18:45 Lactate Dehydrogenase 184 U/L (140-271) 03/10/18 06:47 Total Protein 5.1 gm/dL (6.0-8.3) L 03/15/18 06:40 Albumin 2.5 gm/dL (4.2-5.5) L 03/15/18 06:40 Globulin 2.6 gm/dL 03/15/18 06:40 Albumin/Globulin Ratio 1.0 (1.0-1.8) 03/15/18 06:40 Ceruloplasmin 31.8 mg/dL (16.0-31.0) H 03/07/18 09:00 Amylase 12 U/L (29-103) L 03/05/18 18:45 Lipase < 3 U/L (11-82) L 03/05/18 18:45 Tumor Marker AFP 1.2 ng/mL (0.0-8.3) 03/07/18 09:00 Carcinoembryonic Ag 3.1 ng/mL (0.0-4.7) 03/10/18 06:47 CA 19-9 Antigen 230 U/mL (0-35) H 03/10/18 06:47 FRANTZ Screen Negative 03/07/18 09:00 Anti-Mitochondrial Ab 5.9 Units (0.0-20.0) 03/07/18 09:00 Smooth Muscle IgG Ab 8 Units (0-19) 03/07/18 09:00 Hepatitis A IgM Ab Negative (Negative) 03/07/18 09:00 Hep Bs Antigen Negative (Negative) 03/07/18 09:00 Hep B Core IgM Ab Negative (Negative) 03/07/18 09:00 Hepatitis C Antibody <0.1 s/co ratio (0.0-0.9) 03/07/18 09:00 BELINDA, IgG Interpret NEGATIVE 03/13/18 06:35 - Physical Exam Vitals and I&O: Vital Signs Temp 97.4 F 03/15/18 04:00 Pulse 74 03/15/18 04:00 Resp 18 03/15/18 04:00 BP 96/54 03/15/18 04:00 Pulse Ox 99 03/15/18 04:00 Intake & Output 03/14/18 03/15/18 03/15/18 18:59 06:59 18:59 Intake Total 345 Balance 345 Weight (lbs) 92.986 kg 92.986 kg Intake: Intake, IV Amount 100 KCL 20mEq/100mL Premix 20 100 meq In 100 ml @ 50 mls/ hr IV Q2H [facility] Rx#: [id number] Oral 245 Other: # Voids 3 3 # Bowel Movements 0 0 Stool Characteristics Formed Formed Weight Source Bedscale Bedscale Active Medications: Current Medications Acetaminophen (Tylenol) 650 mg PO Q4H PRN PRN Reason: MILD PAIN Stop: 05/05/18 05:41 Last Admin: 03/11/18 05:41 Dose: 650 mg Donepezil HCl (Aricept) 10 mg PO HS [facility] Stop: 05/05/18 20:59 Last Admin: 03/14/18 21:43 Dose: 10 mg Famotidine (Pepcid) 20 mg PO BID [facility] Stop: 05/05/18 08:59 Last Admin: 03/14/18 18:33 Dose: 20 mg Dextrose/Sodium Chloride (D5-0.45ns) 1,000 mls @ 50 mls/hr IV .Q20H [facility] Stop: 05/04/18 21:59 Last Admin: 03/15/18 06:52 Dose: 50 mls/hr Lorazepam (Ativan) 1 mg IVP Q6HR PRN; Protocol PRN Reason: Agitation Stop: 05/04/18 21:44 Last Admin: 03/14/18 21:44 Dose: 1 mg Lorazepam (Ativan) 1 mg IV BID [facility]; Protocol Stop: 05/08/18 08:59 Last Admin: 03/14/18 18:33 Dose: Not Given Memantine (Namenda) 10 mg PO DAILY [facility] Stop: 05/05/18 08:59 Last Admin: 03/14/18 09:24 Dose: 10 mg Morphine Sulfate (Morphine) 1 mg IVP Q4HR PRN PRN Reason: Pain (Severe) Stop: 05/07/18 10:59 Last Admin: 03/12/18 20:10 Dose: 1 mg Quetiapine Fumarate (Seroquel) 100 mg PO BID [facility]; Protocol Stop: 05/05/18 08:59 Last Admin: 03/14/18 18:47 Dose: Not Given Rivaroxaban (Xarelto) 20 mg PO HS [facility] Stop: 05/06/18 20:59 Last Admin: 03/14/18 21:43 Dose: 20 mg General: Alert, No acute distress HEENT: Atraumatic, PERRLA, EOMI Neck: Supple Cardiovascular: Regular rate Lungs: Clear to auscultation Abdomen: Bowel sounds, Soft, no Tender, no Hepatomegaly, no Splenomegaly, no Distended Extremities: no Clubbing, no Cyanosis, no Edema Neurological: Normal speech Skin: Other (jaundice) Assessment/Plan - Assessment Assessment: Jaundice h/o leukemia HTN Schizophrenia Psychosis Dementia Depression Anxiety ASHD B/L DVT Leukocytosis hypomagenesemia hypokalemia - Plan Plan: for possible transfer to higher level of care uche continue current treatment. Nutritional Asmnt/Malnutr-PDOC - Dietary Evaluation Malnutrition Findings (Please click <Entered> for more info): Nutritional Asmnt/Malnutrition Start: 03/09/18 14: 20 Text: Status: Complete Freq: Protocol: Document 03/09/18 14:20 ESTHER (Rec: 03/09/18 15:11 ESTHER [email or web address]) Nutritional Asmnt/Malnutrition Patient General Information Nutritional Screening Moderate Risk Diagnosis jaundice, elevated coagulants Pertinent Medical Hx/Surgical Hx paranoid schizophrenia, depression, CAD, DVT, neuropathy, GERD, anxiety, dementia, acute lymphoblastic leukemia Subjective Information Pt resting in bed at time of visit. Pt appears confused and calm and states he likes his food, but also states he eats foods associated with his listed allergies. Spoke to CHELSEA Avalos who states pt is confused and is on restraints d/t being combative at times. Pt was NPO, but now on regular diet and RN states pt finished 75% of meals today with assist. Per EMR, PO intake 75-100% since admitted. Current Diet Order/ Nutrition Support regular Pertinent Medications D5-0.45ns, pepcid, seroquel, xarelto Pertinent Labs 03/09: K 3.4, Ca 8.3, glucose 130, Alb 2.8, Mg 1.7 03/08: K 3.1, Ca 8.3, glucose 100, Alb 2.6 Nutritional Hx/Data Height 1.88 m Height (Calculated Centimeters) 188.0 Current Weight (lbs) 93.894 kg Weight (Calculated Kilograms) 93.9 Weight (Calculated Grams) 66891.6 Bailey Body Weight 190 lb Body Mass Index (BMI) 26.6 Weight Status Overweight GI Symptoms GI Symptoms None Last BM 03/06 Difficult in: None Food Allergies Yes: milk, wheat, sesame seed, shrimp, egg white Skin Integrity/Comment: jaundiced; reddened rashes to right axilla, right chest, and right upper arm; reddened buttocks; marilou 13 Current %PO Good (75-100%) Estimated Nutritional Goals BEE in Kcals: Using Current wt Calories/Kcals/Kg 25-30 Kcals Calculated 7816-5534 Protein: Using Current wt Protein g/k.0 Protein Calculated 94 g Fluid: ml 3003-2352 (1 ml/kcal) Nutritional Problem 1. Problem Problem Altered nutrition related lab values Etiology electrolyte imbalance Signs/Symptoms: K 3.4, Ca 8.3, Mg 1.7 Malnutrition Alert Is there a minimum of two criteria No selected? Query Text:Check all the applicable criteria. A minimum of two criteria are recommended for diagnosis of either severe or non-severe malnutrition. Malnutrition Related to Morbid Obesity Malnutrition related to morbid obesity No Intervention/Recommendation Comments 1. Continue with regular diet as ordered and MD to replace electrolytes as needed 2. Consider adding nutrition supplement if needs not met through diet alone 3. Monitor PO intake, wt, labs and skin integrity 4. F/U as moderate risk in 3-5 days, 03/12- Expected Outcomes/Goals Expected Outcomes/Goals 1. PO intake at least 75% of all meals 2. Wt stability, skin integrity to improve, and nutrition related labs to approach normal limits Reviewed by Judy Fitch RD
[2018-03-15] MEDS: KCL 20mEq/100mL Premix 20 MEQ/100 ML PIGGYBACK IV SCH ×2 (09:03→12:17)
[2018-03-15] MEDS: D5-0.45NS w/20 mEq KCL 1,000 ML IV SCH (15:08)
[2018-03-15] MEDS: Morphine Sulfate 2 mg/mL 1mL Syr IVP PRN (16:53)
--- NOTE | 2018-03-16 07:27 | Progress Notes ---
DATE: 03/15/2018 Case was discussed with staff of the patient, reviewed records. The patient is reported to be combative, spitting his medication. Irritable angry, unable to participate in meaningful conversation or make safe plan for self-care. Needing constant redirection. He has been so far not sure if he is getting his medications are just biding his food. I will be increasing his Seroquel to 125 mg twice a day. Hopefully, that would help with his agitation and so far no side effects with the medication, no sedation, no nausea, no extrapyramidal symptoms. We will keep the patient in group therapy, milieu therapy, and adjust medications. JOB# [id number]
--- NOTE | 2018-03-16 08:22 | General Progress Note ---
Subjective - Review of Systems Service Date: 03/16/18 Subjective: Patient is awake, alert but confused. still jaundice. no acute distress. arranging for possible transfer to higher level of care. electrical engineering manager to assist. Objective - Results Result Diagrams: 03/15/18 06:40 03/15/18 06:40 Recent Labs: Laboratory Last Values WBC 104.4 Th/cmm (4.8-10.8) H* 03/15/18 06:40 RBC 4.13 Mil/cmm (3.80-5.80) 03/15/18 06:40 Hgb 12.3 gm/dL (12-16) 03/15/18 06:40 Hct 36.0 % (41.0-60) L 03/15/18 06:40 MCV 87.2 fl (80-99) 03/15/18 06:40 MCH 29.8 pg (27.0-31.0) 03/15/18 06:40 MCHC Differential 34.2 pg (28.0-36.0) 03/15/18 06:40 RDW 17.9 % (11.5-20.0) 03/15/18 06:40 Plt Count 313 Th/cmm (150-400) 03/15/18 06:40 MPV 10.1 fl 03/15/18 06:40 Add Manual Diff YES 03/15/18 06:40 Band Neutrophils % 0 % (0-10) 03/15/18 06:40 Neutrophils (Manual) 35 % (40-80) L 03/15/18 06:40 Lymphocytes 60 % (20-50) H 03/15/18 06:40 Monocytes 4 % (2-10) 03/15/18 06:40 Eosinophils 1 % (0-5) 03/15/18 06:40 Basophils 0 % (0-3) 03/15/18 06:40 Metamyelocytes % (0-0) 03/06/18 06:15 Smear Path Review SEE NOTE 03/13/18 06:35 Total Retics Counted 3.8 % (0.5-1.5) H 03/13/18 06:35 Absolute Retic 150.1 Th/cmm 03/13/18 06:35 Corrected Retic Count 2.9 % (0.5-1.5) H 03/13/18 06:35 Haptoglobin 229 mg/dL (34-200) H 03/13/18 06:35 Plt Count 271 Th/cmm (150-750) 03/10/18 06:47 PT 12.1 SECONDS (9.5-11.5) H 03/10/18 06:47 INR 1.17 (0.5-1.4) 03/10/18 06:47 PTT (Actin FS) 34.5 SECONDS (26.0-38.0) 03/10/18 06:47 Fibrinogen 376.0 mg/dL (200.0-400.0) 03/10/18 06:47 D-Dimer 162 ng/mL (100-400) 03/10/18 06:47 Sodium 135 mEq/L (136-145) L 03/15/18 06:40 Potassium 3.4 mEq/L (3.5-5.1) L 03/15/18 06:40 Chloride 102 mEq/L (98-107) 03/15/18 06:40 Carbon Dioxide 25.1 mEq/L (21.0-31.0) 03/15/18 06:40 Anion Gap 11.3 (7.0-16.0) 03/15/18 06:40 BUN 7 mg/dL (7-25) 03/15/18 06:40 Creatinine 0.8 mg/dL (0.7-1.3) 03/15/18 06:40 Est GFR ( Amer) TNP 03/15/18 06:40 Est GFR (Non-Af Amer) TNP 03/15/18 06:40 BUN/Creatinine Ratio 8.8 03/15/18 06:40 Glucose 95 mg/dL (70-105) 03/15/18 06:40 Whole Bld Lactic Acid 1.02 mmol/L (0.60-1.99) 03/05/18 22:50 Calcium 8.3 mg/dL (8.6-10.3) L 03/15/18 06:40 Phosphorus 2.6 mg/dL (2.5-5.0) 03/10/18 06:47 Magnesium 1.9 mg/dL (1.9-2.7) 03/15/18 06:40 Iron 78 ug/dL (38-169) 03/07/18 09:00 TIBC 182 ug/dL (250-450) L 03/07/18 09:00 Iron Saturation 43 % (15-55) 03/07/18 09:00 Unsaturated IBC 104 ug/dL (111-343) L 03/07/18 09:00 Ferritin 279 ng/mL (30-400) 03/07/18 09:00 Total Bilirubin 20.4 mg/dL (0.3-1.0) H 03/15/18 06:40 Direct Bilirubin 10.27 mg/dL (0.0-0.2) H 03/10/18 06:47 AST 140 U/L (13-39) H 03/15/18 06:40 ALT 137 U/L (7-52) H 03/15/18 06:40 Alkaline Phosphatase 333 U/L (34-104) H 03/15/18 06:40 Ammonia 44 umol/L (16-53) 03/05/18 18:45 Lactate Dehydrogenase 184 U/L (140-271) 03/10/18 06:47 Total Protein 5.1 gm/dL (6.0-8.3) L 03/15/18 06:40 Albumin 2.5 gm/dL (4.2-5.5) L 03/15/18 06:40 Globulin 2.6 gm/dL 03/15/18 06:40 Albumin/Globulin Ratio 1.0 (1.0-1.8) 03/15/18 06:40 Ceruloplasmin 31.8 mg/dL (16.0-31.0) H 03/07/18 09:00 Amylase 12 U/L (29-103) L 03/05/18 18:45 Lipase < 3 U/L (11-82) L 03/05/18 18:45 Tumor Marker AFP 1.2 ng/mL (0.0-8.3) 03/07/18 09:00 Carcinoembryonic Ag 3.1 ng/mL (0.0-4.7) 03/10/18 06:47 CA 19-9 Antigen 230 U/mL (0-35) H 03/10/18 06:47 FRANTZ Screen Negative 03/07/18 09:00 Anti-Mitochondrial Ab 5.9 Units (0.0-20.0) 03/07/18 09:00 Smooth Muscle IgG Ab 8 Units (0-19) 03/07/18 09:00 Hepatitis A IgM Ab Negative (Negative) 03/07/18 09:00 Hep Bs Antigen Negative (Negative) 03/07/18 09:00 Hep B Core IgM Ab Negative (Negative) 03/07/18 09:00 Hepatitis C Antibody <0.1 s/co ratio (0.0-0.9) 03/07/18 09:00 BELINDA, IgG Interpret NEGATIVE 03/13/18 06:35 - Physical Exam Vitals and I&O: Vital Signs Temp 97.1 F 03/16/18 04:00 Pulse 70 03/16/18 04:00 Resp 18 03/16/18 04:00 BP 110/59 03/16/18 04:00 Pulse Ox 99 03/15/18 16:00 Intake & Output 03/15/18 03/16/18 03/16/18 18:59 06:59 18:59 Intake Total 100 65 Balance 100 65 Weight (lbs) 92.896 kg Intake: Intake, IV Amount 100 KCL 20mEq/100mL Premix 20 100 meq In 100 ml @ 50 mls/ hr IV Q2H [facility] Rx#: [id number] Oral 65 Other: # Voids 2 # Bowel Movements 1 Stool Characteristics Formed Weight Source Bedscale Active Medications: Current Medications Acetaminophen (Tylenol) 650 mg PO Q4H PRN PRN Reason: MILD PAIN Stop: 05/05/18 05:41 Last Admin: 03/16/18 00:43 Dose: 650 mg Donepezil HCl (Aricept) 10 mg PO HS [facility] Stop: 05/05/18 20:59 Last Admin: 03/15/18 20:53 Dose: 10 mg Famotidine (Pepcid) 20 mg PO BID [facility] Stop: 05/05/18 08:59 Last Admin: 03/15/18 17:58 Dose: 20 mg Potassium Chloride/Dextrose/Sod Cl (D5-0.45ns W/20 Meq Kcl) 1,000 mls @ 50 mls/ hr IV .Q20H [facility] Stop: 05/14/18 08:29 Last Admin: 03/15/18 15:08 Dose: 50 mls/hr Lorazepam (Ativan) 1 mg IVP Q6HR PRN; Protocol PRN Reason: Agitation Stop: 05/04/18 21:44 Last Admin: 03/14/18 21:44 Dose: 1 mg Lorazepam (Ativan) 1 mg IV BID [facility]; Protocol Stop: 05/08/18 08:59 Last Admin: 03/15/18 17:59 Dose: Not Given Memantine (Namenda) 10 mg PO DAILY [facility] Stop: 05/05/18 08:59 Last Admin: 03/15/18 12:11 Dose: Not Given Morphine Sulfate (Morphine) 1 mg IVP Q4HR PRN PRN Reason: Pain (Severe) Stop: 05/07/18 10:59 Last Admin: 03/15/18 16:53 Dose: 1 mg Quetiapine Fumarate 100 mg/ (Quetiapine Fumarate 25 mg) 125 mg PO BID [facility] Stop: 05/14/18 16:59 Last Admin: 03/15/18 17:58 Dose: 125 mg Rivaroxaban (Xarelto) 20 mg PO HS [facility] Stop: 05/06/18 20:59 Last Admin: 03/15/18 20:53 Dose: 20 mg General: Alert, No acute distress HEENT: Atraumatic, PERRLA, EOMI Neck: Supple Cardiovascular: Regular rate Lungs: Clear to auscultation Abdomen: Bowel sounds, Soft, no Tender, no Hepatomegaly, no Splenomegaly, no Distended Extremities: no Clubbing, no Cyanosis, no Edema Neurological: Normal speech Skin: Other (jaundice) Assessment/Plan - Assessment Assessment: Jaundice h/o leukemia HTN Schizophrenia Psychosis Dementia Depression Anxiety ASHD B/L DVT Leukocytosis hypomagenesemia hypokalemia - Plan Plan: for possible transfer to higher level of care uche continue current treatment. Nutritional Asmnt/Malnutr-PDOC - Dietary Evaluation Malnutrition Findings (Please click <Entered> for more info): Nutritional Asmnt/Malnutrition Start: 03/09/18 14: 20 Text: Status: Complete Freq: Protocol: Document 03/09/18 14:20 ESTHER (Rec: 03/09/18 15:11 ESTHER [email or web address]) Nutritional Asmnt/Malnutrition Patient General Information Nutritional Screening Moderate Risk Diagnosis jaundice, elevated coagulants Pertinent Medical Hx/Surgical Hx paranoid schizophrenia, depression, CAD, DVT, neuropathy, GERD, anxiety, dementia, acute lymphoblastic leukemia Subjective Information Pt resting in bed at time of visit. Pt appears confused and calm and states he likes his food, but also states he eats foods associated with his listed allergies. Spoke to CHELSEA Avalos who states pt is confused and is on restraints d/t being combative at times. Pt was NPO, but now on regular diet and RN states pt finished 75% of meals today with assist. Per EMR, PO intake 75-100% since admitted. Current Diet Order/ Nutrition Support regular Pertinent Medications D5-0.45ns, pepcid, seroquel, xarelto Pertinent Labs 03/09: K 3.4, Ca 8.3, glucose 130, Alb 2.8, Mg 1.7 03/08: K 3.1, Ca 8.3, glucose 100, Alb 2.6 Nutritional Hx/Data Height 1.88 m Height (Calculated Centimeters) 188.0 Current Weight (lbs) 93.894 kg Weight (Calculated Kilograms) 93.9 Weight (Calculated Grams) 31847.6 [place] Body Weight 190 lb Body Mass Index (BMI) 26.6 Weight Status Overweight GI Symptoms GI Symptoms None Last BM 03/06 Difficult in: None Food Allergies Yes: milk, wheat, sesame seed, shrimp, egg white Skin Integrity/Comment: jaundiced; reddened rashes to right axilla, right chest, and right upper arm; reddened buttocks; marilou 13 Current %PO Good (75-100%) Estimated Nutritional Goals BEE in Kcals: Using Current wt Calories/Kcals/Kg 25-30 Kcals Calculated 5844-0981 Protein: Using Current wt Protein g/k.0 Protein Calculated 94 g Fluid: ml 5376-3640 (1 ml/kcal) Nutritional Problem 1. Problem Problem Altered nutrition related lab values Etiology electrolyte imbalance Signs/Symptoms: K 3.4, Ca 8.3, Mg 1.7 Malnutrition Alert Is there a minimum of two criteria No selected? Query Text:Check all the applicable criteria. A minimum of two criteria are recommended for diagnosis of either severe or non-severe malnutrition. Malnutrition Related to Morbid Obesity Malnutrition related to morbid obesity No Intervention/Recommendation Comments 1. Continue with regular diet as ordered and MD to replace electrolytes as needed 2. Consider adding nutrition supplement if needs not met through diet alone 3. Monitor PO intake, wt, labs and skin integrity 4. F/U as moderate risk in 3-5 days, 03/12- Expected Outcomes/Goals Expected Outcomes/Goals 1. PO intake at least 75% of all meals 2. Wt stability, skin integrity to improve, and nutrition related labs to approach normal limits Reviewed by Judy Fitch RD
[2018-03-16] MEDS: Morphine Sulfate 2 mg/mL 1mL Syr IVP PRN ×2 (08:42→15:36)
--- NOTE | 2018-03-16 15:15 | General Progress Note ---
Subjective - Review of Systems Events since last encounter: 03/16/18 for transfer to higher level of care Objective - Results Result Diagrams: 03/15/18 06:40 03/15/18 06:40 Recent Labs: Laboratory Last Values WBC 104.4 Th/cmm (4.8-10.8) H* 03/15/18 06:40 RBC 4.13 Mil/cmm (3.80-5.80) 03/15/18 06:40 Hgb 12.3 gm/dL (12-16) 03/15/18 06:40 Hct 36.0 % (41.0-60) L 03/15/18 06:40 MCV 87.2 fl (80-99) 03/15/18 06:40 MCH 29.8 pg (27.0-31.0) 03/15/18 06:40 MCHC Differential 34.2 pg (28.0-36.0) 03/15/18 06:40 RDW 17.9 % (11.5-20.0) 03/15/18 06:40 Plt Count 313 Th/cmm (150-400) 03/15/18 06:40 MPV 10.1 fl 03/15/18 06:40 Add Manual Diff YES 03/15/18 06:40 Band Neutrophils % 0 % (0-10) 03/15/18 06:40 Neutrophils (Manual) 35 % (40-80) L 03/15/18 06:40 Lymphocytes 60 % (20-50) H 03/15/18 06:40 Monocytes 4 % (2-10) 03/15/18 06:40 Eosinophils 1 % (0-5) 03/15/18 06:40 Basophils 0 % (0-3) 03/15/18 06:40 Metamyelocytes % (0-0) 03/06/18 06:15 Smear Path Review SEE NOTE 03/13/18 06:35 Total Retics Counted 3.8 % (0.5-1.5) H 03/13/18 06:35 Absolute Retic 150.1 Th/cmm 03/13/18 06:35 Corrected Retic Count 2.9 % (0.5-1.5) H 03/13/18 06:35 Haptoglobin 229 mg/dL (34-200) H 03/13/18 06:35 Plt Count 271 Th/cmm (150-750) 03/10/18 06:47 PT 12.1 SECONDS (9.5-11.5) H 03/10/18 06:47 INR 1.17 (0.5-1.4) 03/10/18 06:47 PTT (Actin FS) 34.5 SECONDS (26.0-38.0) 03/10/18 06:47 Fibrinogen 376.0 mg/dL (200.0-400.0) 03/10/18 06:47 D-Dimer 162 ng/mL (100-400) 03/10/18 06:47 Sodium 135 mEq/L (136-145) L 03/15/18 06:40 Potassium 3.4 mEq/L (3.5-5.1) L 03/15/18 06:40 Chloride 102 mEq/L (98-107) 03/15/18 06:40 Carbon Dioxide 25.1 mEq/L (21.0-31.0) 03/15/18 06:40 Anion Gap 11.3 (7.0-16.0) 03/15/18 06:40 BUN 7 mg/dL (7-25) 03/15/18 06:40 Creatinine 0.8 mg/dL (0.7-1.3) 03/15/18 06:40 Est GFR ( Amer) TNP 03/15/18 06:40 Est GFR (Non-Af Amer) TNP 03/15/18 06:40 BUN/Creatinine Ratio 8.8 03/15/18 06:40 Glucose 95 mg/dL (70-105) 03/15/18 06:40 Whole Bld Lactic Acid 1.02 mmol/L (0.60-1.99) 03/05/18 22:50 Calcium 8.3 mg/dL (8.6-10.3) L 03/15/18 06:40 Phosphorus 2.6 mg/dL (2.5-5.0) 03/10/18 06:47 Magnesium 1.9 mg/dL (1.9-2.7) 03/15/18 06:40 Iron 78 ug/dL (38-169) 03/07/18 09:00 TIBC 182 ug/dL (250-450) L 03/07/18 09:00 Iron Saturation 43 % (15-55) 03/07/18 09:00 Unsaturated IBC 104 ug/dL (111-343) L 03/07/18 09:00 Ferritin 279 ng/mL (30-400) 03/07/18 09:00 Total Bilirubin 20.4 mg/dL (0.3-1.0) H 03/15/18 06:40 Direct Bilirubin 10.27 mg/dL (0.0-0.2) H 03/10/18 06:47 AST 140 U/L (13-39) H 03/15/18 06:40 ALT 137 U/L (7-52) H 03/15/18 06:40 Alkaline Phosphatase 333 U/L (34-104) H 03/15/18 06:40 Ammonia 44 umol/L (16-53) 03/05/18 18:45 Lactate Dehydrogenase 184 U/L (140-271) 03/10/18 06:47 Total Protein 5.1 gm/dL (6.0-8.3) L 03/15/18 06:40 Albumin 2.5 gm/dL (4.2-5.5) L 03/15/18 06:40 Globulin 2.6 gm/dL 03/15/18 06:40 Albumin/Globulin Ratio 1.0 (1.0-1.8) 03/15/18 06:40 Ceruloplasmin 31.8 mg/dL (16.0-31.0) H 03/07/18 09:00 Amylase 12 U/L (29-103) L 03/05/18 18:45 Lipase < 3 U/L (11-82) L 03/05/18 18:45 Tumor Marker AFP 1.2 ng/mL (0.0-8.3) 03/07/18 09:00 Carcinoembryonic Ag 3.1 ng/mL (0.0-4.7) 03/10/18 06:47 CA 19-9 Antigen 230 U/mL (0-35) H 03/10/18 06:47 FRANTZ Screen Negative 03/07/18 09:00 Anti-Mitochondrial Ab 5.9 Units (0.0-20.0) 03/07/18 09:00 Smooth Muscle IgG Ab 8 Units (0-19) 03/07/18 09:00 Hepatitis A IgM Ab Negative (Negative) 03/07/18 09:00 Hep Bs Antigen Negative (Negative) 03/07/18 09:00 Hep B Core IgM Ab Negative (Negative) 03/07/18 09:00 Hepatitis C Antibody <0.1 s/co ratio (0.0-0.9) 03/07/18 09:00 BELINDA, IgG Interpret NEGATIVE 03/13/18 06:35 - Physical Exam Vitals and I&O: Vital Signs Temp 97.1 F 03/16/18 10:05 Pulse 70 03/16/18 10:05 Resp 18 03/16/18 12:00 BP 142/49 03/16/18 11:48 Pulse Ox 99 03/15/18 16:00 Intake & Output 03/15/18 03/16/18 03/16/18 18:59 06:59 18:59 Intake Total 100 65 Balance 100 65 Weight (lbs) 92.896 kg Intake: Intake, IV Amount 100 KCL 20mEq/100mL Premix 20 100 meq In 100 ml @ 50 mls/ hr IV Q2H [facility] Rx#: [id number] Oral 65 Other: # Voids 2 # Bowel Movements 1 Stool Characteristics Formed Weight Source Bedscale Active Medications: Current Medications Acetaminophen (Tylenol) 650 mg PO Q4H PRN PRN Reason: MILD PAIN Stop: 05/05/18 05:41 Last Admin: 03/16/18 00:43 Dose: 650 mg Donepezil HCl (Aricept) 10 mg PO HS [facility] Stop: 05/05/18 20:59 Last Admin: 03/15/18 20:53 Dose: 10 mg Famotidine (Pepcid) 20 mg PO BID [facility] Stop: 05/05/18 08:59 Last Admin: 03/16/18 08:46 Dose: 20 mg Potassium Chloride/Dextrose/Sod Cl (D5-0.45ns W/20 Meq Kcl) 1,000 mls @ 50 mls/ hr IV .Q20H [facility] Stop: 05/14/18 08:29 Last Admin: 03/15/18 15:08 Dose: 50 mls/hr Lorazepam (Ativan) 1 mg IVP Q6HR PRN; Protocol PRN Reason: Agitation Stop: 05/04/18 21:44 Last Admin: 03/14/18 21:44 Dose: 1 mg Lorazepam (Ativan) 1 mg IV BID [facility]; Protocol Stop: 05/08/18 08:59 Last Admin: 03/16/18 08:43 Dose: 1 mg Memantine (Namenda) 10 mg PO DAILY [facility] Stop: 05/05/18 08:59 Last Admin: 03/16/18 08:45 Dose: 10 mg Morphine Sulfate (Morphine) 1 mg IVP Q4HR PRN PRN Reason: Pain (Severe) Stop: 05/07/18 10:59 Last Admin: 03/16/18 08:42 Dose: 1 mg Quetiapine Fumarate 100 mg/ (Quetiapine Fumarate 25 mg) 125 mg PO BID [facility] Stop: 05/14/18 16:59 Last Admin: 03/16/18 08:44 Dose: 125 mg Rivaroxaban (Xarelto) 20 mg PO HS [facility] Stop: 05/06/18 20:59 Last Admin: 03/15/18 20:53 Dose: 20 mg General: Alert, No acute distress HEENT: Atraumatic, PERRLA, EOMI Neck: Supple Cardiovascular: Regular rate Lungs: Clear to auscultation Abdomen: Bowel sounds, Soft, no Tender, no Hepatomegaly, no Splenomegaly, no Distended Extremities: no Clubbing, no Cyanosis, no Edema Neurological: Normal speech Skin: Other (jaundice) Nutritional Asmnt/Malnutr-PDOC - Dietary Evaluation Malnutrition Findings (Please click <Entered> for more info): Nutritional Asmnt/Malnutrition Start: 03/09/18 14: 20 Text: Status: Complete Freq: Protocol: Document 03/09/18 14:20 ESTHER (Rec: 03/09/18 15:11 ESTHER [email or web address]) Nutritional Asmnt/Malnutrition Patient General Information Nutritional Screening Moderate Risk Diagnosis jaundice, elevated coagulants Pertinent Medical Hx/Surgical Hx paranoid schizophrenia, depression, CAD, DVT, neuropathy, GERD, anxiety, dementia, acute lymphoblastic leukemia Subjective Information Pt resting in bed at time of visit. Pt appears confused and calm and states he likes his food, but also states he eats foods associated with his listed allergies. Spoke to RN Robbie who states pt is confused and is on restraints d/t being combative at times. Pt was NPO, but now on regular diet and RN states pt finished 75% of meals today with assist. Per EMR, PO intake 75-100% since admitted. Current Diet Order/ Nutrition Support regular Pertinent Medications D5-0.45ns, pepcid, seroquel, xarelto Pertinent Labs 03/09: K 3.4, Ca 8.3, glucose 130, Alb 2.8, Mg 1.7 03/08: K 3.1, Ca 8.3, glucose 100, Alb 2.6 Nutritional Hx/Data Height 1.88 m Height (Calculated Centimeters) 188.0 Current Weight (lbs) 93.894 kg Weight (Calculated Kilograms) 93.9 Weight (Calculated Grams) 55277.6 [place] Body Weight 190 lb Body Mass Index (BMI) 26.6 Weight Status Overweight GI Symptoms GI Symptoms None Last BM 03/06 Difficult in: None Food Allergies Yes: milk, wheat, sesame seed, shrimp, egg white Skin Integrity/Comment: jaundiced; reddened rashes to right axilla, right chest, and right upper arm; reddened buttocks; marilou 13 Current %PO Good (75-100%) Estimated Nutritional Goals BEE in Kcals: Using Current wt Calories/Kcals/Kg 25-30 Kcals Calculated 4967-1189 Protein: Using Current wt Protein g/k.0 Protein Calculated 94 g Fluid: ml [id number] (1 ml/kcal) Nutritional Problem 1. Problem Problem Altered nutrition related lab values Etiology electrolyte imbalance Signs/Symptoms: K 3.4, Ca 8.3, Mg 1.7 Malnutrition Alert Is there a minimum of two criteria No selected? Query Text:Check all the applicable criteria. A minimum of two criteria are recommended for diagnosis of either severe or non-severe malnutrition. Malnutrition Related to Morbid Obesity Malnutrition related to morbid obesity No Intervention/Recommendation Comments 1. Continue with regular diet as ordered and MD to replace electrolytes as needed 2. Consider adding nutrition supplement if needs not met through diet alone 3. Monitor PO intake, wt, labs and skin integrity 4. F/U as moderate risk in 3-5 days, 03/12- Expected Outcomes/Goals Expected Outcomes/Goals 1. PO intake at least 75% of all meals 2. Wt stability, skin integrity to improve, and nutrition related labs to approach normal limits Reviewed by Judy Fitch RD
--- NOTE | 2018-03-16 16:27 | GI Progress Note ---
Subjective - Review of Systems Service Date: 03/16/18 Subjective: No new events Objective - Results Result Diagrams: 03/15/18 06:40 03/15/18 06:40 Recent Labs: Laboratory Last Values WBC 104.4 Th/cmm (4.8-10.8) H* 03/15/18 06:40 RBC 4.13 Mil/cmm (3.80-5.80) 03/15/18 06:40 Hgb 12.3 gm/dL (12-16) 03/15/18 06:40 Hct 36.0 % (41.0-60) L 03/15/18 06:40 MCV 87.2 fl (80-99) 03/15/18 06:40 MCH 29.8 pg (27.0-31.0) 03/15/18 06:40 MCHC Differential 34.2 pg (28.0-36.0) 03/15/18 06:40 RDW 17.9 % (11.5-20.0) 03/15/18 06:40 Plt Count 313 Th/cmm (150-400) 03/15/18 06:40 MPV 10.1 fl 03/15/18 06:40 Add Manual Diff YES 03/15/18 06:40 Band Neutrophils % 0 % (0-10) 03/15/18 06:40 Neutrophils (Manual) 35 % (40-80) L 03/15/18 06:40 Lymphocytes 60 % (20-50) H 03/15/18 06:40 Monocytes 4 % (2-10) 03/15/18 06:40 Eosinophils 1 % (0-5) 03/15/18 06:40 Basophils 0 % (0-3) 03/15/18 06:40 Metamyelocytes % (0-0) 03/06/18 06:15 Smear Path Review SEE NOTE 03/13/18 06:35 Total Retics Counted 3.8 % (0.5-1.5) H 03/13/18 06:35 Absolute Retic 150.1 Th/cmm 03/13/18 06:35 Corrected Retic Count 2.9 % (0.5-1.5) H 03/13/18 06:35 Haptoglobin 229 mg/dL (34-200) H 03/13/18 06:35 Plt Count 271 Th/cmm (150-750) 03/10/18 06:47 PT 12.1 SECONDS (9.5-11.5) H 03/10/18 06:47 INR 1.17 (0.5-1.4) 03/10/18 06:47 PTT (Actin FS) 34.5 SECONDS (26.0-38.0) 03/10/18 06:47 Fibrinogen 376.0 mg/dL (200.0-400.0) 03/10/18 06:47 D-Dimer 162 ng/mL (100-400) 03/10/18 06:47 Sodium 135 mEq/L (136-145) L 03/15/18 06:40 Potassium 3.4 mEq/L (3.5-5.1) L 03/15/18 06:40 Chloride 102 mEq/L (98-107) 03/15/18 06:40 Carbon Dioxide 25.1 mEq/L (21.0-31.0) 03/15/18 06:40 Anion Gap 11.3 (7.0-16.0) 03/15/18 06:40 BUN 7 mg/dL (7-25) 03/15/18 06:40 Creatinine 0.8 mg/dL (0.7-1.3) 03/15/18 06:40 Est GFR ( Amer) TNP 03/15/18 06:40 Est GFR (Non-Af Amer) TNP 03/15/18 06:40 BUN/Creatinine Ratio 8.8 03/15/18 06:40 Glucose 95 mg/dL (70-105) 03/15/18 06:40 Whole Bld Lactic Acid 1.02 mmol/L (0.60-1.99) 03/05/18 22:50 Calcium 8.3 mg/dL (8.6-10.3) L 03/15/18 06:40 Phosphorus 2.6 mg/dL (2.5-5.0) 03/10/18 06:47 Magnesium 1.9 mg/dL (1.9-2.7) 03/15/18 06:40 Iron 78 ug/dL (38-169) 03/07/18 09:00 TIBC 182 ug/dL (250-450) L 03/07/18 09:00 Iron Saturation 43 % (15-55) 11/19/18 09:00 Unsaturated IBC 104 ug/dL (111-343) L 03/07/18 09:00 Ferritin 279 ng/mL (30-400) 03/07/18 09:00 Total Bilirubin 20.4 mg/dL (0.3-1.0) H 03/15/18 06:40 Direct Bilirubin 10.27 mg/dL (0.0-0.2) H 03/10/18 06:47 AST 140 U/L (13-39) H 03/15/18 06:40 ALT 137 U/L (7-52) H 03/15/18 06:40 Alkaline Phosphatase 333 U/L (34-104) H 03/15/18 06:40 Ammonia 44 umol/L (16-53) 03/05/18 18:45 Lactate Dehydrogenase 184 U/L (140-271) 03/10/18 06:47 Total Protein 5.1 gm/dL (6.0-8.3) L 03/15/18 06:40 Albumin 2.5 gm/dL (4.2-5.5) L 03/15/18 06:40 Globulin 2.6 gm/dL 03/15/18 06:40 Albumin/Globulin Ratio 1.0 (1.0-1.8) 03/15/18 06:40 Ceruloplasmin 31.8 mg/dL (16.0-31.0) H 03/07/18 09:00 Amylase 12 U/L (29-103) L 03/05/18 18:45 Lipase < 3 U/L (11-82) L 03/05/18 18:45 Tumor Marker AFP 1.2 ng/mL (0.0-8.3) 03/07/18 09:00 Carcinoembryonic Ag 3.1 ng/mL (0.0-4.7) 03/10/18 06:47 CA 19-9 Antigen 230 U/mL (0-35) H 03/10/18 06:47 FRANTZ Screen Negative 03/07/18 09:00 Anti-Mitochondrial Ab 5.9 Units (0.0-20.0) 03/07/18 09:00 Smooth Muscle IgG Ab 8 Units (0-19) 03/07/18 09:00 Hepatitis A IgM Ab Negative (Negative) 03/07/18 09:00 Hep Bs Antigen Negative (Negative) 03/07/18 09:00 Hep B Core IgM Ab Negative (Negative) 03/07/18 09:00 Hepatitis C Antibody <0.1 s/co ratio (0.0-0.9) 03/07/18 09:00 BELINDA, IgG Interpret NEGATIVE 03/13/18 06:35 - Physical Exam Vitals and I&O: Vital Signs Temp 97.1 F 03/16/18 10:05 Pulse 70 03/16/18 10:05 Resp 18 03/16/18 12:00 BP 142/49 03/16/18 11:48 Pulse Ox 99 03/15/18 16:00 Intake & Output 03/15/18 03/16/18 03/16/18 18:59 06:59 18:59 Intake Total 100 65 Balance 100 65 Weight (lbs) 92.896 kg Intake: Intake, IV Amount 100 KCL 20mEq/100mL Premix 20 100 meq In 100 ml @ 50 mls/ hr IV Q2H [facility] Rx#: [id number] Oral 65 Other: # Voids 2 # Bowel Movements 1 Stool Characteristics Formed Weight Source Bedscale Active Medications: Current Medications Acetaminophen (Tylenol) 650 mg PO Q4H PRN PRN Reason: MILD PAIN Stop: 05/05/18 05:41 Last Admin: 03/16/18 00:43 Dose: 650 mg Donepezil HCl (Aricept) 10 mg PO HS [facility] Stop: 05/05/18 20:59 Last Admin: 03/15/18 20:53 Dose: 10 mg Famotidine (Pepcid) 20 mg PO BID [facility] Stop: 05/05/18 08:59 Last Admin: 03/16/18 08:46 Dose: 20 mg Potassium Chloride/Dextrose/Sod Cl (D5-0.45ns W/20 Meq Kcl) 1,000 mls @ 50 mls/ hr IV .Q20H [facility] Stop: 05/14/18 08:29 Last Admin: 03/15/18 15:08 Dose: 50 mls/hr Lorazepam (Ativan) 1 mg IVP Q6HR PRN; Protocol PRN Reason: Agitation Stop: 05/04/18 21:44 Last Admin: 03/14/18 21:44 Dose: 1 mg Lorazepam (Ativan) 1 mg IV BID [facility]; Protocol Stop: 05/08/18 08:59 Last Admin: 03/16/18 08:43 Dose: 1 mg Memantine (Namenda) 10 mg PO DAILY [facility] Stop: 05/05/18 08:59 Last Admin: 03/16/18 08:45 Dose: 10 mg Morphine Sulfate (Morphine) 1 mg IVP Q4HR PRN PRN Reason: Pain (Severe) Stop: 05/07/18 10:59 Last Admin: 03/16/18 15:36 Dose: 1 mg Quetiapine Fumarate 100 mg/ (Quetiapine Fumarate 25 mg) 125 mg PO BID [facility] Stop: 05/14/18 16:59 Last Admin: 03/16/18 08:44 Dose: 125 mg Rivaroxaban (Xarelto) 20 mg PO HS [facility] Stop: 05/06/18 20:59 Last Admin: 03/15/18 20:53 Dose: 20 mg General: Alert, No acute distress HEENT: Atraumatic, PERRLA, EOMI Neck: Supple Cardiovascular: Regular rate Lungs: Clear to auscultation Abdomen: Bowel sounds, Soft, no Tender, no Hepatomegaly, no Splenomegaly, no Distended Extremities: no Clubbing, no Cyanosis, no Edema Neurological: Normal speech Skin: Other (jaundice) Assessment/Plan - Assessment Assessment: # Schizophrenia # CLL # Elevated LFTs # Bilateral DVT Spoke with Dr Willoughby, who has diagnosed CLL. This should not cause the degree of liver dysfunction and jaundice we are seeing. Thus, he may have an obstructive jaundice that is yet undefined. Possibilities include pancreatic cancer or biliary cancer. The next best diagnostic test would be MRCP. However, the pt does NOT stay still , even for US or CT scan. He has schizophrenia, which at the current level of control, is impacting his ability to comply with this workup. His family would like everything done at this time. US was re-attempted on 03/13, and again was poor study. However, there were gallstones seen but the CBD was only 7mm. Doubtful the jaundice is from choledocholithiasis. A cholangiocarcinoma that is at the hilum is certainly possible. Ultimately, in order to really evaluate the bile ducts and pancreas for malignancy in this patient who will not comply with MRCP, the options are to try and medicate him for the MR procedure OR to attempt to have him undergo Endoscopic Ultrasound with general anesthesia. I think the EUS with anesthesia would be the more feasible option, and has the benefit of also allowing for a biopsy to be performed. HOwever, this is NOT done at this hospital, and would require him to be transferred to a tertiary center willing to do this exam. Alternatively, we could consider ERCP here without EUS or MRCP. However, performing ERCP on cholangiocarcinoma that is not staged or diagnosed could affect the pt's viability for treatment (mainly transplant consideration - although he makes for a poor candidate anyway). At this point, would still prefer to see if we can get this to a tertiary center capable of performing EUS with possible FNA biopsy and/or ERCP at the same instance of anesthesia. If this looks like it will ultimately, not happen, can consider empiric ERCP here. DILI is possible as well, although at this point I think malignancy is more likely Plan: - would start looking into tertiary transfer for Endoscopic Ultrasound (EUS) with general anesthesia support given the above discussion. This is ongoing - MRCP not possible given pt not able to comply, even with ativan given. - hematology evaluation - trend LFTs - Autoimmune hepatitis labs negative. Viral studies negative
[2018-03-16] MEDS: D5-0.45NS w/20 mEq KCL 1,000 ML IV SCH (18:18)
--- NOTE | 2018-03-16 21:45 | Progress Notes ---
DATE: 03/16/2018 SUBJECTIVE: Case was discussed with the staff of the patient and reviewed records. The patient is doing better. He is less combative. They were able to take him off the restraints. He is currently in the process of being transferred to a lesser level of care. He is sleeping well. His acting out behavior has improved a lot. He is demented, confused, and the patient needs follow up with the psychiatrist upon discharge. Thank you very much for allowing me to participate in the care of this most interesting patient. JOB# [id number]
[2018-03-17 06:37] LABS: HEMATOCRIT 35.1 % (41.0-60); MEAN CELL VOLUME 87.6 fl (80-99); MEAN CORPUSCULAR HGB CONC 34.2 pg (28.0-36.0); MEAN PLATELET VOLUME 9.8 fl; PLATELET COUNT 296 Th/cmm (150-400); RED CELL DISTRIBUTION WIDTH 18.6 % (11.5-20.0)
[2018-03-17 06:46] LABS: WHITE BLOOD COUNT 94.6 Th/cmm (4.8-10.8)
[2018-03-17 06:48] LABS: ALBUMIN 2.3 gm/dL (4.2-5.5); ALKALINE PHOSPHATASE 276 U/L (34-104); ANION GAP 11.8 (7.0-16.0); BILIRUBIN,TOTAL 18.7 mg/dL (0.3-1.0); BUN - UREA NITROGEN 12 mg/dL (7-25); CALCIUM SERUM 7.8 mg/dL (8.6-10.3); CARBON DIOXIDE 24.7 mEq/L (21.0-31.0); CHLORIDE 103 mEq/L (98-107); GLUCOSE 106 mg/dL (70-105); POTASSIUM SERUM 3.5 mEq/L (3.5-5.1); SGOT 128 U/L (13-39); SGPT/ALT 120 U/L (7-52); SODIUM SERUM 136 mEq/L (136-145); TOTAL PROTEIN,SERUM 4.7 gm/dL (6.0-8.3)
[2018-03-17 07:31] LABS: ATYPICAL LYMPH 7 %; EOSINOPHIL 3 % (0-5); LYMPHOCYTE 68 % (20-50); MONOCYTE 2 % (2-10); NEUTROPHILS 11 % (40-80)
[2018-03-17 07:32] LABS: MYELOBLAST 9 %
[2018-03-17 07:33] LABS: PLATELET ESTIMATE ADEQUATE (NORMAL)
[2018-03-17] MEDS: Morphine Sulfate 2 mg/mL 1mL Syr IVP PRN (08:02)
--- NOTE | 2018-03-17 08:27 | GI Progress Note ---
Subjective - Review of Systems Service Date: 03/17/18 Subjective: No events overnight Objective - Results Result Diagrams: 03/17/18 05:45 03/17/18 05:45 Recent Labs: Laboratory Last Values WBC 94.6 Th/cmm (4.8-10.8) H* 03/17/18 05:45 RBC 4.00 Mil/cmm (3.80-5.80) 03/17/18 05:45 Hgb 12.0 gm/dL (12-16) 03/17/18 05:45 Hct 35.1 % (41.0-60) L 03/17/18 05:45 MCV 87.6 fl (80-99) 03/17/18 05:45 MCH 30.0 pg (27.0-31.0) 03/17/18 05:45 MCHC Differential 34.2 pg (28.0-36.0) 03/17/18 05:45 RDW 18.6 % (11.5-20.0) 03/17/18 05:45 Plt Count 296 Th/cmm (150-400) 03/17/18 05:45 MPV 9.8 fl 03/17/18 05:45 Add Manual Diff YES 03/17/18 05:45 Band Neutrophils % 0 % (0-10) 03/15/18 06:40 Neutrophils (Manual) 11 % (40-80) L 03/17/18 05:45 Lymphocytes 68 % (20-50) H 03/17/18 05:45 Monocytes 2 % (2-10) 03/17/18 05:45 Eosinophils 3 % (0-5) 03/17/18 05:45 Basophils 0 % (0-3) 03/15/18 06:40 Metamyelocytes % (0-0) 03/06/18 06:15 Atypical Lymphocytes 7 % 03/17/18 05:45 Myeloblasts 9 % 03/17/18 05:45 Platelet Estimate ADEQUATE (NORMAL) 03/17/18 05:45 Smear Path Review SEE BELOW 03/17/18 05:45 Total Retics Counted 3.8 % (0.5-1.5) H 03/13/18 06:35 Absolute Retic 150.1 Th/cmm 03/13/18 06:35 Corrected Retic Count 2.9 % (0.5-1.5) H 03/13/18 06:35 Haptoglobin 229 mg/dL (34-200) H 03/13/18 06:35 Plt Count 271 Th/cmm (150-750) 03/10/18 06:47 PT 12.1 SECONDS (9.5-11.5) H 03/10/18 06:47 INR 1.17 (0.5-1.4) 03/10/18 06:47 PTT (Actin FS) 34.5 SECONDS (26.0-38.0) 03/10/18 06:47 Fibrinogen 376.0 mg/dL (200.0-400.0) 03/10/18 06:47 D-Dimer 162 ng/mL (100-400) 03/10/18 06:47 Sodium 136 mEq/L (136-145) 03/17/18 05:45 Potassium 3.5 mEq/L (3.5-5.1) 03/17/18 05:45 Chloride 103 mEq/L (98-107) 03/17/18 05:45 Carbon Dioxide 24.7 mEq/L (21.0-31.0) 03/17/18 05:45 Anion Gap 11.8 (7.0-16.0) 03/17/18 05:45 BUN 12 mg/dL (7-25) 03/17/18 05:45 Creatinine 1.0 mg/dL (0.7-1.3) 03/17/18 05:45 Est GFR ( Amer) TNP 03/17/18 05:45 Est GFR (Non-Af Amer) TNP 03/17/18 05:45 BUN/Creatinine Ratio 12.0 03/17/18 05:45 Glucose 106 mg/dL (70-105) H 03/17/18 05:45 Whole Bld Lactic Acid 1.02 mmol/L (0.60-1.99) 03/05/18 22:50 Calcium 7.8 mg/dL (8.6-10.3) L 03/17/18 05:45 Phosphorus 2.6 mg/dL (2.5-5.0) 03/10/18 06:47 Magnesium 1.9 mg/dL (1.9-2.7) 03/15/18 06:40 Iron 78 ug/dL (38-169) 03/07/18 09:00 TIBC 182 ug/dL (250-450) L 03/07/18 09:00 Iron Saturation 43 % (15-55) 03/07/18 09:00 Unsaturated IBC 104 ug/dL (111-343) L 03/07/18 09:00 Ferritin 279 ng/mL (30-400) 03/07/18 09:00 Total Bilirubin 18.7 mg/dL (0.3-1.0) H 03/17/18 05:45 Direct Bilirubin 10.27 mg/dL (0.0-0.2) H 03/10/18 06:47 AST 128 U/L (13-39) H 03/17/18 05:45 ALT 120 U/L (7-52) H 03/17/18 05:45 Alkaline Phosphatase 276 U/L (34-104) H 03/17/18 05:45 Ammonia 44 umol/L (16-53) 03/05/18 18:45 Lactate Dehydrogenase 184 U/L (140-271) 03/10/18 06:47 Total Protein 4.7 gm/dL (6.0-8.3) L 03/17/18 05:45 Albumin 2.3 gm/dL (4.2-5.5) L 03/17/18 05:45 Globulin 2.4 gm/dL 03/17/18 05:45 Albumin/Globulin Ratio 1.0 (1.0-1.8) 03/17/18 05:45 Ceruloplasmin 31.8 mg/dL (16.0-31.0) H 03/07/18 09:00 Amylase 12 U/L (29-103) L 03/05/18 18:45 Lipase < 3 U/L (11-82) L 03/05/18 18:45 Tumor Marker AFP 1.2 ng/mL (0.0-8.3) 03/07/18 09:00 Carcinoembryonic Ag 3.1 ng/mL (0.0-4.7) 03/10/18 06:47 CA 19-9 Antigen 230 U/mL (0-35) H 03/10/18 06:47 FRANTZ Screen Negative 03/07/18 09:00 Anti-Mitochondrial Ab 5.9 Units (0.0-20.0) 03/07/18 09:00 Smooth Muscle IgG Ab 8 Units (0-19) 03/07/18 09:00 Hepatitis A IgM Ab Negative (Negative) 03/07/18 09:00 Hep Bs Antigen Negative (Negative) 03/07/18 09:00 Hep B Core IgM Ab Negative (Negative) 03/07/18 09:00 Hepatitis C Antibody <0.1 s/co ratio (0.0-0.9) 03/07/18 09:00 BELINDA, IgG Interpret NEGATIVE 03/13/18 06:35 - Physical Exam Vitals and I&O: Vital Signs Temp 96.9 F 03/17/18 04:00 Pulse 86 03/17/18 04:00 Resp 20 03/17/18 04:00 BP 100/65 03/17/18 04:00 Pulse Ox 97 03/17/18 04:00 Intake & Output 03/16/18 03/17/18 03/17/18 18:59 06:59 18:59 Intake Total 1000 240 Balance 1000 240 Weight (lbs) 93.485 kg Intake: Intake, IV Amount 1000 D5-0.45NS w/20 mEq KCL 1, 1000 000 ml @ 50 mls/hr IV . Q20H [facility] Rx#:[id number] Oral 240 Other: # Voids 4 Weight Source Bedscale Active Medications: Current Medications Acetaminophen (Tylenol) 650 mg PO Q4H PRN PRN Reason: MILD PAIN Stop: 05/05/18 05:41 Last Admin: 03/16/18 00:43 Dose: 650 mg Donepezil HCl (Aricept) 10 mg PO HS [facility] Stop: 05/05/18 20:59 Last Admin: 03/16/18 20:55 Dose: 10 mg Famotidine (Pepcid) 20 mg PO BID [facility] Stop: 05/05/18 08:59 Last Admin: 03/16/18 17:31 Dose: 20 mg Potassium Chloride/Dextrose/Sod Cl (D5-0.45ns W/20 Meq Kcl) 1,000 mls @ 50 mls/ hr IV .Q20H [facility] Stop: 05/14/18 08:29 Last Admin: 03/16/18 18:18 Dose: 50 mls/hr Lorazepam (Ativan) 1 mg IVP Q6HR PRN; Protocol PRN Reason: Agitation Stop: 05/04/18 21:44 Last Admin: 03/14/18 21:44 Dose: 1 mg Lorazepam (Ativan) 1 mg IV BID [facility]; Protocol Stop: 05/08/18 08:59 Last Admin: 03/16/18 17:31 Dose: 1 mg Memantine (Namenda) 10 mg PO DAILY [facility] Stop: 05/05/18 08:59 Last Admin: 03/16/18 08:45 Dose: 10 mg Morphine Sulfate (Morphine) 1 mg IVP Q4HR PRN PRN Reason: Pain (Severe) Stop: 05/07/18 10:59 Last Admin: 03/17/18 08:02 Dose: 1 mg Quetiapine Fumarate 100 mg/ (Quetiapine Fumarate 25 mg) 125 mg PO BID [facility] Stop: 05/14/18 16:59 Last Admin: 03/16/18 17:31 Dose: 125 mg Rivaroxaban (Xarelto) 20 mg PO HS [facility] Stop: 05/06/18 20:59 Last Admin: 03/16/18 20:54 Dose: 20 mg General: Alert, No acute distress HEENT: Atraumatic, PERRLA, EOMI Neck: Supple Cardiovascular: Regular rate Lungs: Clear to auscultation Abdomen: Bowel sounds, Soft, no Tender, no Hepatomegaly, no Splenomegaly, no Distended Extremities: no Clubbing, no Cyanosis, no Edema Neurological: Normal speech Skin: Other (jaundice) Assessment/Plan - Assessment Assessment: # Schizophrenia # CLL # Elevated LFTs # Bilateral DVT Spoke with Dr Willoughby, who has diagnosed CLL. This should not cause the degree of liver dysfunction and jaundice we are seeing. Thus, he may have an obstructive jaundice that is yet undefined. Possibilities include pancreatic cancer or biliary cancer. The next best diagnostic test would be MRCP. However, the pt does NOT stay still , even for US or CT scan. He has schizophrenia, which at the current level of control, is impacting his ability to comply with this workup. His family would like everything done at this time. US was re-attempted on 03/13, and again was poor study. However, there were gallstones seen but the CBD was only 7mm. Doubtful the jaundice is from choledocholithiasis. A cholangiocarcinoma that is at the hilum is certainly possible. Ultimately, in order to really evaluate the bile ducts and pancreas for malignancy in this patient who will not comply with MRCP, the options are to try and medicate him for the MR procedure OR to attempt to have him undergo Endoscopic Ultrasound with general anesthesia. I think the EUS with anesthesia would be the more feasible option, and has the benefit of also allowing for a biopsy to be performed. HOwever, this is NOT done at this hospital, and would require him to be transferred to a tertiary center willing to do this exam. Alternatively, we could consider ERCP here without EUS or MRCP. However, performing ERCP on cholangiocarcinoma that is not staged or diagnosed could affect the pt's viability for treatment (mainly transplant consideration - although he makes for a poor candidate anyway). At this point, would still prefer to see if we can get this to a tertiary center capable of performing EUS with possible FNA biopsy and/or ERCP at the same instance of anesthesia. If this looks like it will ultimately, not happen, can consider empiric ERCP here. DILI is possible as well, although at this point I think malignancy is more likely Plan: - Case management is attempting to a tertiary transfer for Endoscopic Ultrasound (EUS) with general anesthesia support given the above discussion. This is ongoing - MRCP not possible given pt not able to comply, even with ativan given. - hematology evaluation - trend LFTs - Autoimmune hepatitis labs negative. Viral studies negative
--- NOTE | 2018-03-17 09:04 | General Progress Note ---
Subjective - Review of Systems Service Date: 03/17/18 Subjective: Patient was seen and examined. No acute distress. Patient is awake, alert but confused. still jaundice. no acute distress. arranging for possible transfer to higher level of care. print project manager to assist. Objective - Results Result Diagrams: 03/17/18 05:45 03/17/18 05:45 Recent Labs: Laboratory Last Values WBC 94.6 Th/cmm (4.8-10.8) H* 03/17/18 05:45 RBC 4.00 Mil/cmm (3.80-5.80) 03/17/18 05:45 Hgb 12.0 gm/dL (12-16) 03/17/18 05:45 Hct 35.1 % (41.0-60) L 03/17/18 05:45 MCV 87.6 fl (80-99) 03/17/18 05:45 MCH 30.0 pg (27.0-31.0) 03/17/18 05:45 MCHC Differential 34.2 pg (28.0-36.0) 03/17/18 05:45 RDW 18.6 % (11.5-20.0) 03/17/18 05:45 Plt Count 296 Th/cmm (150-400) 03/17/18 05:45 MPV 9.8 fl 03/17/18 05:45 Add Manual Diff YES 03/17/18 05:45 Band Neutrophils % 0 % (0-10) 03/15/18 06:40 Neutrophils (Manual) 11 % (40-80) L 03/17/18 05:45 Lymphocytes 68 % (20-50) H 03/17/18 05:45 Monocytes 2 % (2-10) 03/17/18 05:45 Eosinophils 3 % (0-5) 03/17/18 05:45 Basophils 0 % (0-3) 03/15/18 06:40 Metamyelocytes % (0-0) 03/06/18 06:15 Atypical Lymphocytes 7 % 03/17/18 05:45 Myeloblasts 9 % 03/17/18 05:45 Platelet Estimate ADEQUATE (NORMAL) 03/17/18 05:45 Smear Path Review SEE BELOW 03/17/18 05:45 Total Retics Counted 3.8 % (0.5-1.5) H 03/13/18 06:35 Absolute Retic 150.1 Th/cmm 03/13/18 06:35 Corrected Retic Count 2.9 % (0.5-1.5) H 03/13/18 06:35 Haptoglobin 229 mg/dL (34-200) H 03/13/18 06:35 Plt Count 271 Th/cmm (150-750) 03/10/18 06:47 PT 12.1 SECONDS (9.5-11.5) H 03/10/18 06:47 INR 1.17 (0.5-1.4) 03/10/18 06:47 PTT (Actin FS) 34.5 SECONDS (26.0-38.0) 03/10/18 06:47 Fibrinogen 376.0 mg/dL (200.0-400.0) 03/10/18 06:47 D-Dimer 162 ng/mL (100-400) 03/10/18 06:47 Sodium 136 mEq/L (136-145) 03/17/18 05:45 Potassium 3.5 mEq/L (3.5-5.1) 03/17/18 05:45 Chloride 103 mEq/L (98-107) 03/17/18 05:45 Carbon Dioxide 24.7 mEq/L (21.0-31.0) 03/17/18 05:45 Anion Gap 11.8 (7.0-16.0) 03/17/18 05:45 BUN 12 mg/dL (7-25) 03/17/18 05:45 Creatinine 1.0 mg/dL (0.7-1.3) 03/17/18 05:45 Est GFR ( Amer) TNP 03/17/18 05:45 Est GFR (Non-Af Amer) TNP 03/17/18 05:45 BUN/Creatinine Ratio 12.0 03/17/18 05:45 Glucose 106 mg/dL (70-105) H 03/17/18 05:45 Whole Bld Lactic Acid 1.02 mmol/L (0.60-1.99) 03/05/18 22:50 Calcium 7.8 mg/dL (8.6-10.3) L 03/17/18 05:45 Phosphorus 2.6 mg/dL (2.5-5.0) 03/10/18 06:47 Magnesium 1.9 mg/dL (1.9-2.7) 03/15/18 06:40 Iron 78 ug/dL (38-169) 03/07/18 09:00 TIBC 182 ug/dL (250-450) L 03/07/18 09:00 Iron Saturation 43 % (15-55) 03/07/18 09:00 Unsaturated IBC 104 ug/dL (111-343) L 03/07/18 09:00 Ferritin 279 ng/mL (30-400) 03/07/18 09:00 Total Bilirubin 18.7 mg/dL (0.3-1.0) H 03/17/18 05:45 Direct Bilirubin 10.27 mg/dL (0.0-0.2) H 03/10/18 06:47 AST 128 U/L (13-39) H 03/17/18 05:45 ALT 120 U/L (7-52) H 03/17/18 05:45 Alkaline Phosphatase 276 U/L (34-104) H 03/17/18 05:45 Ammonia 44 umol/L (16-53) 03/05/18 18:45 Lactate Dehydrogenase 184 U/L (140-271) 03/10/18 06:47 Total Protein 4.7 gm/dL (6.0-8.3) L 03/17/18 05:45 Albumin 2.3 gm/dL (4.2-5.5) L 03/17/18 05:45 Globulin 2.4 gm/dL 03/17/18 05:45 Albumin/Globulin Ratio 1.0 (1.0-1.8) 03/17/18 05:45 Ceruloplasmin 31.8 mg/dL (16.0-31.0) H 03/07/18 09:00 Amylase 12 U/L (29-103) L 03/05/18 18:45 Lipase < 3 U/L (11-82) L 03/05/18 18:45 Tumor Marker AFP 1.2 ng/mL (0.0-8.3) 03/07/18 09:00 Carcinoembryonic Ag 3.1 ng/mL (0.0-4.7) 03/10/18 06:47 CA 19-9 Antigen 230 U/mL (0-35) H 03/10/18 06:47 FRANTZ Screen Negative 03/07/18 09:00 Anti-Mitochondrial Ab 5.9 Units (0.0-20.0) 03/07/18 09:00 Smooth Muscle IgG Ab 8 Units (0-19) 03/07/18 09:00 Hepatitis A IgM Ab Negative (Negative) 03/07/18 09:00 Hep Bs Antigen Negative (Negative) 03/07/18 09:00 Hep B Core IgM Ab Negative (Negative) 03/07/18 09:00 Hepatitis C Antibody <0.1 s/co ratio (0.0-0.9) 03/07/18 09:00 BELINDA, IgG Interpret NEGATIVE 03/13/18 06:35 - Physical Exam Vitals and I&O: Vital Signs Temp 96.9 F 03/17/18 04:00 Pulse 86 03/17/18 04:00 Resp 20 03/17/18 04:00 BP 100/65 03/17/18 04:00 Pulse Ox 97 03/17/18 04:00 Intake & Output 03/16/18 03/17/18 03/17/18 18:59 06:59 18:59 Intake Total 1000 240 Balance 1000 240 Weight (lbs) 93.485 kg Intake: Intake, IV Amount 1000 D5-0.45NS w/20 mEq KCL 1, 1000 000 ml @ 50 mls/hr IV . Q20H [facility] Rx#:[id number] Oral 240 Other: # Voids 4 Weight Source Bedscale Active Medications: Current Medications Acetaminophen (Tylenol) 650 mg PO Q4H PRN PRN Reason: MILD PAIN Stop: 05/05/18 05:41 Last Admin: 03/16/18 00:43 Dose: 650 mg Donepezil HCl (Aricept) 10 mg PO HS [facility] Stop: 05/05/18 20:59 Last Admin: 03/16/18 20:55 Dose: 10 mg Famotidine (Pepcid) 20 mg PO BID [facility] Stop: 05/05/18 08:59 Last Admin: 03/17/18 08:27 Dose: 20 mg Potassium Chloride/Dextrose/Sod Cl (D5-0.45ns W/20 Meq Kcl) 1,000 mls @ 50 mls/ hr IV .Q20H [facility] Stop: 05/14/18 08:29 Last Admin: 03/16/18 18:18 Dose: 50 mls/hr Lorazepam (Ativan) 1 mg IVP Q6HR PRN; Protocol PRN Reason: Agitation Stop: 05/04/18 21:44 Last Admin: 03/14/18 21:44 Dose: 1 mg Lorazepam (Ativan) 1 mg IV BID [facility]; Protocol Stop: 05/08/18 08:59 Last Admin: 03/17/18 08:26 Dose: 1 mg Memantine (Namenda) 10 mg PO DAILY [facility] Stop: 05/05/18 08:59 Last Admin: 03/17/18 08:27 Dose: 10 mg Morphine Sulfate (Morphine) 1 mg IVP Q4HR PRN PRN Reason: Pain (Severe) Stop: 05/07/18 10:59 Last Admin: 03/17/18 08:02 Dose: 1 mg Quetiapine Fumarate 100 mg/ (Quetiapine Fumarate 25 mg) 125 mg PO BID [facility] Stop: 05/14/18 16:59 Last Admin: 03/17/18 08:29 Dose: 125 mg Rivaroxaban (Xarelto) 20 mg PO HS [facility] Stop: 05/06/18 20:59 Last Admin: 03/16/18 20:54 Dose: 20 mg General: Alert, No acute distress HEENT: Atraumatic, PERRLA, EOMI Neck: Supple Cardiovascular: Regular rate Lungs: Clear to auscultation Abdomen: Bowel sounds, Soft, no Tender, no Hepatomegaly, no Splenomegaly, no Distended Extremities: no Clubbing, no Cyanosis, no Edema Neurological: Normal speech Skin: Other (jaundice) Assessment/Plan - Assessment Assessment: Jaundice h/o leukemia HTN Schizophrenia Psychosis Dementia Depression Anxiety ASHD B/L DVT Leukocytosis hypomagenesemia hypokalemia - Plan Plan: for possible transfer to higher level of care uche continue current treatment. Nutritional Asmnt/Malnutr-PDOC - Dietary Evaluation Malnutrition Findings (Please click <Entered> for more info): Nutritional Asmnt/Malnutrition Start: 03/09/18 14: 20 Text: Status: Complete Freq: Protocol: Document 03/09/18 14:20 ESTHER (Rec: 03/09/18 15:11 ESTHER [email or web address]) Nutritional Asmnt/Malnutrition Patient General Information Nutritional Screening Moderate Risk Diagnosis jaundice, elevated coagulants Pertinent Medical Hx/Surgical Hx paranoid schizophrenia, depression, CAD, DVT, neuropathy, GERD, anxiety, dementia, acute lymphoblastic leukemia Subjective Information Pt resting in bed at time of visit. Pt appears confused and calm and states he likes his food, but also states he eats foods associated with his listed allergies. Spoke to RN Robbie who states pt is confused and is on restraints d/t being combative at times. Pt was NPO, but now on regular diet and RN states pt finished 75% of meals today with assist. Per EMR, PO intake 75-100% since admitted. Current Diet Order/ Nutrition Support regular Pertinent Medications D5-0.45ns, pepcid, seroquel, xarelto Pertinent Labs 03/09: K 3.4, Ca 8.3, glucose 130, Alb 2.8, Mg 1.7 03/08: K 3.1, Ca 8.3, glucose 100, Alb 2.6 Nutritional Hx/Data Height 1.88 m Height (Calculated Centimeters) 188.0 Current Weight (lbs) 93.894 kg Weight (Calculated Kilograms) 93.9 Weight (Calculated Grams) 75481.6 [place] Body Weight 190 lb Body Mass Index (BMI) 26.6 Weight Status Overweight GI Symptoms GI Symptoms None Last BM 03/06 Difficult in: None Food Allergies Yes: milk, wheat, sesame seed, shrimp, egg white Skin Integrity/Comment: jaundiced; reddened rashes to right axilla, right chest, and right upper arm; reddened buttocks; marilou 13 Current %PO Good (75-100%) Estimated Nutritional Goals BEE in Kcals: Using Current wt Calories/Kcals/Kg 25-30 Kcals Calculated 1841-2881 Protein: Using Current wt Protein g/k.0 Protein Calculated 94 g Fluid: ml 5578-6153 (1 ml/kcal) Nutritional Problem 1. Problem Problem Altered nutrition related lab values Etiology electrolyte imbalance Signs/Symptoms: K 3.4, Ca 8.3, Mg 1.7 Malnutrition Alert Is there a minimum of two criteria No selected? Query Text:Check all the applicable criteria. A minimum of two criteria are recommended for diagnosis of either severe or non-severe malnutrition. Malnutrition Related to Morbid Obesity Malnutrition related to morbid obesity No Intervention/Recommendation Comments 1. Continue with regular diet as ordered and MD to replace electrolytes as needed 2. Consider adding nutrition supplement if needs not met through diet alone 3. Monitor PO intake, wt, labs and skin integrity 4. F/U as moderate risk in 3-5 days, 03/12- Expected Outcomes/Goals Expected Outcomes/Goals 1. PO intake at least 75% of all meals 2. Wt stability, skin integrity to improve, and nutrition related labs to approach normal limits Reviewed by Judy Fitch RD
--- NOTE | 2018-03-17 16:04 | Progress Notes ---
DATE: 03/17/2018 FOLLOW-UP PROGRESS NOTE PROGRESS ON THE UNIT: Case was discussed with staff of the patient, reviewed records. The patient was supposed to be discharged yesterday, however he is not discharged yet. He has been acting aggressive, irritable. I did make an adjustment in medication ____ fine yesterday. Because of his age, I am reluctant to make further changes. If he is compliant with the medication and continues to be aggressive, maybe then I will make adjustment; however, at this point we will continue to watch. Thank you very much for allowing me to participate in the care of this most interesting gentleman. JOB# [id number]
[2018-03-18 06:36] LABS: HEMATOCRIT 34.9 % (41.0-60); MEAN CELL VOLUME 87.4 fl (80-99); MEAN CORPUSCULAR HGB CONC 34.3 pg (28.0-36.0); MEAN PLATELET VOLUME 9.4 fl; PLATELET COUNT 283 Th/cmm (150-400); RED BLOOD COUNT 3.99 Mil/cmm (3.80-5.80); RED CELL DISTRIBUTION WIDTH 18.3 % (11.5-20.0)
[2018-03-18 06:47] LABS: WHITE BLOOD COUNT 84.4 Th/cmm (4.8-10.8)
[2018-03-18 06:55] LABS: ALBUMIN 2.5 gm/dL (4.2-5.5); ALKALINE PHOSPHATASE 300 U/L (34-104); ANION GAP 12.1 (7.0-16.0); BILIRUBIN,TOTAL 20.2 mg/dL (0.3-1.0); BUN - UREA NITROGEN 12 mg/dL (7-25); CALCIUM SERUM 8.3 mg/dL (8.6-10.3); CHLORIDE 105 mEq/L (98-107); GLUCOSE 101 mg/dL (70-105); POTASSIUM SERUM 4.1 mEq/L (3.5-5.1); SGOT 136 U/L (13-39); SGPT/ALT 118 U/L (7-52); SODIUM SERUM 140 mEq/L (136-145); TOTAL PROTEIN,SERUM 4.9 gm/dL (6.0-8.3)
[2018-03-18 07:18] LABS: BAND NEUTROPHILE 1 % (0-10); BASOPHIL 0 % (0-3); EOSINOPHIL 1 % (0-5); LYMPHOCYTE 85 % (20-50); MONOCYTE 3 % (2-10); NEUTROPHILS 10 % (40-80); PLATELET ESTIMATE ADEQUATE (NORMAL)
--- NOTE | 2018-03-18 08:17 | General Progress Note ---
Subjective - Review of Systems Service Date: 03/18/18 Subjective: Patient was seen and examined. No acute distress. Patient is awake, alert but confused. still jaundice. no acute distress. arranging for possible transfer to higher level of care. complex case manager to assist. Patient is still confused. in restraints Objective - Results Result Diagrams: 03/18/18 05:50 03/18/18 05:50 Recent Labs: Laboratory Last Values WBC 84.4 Th/cmm (4.8-10.8) H* D 03/18/18 05:50 RBC 3.99 Mil/cmm (3.80-5.80) 03/18/18 05:50 Hgb 12.0 gm/dL (12-16) 03/18/18 05:50 Hct 34.9 % (41.0-60) L 03/18/18 05:50 MCV 87.4 fl (80-99) 03/18/18 05:50 MCH 30.0 pg (27.0-31.0) 03/18/18 05:50 MCHC Differential 34.3 pg (28.0-36.0) 03/18/18 05:50 RDW 18.3 % (11.5-20.0) 03/18/18 05:50 Plt Count 283 Th/cmm (150-400) 03/18/18 05:50 MPV 9.4 fl 03/18/18 05:50 Add Manual Diff YES 03/18/18 05:50 Band Neutrophils % 1 % (0-10) 03/18/18 05:50 Neutrophils (Manual) 10 % (40-80) L 03/18/18 05:50 Lymphocytes 85 % (20-50) H 03/18/18 05:50 Monocytes 3 % (2-10) 03/18/18 05:50 Eosinophils 1 % (0-5) 03/18/18 05:50 Basophils 0 % (0-3) 03/18/18 05:50 Metamyelocytes % (0-0) 03/06/18 06:15 Atypical Lymphocytes 7 % 03/17/18 05:45 Myeloblasts 9 % 03/17/18 05:45 Platelet Estimate ADEQUATE (NORMAL) 03/18/18 05:50 Smear Path Review SEE BELOW 03/17/18 05:45 Total Retics Counted 3.8 % (0.5-1.5) H 03/13/18 06:35 Absolute Retic 150.1 Th/cmm 03/13/18 06:35 Corrected Retic Count 2.9 % (0.5-1.5) H 03/13/18 06:35 Haptoglobin 229 mg/dL (34-200) H 03/13/18 06:35 Plt Count 271 Th/cmm (150-750) 03/10/18 06:47 PT 12.1 SECONDS (9.5-11.5) H 03/10/18 06:47 INR 1.17 (0.5-1.4) 03/10/18 06:47 PTT (Actin FS) 34.5 SECONDS (26.0-38.0) 03/10/18 06:47 Fibrinogen 376.0 mg/dL (200.0-400.0) 03/10/18 06:47 D-Dimer 162 ng/mL (100-400) 03/10/18 06:47 Sodium 140 mEq/L (136-145) 03/18/18 05:50 Potassium 4.1 mEq/L (3.5-5.1) 03/18/18 05:50 Chloride 105 mEq/L (98-107) 03/18/18 05:50 Carbon Dioxide 27.0 mEq/L (21.0-31.0) 03/18/18 05:50 Anion Gap 12.1 (7.0-16.0) 03/18/18 05:50 BUN 12 mg/dL (7-25) 03/18/18 05:50 Creatinine 1.0 mg/dL (0.7-1.3) 03/18/18 05:50 Est GFR ( Amer) TNP 03/18/18 05:50 Est GFR (Non-Af Amer) TNP 03/18/18 05:50 BUN/Creatinine Ratio 12.0 03/18/18 05:50 Glucose 101 mg/dL (70-105) 03/18/18 05:50 Whole Bld Lactic Acid 1.02 mmol/L (0.60-1.99) 03/05/18 22:50 Calcium 8.3 mg/dL (8.6-10.3) L 03/18/18 05:50 Phosphorus 2.6 mg/dL (2.5-5.0) 03/10/18 06:47 Magnesium 1.9 mg/dL (1.9-2.7) 03/15/18 06:40 Iron 78 ug/dL (38-169) 03/07/18 09:00 TIBC 182 ug/dL (250-450) L 03/07/18 09:00 Iron Saturation 43 % (15-55) 03/07/18 09:00 Unsaturated IBC 104 ug/dL (111-343) L 03/07/18 09:00 Ferritin 279 ng/mL (30-400) 03/07/18 09:00 Total Bilirubin 20.2 mg/dL (0.3-1.0) H 03/18/18 05:50 Direct Bilirubin 10.27 mg/dL (0.0-0.2) H 03/10/18 06:47 AST 136 U/L (13-39) H 03/18/18 05:50 ALT 118 U/L (7-52) H 03/18/18 05:50 Alkaline Phosphatase 300 U/L (34-104) H 03/18/18 05:50 Ammonia 44 umol/L (16-53) 03/05/18 18:45 Lactate Dehydrogenase 184 U/L (140-271) 03/10/18 06:47 Total Protein 4.9 gm/dL (6.0-8.3) L 03/18/18 05:50 Albumin 2.5 gm/dL (4.2-5.5) L 03/18/18 05:50 Globulin 2.4 gm/dL 03/18/18 05:50 Albumin/Globulin Ratio 1.0 (1.0-1.8) 03/18/18 05:50 Ceruloplasmin 31.8 mg/dL (16.0-31.0) H 03/07/18 09:00 Amylase 12 U/L (29-103) L 03/05/18 18:45 Lipase < 3 U/L (11-82) L 03/05/18 18:45 Tumor Marker AFP 1.2 ng/mL (0.0-8.3) 03/07/18 09:00 Carcinoembryonic Ag 3.1 ng/mL (0.0-4.7) 03/10/18 06:47 CA 19-9 Antigen 230 U/mL (0-35) H 03/10/18 06:47 FRANTZ Screen Negative 03/07/18 09:00 Anti-Mitochondrial Ab 5.9 Units (0.0-20.0) 03/07/18 09:00 Smooth Muscle IgG Ab 8 Units (0-19) 03/07/18 09:00 Hepatitis A IgM Ab Negative (Negative) 03/07/18 09:00 Hep Bs Antigen Negative (Negative) 03/07/18 09:00 Hep B Core IgM Ab Negative (Negative) 03/07/18 09:00 Hepatitis C Antibody <0.1 s/co ratio (0.0-0.9) 03/07/18 09:00 BELINDA, IgG Interpret NEGATIVE 03/13/18 06:35 - Physical Exam Vitals and I&O: Vital Signs Temp 96.8 F 03/18/18 04:00 Pulse 77 03/18/18 04:00 Resp 17 03/18/18 04:00 BP 97/51 03/18/18 04:00 Pulse Ox 96 03/18/18 04:00 Intake & Output 03/17/18 03/18/18 03/18/18 18:59 06:59 18:59 Intake Total 500 120 Balance 500 120 Weight (lbs) 93.485 kg 93.848 kg Intake: Oral 500 120 Other: # Voids 4 2 # Bowel Movements 0 1 Weight Source Bedscale Bedscale Active Medications: Current Medications Acetaminophen (Tylenol) 650 mg PO Q4H PRN PRN Reason: MILD PAIN Stop: 05/05/18 05:41 Last Admin: 03/17/18 20:58 Dose: 650 mg Donepezil HCl (Aricept) 10 mg PO HS [facility] Stop: 05/05/18 20:59 Last Admin: 03/17/18 20:58 Dose: 10 mg Famotidine (Pepcid) 20 mg PO BID [facility] Stop: 05/05/18 08:59 Last Admin: 03/17/18 16:45 Dose: 20 mg Potassium Chloride/Dextrose/Sod Cl (D5-0.45ns W/20 Meq Kcl) 1,000 mls @ 50 mls/ hr IV .Q20H [facility] Stop: 05/14/18 08:29 Last Admin: 03/16/18 18:18 Dose: 50 mls/hr Lorazepam (Ativan) 1 mg IVP Q6HR PRN; Protocol PRN Reason: Agitation Stop: 05/04/18 21:44 Last Admin: 03/14/18 21:44 Dose: 1 mg Lorazepam (Ativan) 1 mg IV BID [facility]; Protocol Stop: 05/08/18 08:59 Last Admin: 03/17/18 16:45 Dose: 1 mg Memantine (Namenda) 10 mg PO DAILY [facility] Stop: 05/05/18 08:59 Last Admin: 03/17/18 08:27 Dose: 10 mg Morphine Sulfate (Morphine) 1 mg IVP Q4HR PRN PRN Reason: Pain (Severe) Stop: 05/07/18 10:59 Last Admin: 03/16/18 15:36 Dose: 1 mg Quetiapine Fumarate 100 mg/ (Quetiapine Fumarate 25 mg) 125 mg PO BID [facility] Stop: 05/14/18 16:59 Last Admin: 03/17/18 16:45 Dose: 125 mg Rivaroxaban (Xarelto) 20 mg PO HS [facility] Stop: 05/06/18 20:59 Last Admin: 03/17/18 20:59 Dose: 20 mg General: Alert, No acute distress HEENT: Atraumatic, PERRLA, EOMI Neck: Supple Cardiovascular: Regular rate Lungs: Clear to auscultation Abdomen: Bowel sounds, Soft, no Tender, no Hepatomegaly, no Splenomegaly, no Distended Extremities: no Clubbing, no Cyanosis, no Edema Neurological: Normal speech Skin: Other (jaundice) Assessment/Plan - Assessment Assessment: Jaundice h/o leukemia HTN Schizophrenia Psychosis Dementia Depression Anxiety ASHD B/L DVT Leukocytosis hypomagenesemia hypokalemia - Plan Plan: spoke to Hem/Onc physician from [facility], Dr. Arrington. He would like a copy of Mr. Martinez latest flow cytometry prior to transfer. Nutritional Asmnt/Malnutr-PDOC - Dietary Evaluation Malnutrition Findings (Please click <Entered> for more info): Nutritional Asmnt/Malnutrition Start: 03/09/18 14: 20 Text: Status: Complete Freq: Protocol: Document 03/09/18 14:20 ESTHER (Rec: 03/09/18 15:11 ESTHER [email or web address]) Nutritional Asmnt/Malnutrition Patient General Information Nutritional Screening Moderate Risk Diagnosis jaundice, elevated coagulants Pertinent Medical Hx/Surgical Hx paranoid schizophrenia, depression, CAD, DVT, neuropathy, GERD, anxiety, dementia, acute lymphoblastic leukemia Subjective Information Pt resting in bed at time of visit. Pt appears confused and calm and states he likes his food, but also states he eats foods associated with his listed allergies. Spoke to RN Robbie who states pt is confused and is on restraints d/t being combative at times. Pt was NPO, but now on regular diet and RN states pt finished 75% of meals today with assist. Per EMR, PO intake 75-100% since admitted. Current Diet Order/ Nutrition Support regular Pertinent Medications D5-0.45ns, pepcid, seroquel, xarelto Pertinent Labs 03/09: K 3.4, Ca 8.3, glucose 130, Alb 2.8, Mg 1.7 03/08: K 3.1, Ca 8.3, glucose 100, Alb 2.6 Nutritional Hx/Data Height 1.88 m Height (Calculated Centimeters) 188.0 Current Weight (lbs) 93.894 kg Weight (Calculated Kilograms) 93.9 Weight (Calculated Grams) 58470.6 [place] Body Weight 190 lb Body Mass Index (BMI) 26.6 Weight Status Overweight GI Symptoms GI Symptoms None Last BM 03/06 Difficult in: None Food Allergies Yes: milk, wheat, sesame seed, shrimp, egg white Skin Integrity/Comment: jaundiced; reddened rashes to right axilla, right chest, and right upper arm; reddened buttocks; marilou 13 Current %PO Good (75-100%) Estimated Nutritional Goals BEE in Kcals: Using Current wt Calories/Kcals/Kg 25-30 Kcals Calculated 9349-5895 Protein: Using Current wt Protein g/k.0 Protein Calculated 94 g Fluid: ml 2887-3466 (1 ml/kcal) Nutritional Problem 1. Problem Problem Altered nutrition related lab values Etiology electrolyte imbalance Signs/Symptoms: K 3.4, Ca 8.3, Mg 1.7 Malnutrition Alert Is there a minimum of two criteria No selected? Query Text:Check all the applicable criteria. A minimum of two criteria are recommended for diagnosis of either severe or non-severe malnutrition. Malnutrition Related to Morbid Obesity Malnutrition related to morbid obesity No Intervention/Recommendation Comments 1. Continue with regular diet as ordered and MD to replace electrolytes as needed 2. Consider adding nutrition supplement if needs not met through diet alone 3. Monitor PO intake, wt, labs and skin integrity 4. F/U as moderate risk in 3-5 days, 03/12- Expected Outcomes/Goals Expected Outcomes/Goals 1. PO intake at least 75% of all meals 2. Wt stability, skin integrity to improve, and nutrition related labs to approach normal limits Reviewed by Judy Fitch RD
[2018-03-18] MEDS: D5-0.45NS w/20 mEq KCL 1,000 ML IV SCH (17:13)
--- NOTE | 2018-03-19 03:45 | Progress Notes ---
DATE: 03/18/2018 Case was discussed with staff of the patient. The patient continues to be aggressive and irritable. He has been spitting at staff in their face, very hard to redirect, easily agitated, unpredictable, and impulsive. He is demented. He is on Aricept and Namenda maximum dose. I did make adjust of medication 3 days ago. I will be increasing the Seroquel further to 150 mg twice a day and so far no side effects with the medication, no sedation, no nausea, no extrapyramidal symptoms. Thank you very much for allowing me to participate in the care of this most interesting gentleman. JOB# [id number]
--- NOTE | 2018-03-19 06:11 | General Progress Note ---
Subjective - Review of Systems Service Date: 03/19/18 Subjective: Patient was seen and examined. No acute distress. Patient is awake, alert but confused. still jaundice. no acute distress. Objective - Results Result Diagrams: 03/18/18 05:50 03/18/18 05:50 Recent Labs: Laboratory Last Values WBC 84.4 Th/cmm (4.8-10.8) H* D 03/18/18 05:50 RBC 3.99 Mil/cmm (3.80-5.80) 03/18/18 05:50 Hgb 12.0 gm/dL (12-16) 03/18/18 05:50 Hct 34.9 % (41.0-60) L 03/18/18 05:50 MCV 87.4 fl (80-99) 03/18/18 05:50 MCH 30.0 pg (27.0-31.0) 03/18/18 05:50 MCHC Differential 34.3 pg (28.0-36.0) 03/18/18 05:50 RDW 18.3 % (11.5-20.0) 03/18/18 05:50 Plt Count 283 Th/cmm (150-400) 03/18/18 05:50 MPV 9.4 fl 03/18/18 05:50 Add Manual Diff YES 03/18/18 05:50 Band Neutrophils % 1 % (0-10) 03/18/18 05:50 Neutrophils (Manual) 10 % (40-80) L 03/18/18 05:50 Lymphocytes 85 % (20-50) H 03/18/18 05:50 Monocytes 3 % (2-10) 03/18/18 05:50 Eosinophils 1 % (0-5) 03/18/18 05:50 Basophils 0 % (0-3) 03/18/18 05:50 Metamyelocytes % (0-0) 03/06/18 06:15 Atypical Lymphocytes 7 % 03/17/18 05:45 Myeloblasts 9 % 03/17/18 05:45 Platelet Estimate ADEQUATE (NORMAL) 03/18/18 05:50 Smear Path Review SEE BELOW 03/17/18 05:45 Total Retics Counted 3.8 % (0.5-1.5) H 03/13/18 06:35 Absolute Retic 150.1 Th/cmm 03/13/18 06:35 Corrected Retic Count 2.9 % (0.5-1.5) H 03/13/18 06:35 Haptoglobin 229 mg/dL (34-200) H 03/13/18 06:35 Plt Count 271 Th/cmm (150-750) 03/10/18 06:47 PT 12.1 SECONDS (9.5-11.5) H 03/10/18 06:47 INR 1.17 (0.5-1.4) 03/10/18 06:47 PTT (Actin FS) 34.5 SECONDS (26.0-38.0) 03/10/18 06:47 Fibrinogen 376.0 mg/dL (200.0-400.0) 03/10/18 06:47 D-Dimer 162 ng/mL (100-400) 03/10/18 06:47 Sodium 140 mEq/L (136-145) 03/18/18 05:50 Potassium 4.1 mEq/L (3.5-5.1) 03/18/18 05:50 Chloride 105 mEq/L (98-107) 03/18/18 05:50 Carbon Dioxide 27.0 mEq/L (21.0-31.0) 03/18/18 05:50 Anion Gap 12.1 (7.0-16.0) 03/18/18 05:50 BUN 12 mg/dL (7-25) 03/18/18 05:50 Creatinine 1.0 mg/dL (0.7-1.3) 03/18/18 05:50 Est GFR ( Amer) TNP 03/18/18 05:50 Est GFR (Non-Af Amer) TNP 03/18/18 05:50 BUN/Creatinine Ratio 12.0 03/18/18 05:50 Glucose 101 mg/dL (70-105) 03/18/18 05:50 Whole Bld Lactic Acid 1.02 mmol/L (0.60-1.99) 03/05/18 22:50 Calcium 8.3 mg/dL (8.6-10.3) L 03/18/18 05:50 Phosphorus 2.6 mg/dL (2.5-5.0) 03/10/18 06:47 Magnesium 1.9 mg/dL (1.9-2.7) 03/15/18 06:40 Iron 78 ug/dL (38-169) 03/07/18 09:00 TIBC 182 ug/dL (250-450) L 03/07/18 09:00 Iron Saturation 43 % (15-55) 03/07/18 09:00 Unsaturated IBC 104 ug/dL (111-343) L 03/07/18 09:00 Ferritin 279 ng/mL (30-400) 03/07/18 09:00 Total Bilirubin 20.2 mg/dL (0.3-1.0) H 03/18/18 05:50 Direct Bilirubin 10.27 mg/dL (0.0-0.2) H 03/10/18 06:47 AST 136 U/L (13-39) H 03/18/18 05:50 ALT 118 U/L (7-52) H 03/18/18 05:50 Alkaline Phosphatase 300 U/L (34-104) H 03/18/18 05:50 Ammonia 44 umol/L (16-53) 03/05/18 18:45 Lactate Dehydrogenase 184 U/L (140-271) 03/10/18 06:47 Total Protein 4.9 gm/dL (6.0-8.3) L 03/18/18 05:50 Albumin 2.5 gm/dL (4.2-5.5) L 03/18/18 05:50 Globulin 2.4 gm/dL 03/18/18 05:50 Albumin/Globulin Ratio 1.0 (1.0-1.8) 03/18/18 05:50 Ceruloplasmin 31.8 mg/dL (16.0-31.0) H 03/07/18 09:00 Amylase 12 U/L (29-103) L 03/05/18 18:45 Lipase < 3 U/L (11-82) L 03/05/18 18:45 Tumor Marker AFP 1.2 ng/mL (0.0-8.3) 03/07/18 09:00 Carcinoembryonic Ag 3.1 ng/mL (0.0-4.7) 03/10/18 06:47 CA 19-9 Antigen 230 U/mL (0-35) H 03/10/18 06:47 FRANTZ Screen Negative 03/07/18 09:00 Anti-Mitochondrial Ab 5.9 Units (0.0-20.0) 03/07/18 09:00 Smooth Muscle IgG Ab 8 Units (0-19) 03/07/18 09:00 Hepatitis A IgM Ab Negative (Negative) 03/07/18 09:00 Hep Bs Antigen Negative (Negative) 03/07/18 09:00 Hep B Core IgM Ab Negative (Negative) 03/07/18 09:00 Hepatitis C Antibody <0.1 s/co ratio (0.0-0.9) 03/07/18 09:00 BELINDA, IgG Interpret NEGATIVE 03/13/18 06:35 - Physical Exam Vitals and I&O: Vital Signs Temp 97.8 F 03/19/18 04:00 Pulse 93 03/19/18 04:00 Resp 18 03/19/18 04:00 BP 95/55 03/19/18 04:00 Pulse Ox 97 03/19/18 04:00 Intake & Output 03/18/18 03/18/18 03/19/18 06:59 18:59 06:59 Intake Total 120 250 Balance 120 250 Weight (lbs) 93.848 kg 93.848 kg Intake: Oral 120 250 Other: # Voids 2 4 # Bowel Movements 1 0 Weight Source Bedscale Bedscale Active Medications: Current Medications Acetaminophen (Tylenol) 650 mg PO Q4H PRN PRN Reason: MILD PAIN Stop: 05/05/18 05:41 Last Admin: 03/17/18 20:58 Dose: 650 mg Donepezil HCl (Aricept) 10 mg PO HS [facility] Stop: 05/05/18 20:59 Last Admin: 03/18/18 22:13 Dose: 10 mg Famotidine (Pepcid) 20 mg PO BID [facility] Stop: 05/05/18 08:59 Last Admin: 03/18/18 16:55 Dose: 20 mg Potassium Chloride/Dextrose/Sod Cl (D5-0.45ns W/20 Meq Kcl) 1,000 mls @ 50 mls/ hr IV .Q20H [facility] Stop: 05/14/18 08:29 Last Admin: 03/18/18 17:13 Dose: 50 mls/hr Lorazepam (Ativan) 1 mg IVP Q6HR PRN; Protocol PRN Reason: Agitation Stop: 05/04/18 21:44 Last Admin: 11/26/18 21:44 Dose: 1 mg Lorazepam (Ativan) 1 mg IV BID [facility]; Protocol Stop: 05/08/18 08:59 Last Admin: 03/18/18 16:54 Dose: 1 mg Memantine (Namenda) 10 mg PO DAILY [facility] Stop: 05/05/18 08:59 Last Admin: 03/18/18 12:11 Dose: 10 mg Morphine Sulfate (Morphine) 1 mg IVP Q4HR PRN PRN Reason: Pain (Severe) Stop: 05/07/18 10:59 Last Admin: 03/16/18 15:36 Dose: 1 mg Quetiapine Fumarate (Seroquel) 150 mg PO BID [facility] Stop: 05/17/18 16:59 Last Admin: 03/18/18 16:55 Dose: 150 mg Rivaroxaban (Xarelto) 20 mg PO HS [facility] Stop: 05/06/18 20:59 Last Admin: 03/18/18 22:13 Dose: 20 mg General: Alert, No acute distress HEENT: Atraumatic, PERRLA, EOMI Neck: Supple Cardiovascular: Regular rate Lungs: Clear to auscultation Abdomen: Bowel sounds, Soft, no Tender, no Hepatomegaly, no Splenomegaly, no Distended Extremities: no Clubbing, no Cyanosis, no Edema Neurological: Normal speech Skin: Other (jaundice) Assessment/Plan - Assessment Assessment: Jaundice h/o leukemia HTN Schizophrenia Psychosis Dementia Depression Anxiety ASHD B/L DVT Leukocytosis hypomagenesemia hypokalemia - Plan Plan: continue current treatment. Nutritional Asmnt/Malnutr-PDOC - Dietary Evaluation Malnutrition Findings (Please click <Entered> for more info): Nutritional Asmnt/Malnutrition Start: 03/09/18 14: 20 Text: Status: Complete Freq: Protocol: Document 03/09/18 14:20 ESTHER (Rec: 03/09/18 15:11 ESTHER [email or web address]) Nutritional Asmnt/Malnutrition Patient General Information Nutritional Screening Moderate Risk Diagnosis jaundice, elevated coagulants Pertinent Medical Hx/Surgical Hx paranoid schizophrenia, depression, CAD, DVT, neuropathy, GERD, anxiety, dementia, acute lymphoblastic leukemia Subjective Information Pt resting in bed at time of visit. Pt appears confused and calm and states he likes his food, but also states he eats foods associated with his listed allergies. Spoke to CHELSEA Avalos who states pt is confused and is on restraints d/t being combative at times. Pt was NPO, but now on regular diet and RN states pt finished 75% of meals today with assist. Per EMR, PO intake 75-100% since admitted. Current Diet Order/ Nutrition Support regular Pertinent Medications D5-0.45ns, pepcid, seroquel, xarelto Pertinent Labs 03/09: K 3.4, Ca 8.3, glucose 130, Alb 2.8, Mg 1.7 03/08: K 3.1, Ca 8.3, glucose 100, Alb 2.6 Nutritional Hx/Data Height 1.88 m Height (Calculated Centimeters) 188.0 Current Weight (lbs) 93.894 kg Weight (Calculated Kilograms) 93.9 Weight (Calculated Grams) 68251.6 [place] Body Weight 190 lb Body Mass Index (BMI) 26.6 Weight Status Overweight GI Symptoms GI Symptoms None Last BM 03/06 Difficult in: None Food Allergies Yes: milk, wheat, sesame seed, shrimp, egg white Skin Integrity/Comment: jaundiced; reddened rashes to right axilla, right chest, and right upper arm; reddened buttocks; marilou 13 Current %PO Good (75-100%) Estimated Nutritional Goals BEE in Kcals: Using Current wt Calories/Kcals/Kg 25-30 Kcals Calculated 4594-3350 Protein: Using Current wt Protein g/k.0 Protein Calculated 94 g Fluid: ml 8495-5862 (1 ml/kcal) Nutritional Problem 1. Problem Problem Altered nutrition related lab values Etiology electrolyte imbalance Signs/Symptoms: K 3.4, Ca 8.3, Mg 1.7 Malnutrition Alert Is there a minimum of two criteria No selected? Query Text:Check all the applicable criteria. A minimum of two criteria are recommended for diagnosis of either severe or non-severe malnutrition. Malnutrition Related to Morbid Obesity Malnutrition related to morbid obesity No Intervention/Recommendation Comments 1. Continue with regular diet as ordered and MD to replace electrolytes as needed 2. Consider adding nutrition supplement if needs not met through diet alone 3. Monitor PO intake, wt, labs and skin integrity 4. F/U as moderate risk in 3-5 days, 03/12- Expected Outcomes/Goals Expected Outcomes/Goals 1. PO intake at least 75% of all meals 2. Wt stability, skin integrity to improve, and nutrition related labs to approach normal limits Reviewed by Judy Fitch RD
[2018-03-19 06:59] LABS: HEMATOCRIT 34.7 % (41.0-60); HEMOGLOBIN 11.8 gm/dL (12-16); MEAN CELL VOLUME 87.2 fl (80-99); MEAN CORPUSCULAR HEMOGLOBIN 29.7 pg (27.0-31.0); MEAN CORPUSCULAR HGB CONC 34.1 pg (28.0-36.0); MEAN PLATELET VOLUME 8.8 fl; PLATELET COUNT 309 Th/cmm (150-400); RED BLOOD COUNT 3.98 Mil/cmm (3.80-5.80); RED CELL DISTRIBUTION WIDTH 19.1 % (11.5-20.0)
[2018-03-19 07:01] LABS: WHITE BLOOD COUNT 92.4 Th/cmm (4.8-10.8)
[2018-03-19 07:46] LABS: ALBUMIN 2.4 gm/dL (4.2-5.5); ALKALINE PHOSPHATASE 313 U/L (34-104); ANION GAP 12.3 (7.0-16.0); BILIRUBIN,TOTAL 19.9 mg/dL (0.3-1.0); BUN - UREA NITROGEN 12 mg/dL (7-25); CALCIUM SERUM 7.9 mg/dL (8.6-10.3); CARBON DIOXIDE 26.2 mEq/L (21.0-31.0); CHLORIDE 102 mEq/L (98-107); CREATININE - SERUM 0.9 mg/dL (0.7-1.3); GLUCOSE 111 mg/dL (70-105); POTASSIUM SERUM 3.5 mEq/L (3.5-5.1); SGOT 145 U/L (13-39); SGPT/ALT 116 U/L (7-52); SODIUM SERUM 137 mEq/L (136-145); TOTAL PROTEIN,SERUM 4.9 gm/dL (6.0-8.3)
[2018-03-19 08:21] LABS: BAND NEUTROPHILE 0 % (0-10); LYMPHOCYTE 84 % (20-50); MONOCYTE 3 % (2-10); NEUTROPHILS 12 % (40-80)
[2018-03-19 08:22] LABS: BASOPHIL 0 % (0-3); EOSINOPHIL 1 % (0-5)
--- NOTE | 2018-03-20 08:50 | Discharge Summary ---
DATE OF DISCHARGE: 03/20/2018 PRELIMINARY DIAGNOSES: 1. Jaundice. 2. History of leukemia. 3. Hypertension. 4. Schizophrenia. 5. Psychosis. 6. Dementia. 7. Depression. 8. Anxiety. 9. Atherosclerotic heart disease. 10. Bilateral deep vein thrombosis. DISCHARGE DIAGNOSES: 1. Jaundice. 2. History of leukemia. 3. Hypertension. 4. Schizophrenia. 5. Psychosis. 6. Dementia. 7. Depression. 8. Anxiety. 9. Atherosclerotic cardiovascular disease. 10. Bilateral deep vein thrombosis. 11. Leukocytosis. 12. Hypomagnesemia. 13. Hypokalemia. BRIEF HISTORY OF PRESENT ILLNESS: This is an 83-year-old male who presents to [facility] ER from [facility] for elevated WBCs and abnormal lab work. He has a previous history of lymphoblastic leukemia along with paranoid schizophrenia, depression, coronary artery disease, history of DVT, neuropathy, gastroesophageal reflux disease, anxiety disorder, and dementia. While in the ER, he had some initial lab work, which revealed white count of 95,000, hemoglobin of 12.6, hematocrit 37.7, platelets of 287. His differential showed lymphocytes 78, neutrophils 12. PT was noted to be at 32.4, INR 3.3. Sodium 144, potassium 3.7, chloride 109, bicarb 24, BUN 14, creatinine 0.8. His whole blood lactic acid was 2.3, total bilirubin is 11.9, AST was 189, ALT 211, alk phos 306, albumin 3.0. The patient was subsequently admitted for further evaluation and treatment. HOSPITAL COURSE: The patient was seen and evaluated by GI, please see dictated report as well as Hematology/Oncology, see dictated report. The patient underwent an abdominal ultrasound along with abdominal pelvis CT. Please see dictated report. A HIDA scan also was ordered, which did not show any evidence of gallstones. It was recommended by GI for the patient to undergo an endoscopic biopsy to verify the source of the jaundice. The patient, however, needed further evaluation at a tertiary care center, which was arranged following discharge of the patient from the [place] [facility] [place] help of Dr. Lyons. The patient was then subsequently [facility] to the [facility], was to follow up with GI in 1 week. [facility]# [id number]
== END 2018-03-19 21:10 | DRG 444 ==
LOC: ER 18:15 → TELE 21:23
PROVIDERS: ADMIT Family Medicine; ATTEND Family Medicine
DX: K83.1 Obstruction of bile duct (principal); E43 Unspecified severe protein-calorie malnutrition; R17 Unspecified jaundice; C91.10 Chronic lymphocytic leukemia of B-cell type not having achieved remission; I82.413 Acute embolism and thrombosis of femoral vein, bilateral; I82.433 Acute embolism and thrombosis of popliteal vein, bilateral; I10 Essential (primary) hypertension; F29 Unspecified psychosis not due to a substance or known physiological condition; F20.9 Schizophrenia, unspecified; F32.9 Major depressive disorder, single episode, unspecified; F03.90 Unspecified dementia, unspecified severity, without behavioral disturbance, psychotic disturbance, mood disturbance, and anxiety; I25.10 Atherosclerotic heart disease of native coronary artery without angina pectoris; F41.9 Anxiety disorder, unspecified; E87.6 Hypokalemia; G62.9 Polyneuropathy, unspecified; E83.42 Hypomagnesemia; Z88.0 Allergy status to penicillin; Z86.718 Personal history of other venous thrombosis and embolism; Z79.899 Other long term (current) drug therapy; Z91.012 Allergy to eggs; Z91.011 Allergy to milk products; Z68.26 Body mass index [BMI] 26.0-26.9, adult
CPT/HCPCS: 36415-UA; 73030-TC-LT; 76700-TC; 78226-TC; 80053-TC; 80074-90; 82105-90; 82140-TC; 82150-TC; 82248-TC; 82378-90; 82390-90; 82728-90; 83010-90; 83516-90; 83540-90; 83550-90; 83605; 83615-TC; 83690-TC; 83735-TC; 84100-TC; 85007-TC; 85025-TC; 85044-TC; 85049-TC; 85379-TC; 85384-TC; 85610-TC; 85730-TC; 86038-90; 86255-90; 86301-90; 86880-TC; 90784; 93970-TC-50; 96374; A9537; J1940; J1956; J2060; J2270; J3430; J3475; J3480; J7030; Z7610